=== PATIENT | male | born 1940 | race Caucasian/White ===

== ENCOUNTER 2020-01-08 00:05 | Outpatient (CLI) | payer MEDICARE, SELFPAY ==
[2020-01-08 18:54] LABS: SARS-CoV-2 RNA PCR Negative
== END 2020-01-08 00:06 | disposition home or self-care (01) ==
LOC: ANHCOVIDDT 00:05
PROVIDERS: PCP Internal Medicine; Visit Provider Internal Medicine Gastroenterology
DX: Z01.818 Encounter for other preprocedural examination (principal); Z11.59 Encounter for screening for other viral diseases
CPT/HCPCS: 87635; C9803; U0003

== ENCOUNTER 2020-01-10 02:11 | Day surgery (SDC) | payer MEDICARE, SELFPAY ==
[2020-01-03 15:31] VITALS: BMI 22.1
[2020-01-10 07:55] VITALS: BP 126/72; PULSE 73; RESP 16; TEMP 37; O2SAT 94; BMI 37.3
[2020-01-10] MEDS: LACTATED RINGERS 1,000 ML 150 ML IV CONT (08:09)
--- NOTE | 2020-01-10 08:39 | WPDGICN ---
Assessment and Plan Assessment and plan (1) History of colon polyps: Code(s): Z86.010 - Personal history of colonic polyps Status: Acute Assessment and Plan: Plan is for surveillance colonoscopy because of his history of colon polyps. This report follow separately. GI Consult Note Consult date/time: 01/10/20 08:39 HPI: Vinod Tomas is a 79 year old male seen in evaluation at the request of Dr Darnell. Patient presents for screening colonoscopy. Patient has had a history of colon polyps in the past. Current weight appetite bowel movements are normal. He denies any blood in his stools. He currently is a resident of [facility] and notes occasional bowel irregularity that he attributes to his new diet. He states the had hip surgery 2 years ago now walks with a cane. He denies any blood in his stools. His family history is noncontributory. Review of Systems Review of Systems: All systems reviewed & are unremarkable except as noted in HPI and below PMFSH Family History Family History (System 12/19/19 @ 13:23 by Nan Mcduffie) Mother Acute myocardial infarction Father Family history of primary malignant neoplasm of liver Family history of liver disease Other Family history of alcoholism Social History Social History Smoking status: Never smoker Smoking end date: 07/12/07 Alcohol intake: never Meds Home Medications and Allergies Home Medications Medication Instructions Recorded Confirmed Type hydrochlorothiazide 12.5 mg tablet 12.5 mg PO DAILY #90 tablet 06/14/19 01/03/20 Rx carvedilol 12.5 mg tablet 12.5 mg PO Q12H #180 tablet 09/07/19 01/03/20 Rx metformin 500 mg tablet 500 mg PO BID #180 tablet 11/13/19 01/03/20 Rx clopidogrel 75 mg tablet See Rx Instructions .ROUTE 12/05/19 01/03/20 Rx .COMPLEX #90 unspecified clonazepam 1 mg tablet 1 mg PO TID PRN #90 tablet 12/19/19 01/03/20 Rx aspirin [Aspirin Low Dose] 81 mg PO DAILY 01/03/20 01/03/20 History calcium carb-D3-mag ox-zinc ox 1 tablet PO DAILY 01/03/20 01/03/20 History [Yash Mag Zinc Plus D3] cetirizine [Zyrtec] 5 mg PO DAILY PRN 01/03/20 01/03/20 History diphenhydramine HCl [Benadryl] 25 mg PO HS PRN 01/03/20 01/03/20 History docusate sodium [Stool Softener] 50 mg PO DAILY 01/03/20 01/03/20 History glucosam boyer fik-osajbutgk-G-Mn 1 tablet PO DAILY 01/03/20 01/03/20 History cqpjwdhz-qrs-QC-lycopen-lutein 1 tablet PO DAILY 01/03/20 01/03/20 History [Centrum Silver Men] gjwtx-3k-tdu-epa-fish oil [[place]-3 1 cap PO BID 01/03/20 01/03/20 History Fish Oil] pravastatin 40 mg PO DAILY 01/03/20 01/03/20 History Allergies Allergy/AdvReac Type Severity Reaction Status Date / Time codeine Allergy Unknown Unknown Verified 01/10/20 07:54 morphine Allergy Unknown Unknown Verified 01/10/20 07:54 Vital Signs Vital Signs - 24 hr 01/10/20 07:55 Temperature 37.0 C Pulse Rate 73 Respiratory Rate 16 Blood Pressure 126/72 Pulse Oximetry 94 Exam Narrative: Exam Narrative: Physical exam reveals patient to be alert. Vital signs stable. HEENT exam unremarkable. He is anicteric. Lungs are clear to auscultation and percussion. Heart is without or extra sounds. Abdominal exam bowel sounds present soft nontender with no organomegaly. Digital external rectal exam normal.
--- NOTE | 2020-01-10 09:03 | WPDANESEPPF ---
Anes - Initial Pre Proc Eval Procedure: Operation Date: 01/10/20 09:00 Proposed Procedures p Screening Colonoscopy - James Lee MD Date/Time: 01/10/20 09:03 Surgeon: James Lee MD Pre Op Diagnosis: person hx of colon polyps Patient Data Age: 79 Gender: M Height: 5 ft 10 in Weight: 118 kg Last Vital Signs Temp 98.6 F 01/10/20 07:55 Pulse 73 01/10/20 07:55 Resp 16 01/10/20 07:55 BP 126/72 01/10/20 07:55 Pulse Ox 94 01/10/20 07:55 Allergies Allergy/AdvReac Type Severity Reaction Status Date / Time codeine Allergy Unknown Unknown Verified 01/10/20 07:54 morphine Allergy Unknown Unknown Verified 01/10/20 07:54 Home Medications Medication Instructions Recorded Confirmed Type hydrochlorothiazide 12.5 mg tablet 12.5 mg PO DAILY #90 tablet 06/14/19 01/03/20 Rx carvedilol 12.5 mg tablet 12.5 mg PO Q12H #180 tablet 09/07/19 01/03/20 Rx metformin 500 mg tablet 500 mg PO BID #180 tablet 11/13/19 01/03/20 Rx clopidogrel 75 mg tablet See Rx Instructions .ROUTE 12/05/19 01/03/20 Rx .COMPLEX #90 unspecified clonazepam 1 mg tablet 1 mg PO TID PRN #90 tablet 12/19/19 01/03/20 Rx aspirin [Aspirin Low Dose] 81 mg PO DAILY 01/03/20 01/03/20 History calcium carb-D3-mag ox-zinc ox 1 tablet PO DAILY 01/03/20 01/03/20 History [Yash Mag Zinc Plus D3] cetirizine [Zyrtec] 5 mg PO DAILY PRN 01/03/20 01/03/20 History diphenhydramine HCl [Benadryl] 25 mg PO HS PRN 01/03/20 01/03/20 History docusate sodium [Stool Softener] 50 mg PO DAILY 01/03/20 01/03/20 History glucosam boyer kus-clauphrnr-L-Mn 1 tablet PO DAILY 01/03/20 01/03/20 History lbbxdwnj-fif-JP-lycopen-lutein 1 tablet PO DAILY 01/03/20 01/03/20 History [Colin Figueroa] ciihm-9t-vkt-epa-fish oil [[place]-3 1 cap PO BID 01/03/20 01/03/20 History Fish Oil] pravastatin 40 mg PO DAILY 01/03/20 01/03/20 History Patient hx anesthesia problems: none Family hx anesthesia problems: none [facility] Past Medical History Medical History (Updated 01/10/20 @ 09:03 by Saqib Atkinson MD) Anxiety Diabetes Hyperlipidemia Hypertension Obesity ROBER (obstructive sleep apnea) Pacemaker Peripheral neuropathy Family History Family History (System 12/19/19 @ 13:23 by Nan Mcduffie) Mother Acute myocardial infarction Father Family history of primary malignant neoplasm of liver Family history of liver disease Other Family history of alcoholism Social History Social History Smoking status: Never smoker Smoking end date: 07/12/07 Alcohol intake: never Anes - Eval Final PreProcedure Day of Procedure 01/10/20 09:03 Patient weight: obese Heart: regular rate and rhythm Lungs: clear to auscultation Airway: Mallampati scale class III Neurological: alert and oriented Last oral intake: >/= 8 hours ASA classification: IV Emergent: no Anesthetic plan: proceed Anesthesia type and monitoring: general GIVS and standard monitoring Informed Consent: The patient's anesthetic plan and its attendant risks and benefits were discussed with the patient/family/POA. Questions were solicited and answers provided to the satisfaction of the patient/family/POA.
[2020-01-10] MEDS: SIMETHICONE ORAL SUSPENSION 20 MG/0.3 ML 30 ML BOTTLE 0.6 ML IRRIGATION (09:20)
[2020-01-10 09:27] VITALS: BP 100/62; PULSE 75; RESP 22; O2SAT 92
[2020-01-10 09:37] VITALS: BP 123/75; PULSE 73; RESP 27; O2SAT 94
[2020-01-10 09:47] VITALS: BP 134/49; PULSE 71; RESP 22; O2SAT 96
[2020-01-11 13:30] LABS: Glucose Point of Care 129 (65-105)
== END 2020-01-10 10:14 | disposition home or self-care (01) ==
PROVIDERS: PCP Internal Medicine; Visit Provider Internal Medicine Gastroenterology
PROC: 0DJD8ZZ Inspection of Lower Intestinal Tract, Via Natural or Artificial Opening Endoscopic (ICD-10-PCS; CPT 45378; principal; 2020-01-10 09:00)
DX: Z12.11 Encounter for screening for malignant neoplasm of colon (principal); K64.8 Other hemorrhoids; Z86.010 Personal history of colon polyps; I10 Essential (primary) hypertension; E78.5 Hyperlipidemia, unspecified; E11.40 Type 2 diabetes mellitus with diabetic neuropathy, unspecified; G47.33 Obstructive sleep apnea (adult) (pediatric); Z95.0 Presence of cardiac pacemaker; F41.9 Anxiety disorder, unspecified; Z79.82 Long term (current) use of aspirin; Z79.02 Long term (current) use of antithrombotics/antiplatelets; Z79.84 Long term (current) use of oral hypoglycemic drugs; E66.9 Obesity, unspecified; Z68.37 Body mass index [BMI] 37.0-37.9, adult
CPT/HCPCS: G0105; J2704; J7120

== ENCOUNTER 2020-05-08 09:41 | Outpatient (CLI) | payer MEDICARE, SELFPAY ==
[2020-05-08 10:56] LABS: Basophils Absolute Auto 0.1 K/mm3 (0.0-0.1); Basophils Percent Auto 0.6 % (0.2-1.2); Eosinophils Absolute Auto 0.3 K/mm3 (0-0.3); Hematocrit 47.6 % (42.0-52.0); Hemoglobin 16.1 g/dL (14.0-18.0); Immature Granulocyte Absolute 0.02 K/mm3 (0.00-0.031); Immature Granulocyte Percent A 0.2 % (0-0.5); Lymphocytes Absolute Auto 2.73 K/mm3 (0.9-3.2); Lymphocytes Percent Auto 30.2 % (18.3-44.2); Mean Corpuscular HGB Conc 33.8 g/dl (32-36); Mean Corpuscular Volume 94.6 fl (80-100); Mean Platelet Volume 10.2 fl (7.4-10.4); Monocytes Absolute Auto 0.8 K/mm3 (0.1-0.6); Monocytes Percent Auto 8.6 % (2.6-8.5); Neutrophils Absolute Auto 5.2 K/mm3 (1.3-6.7); Neutrophils Percent Auto 57.4 % (45.5-73.1); Platelet Count Result 203 k/mm3 (150-375); Red Blood Count 5.03 M/mm3 (4.6-6.20); Red Cell Distribution Width 13.5 % (11.5-14.5)
[2020-05-08 11:03] LABS: Hemoglobin A1C 5.8 % (<5.7)
[2020-05-08 11:04] LABS: Alanine Aminotransferase 41 U/L (4-50); Albumin Level 4.2 g/dL (3.5-5.1); Alkaline Phosphatase 61 U/L (38-126); Anion Gap 9 mmol/L (8-16); Aspartate Amino Transferase 44 U/L (17-59); Bilirubin,Total 0.9 mg/dL (0.2-1.3); Blood Urea Nitrogen 22 mg/dL (9-20); Calcium 9.5 mg/dL (8.4-10.2); Carbon Dioxide 29 mmol/L (22-30); Chloride 105 mmol/L (98-107); Cholesterol 147 mg/dL (0-200); Estimated Glomerular Filt Rate > 60; Glucose 131 mg/dL (75-110); HDL Direct 41 mg/dL; Potassium 3.9 mmol/L (3.4-5.0); Sodium 143 mmol/L (137-145); Triglycerides 106 mg/dL (<150)
[2020-05-08 11:15] LABS: LDL Cholesterol Direct 85 mg/dL
[2020-05-11 11:45] LABS: Homocysteine 10.5 umol/L (<11.4)
== END 2020-05-08 09:42 | disposition home or self-care (01) ==
PROVIDERS: PCP Internal Medicine; Visit Provider Internal Medicine
DX: I10 Essential (primary) hypertension (principal); R73.03 Prediabetes; E78.2 Mixed hyperlipidemia; Z79.899 Other long term (current) drug therapy; Z86.010 Personal history of colon polyps
CPT/HCPCS: 36415; 80053; 80061; 83036; 83090; 84443; 85025

== ENCOUNTER 2020-10-01 08:53 | Outpatient (CLI) | payer MEDICARE, SELFPAY ==
[2020-10-01 09:27] LABS: Add Urine Microscopic? YES; Appearance Urine Clear (Clear); Bacteria Urine 4+ /hpf; Bilirubin Urine Negative (Negative); Blood Urine Negative (Negative); Color Urine Yellow (Yellow); Glucose Urine UA Negative (Negative); Ketones Urine Negative (Negative); Leukocyte Esterase Ur Trace LEU/UL (NEGATIVE); Mucus Urine Heavy /lpf; Nitrate Urine Negative (Negative); Protein Urine Negative (Negative); Squamous Epithelial Cell Urine Rare /hpf (Few); Urobilinogen Urine Negative mg/dL (<2.0)
[2020-10-01 09:30] LABS: Hemoglobin A1C 5.9 % (<5.7)
[2020-10-01 09:42] LABS: Potassium 3.9 mmol/L (3.4-5.0)
[2020-10-01 09:43] LABS: Anion Gap 9 mmol/L (8-16); Blood Urea Nitrogen 25 mg/dL (9-20); Calcium 9.8 mg/dL (8.4-10.2); Carbon Dioxide 27 mmol/L (22-30); Chloride 105 mmol/L (98-107); Cholesterol 142 mg/dL (0-200); Estimated Glomerular Filt Rate > 60; Glucose 131 mg/dL (75-110); HDL Direct 47 mg/dL; Sodium 141 mmol/L (137-145); Triglycerides 107 mg/dL (<150)
[2020-10-01 09:44] LABS: LDL Cholesterol Direct 77 mg/dL
[2020-10-01 09:58] LABS: Creatinine Urine 201.8 mg/dL
[2020-10-01 10:04] LABS: MALB Creatinine Ratio 18.7 mg/g (0-30); Microalbumin Urine Random 37.7 mg/L (0-16.7)
== END 2020-10-01 08:54 | disposition home or self-care (01) ==
PROVIDERS: PCP Internal Medicine; Visit Provider Internal Medicine
DX: R73.03 Prediabetes (principal); I10 Essential (primary) hypertension; Z51.81 Encounter for therapeutic drug level monitoring; Z79.899 Other long term (current) drug therapy
CPT/HCPCS: 36415; 80048; 80061; 81001; 82043; 83036; 84443

== ENCOUNTER 2020-10-02 10:57 | Outpatient (CLI) | payer MEDICARE, SELFPAY ==
[2020-10-02 11:31] LABS: Add Urine Microscopic? YES; Appearance Urine Cloudy (Clear); Bacteria Urine 4+ /hpf; Bilirubin Urine Negative (Negative); Blood Urine Negative (Negative); Color Urine Amber (Yellow); Glucose Urine UA Negative (Negative); Ketones Urine Negative (Negative); Leukocyte Esterase Ur 2+ LEU/UL (NEGATIVE); Mucus Urine Heavy /lpf; Nitrate Urine Positive (Negative); Protein Urine 1+ mg/dL (Negative); RBC Urine 0-2 /hpf (0-2); Squamous Epithelial Cell Urine Rare /hpf (Few); Urobilinogen Urine Negative mg/dL (<2.0); WBC Urine 51-75 /hpf (0-3)
== END 2020-10-02 10:58 | disposition home or self-care (01) ==
PROVIDERS: PCP Internal Medicine; Visit Provider Internal Medicine
DX: R31.9 Hematuria, unspecified (principal); R82.90 Unspecified abnormal findings in urine
CPT/HCPCS: 81001; 87077; 87086; 87088; 87186

== ENCOUNTER 2021-02-14 09:06 | Outpatient (CLI) | payer MEDICARE, SELFPAY ==
[2021-02-14 09:29] LABS: Basophils Absolute Auto 0.1 K/mm3 (0.0-0.1); Basophils Percent Auto 0.5 % (0.2-1.2); Eosinophils Absolute Auto 0.3 K/mm3 (0-0.3); Eosinophils Percent Auto 3.1 % (0-4.4); Hematocrit 48.7 % (42.0-52.0); Hemoglobin 16.3 g/dL (14.0-18.0); Immature Granulocyte Absolute 0.04 K/mm3 (0.00-0.031); Immature Granulocyte Percent A 0.4 % (0-0.5); Lymphocytes Absolute Auto 2.84 K/mm3 (0.9-3.2); Mean Corpuscular HGB Conc 33.5 g/dl (32-36); Mean Corpuscular Hemoglobin 31.8 pg (26-34); Mean Corpuscular Volume 94.9 fl (80-100); Mean Platelet Volume 10.2 fl (7.4-10.4); Monocytes Absolute Auto 0.9 K/mm3 (0.1-0.6); Monocytes Percent Auto 8.7 % (2.6-8.5); Neutrophils Absolute Auto 6.4 K/mm3 (1.3-6.7); Neutrophils Percent Auto 60.3 % (45.5-73.1); Platelet Count Result 209 k/mm3 (150-375); Red Blood Count 5.13 M/mm3 (4.6-6.20); Red Cell Distribution Width 13.3 % (11.5-14.5); White Blood Count 10.5 K/mm3 (4.5-10.0)
[2021-02-14 09:39] LABS: Anion Gap 8 mmol/L (8-16); Blood Urea Nitrogen 23 mg/dL (9-20); Calcium 9.9 mg/dL (8.4-10.2); Carbon Dioxide 27 mmol/L (22-30); Chloride 105 mmol/L (98-107); Cholesterol 144 mg/dL (0-200); Estimated Glomerular Filt Rate > 60; Glucose 126 mg/dL (65-110); HDL Direct 49 mg/dL; Sodium 140 mmol/L (137-145); Triglycerides 123 mg/dL (<150)
[2021-02-14 09:49] LABS: LDL Cholesterol Direct 66 mg/dL
[2021-02-14 09:51] LABS: Hemoglobin A1C 6.2 % (<5.7)
[2021-02-14 09:54] LABS: Free T4 Free Thyroxine 1.13 ng/mL (0.78-2.19)
[2021-02-14 10:09] LABS: Thyroid Stimulating Hormone 0.897 uIU/mL (0.465-4.680)
[2021-02-18 08:19] LABS: Vitamin D 1,25 (OH)2 Total 35 pg/mL (18-72); Vitamin D2 1,25 (OH)2 <8 pg/mL; Vitamin D3 1,25 (OH)2 35 pg/mL
== END 2021-02-14 09:07 | disposition home or self-care (01) ==
LOC: ANHLAB 09:09
PROVIDERS: PCP Internal Medicine; Visit Provider Internal Medicine
DX: E78.5 Hyperlipidemia, unspecified (principal); Z51.81 Encounter for therapeutic drug level monitoring; Z79.899 Other long term (current) drug therapy; R73.03 Prediabetes; I10 Essential (primary) hypertension; E55.9 Vitamin D deficiency, unspecified
CPT/HCPCS: 36415; 80048; 80061; 82652; 83036; 84439; 84443; 85025

== ENCOUNTER 2021-05-07 12:02 | Emergency (ER) | payer MEDICARE, SELFPAY ==
[2021-05-07 12:18] VITALS: BP 149/86; PULSE 86; RESP 17; TEMP 36.1; O2SAT 95
--- NOTE | 2021-05-07 12:40 | ED.GENADULT ---
HPI - General Adult General Chief complaint: Skin/Abscess/Foreign Body Stated complaint: abscess Time Seen by Provider: 05/07/21 12:39 Source: patient Mode of arrival: wheelchair Limitations: no limitations History of Present Illness HPI narrative: Patient was sent from primary care physician office for I&D of an abscess believed to be caused by his most recent Covid vaccine. Onset (ago): day(s) (10) Exacerbating factors: none Associated symptoms: denies other symptoms Related Data Home Medications Medication Instructions Recorded Confirmed aspirin [Aspirin Low Dose] 81 mg PO DAILY 01/03/20 02/26/21 calcium carb-D3-mag ox-zinc ox 1 tablet PO DAILY 01/03/20 02/26/21 [Yash Mag Zinc Plus D3] glucosam boyer hcj-nsulwqrqt-N-Mn 1 tablet PO DAILY 01/03/20 02/26/21 lmpcyhgs-bub-LH-lycopen-lutein 1 tablet PO DAILY 01/03/20 02/26/21 [Centrum Silver Men] inlym-2l-esc-epa-fish oil [[place]-3 1 cap PO BID 01/03/20 02/26/21 Fish Oil] cetirizine 10 mg tablet 5 mg PO BID PRN tablet 06/14/20 02/26/21 docusate sodium 50 mg capsule 50 mg PO DAILY PRN 02/26/21 02/26/21 carvedilol 05/07/21 clonazepam 05/07/21 clonazepam 05/07/21 clopidogrel 05/07/21 doxycycline hyclate 05/07/21 hydrochlorothiazide 05/07/21 metformin mg 05/07/21 pravastatin 05/07/21 Allergies Allergy/AdvReac Type Severity Reaction Status Date / Time codeine Allergy Unknown Unknown Verified 05/07/21 13:06 morphine Allergy Unknown Unknown Verified 05/07/21 13:06 Review of Systems Review of Systems: All systems reviewed & are unremarkable except as noted in HPI and below PMFSH Past Medical History Medical History Anxiety Anxiety ASHD (arteriosclerotic heart disease) BMI 38.0-38.9,adult Cardiac pacemaker in situ Diabetes Encounter for long-term current use of medication Encounter for Medicare annual wellness exam Encounter for routine adult health examination without abnormal findings Essential (primary) hypertension Hearing loss History of DVT (deep vein thrombosis) History of frequent urinary tract infections History of prostate cancer Hyperlipidemia Hypertension Microalbuminuria Mixed hyperlipidemia Obesity 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 ROBER (obstructive sleep apnea) Pacemaker Peripheral neuropathy Prediabetes Skin cancer Urinary incontinence, male, stress UTI (urinary tract infection) Family History Family History Mother Acute myocardial infarction Father Family history of primary malignant neoplasm of liver Family history of liver disease Other Family history of alcoholism Social History Social History Smoking status: Former smoker Smoking end date: 05/12/76 Alcohol intake: never Exam Const: General: no acute distress and alert Orientation/consciousness: patient oriented x3 Resp: Effort & Inspection: normal respiratory effort Cardio: Rate: regular rate Skin: General skin exam: erythema (surrounding abscess, ~ 8 cm around) Lesions: lesion noted (large abscess left deltoid, scabbed at base from spont opening) Wounds: wounds noted Neuro: General: patient oriented x3 and moves all extremities Psych: Mental Status: mental status grossly normal Course Vital Signs Vital signs: Vital Signs Temperature 36.1 C L 05/07/21 12:18 Pulse Rate 86 05/07/21 12:18 Respiratory Rate 17 05/07/21 12:18 Blood Pressure 149/86 H 05/07/21 12:18 Pulse Oximetry 95 05/07/21 12:18 Temperature 36.1 C L 05/07/21 12:18 Pulse Rate 86 05/07/21 12:18 Respiratory Rate 17 05/07/21 12:18 Blood Pressure 149/86 H 05/07/21 12:18 Pulse Oximetry 95 05/07/21 12:18 Procedures Abscess I/D upper extremity: Date of Incision: 05/07/21 Time of Incision: 13:34 Side (if applicable): left Sedation/analgesia: none Local
== END 2021-05-07 14:28 | disposition home or self-care (01) ==
PROVIDERS: Emergency Provider Emergency Medicine; PCP Internal Medicine
DX: L03.114 Cellulitis of left upper limb (principal); F41.9 Anxiety disorder, unspecified; I25.10 Atherosclerotic heart disease of native coronary artery without angina pectoris; Z95.0 Presence of cardiac pacemaker; Z87.440 Personal history of urinary (tract) infections; I10 Essential (primary) hypertension; E78.5 Hyperlipidemia, unspecified
CPT/HCPCS: 10061; 99282

== ENCOUNTER 2021-06-20 09:50 | Outpatient (CLI) | payer MEDICARE, SELFPAY ==
[2021-06-20 11:03] LABS: Alanine Aminotransferase 41 U/L (4-50); Albumin Level 4.5 g/dL (3.5-5.1); Alkaline Phosphatase 65 U/L (38-126); Anion Gap 11 mmol/L (8-16); Aspartate Amino Transferase 39 U/L (17-59); Bilirubin,Total 0.9 mg/dL (0.2-1.3); Blood Urea Nitrogen 20 mg/dL (9-20); Calcium 9.8 mg/dL (8.4-10.2); Carbon Dioxide 24 mmol/L (22-30); Chloride 99 mmol/L (98-107); Cholesterol 160 mg/dL (0-200); Estimated Glomerular Filt Rate > 60; Glucose 121 mg/dL (65-110); HDL Direct 44 mg/dL; Potassium 3.8 mmol/L (3.4-5.0); Sodium 134 mmol/L (137-145); Triglycerides 147 mg/dL (<150)
[2021-06-20 11:07] LABS: Hemoglobin A1C 5.8 % (<5.7)
[2021-06-20 11:14] LABS: LDL Cholesterol Direct 93 mg/dL
[2021-06-20 11:23] LABS: Vitamin D 25 Hydroxy 42.8 ng/mL
== END 2021-06-20 09:51 | disposition home or self-care (01) ==
LOC: ANHLAB 09:55
PROVIDERS: PCP Internal Medicine; Visit Provider Internal Medicine
DX: R73.03 Prediabetes (principal); E55.9 Vitamin D deficiency, unspecified; I10 Essential (primary) hypertension; E78.5 Hyperlipidemia, unspecified
CPT/HCPCS: 36415; 80053; 80061; 82306; 83036

== ENCOUNTER 2021-11-07 08:45 | Outpatient (CLI) | payer MEDICARE, SELFPAY ==
[2021-11-07 09:06] LABS: Basophils Absolute Auto 0.1 K/mm3 (0.0-0.1); Basophils Percent Auto 0.6 % (0.2-1.2); Eosinophils Absolute Auto 0.3 K/mm3 (0-0.3); Eosinophils Percent Auto 3.1 % (0-4.4); Hematocrit 49.1 % (42.0-52.0); Immature Granulocyte Absolute 0.04 K/mm3 (0.00-0.031); Immature Granulocyte Percent A 0.4 % (0-0.5); Lymphocytes Absolute Auto 3.49 K/mm3 (0.9-3.2); Lymphocytes Percent Auto 32.3 % (18.3-44.2); Mean Corpuscular HGB Conc 32.6 g/dl (32-36); Mean Corpuscular Hemoglobin 31.9 pg (26-34); Mean Corpuscular Volume 97.8 fl (80-100); Mean Platelet Volume 10.4 fl (7.4-10.4); Monocytes Absolute Auto 0.9 K/mm3 (0.1-0.6); Monocytes Percent Auto 8.6 % (2.6-8.5); Neutrophils Absolute Auto 5.9 K/mm3 (1.3-6.7); Platelet Count Result 192 k/mm3 (150-375); Red Blood Count 5.02 M/mm3 (4.6-6.20); Red Cell Distribution Width 14.1 % (11.5-14.5); White Blood Count 10.8 K/mm3 (4.5-10.0)
[2021-11-07 09:19] LABS: Alanine Aminotransferase 30 U/L (4-50); Albumin Level 4.1 g/dL (3.5-5.1); Alkaline Phosphatase 60 U/L (38-126); Anion Gap 8 mmol/L (8-16); Aspartate Amino Transferase 30 U/L (17-59); Bilirubin,Total 0.8 mg/dL (0.2-1.3); Blood Urea Nitrogen 24 mg/dL (9-20); Calcium 9.2 mg/dL (8.4-10.2); Carbon Dioxide 25 mmol/L (22-30); Chloride 106 mmol/L (98-107); Cholesterol 148 mg/dL (0-200); Estimated Glomerular Filt Rate > 60; Glucose 120 mg/dL (65-110); HDL Direct 43 mg/dL; Sodium 139 mmol/L (137-145); Triglycerides 110 mg/dL (<150)
[2021-11-07 09:30] LABS: LDL Cholesterol Direct 70 mg/dL
[2021-11-07 09:44] LABS: Hemoglobin A1C 5.7 % (<5.7)
[2021-11-07 09:49] LABS: Thyroid Stimulating Hormone 0.963 uIU/mL (0.465-4.680)
[2021-11-07 10:19] LABS: Free T4 Free Thyroxine 1.12 ng/mL (0.78-2.19); Vitamin D 25 Hydroxy 57.2 ng/mL
== END 2021-11-07 08:46 | disposition home or self-care (01) ==
LOC: ANHLAB 08:49
PROVIDERS: PCP Internal Medicine; Visit Provider Internal Medicine
DX: E78.2 Mixed hyperlipidemia (principal); Z13.29 Encounter for screening for other suspected endocrine disorder; Z79.899 Other long term (current) drug therapy; E55.9 Vitamin D deficiency, unspecified; R73.03 Prediabetes; I10 Essential (primary) hypertension
CPT/HCPCS: 36415; 80053; 80061; 82306; 83036; 84439; 84443; 85025

== ENCOUNTER → 2021-11-15 00:14 | Outpatient (CLI) | payer MEDICARE, SELFPAY ==
[2021-11-15 11:51] LABS: SARS-CoV-2 RNA PCR Positive
== END ==
PROVIDERS: PCP Internal Medicine; Visit Provider Internal Medicine
DX: U07.1 COVID-19 (principal)
CPT/HCPCS: C9803; U0003; U0005

== ENCOUNTER 2022-04-01 08:46 | Outpatient (CLI) | payer MEDICARE, SELFPAY ==
[2022-04-01 09:07] LABS: Basophils Percent Auto 0.4 % (0.2-1.2); Eosinophils Absolute Auto 0.3 K/mm3 (0-0.3); Eosinophils Percent Auto 2.3 % (0-4.4); Hematocrit 49.1 % (42.0-52.0); Hemoglobin 16.6 g/dL (14.0-18.0); Immature Granulocyte Absolute 0.04 K/mm3 (0.00-0.031); Immature Granulocyte Percent A 0.4 % (0-0.5); Lymphocytes Absolute Auto 3.16 K/mm3 (0.9-3.2); Lymphocytes Percent Auto 28.1 % (18.3-44.2); Mean Corpuscular HGB Conc 33.8 g/dl (32-36); Mean Corpuscular Hemoglobin 32.4 pg (26-34); Mean Corpuscular Volume 95.7 fl (80-100); Mean Platelet Volume 10.2 fl (7.4-10.4); Monocytes Absolute Auto 0.9 K/mm3 (0.1-0.6); Monocytes Percent Auto 7.9 % (2.6-8.5); Neutrophils Absolute Auto 6.9 K/mm3 (1.3-6.7); Neutrophils Percent Auto 60.9 % (45.5-73.1); Platelet Count Result 202 k/mm3 (150-375); Red Blood Count 5.13 M/mm3 (4.6-6.20); Red Cell Distribution Width 13.3 % (11.5-14.5); White Blood Count 11.2 K/mm3 (4.5-10.0)
[2022-04-01 09:18] LABS: Alanine Aminotransferase 35 U/L (6-50); Albumin Level 4.3 g/dL (3.5-5.1); Alkaline Phosphatase 71 U/L (38-126); Anion Gap 10 mmol/L (8-16); Aspartate Amino Transferase 32 U/L (17-59); Blood Urea Nitrogen 19 mg/dL (9-20); Carbon Dioxide 26 mmol/L (22-30); Chloride 103 mmol/L (98-107); Cholesterol 135 mg/dL (0-200); Estimated Glomerular Filt Rate > 60; Glucose 127 mg/dL (65-110); HDL Direct 51 mg/dL; Potassium 4.1 mmol/L (3.4-5.0); Sodium 139 mmol/L (137-145); Triglycerides 122 mg/dL (<150)
[2022-04-01 09:29] LABS: LDL Cholesterol Direct 65 mg/dL
[2022-04-01 09:48] LABS: Thyroid Stimulating Hormone 0.926 uIU/mL (0.465-4.680)
[2022-04-01 10:04] LABS: Free T4 Free Thyroxine 1.25 ng/mL (0.78-2.19); Vitamin D 25 Hydroxy 47.7 ng/mL
== END 2022-04-01 08:47 | disposition home or self-care (01) ==
LOC: ANHLAB 08:50
PROVIDERS: PCP Internal Medicine; Visit Provider Internal Medicine
DX: I10 Essential (primary) hypertension (principal); Z13.29 Encounter for screening for other suspected endocrine disorder; Z79.899 Other long term (current) drug therapy; R73.03 Prediabetes; E55.9 Vitamin D deficiency, unspecified; E78.5 Hyperlipidemia, unspecified
CPT/HCPCS: 36415; 80053; 80061; 82306; 83036; 84439; 84443; 85025

== ENCOUNTER 2022-08-26 09:40 | Outpatient (CLI) | payer MEDICARE, SELFPAY ==
[2022-08-26 11:44] LABS: Folic Acid 14.5 ng/mL (2.76->20)
[2022-08-31 13:25] LABS: Vitamin B6 14.1 ng/mL (2.1-21.7)
== END 2022-08-26 09:41 | disposition home or self-care (01) ==
LOC: ANHLAB 09:43
PROVIDERS: PCP Internal Medicine; Visit Provider Internal Medicine
DX: R41.89 Other symptoms and signs involving cognitive functions and awareness (principal)
CPT/HCPCS: 36415; 82607; 82746; 84207; 84252

== ENCOUNTER 2022-08-29 10:03 | Outpatient (CLI) | payer MEDICARE, SELFPAY ==
--- NOTE | ~2022-08-29 | CT_ITS ---
EXAMINATION: CT brain wo con DATE: 08/29/2022 11:27 INDICATION: Cognitive changes. TECHNIQUE: Computed tomography (CT) of the head was performed without intravenous contrast. The dose- length product was 605.33 mGy-cm. Automated exposure control and iterative reconstruction technique w ere employed. COMPARISON: CT dated 04/21/2018 FINDINGS: Mild generalized atrophy. There are scattered mild periventricular and subcortical white ma tter changes, most likely related to small vessel ischemic disease (microangiopathy). No ventriculome carmelina or midline shift. Basilar cisterns are patent. No acute intracranial hemorrhage, infarction, mas s or mass effect. There is intracranial atherosclerosis. There is mucosal thickening of the maxillary sinuses with air-fluid level on the right, consistent with sinusitis. Mastoids are pneumatized. No d epressed skull fractures. IMPRESSION: 1. No acute intracranial abnormality. 2: Moderate maxillary sinus disease, possibly acute. 3: Chronic age-related findings. Reviewed, dictated and finalized at location A. 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
== END 2022-08-29 10:04 | disposition home or self-care (01) ==
PROVIDERS: PCP Internal Medicine; Visit Provider Internal Medicine
DX: R41.89 Other symptoms and signs involving cognitive functions and awareness (principal); J32.0 Chronic maxillary sinusitis
CPT/HCPCS: 70450

== ENCOUNTER 2022-09-08 09:10 | Outpatient (CLI) | payer MEDICARE, SELFPAY ==
[2022-09-08 10:20] LABS: Alanine Aminotransferase 28 U/L (6-50); Albumin Level 4.3 g/dL (3.5-5.1); Alkaline Phosphatase 61 U/L (38-126); Anion Gap 6 mmol/L (8-16); Aspartate Amino Transferase 29 U/L (17-59); Bilirubin,Total 0.8 mg/dL (0.2-1.3); Blood Urea Nitrogen 22 mg/dL (9-20); Calcium 9.7 mg/dL (8.4-10.2); Carbon Dioxide 29 mmol/L (22-30); Chloride 106 mmol/L (98-107); Cholesterol 133 mg/dL (0-200); Estimated Glomerular Filt Rate > 60; Glucose 121 mg/dL (65-110); HDL Direct 49 mg/dL; Potassium 4.2 mmol/L (3.4-5.0); Sodium 141 mmol/L (137-145); Triglycerides 82 mg/dL (<150)
[2022-09-08 10:21] LABS: Appearance Urine Clear (Clear); Bilirubin Urine Negative (Negative); Blood Urine Negative (Negative); Color Urine Yellow (Yellow); Glucose Urine UA Negative (Negative); Ketones Urine Negative (Negative); Leukocyte Esterase Ur Negative LEU/UL (Negative); Nitrate Urine Negative (Negative); Protein Urine Negative (Negative); Urobilinogen Urine 0.2 mg/dL (<2.0)
[2022-09-08 10:25] LABS: Add Urine Microscopic? NO
[2022-09-08 10:31] LABS: LDL Cholesterol Direct 63 mg/dL
[2022-09-08 10:50] LABS: Thyroid Stimulating Hormone 0.593 uIU/mL (0.465-4.680)
[2022-09-08 11:13] LABS: Free T4 Free Thyroxine 1.13 ng/mL (0.78-2.19); Vitamin D 25 Hydroxy 48.1 ng/mL
[2022-09-08 11:26] LABS: Hemoglobin A1C 5.7 % (<5.7)
== END 2022-09-08 09:11 | disposition home or self-care (01) ==
PROVIDERS: PCP Internal Medicine; Visit Provider Internal Medicine
DX: R73.03 Prediabetes (principal); I10 Essential (primary) hypertension; Z13.29 Encounter for screening for other suspected endocrine disorder; Z79.899 Other long term (current) drug therapy; E78.2 Mixed hyperlipidemia; E55.9 Vitamin D deficiency, unspecified
CPT/HCPCS: 36415; 80053; 80061; 81003; 82306; 83036; 84439; 84443

== ENCOUNTER 2023-02-20 23:34 | Inpatient (IN) | payer MEDICARE, SELFPAY ==
--- NOTE | ~2023-02-20 | XR_ITS ---
EXAMINATION: XR chest 1V portable INDICATION: Weakness and nausea TECHNIQUE: Portable AP chest at 1212 hours COMPARISON: 04/21/2018 FINDINGS: There is a mild diffuse interstitial pattern. Cardiomegaly is noted. No pleural effusion or pneumothorax. A dual-lead cardiac pacemaker of the left chest wall ends with leads in expected locat ions. One of the two pacemaker leads appears to be partially fractured at its proximal aspect near th e subclavian vein. IMPRESSION: 1. Cardiomegaly with mild pulmonary edema. 2. Possible partial fracture of one of the pacemaker leads. Reviewed, dictated and finalized at location A.
--- NOTE | ~2023-02-20 | XR_ITS ---
EXAMINATION: XR knee RT 3V DATE: 02/21/2023 01:51 INDICATION: Right knee pain TECHNIQUE: Three views of the right knee were obtained. COMPARISON: None. FINDINGS: Alignment is normal. No fracture or osteochondral lesion. There is mild tricompartmental os teoarthritis characterized by tiny marginal osteophytes. No joint effusion/synovitis. Soft tissues a re unremarkable. IMPRESSION: 1. No acute osseous abnormality. Reviewed, dictated and finalized at location A.
--- NOTE | ~2023-02-20 | XR_ITS ---
EXAMINATION: XR hip RT 2V w AP pelvis INDICATION: Right hip pain TECHNIQUE: AP view the pelvis and two views of the right hip are obtained. COMPARISON: 11/30/2018 FINDINGS: Changes of total right hip arthroplasty are noted. Bone alignment is normal. There is no fr acture. 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 Surgical clips are noted in the pelvis. IMPRESSION: 1. No acute osseous abnormality. Reviewed, dictated and finalized at location A.
--- NOTE | ~2023-02-20 | CT_ITS ---
EXAMINATION: CT brain wo con INDICATION: Dizziness and weakness COMPARISON: 08/29/2022 TECHNIQUE: Standard unenhanced head CT. The dose-length product (DLP) was 681.00 mGy-cm. The mA was a djusted according to patient size. Iterative reconstruction technique was employed. FINDINGS: Motion artifact slightly limits the examination. There is no acute intraparenchymal hemorrh age. No evidence of mass lesion. No evidence of acute infarction. There is mild periventricular and s ubcortical hypodensity probably related to small vessel ischemic disease. There is mild prominence of the sulci and ventricles related to cerebral atrophy. Intracranial calcified cerebral atherosclerosi s is noted. There are no extra-axial collections. There is no mass effect or midline shift. The orbit s and soft tissues are unremarkable. There is a polyp or mucous retention cyst of the left maxillary sinus. IMPRESSION: 1. No acute intracranial abnormality. 2. Age related findings. Reviewed, dictated and finalized at location A.
--- NOTE | ~2023-02-20 | CT_ITS ---
EXAMINATION: CTA brain carotid DATE: 02/21/2023 13:30 INDICATION: Slurred speech. Syncope. Dizziness. TECHNIQUE: Computed tomographic angiography (CTA) of the head was performed with 100 mL Omnipaque-350 intravenous contrast. CTA of the neck was performed with intravenous contrast. Automated exposure co ntrol and iterative reconstruction technique were employed. The dose-length product was 1705.86 mGy-c m. Maximum intensity projection and volume rendered 3D-reconstructions were created by the technologi st on a separate workstation. COMPARISON: Head CT 02/21/2023 FINDINGS: HEAD CTA: There are scattered areas of low attenuation in the cerebral white matter. There is no intr acranial hemorrhage, acute infarction, or abnormal intracranial mass lesion. The ventricles are li l in size. There are likely changes of ocular lens replacement surgeries. There is mucosal thickening in the paranasal sinuses. The mastoid air cells are normal. Left vertebral artery is dominant. There is no significant stenosis of basilar artery or the posterior cerebral arteries. Right posterior com municating artery is normal. A left posterior communicating artery is not identified. There is no sig nificant stenosis of the intracranial internal carotid arteries or anterior or middle cerebral arteri es. Anterior communicating artery is normal. There is no aneurysm. NECK CTA: There are nodules in the thyroid measuring up to 7 mm, likely not clinically significant. T here are no pathologically enlarged lymph nodes. There is no significant stenosis of the vertebral ar teries. There is plaque in the proximal internal carotid arteries. There is 0% stenosis of the proxim al right internal carotid artery relative to normal distal artery lumen diameter (NASCET criteria). T here is 0% stenosis of the proximal left internal carotid artery relative to normal distal artery lum en diameter. There is severe cervical spondylosis. IMPRESSION: 1. Mild nonspecific cerebral white matter disease, which likely represents chronic small vessel ische comfort disease. 2. No aneurysm or significant intracranial calcinosis. 3. 0% stenosis of the proximal internal carotid arteries relative to normal distal artery lumen diame ters (NASCET criteria). Reviewed, dictated and finalized at location E. IMPRESSION: 1. 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 2. No aneurysm or significant intracranial calcinosis. 3. 0% stenosis of the proximal internal carotid arteries relative to normal dis francesco artery lumen diameters (NASCET criteria).
--- NOTE | ~2023-02-20 | US_ITS ---
EXAMINATION: US venous doppler [facility] DATE: 02/21/2023 13:03 INDICATION: Bilateral lower limb swelling TECHNIQUE: Reyes scale images without and with compression and Doppler images of the bilateral lower e xtremity veins were obtained. COMPARISON: 03/23/2016 FINDINGS: The right common femoral vein, profunda femoral vein, femoral vein, popliteal vein, peroneal trunk, p osterior tibial veins, and greater saphenous vein are patent. The left common femoral vein, profunda femoral vein, femoral vein, popliteal vein, peroneal trunk, po sterior tibial veins, and greater saphenous vein are patent. IMPRESSION: 1. Patent bilateral lower extremity veins. No evidence of deep venous thrombosis. Reviewed, dictated and finalized at location A. IMPRESSION: 1. Patent bilateral lower extremity veins. No evidence of deep venous thrombosi s.
[2023-02-20 23:34] VITALS: BP 154/85; PULSE 71; RESP 26; TEMP 36.1; O2SAT 93
--- NOTE | 2023-02-20 23:49 | ECG_ITS ---
Measurements Intervals [place] Rate: 69 P: 72 OR: 179 QRS: -74 QRSD: 190 T: 71 QT: 460 QTc: 496 Interpretive Statements ELECTRONIC ATRIAL PACEMAKER ELECTRONIC VENTRICULAR PACEMAKER ATYPICAL ECG NO PREVIOUS ECG AVAILABLE FOR COMPARISON Electronically Signed On 02-21-2023 10:05:25 CDT by Mc Franklin M.D.
[2023-02-20 23:50] VITALS: PULSE 72
[2023-02-21] VITALS (13 sets, daily range): BP systolic 126–143; BP diastolic 68–82; PULSE 70–88; RESP 18–20; TEMP 35.8–36.8; O2SAT 88–98; BMI 37.2
[2023-02-21 00:20] LABS: Basophils Percent Auto 0.4 % (0.2-1.2); Eosinophils Absolute Auto 0.3 K/mm3 (0-0.3); Eosinophils Percent Auto 3.2 % (0-4.4); Hematocrit 43.7 % (42.0-52.0); Hemoglobin 14.1 g/dL (14.0-18.0); Immature Granulocyte Absolute 0.03 K/mm3 (0.00-0.031); Immature Granulocyte Percent A 0.3 % (0-0.5); Lymphocytes Absolute Auto 2.62 K/mm3 (0.9-3.2); Lymphocytes Percent Auto 27.7 % (18.3-44.2); Mean Corpuscular HGB Conc 32.3 g/dl (32-36); Mean Corpuscular Hemoglobin 31.3 pg (26-34); Mean Corpuscular Volume 97.1 fl (80-100); Mean Platelet Volume 11.1 fl (7.4-10.4); Monocytes Absolute Auto 0.8 K/mm3 (0.1-0.6); Monocytes Percent Auto 8.4 % (2.6-8.5); Neutrophils Absolute Auto 5.7 K/mm3 (1.3-6.7); Platelet Count Result 192 k/mm3 (150-375); Red Cell Distribution Width 13.7 % (11.5-14.5); White Blood Count 9.5 K/mm3 (4.5-10.0)
--- NOTE | 2023-02-21 00:22 | ED.GENADULT ---
HPI - General Adult General Chief complaint: Weakness Stated complaint: dizziness, nausea, weakness History of Present Illness HPI narrative: This is an 82-year-old male presenting ED with chief complaint of syncope. Patient says he has been feeling fatigued for about 1 week. This evening when he was going to bed he noticed that he started to feel dizzy. He believes that he had a event where he lost conscious for 2-3 seconds. When he woke up he was nauseous and had 1 episode of vomiting. The patient denies headache, fever, chills, chest pain, difficulty breathing, abdominal pain for urinary difficulty he. His only complaint at this time is feeling weak. Related Data Home Medications Medication Instructions Recorded Confirmed aspirin 81 mg tablet,delayed 81 mg PO DAILY 01/03/20 02/20/23 release (Arvin Low Dose Aspirin) calcium carb 333 mg-vit D3 133 1 tablet PO DAILY 01/03/20 02/20/23 unit-mag ox 133 mg-zinc oxide 5 mg tab (Yash Mag Zinc Plus D3) glucosamine boyer dipot-chond boyer 1 tablet PO DAILY 01/03/20 02/04/23 sod-C-Mn 750 mg-600 mg-99 mg-5 mg tablet lhsjrxaj-mi-iggcs 300 mcg-K 60 1 tablet PO DAILY 01/03/20 02/04/23 mcg-lycop 600 mcg-lutein 300 mcg tablet (Centrum Silver Men) omega-3s 300 dd-upl-xly-other 1 cap PO BID 01/03/20 02/20/23 usijh2a-xkhp oil 1,000 mg capsule ([place]-3 Fish Oil) docusate sodium 50 mg capsule 50 mg PO DAILY PRN Constipation 02/26/21 02/04/23 (Stool Softener) magnesium hydroxide 400 mg/5 mL 5 ml PO DAILY PRN Constipation 06/27/21 02/20/23 oral suspension (Milk of Magnesia) Lactobacillus acidophilus and cap PO 01/14/23 02/04/23 rhamnosus 15 billion cell capsule (Probiotic) acetaminophen 325 mg tablet 325 mg PO Q4H PRN Pain, Mild 01/14/23 02/20/23 acetaminophen 500 mg tablet 1,000 mg PO Q6H PRN Pain, Mild 01/14/23 02/20/23 cetirizine 10 mg tablet 10 mg PO DAILY PRN Allergy Symptoms 01/14/23 02/20/23 Lactobacillus rhamnosus GG 15 1 cap PO DAILY 02/04/23 02/04/23 billion cell sprinkle capsule (Culturelle) diphenhydramine HCl 25 mg tablet 25 mg PO TID PRN Itching 02/04/23 02/20/23 (Banophen) Allergies Allergy/AdvReac Type Severity Reaction Status Date / Time codeine Allergy Unknown Unknown Verified 02/20/23 23:52 morphine Allergy Unknown Unknown Verified 02/20/23 23:52 [facility] Past Medical History Medical History Anxiety Anxiety ASHD (arteriosclerotic heart disease) Back pain Balanitis BMI 37.0-37.9, adult BMI 38.0-38.9,adult Cardiac pacemaker in situ Cognitive dysfunction Constipation Diabetes Encounter for long-term current use of medication Encounter for Medicare annual wellness exam Encounter for routine adult health examination with abnormal findings Encounter for routine adult health examination without abnormal findings Essential (primary) hypertension Follow up Hearing loss History of DVT (deep vein thrombosis) History of frequent urinary tract infections History of prostate cancer Hyperlipidemia Impaired functional mobility, balance, gait, and endurance Insomnia Microalbuminuria Mixed hyperlipidemia Nocturia Obesity On retirement drug therapy ROBER (obstructive sleep apnea) ROBER on CPAP Pacemaker Peripheral neuropathy Prediabetes Scrotal bleeding Skin cancer Urinary incontinence, male, stress UTI (urinary tract infection) Vitamin D deficiency Surgical History Surgical History History of cardiac cath History of cholecystectomy History of colonoscopy History of prostatectomy History of surgical removal of skin lesion History of total right hip replacement S/P placement of cardiac pacemaker Family History Family History Mother Acute myocardial infarction Father Family history of primary malignant neoplasm of liver Family history of liver disease Other Family histor
[2023-02-21 00:33] LABS: Alanine Aminotransferase 22 U/L (6-50); Albumin Level 4.2 g/dL (3.5-5.1); Alkaline Phosphatase 61 U/L (38-126); Anion Gap 8 mmol/L (8-16); Aspartate Amino Transferase 29 U/L (17-59); Bilirubin,Total 0.7 mg/dL (0.2-1.3); Blood Urea Nitrogen 25 mg/dL (9-20); Calcium 9.2 mg/dL (8.4-10.2); Carbon Dioxide 27 mmol/L (22-30); Chloride 102 mmol/L (98-107); Estimated CRCL calculation 90 ml/min; Estimated Glomerular Filt Rate > 60; Glucose 155 mg/dL (65-110); Lactic Acid Reflex 1.6 mmol/L (0.7-2.0); Lipase 137 U/L (23-300); Magnesium 2.2 mg/dL (1.6-2.3); Phosphorus 3.5 mg/dL (2.5-4.5); Prothrombin Time 13.9 Seconds (11.1-14.7); Sodium 137 mmol/L (137-145)
[2023-02-21 00:34] LABS: Partial Thromboplastin Time 29.5 SECONDS (22.3-36.8)
[2023-02-21 00:37] LABS: Glucose Point of Care 168 mg/dl (65-105)
[2023-02-21 00:41] LABS: NT Pro B Type Natriuretic Pept 735 pg/mL (19.9-100)
[2023-02-21 00:44] LABS: Troponin I < 0.012 ng/mL (0.000-0.034)
[2023-02-21 01:25] LABS: Influenza A QL RT-PCR Negative (Negative); Influenza B QL RT-PCR Negative (Negative); RSV RNA, RT-PCR Negative (Negative); SARS-CoV-2 RNA PCR Negative (Negative)
[2023-02-21] MEDS: HYDROcodone/acetaminophen (*CRX) 5-325 MG TABLET 1 TAB PO (01:25)
[2023-02-21 02:15] LABS: Appearance Urine Clear (Clear); Bilirubin Urine Negative (Negative); Blood Urine Negative (Negative); Color Urine Yellow (Yellow); Glucose Urine UA Negative (Negative); Ketones Urine Negative (Negative); Leukocyte Esterase Ur Negative LEU/UL (Negative); Nitrate Urine Negative (Negative); Protein Urine Negative (Negative); Specific Grav Ur 1.028 (1.001-1.035)
[2023-02-21 02:18] LABS: D Dimer 0.67 ug/mL (<0.48)
[2023-02-21 02:46] LABS: Add Urine Microscopic? NO
--- NOTE | 2023-02-21 02:52 | PC.NURSE ---
Pt's daughter Shanel's number, .
[2023-02-21] MEDS: SODIUM CHLORIDE 0.9% IV 1,000 ML 999 ML IV CONT (03:09)
[2023-02-21] MEDS: AZITHROMYCIN 500 MG/NS 250 ML 500 MG/250 ML BAG 250 MG IVPB (03:55)
[2023-02-21 03:56] LABS: Troponin I < 0.012 ng/mL (0.000-0.034)
--- NOTE | 2023-02-21 04:45 | PM.IMHP ---
H&P: HPI History of Present Illness Date/Time: 02/21/23 04:45 Chief Complaint: generalized weakness Narrative: 82-year-old male with past medical history significant for type 2 diabetes mellitus, hypertension, congestive heart failure, dementia, obstructive sleep apnea on CPAP, peripheral neuropathy, pacemaker. patient is custodial resident and he comes to the emergency room after episode of nausea vomiting and syncopal episode states that he has been having a lot of pain in his right knee and is making him difficult to ambulate with the Rollator walker. EXAMINATION: XR chest 1V portable INDICATION: Weakness and nausea TECHNIQUE: Portable AP chest at 1212 hours COMPARISON: 04/21/2018 FINDINGS: There is a mild diffuse interstitial pattern. Cardiomegaly is noted. No pleural effusion or pneumothorax. A dual-lead cardiac pacemaker of the left chest wall ends with leads in expected locations. One of the two pacemaker leads appears to be partially fractured at its proximal aspect near the subclavian vein. IMPRESSION: 1. Cardiomegaly with mild pulmonary edema. 2. Possible partial fracture of one of the pacemaker leads. Review of Systems Review of Systems: knee pain, generalized weakness. Constitutional: Constitutional: Reports weakness Eyes: Eyes: Denies change in vision ENT: Denies dysphagia, Denies vertigo, Denies dizziness and Denies odynophagia Cardiovascular: Cardiovascular: Denies chest pain, Denies radiating jaw, neck or arm pain and Denies palpitations Respiratory: Respiratory: Denies chest congestion, Denies cough and Denies excessive phlegm production Gastrointestinal: Gastrointestinal: Denies abdominal pain, Denies dyspepsia, Denies heartburn, Denies nausea and Denies vomiting Genitourinary: Genitourinary: Denies dysuria Musculoskeletal: Musculoskeletal: Denies back pain, Denies myalgias, Denies arthralgias and Denies joint swelling Integumentary/Breasts: Skin/Breast: Denies rash Neurologic: Denies vertigo, Denies dizziness, Denies focal weakness and Denies Sensory deficit (Neuro) Psychiatric: Psychiatric: Reports no additional psychiatric complaints and Reports as per HPI Endocrine: Endocrine: Denies cold intolerance, Denies fatigue, Denies flushing, Denies heat intolerance, Denies polyphagia, Denies polydipsia and Denies palpitations Hematologic/Lymphatic: Hematologic/Lymphatic: Reports no additional hematologic/lymphatic complaints and Reports as per HPI Allergic/Immunologic: Allergic/Immunologic: Reports no additional allergic/immunologic complaints and Reports as per HPI [facility] Past Medical History Medical History Anxiety Anxiety ASHD (arteriosclerotic heart disease) Back pain Balanitis BMI 37.0-37.9, adult BMI 38.0-38.9,adult Cardiac pacemaker in situ Cognitive dysfunction Constipation Diabetes Encounter for long-term current use of medication Encounter for Medicare annual wellness exam Encounter for routine adult health examination with abnormal findings Encounter for routine adult health examination without abnormal findings Essential (primary) hypertension Follow up Hearing loss History of DVT (deep vein thrombosis) History of frequent urinary tract infections History of prostate cancer Hyperlipidemia Impaired functional mobility, balance, gait, and endurance Insomnia Microalbuminuria Mixed hyperlipidemia Nocturia Obesity On residential drug therapy ROBER (obstructive sleep apnea) ROBER on CPAP Pacemaker Peripheral neuropathy Prediabetes Scrotal bleeding Skin cancer Urinary incontinence, male, stress UTI (urinary tract infection) Vitamin D deficiency Surgical History Surgical History History of cardiac cath History of cholecystectomy History of colonoscopy History of prostatectomy History of surgical removal of skin lesion History of total right hip replacem
--- NOTE | 2023-02-21 05:22 | ADMGEN ---
This patient, Vinod Tomas, was admitted to 3 Med Surg Room 329-01. Patient/family oriented to hospital policies and general routines including ID bracelet, bed and alarms, visiting hours, pain management, procedures, bathroom and other care routines, personal items, smoking policy, room service/diet, and visiting hours. Information on how to activate the Rapid Response Team has been discussed. Patient/Family are encouraged to report perceived risks to care and to ask questions if they do not understand what they are told or what they should do.
[2023-02-21] MEDS: ENOXAPARIN 40 MG/0.4 ML SYRINGE SUB-Q (09:09)
[2023-02-21] MEDS: CLOPIDOGREL BISULFATE 75 MG TABLET PO (09:09)
[2023-02-21] MEDS: ASPIRIN 81 MG ENTERIC TABLET PO (09:09)
[2023-02-21] MEDS: hydroCHLOROthiazide 12.5 MG CAPSULE PO (09:09)
[2023-02-21] MEDS: OMEGA 3 POLYUNSAT FATTY ACIDS 1 GM CAP PO ×2 (09:09→18:23)
[2023-02-21] MEDS: OPTI-GEN TAB 1 TABLET PO (09:09)
[2023-02-21] MEDS: PRAVASTATIN SODIUM 20 MG TABLET 80 MG PO (09:09)
[2023-02-21] MEDS: carvediloL 12.5 MG TABLET PO ×2 (09:09→20:47)
[2023-02-21] MEDS: metFORMIN HCL 500 MG TABLET PO ×2 (09:09→18:23)
[2023-02-21] MEDS: ACIDOPHILUS/BULGARICUS CHEWABLE TABLET 1 TABLET PO (09:53)
--- NOTE | 2023-02-21 10:05 | PM.IMPN ---
Progress Note: A&P Assessment and Plan (1) Respiratory failure: Code(s): J96.90 - Respiratory failure, unspecified, unspecified whether with hypoxia or hypercapnia Status: Acute Assessment and Plan: hypoxic in the emergency depart requiring supplemental oxygenation due to combination community-acquired pneumonia and pulmonary edema. (2) Dizziness: Code(s): R42 - Dizziness and giddiness Status: Acute Assessment and Plan: Patient described several dizzy episodes followed by vomiting, dry heaves then syncope. Patient on tele monitoring, unable to get MRI due to pacemaker. CTA Brain/carotids completed without evidence of posterior circulation stroke. Patient feeling better now. (3) CAP (community acquired pneumonia): Code(s): J18.9 - Pneumonia, unspecified organism Status: Acute Assessment and Plan: patient on a Zithromax and Rocephin. Continue supplemental oxygenation as needed. encourage cough and deep breathing. (4) Cardiac pacemaker in situ: Code(s): Z95.0 - Presence of cardiac pacemaker Status: Acute Assessment and Plan: Fracture noted to pacemaker wire. Patient reports pacemaker is due to be checked/replaced. Uncertain if this may have led to patient syncope. Telemetry monitoring. Will consult cardiology to review tomorrow. EKG with AV paced rhythm. (5) Pulmonary edema: Code(s): J81.1 - Chronic pulmonary edema Status: Acute Assessment and Plan: Prior echocardiogram from 2020 shows grade 1 diastolic dysfunction with mostly normal systolic LV function and an ejection fraction 59% diuresis ordered and echocardiogram ordered (6) Right thigh pain: Code(s): M79.651 - Pain in right thigh Status: Acute Assessment and Plan: prior right hip replacement and no trauma. X-rays in the emergency department of the knee hip and pelvis were unremarkable work with PT and OT and p.r.n. pain medication as needed (7) Impaired functional mobility, balance, gait, and endurance: Code(s): Z74.09 - Other reduced mobility Status: Acute Assessment and Plan: See #5 (8) Essential (primary) hypertension: Code(s): I10 - Essential (primary) hypertension Status: Acute Assessment and Plan: Resume home medications. Blood pressure reviewed 02/21 without need for urgent intervention (9) ROBER on CPAP: Code(s): G47.33 - Obstructive sleep apnea (adult) (pediatric); Z99.89 - Dependence on other enabling machines and devices Status: Acute Assessment and Plan: Resume home settings or auto pap at night (10) Slurred speech: Code(s): R47.81 - Slurred speech Status: Acute Assessment and Plan: Patient reports this is chronic and sometimes worse than others Time Spent With Patient Time with patient: Greater than 35 minutes Subjective Date/time seen: 02/21/23 10:05 Interval history: Patient reported further history about his episode bring him to the hospital that he describes as dizziness vomiting dry heaving and pain in his right leg thigh to the knee. Patient denied any unilateral weakness there was a bit of slurring to his speech. Patient reports that that does happen to him and sometimes he has easier to understand than others. Patient denies any fever chills states that he had some difficulty breathing but that is better now that he is oxygen. Right now his most troubling problem is his right leg pain. Patient also reports difficulty adjusting to being in the assisted living [facility] and many of his problems started about the time that he had to move and relied on additional help. Patient describes some depression but no SI or HI. Review of Systems Review of Systems: knee pain, generalized weakness. Constitutional: Constitutional: Reports weakness Exam Narrative: GENERAL: Elderly male patient awake and alert on supplemental oxygen with
[2023-02-21 10:54] LABS: Hemoglobin A1C 5.9 % (<5.7)
[2023-02-21] MEDS: FUROSEMIDE INJ 40 MG/4 ML VIAL IV PUSH (12:05)
[2023-02-21] MEDS: ACETAMINOPHEN 325 MG TABLET 650 MG PO ×2 (18:25→22:31)
[2023-02-21] MEDS: clonazePAM (*CRX) 0.5 MG TABLET 1 MG PO (20:47)
[2023-02-21 22:30] LABS: Glucose Point of Care 119 mg/dl (65-105)
[2023-02-22] VITALS (12 sets, daily range): BP systolic 137–141; BP diastolic 69–82; PULSE 64–104; RESP 16–20; TEMP 36.1–36.7; O2SAT 95–100
[2023-02-22] MEDS: AZITHROMYCIN 500 MG/NS 250 ML 500 MG/250 ML BAG 250 MG IVPB (02:48)
[2023-02-22] MEDS: cefTRIAXone 2 GM/NS 100 ML 2 GM/100 ML BAG IVPB (04:17)
[2023-02-22 06:37] LABS: Basophils Percent Auto 0.4 % (0.2-1.2); Eosinophils Absolute Auto 0.3 K/mm3 (0-0.3); Eosinophils Percent Auto 3.8 % (0-4.4); Hematocrit 42.2 % (42.0-52.0); Hemoglobin 13.4 g/dL (14.0-18.0); Immature Granulocyte Absolute 0.01 K/mm3 (0.00-0.031); Immature Granulocyte Percent A 0.1 % (0-0.5); Lymphocytes Absolute Auto 3.07 K/mm3 (0.9-3.2); Lymphocytes Percent Auto 39.1 % (18.3-44.2); Mean Corpuscular HGB Conc 31.8 g/dl (32-36); Mean Corpuscular Hemoglobin 31.2 pg (26-34); Mean Corpuscular Volume 98.4 fl (80-100); Mean Platelet Volume 10.2 fl (7.4-10.4); Monocytes Absolute Auto 0.7 K/mm3 (0.1-0.6); Monocytes Percent Auto 8.8 % (2.6-8.5); Neutrophils Absolute Auto 3.8 K/mm3 (1.3-6.7); Neutrophils Percent Auto 47.8 % (45.5-73.1); Platelet Count Result 189 k/mm3 (150-375); Red Blood Count 4.29 M/mm3 (4.6-6.20); Red Cell Distribution Width 13.2 % (11.5-14.5); White Blood Count 7.9 K/mm3 (4.5-10.0)
[2023-02-22 06:53] LABS: Anion Gap 3 mmol/L (8-16); Blood Urea Nitrogen 18 mg/dL (9-20); Calcium 8.9 mg/dL (8.4-10.2); Carbon Dioxide 30 mmol/L (22-30); Chloride 102 mmol/L (98-107); Estimated CRCL calculation 79 ml/min; Estimated Glomerular Filt Rate > 60; Glucose 100 mg/dL (65-110); Potassium 3.8 mmol/L (3.4-5.0); Sodium 135 mmol/L (137-145)
[2023-02-22 08:04] LABS: Glucose Point of Care 108 mg/dl (65-105)
[2023-02-22] MEDS: PRAVASTATIN SODIUM 20 MG TABLET 80 MG PO (08:32)
[2023-02-22] MEDS: CLOPIDOGREL BISULFATE 75 MG TABLET PO (08:32)
[2023-02-22] MEDS: carvediloL 12.5 MG TABLET PO ×2 (08:33→21:52)
[2023-02-22] MEDS: OMEGA 3 POLYUNSAT FATTY ACIDS 1 GM CAP PO ×2 (08:33→17:49)
[2023-02-22] MEDS: ACIDOPHILUS/BULGARICUS CHEWABLE TABLET 1 TABLET PO (08:33)
[2023-02-22] MEDS: hydroCHLOROthiazide 12.5 MG CAPSULE PO (08:37)
[2023-02-22] MEDS: ASPIRIN 81 MG ENTERIC TABLET PO (08:37)
[2023-02-22] MEDS: OPTI-GEN TAB 1 TABLET PO (08:37)
[2023-02-22] MEDS: ENOXAPARIN 40 MG/0.4 ML SYRINGE SUB-Q (08:38)
[2023-02-22] MEDS: FUROSEMIDE INJ 40 MG/4 ML VIAL IV PUSH (08:43)
[2023-02-22 12:03] LABS: Glucose Point of Care 119 mg/dl (65-105)
--- NOTE | 2023-02-22 13:58 | PM.IMPN ---
Progress Note: A&P Assessment and Plan (1) Respiratory failure: Code(s): J96.90 - Respiratory failure, unspecified, unspecified whether with hypoxia or hypercapnia Status: Acute Assessment and Plan: On presentation to the ED patient required oxygen supplementation. Chest x-ray revealing pulmonary edema. Echocardiogram ordered. Patient sees Dr. Quinones and has a history of cardiac pacemaker and grade 1 diastolic dysfunction. Wean oxygen saturation maintain greater than 94%. (2) Pulmonary edema: Code(s): J81.1 - Chronic pulmonary edema Status: Acute Assessment and Plan: Chest x-ray revealing cardiomegaly and pulmonary edema. Echocardiogram ordered. 40 mg IV Lasix daily. Daily weights and strict I&Os. Patient's last echocardiogram on record was in 2020 which revealed EF of 59% and grade 1 diastolic dysfunction. (3) Impaired functional mobility, balance, gait, and endurance: Code(s): Z74.09 - Other reduced mobility Status: Acute Assessment and Plan: PT and OT consulted. Fall precautions initiated. (4) Essential (primary) hypertension: Code(s): I10 - Essential (primary) hypertension Status: Acute Assessment and Plan: Resume home medications. (5) ROBER on CPAP: Code(s): G47.33 - Obstructive sleep apnea (adult) (pediatric); Z99.89 - Dependence on other enabling machines and devices Status: Acute Assessment and Plan: Patient is not compliant with CPAP. CPAP at night while in the hospital. (6) Cardiac pacemaker in situ: Code(s): Z95.0 - Presence of cardiac pacemaker Status: Acute Assessment and Plan: Patient with history of pacemaker. On chest x-ray was found that 1 of his pacemaker leads had a fractured. Cardiology consulted. Subjective Date/time seen: 02/22/23 13:58 Interval history: Patient up to chair and doing well today. Upon further questioning with the patient he denies any cough, fevers or chills. His antibiotics were discontinued due to lack of evidence of pneumonia and did not appear to have pneumonia on chest x-ray. Seems or likely patient is in acute CHF exacerbation. Patient states that he started to have lower extremity edema any compression stockings approximately 3 weeks ago. He denies chronic cough. He states that he is unable to lay flat on his back due to discomfort but was unclear whether it is back discomfort or difficulty breathing discomfort. Patient is not the greatest historian. Patient states that he gets intermittent shortness of breath and chest tightness. He does see Cardiology as an outpatient. Awaiting further recommendation from Cardiology about patient's pacemaker as well as echocardiogram results. Could be patient having CHF exacerbation with worsening heart failure. Exam Narrative: GENERAL: Comfortable, no acute distress HENMT: moist mucous membranes EYES: EOM intact b/l NECK: no lymphadenopathy RESPIRATORY: clear to auscultation CARDIO: RRR GI: soft, nontender, bowel sounds present SKIN: no rashes EXTREMITIES: 2+ edema below the knee, redness or tenderness Objective Data Vital Signs Vital Signs: Vital Signs - 24 hr 02/21/23 15:13 02/21/23 14:00 02/21/23 16:00 Temperature 98.3 F Pulse Rate 70 70 Respiratory Rate 20 Blood Pressure 137/68 Pulse Oximetry 94 Oxygen Delivery Nasal Cannula Oxygen Flow Rate 2 02/21/23 20:26 02/21/23 20:47 02/21/23 22:00 Temperature 97.1 F L Pulse Rate 70 70 Respiratory Rate 20 Blood Pressure 126/72 Pulse Oximetry 94 98 Oxygen Delivery Nasal Cannula Oxygen Flow Rate 2 02/21/23 20:00 02/22/23 00:00 02/22/23 04:00 Temperature Pulse Rate 71 80 70 Respiratory Rate Blood Pressure Pulse Oximetry Oxygen Delivery Oxygen Flow Rate 02/22/23 06:00 02/22/23 08:33 Temperature 97.0 F L
--- NOTE | 2023-02-22 15:13 | PM.CNCAR ---
Assessment and Plan Assessment and plan (1) Nausea & vomiting: Code(s): R11.2 - Nausea with vomiting, unspecified Status: Acute Plan This is an 82-year-old man with complete heart block and a normally functioning chronically implanted dual-chamber pacemaker. The device was interrogated by [employer] this morning there is no evidence of a lead fracture. There are statements made in the chart that a lead fracture was identified it looks like that was a impression mentioned in the chest x-ray report by the radiologist. In addition to this there are comments in the chart that he has decompensated heart failure. None of the symptoms with which he is brought presenting are consistent with that diagnosis he is not having any significant shortness of breath or sinus symptoms or signs of volume overload in my opinion. I do not believe any further cardiac testing or problems are apparent or need to be investigated at this time he does have appropriate follow-up scheduled regarding his pacemaker in my office as he has had for many years. In approximately a year and a half he will be requiring a pacemaker generator change but again we have been following this device for years and that is not new information Donald Bruner MD [facility] History of Present Illness History of Present Illness Consult date/time: 02/22/23 15:13 Reason For Visit: resp failure Narrative: This is an 82-year-old man who I know quite well for a number of years with complete heart block and a chronically implanted pacemaker device. The patient is being seen at the request of the hospitalist according to the chart there is concern about a pacemaker lead fracture. 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 He does have complete heart block and has a normally functioning [employer] dual-chamber pacemaker device that was implanted in 2010. I just saw this gentleman last month in the office his pacemaker device is functioning normally to the best of my recollection and he did not have any separate cardiac complaints. He is significantly obese with a BMI of 37. Last year he underwent a follow-up echocardiogram in the office because of symptoms of shortness of breath which did not disclose any cardiac pathology that would explain this. Over the years he has had a couple of stress tests done as well with symptoms like this and they he has never had any evidence of coronary artery disease identified or demonstrated. He says that yesterday he was in his residence and he was feeling lightheaded, maybe a little bit dizzy for a while. He sat down on his bed and he thought he might have lost consciousness for a 2nd or 2 but that is not clear. He said he was not thinking quite right and so he called for help and he was taken to this hospital's emergency room by ambulance. According to the admission chest x-ray the radiologist indicates there is a possible partial fracture of 1 of his leads near the proximal aspect near the subclavian vein. For this reason I did have [employer] come in this morning and interrogate the device. His pacemaker is functioning normally there is no electronic evidence of a lead fracture. His current device is functioning properly has about 16 months left on the current battery until estimated it are expected time for a generator change. Review of Systems Constitutional: Constitutional: Reports fatigue and Reports lethargy Eyes: Eyes: Reports no additional eye complaints ENT: Reports system reviewed and no additional complaints, except as documented Cardiovascular: Cardiovascular: Reports no additional cardiovascular complaints Respiratory: Respiratory: Reports dyspnea on exertion Gastrointestinal: Gastrointestinal: Reports no additional gastrointestinal complaints Musculoskeletal: Musculoskeletal: Reports
[2023-02-22 17:08] LABS: Glucose Point of Care 127 mg/dl (65-105)
[2023-02-22] MEDS: ACETAMINOPHEN 325 MG TABLET 650 MG PO ×2 (17:52→22:01)
[2023-02-22 21:50] LABS: Glucose Point of Care 106 mg/dl (65-105)
[2023-02-22] MEDS: clonazePAM (*CRX) 0.5 MG TABLET 1 MG PO (21:52)
[2023-02-22] MEDS: HYDROcodone/acetaminophen (*CRX) 5-325 MG TABLET 1 TAB PO (23:17)
[2023-02-23] VITALS (11 sets, daily range): BP systolic 113–146; BP diastolic 65–86; PULSE 67–76; RESP 14–16; TEMP 36.2–36.6; O2SAT 94–97
--- NOTE | 2023-02-23 | ECHO_ITS ---
Patient Info Name: Vinod Tomas Age: 82 years : 1940 Gender: Male Ht: 71 in Wt: 266 lbs BSA: 2.50 m2 HR: 70 bpm BP: 146 / 75 mmHg Heart Rhythm: Paced Technical Quality: Good Exam Date: 02/23/2023 10:46 AM Exam Location: [facility] Card Pulmonary Patient Status: Inpatient Admit Date: 02/21/2023 Staff Ordering Physician: Hipolito Tate APRN Golf Ball Marker: Sadaf Tapia RDCS Attending Provider: Itzel Nuñez MD Referring Physician: Bebeto BARTLETT; Exam Type: CA echo doppler color flow Study Info Indications - CHF, NEW HYPOXIA Complete two-dimensional, color flow and Doppler transthoracic echocardiogram is performed. Summary 1. Complete two-dimensional, color flow and Doppler transthoracic echocardiogram is performed. 2. Left ventricular chamber dimension is normal. 3. Left ventricular systolic function is normal, estimated at 55-60%. 4. There is mildly increased left ventricular wall thickness. 5. The left ventricular diastolic function is grade I diastolic dysfunction. 6. Right ventricular systolic function is normal. 7. There is mild aortic valve regurgitation. 8. There is mild mitral valve regurgitation. 9. There is mild tricuspid valve regurgitation. Left Ventricle Left ventricular chamber dimension is normal. Left ventricular systolic function is normal, estimated at 55-60%. There is mildly increased left ventricular wall thickness. The left ventricular diastolic function is grade I diastolic dysfunction. Right Ventricle Right ventricular chamber dimension is normal. Right ventricular systolic function is normal. Left Atria Left atrial chamber dimension is normal. Right Atria Right atrial chamber dimension is normal. Atrial Septum Intact interatrial septum visualized by color flow imaging. Aortic Valve The aortic valve is not well visualized. There is no aortic valve stenosis. There is mild aortic valve regurgitation. There is mild aortic valve calcification. Pulmonic Valve The pulmonic valve is not well visualized. Mitral Valve The mitral valve has thickened leaflets. There is mild mitral valve regurgitation. The mitral valve annulus is mildly calcified. Tricuspid Valve There is mild tricuspid valve regurgitation. Pericardium/Pleural There is no pericardial effusion. Inferior Vena Cava Inferior vena cava is not well visualized. Aorta The aortic root size at the sinus of Valsalva is normal. Left Ventricular Outflow Tract Name Value Normal LVOT 2D LVOT Diameter 2.1 cm LVOT Doppler LVOT Peak Gradient 3 mmHg LVOT Mean Gradient 2 mmHg LVOT VTI 22 cm LVOT VTI/AV VTI Ratio 0.8 LVOT Stroke Volume 75 ml LVOT CO 4.9 l/min LVOT CI 2.0 l/min/m2 Pulmonic Valve Name Value Normal RVOT Doppler
[2023-02-23] MEDS: LIDOCAINE 5% PATCH 1 PATCH TRANSDERM (01:26)
[2023-02-23 06:31] LABS: Basophils Percent Auto 0.5 % (0.2-1.2); Eosinophils Absolute Auto 0.3 K/mm3 (0-0.3); Eosinophils Percent Auto 3.2 % (0-4.4); Hematocrit 43.2 % (42.0-52.0); Hemoglobin 14.3 g/dL (14.0-18.0); Immature Granulocyte Absolute 0.01 K/mm3 (0.00-0.031); Immature Granulocyte Percent A 0.1 % (0-0.5); Lymphocytes Absolute Auto 3.33 K/mm3 (0.9-3.2); Lymphocytes Percent Auto 38.2 % (18.3-44.2); Mean Corpuscular HGB Conc 33.1 g/dl (32-36); Mean Corpuscular Hemoglobin 31.9 pg (26-34); Mean Corpuscular Volume 96.4 fl (80-100); Mean Platelet Volume 10.1 fl (7.4-10.4); Monocytes Absolute Auto 0.8 K/mm3 (0.1-0.6); Monocytes Percent Auto 8.7 % (2.6-8.5); Neutrophils Absolute Auto 4.3 K/mm3 (1.3-6.7); Neutrophils Percent Auto 49.3 % (45.5-73.1); Platelet Count Result 211 k/mm3 (150-375); Red Blood Count 4.48 M/mm3 (4.6-6.20); White Blood Count 8.7 K/mm3 (4.5-10.0)
[2023-02-23 06:43] LABS: Anion Gap 3 mmol/L (8-16); Blood Urea Nitrogen 23 mg/dL (9-20); Calcium 9.3 mg/dL (8.4-10.2); Carbon Dioxide 31 mmol/L (22-30); Chloride 101 mmol/L (98-107); Estimated CRCL calculation 79 ml/min; Estimated Glomerular Filt Rate > 60; Glucose 108 mg/dL (65-110); Potassium 3.8 mmol/L (3.4-5.0); Sodium 135 mmol/L (137-145)
[2023-02-23 08:19] LABS: Glucose Point of Care 113 mg/dl (65-105)
[2023-02-23] MEDS: PRAVASTATIN SODIUM 20 MG TABLET 80 MG PO (09:08)
[2023-02-23] MEDS: hydroCHLOROthiazide 12.5 MG CAPSULE PO (09:08)
[2023-02-23] MEDS: OMEGA 3 POLYUNSAT FATTY ACIDS 1 GM CAP PO (09:08)
[2023-02-23] MEDS: carvediloL 12.5 MG TABLET PO (09:08)
[2023-02-23] MEDS: OPTI-GEN TAB 1 TABLET PO (09:08)
[2023-02-23] MEDS: ACIDOPHILUS/BULGARICUS CHEWABLE TABLET 1 TABLET PO (09:08)
[2023-02-23] MEDS: FUROSEMIDE INJ 40 MG/4 ML VIAL IV PUSH (09:09)
[2023-02-23] MEDS: ASPIRIN 81 MG ENTERIC TABLET PO (09:09)
[2023-02-23] MEDS: CLOPIDOGREL BISULFATE 75 MG TABLET PO (09:09)
[2023-02-23] MEDS: ENOXAPARIN 40 MG/0.4 ML SYRINGE SUB-Q (09:09)
[2023-02-23] MEDS: FUROSEMIDE 40 MG TABLET PO (11:41)
[2023-02-23 11:53] LABS: Glucose Point of Care 129 mg/dl (65-105)
--- NOTE | 2023-02-23 14:18 | PM.DS ---
DS: Admitting Diagnosis Discharge Date 02/23/23 Admitting Diagnosis Nausea, vomiting, syncope DS: Discharge Diagnosis Discharge Diagnosis (1) Respiratory failure: Code(s): J96.90 - Respiratory failure, unspecified, unspecified whether with hypoxia or hypercapnia Status: Acute Assessment and Plan: On presentation to the ED patient required oxygen supplementation. Chest x-ray revealing pulmonary edema. Echocardiogram ordered. Patient sees Dr. Quinones and has a history of cardiac pacemaker and grade 1 diastolic dysfunction. Wean oxygen saturation maintain greater than 94%. (2) Pulmonary edema: Code(s): J81.1 - Chronic pulmonary edema Status: Acute Assessment and Plan: Chest x-ray revealing cardiomegaly and pulmonary edema. Echocardiogram ordered. 40 mg IV Lasix daily. Daily weights and strict I&Os. Patient's last echocardiogram on record was in 2020 which revealed EF of 59% and grade 1 diastolic dysfunction. (3) Impaired functional mobility, balance, gait, and endurance: Code(s): Z74.09 - Other reduced mobility Status: Acute Assessment and Plan: PT and OT consulted. Fall precautions initiated. (4) Essential (primary) hypertension: Code(s): I10 - Essential (primary) hypertension Status: Acute Assessment and Plan: Resume home medications. (5) ROBER on CPAP: Code(s): G47.33 - Obstructive sleep apnea (adult) (pediatric); Z99.89 - Dependence on other enabling machines and devices Status: Acute Assessment and Plan: Patient is not compliant with CPAP. CPAP at night while in the hospital. (6) Cardiac pacemaker in situ: Code(s): Z95.0 - Presence of cardiac pacemaker Status: Acute Assessment and Plan: Patient with history of pacemaker. On chest x-ray was found that 1 of his pacemaker leads had a fractured. Cardiology consulted and ruled out pacemaker fracture. DS: Summary Hospital Course Hospital Course: This is an 82-year-old male with past medical history of type 2 diabetes, hypertension, CHF, heart block with pacemaker, dementia, ROBER on CPAP, peripheral neuropathy the presented to the ED on 02/21/2023 after an episode of nausea, vomiting and syncopal episode patient was found to have respiratory failure and was put on 2 L of oxygen. Patient was placed on tele monitoring which did not reveal any arrhythmias but he is being paced. CT of the head showed normal aging brains. CTA brain carotids completed without evidence of stroke. He is unable to get MRI Due to pacemaker. Chest x-ray did no a possible fracture in patient's pacemaker wire and due to this Cardiology was consulted. Chest x-ray also revealed pulmonary edema and patient was placed on Lasix 40 mg daily. Cardiology did not believe patient did have a fracture and did not believe he needs any further cardiac workup. Echocardiogram was unremarkable. Upon Presentation to the hospital he was placed on antibiotics for possible pneumonia. Patient did not have any cough, body aches, chills or fever. X-ray did not show any signs of pneumonia. Antibiotics were then discontinued. Patient did not have any positive orthostatics. Patient's symptoms resolved. patient's labs and vital signs are stable and he is medically clear for discharge at this time. Time Spent with Patient Time attestation: Total time spent providing and/or coordinating discharge services: Exam Narrative: GENERAL: Comfortable, no acute distress HENMT: moist mucous membranes EYES: EOM intact b/l NECK: no lymphadenopathy RESPIRATORY: clear to auscultation CARDIO: RRR GI: soft, nontender, bowel sounds present SKIN: no rashes EXTREMITIES: 1+ edema below the knee, redness or tenderness DS: Data Data Completed and Pending Labs on day of discharge: Labs from last 24 hours 02/23/23 02/23/23 02/23/23
[2023-02-25 15:52] LABS: Pneumococcal Antigen Urine Not Detected (Not Detected)
[2023-02-26 04:37] LABS: Legionella pneumophila Ag Ur Not Detected (Not Detected)
== END 2023-02-23 16:30 | DRG 291 ==
LOC: ANHED 02-21 02:59 → ANH3MEDSUR 02-21 03:47
PROVIDERS: Nurse Practitioner; Admitting Provider Internal Medicine; Emergency Provider Emergency Medicine; PCP Internal Medicine; Visit Provider Internal Medicine Critical Care Medicine
DX: I11.0 Hypertensive heart disease with heart failure (principal); I50.33 Acute on chronic diastolic (congestive) heart failure; J96.00 Acute respiratory failure, unspecified whether with hypoxia or hypercapnia; I44.2 Atrioventricular block, complete; R55 Syncope and collapse; E11.42 Type 2 diabetes mellitus with diabetic polyneuropathy; F41.9 Anxiety disorder, unspecified; I25.10 Atherosclerotic heart disease of native coronary artery without angina pectoris; E78.5 Hyperlipidemia, unspecified; N39.3 Stress incontinence (female) (male); E55.9 Vitamin D deficiency, unspecified; R47.81 Slurred speech; F03.90 Unspecified dementia, unspecified severity, without behavioral disturbance, psychotic disturbance, mood disturbance, and anxiety; G47.33 Obstructive sleep apnea (adult) (pediatric); Z74.09 Other reduced mobility; Z96.641 Presence of right artificial hip joint; Z87.891 Personal history of nicotine dependence; Z90.49 Acquired absence of other specified parts of digestive tract; Z95.0 Presence of cardiac pacemaker; Z20.822 Contact with and (suspected) exposure to COVID-19; Z85.828 Personal history of other malignant neoplasm of skin; Z86.718 Personal history of other venous thrombosis and embolism; Z85.46 Personal history of malignant neoplasm of prostate; E66.9 Obesity, unspecified; Z68.36 Body mass index [BMI] 36.0-36.9, adult; Z79.82 Long term (current) use of aspirin
CPT/HCPCS: 36415; 70450; 70496; 70498; 71045; 73502; 73562; 80048; 80053; 81003; 82948; 83036; 83605; 83690; 83735; 83880; 84100; 84443; 84484; 85025; 85380; 85610; 85730; 87449; 87637; 87899; 93005; 93306; 93970; 97116; 97161; 97165; 97530; 97535; 99291; A9270; J0456; J0696; J1650; J1940; J7030; Q9967

== ENCOUNTER 2023-05-31 18:35 | Inpatient (IN) | payer MEDICARE, SELFPAY ==
[2023-05-31] VITALS (23 sets, daily range): BP systolic 124–184; BP diastolic 68–90; PULSE 70–99; RESP 17–41; TEMP 36.4–36.5; O2SAT 84–100; BMI 36.9
--- NOTE | ~2023-05-31 | XR_ITS ---
EXAMINATION: XR chest 1V portable INDICATION: Shortness of breath TECHNIQUE: Portable AP chest at 1904 hours COMPARISON: 02/21/2023 FINDINGS: Cardiomegaly is noted. There is mild diffuse interstitial pattern. No pleural effusion or p neumothorax. A dual-lead cardiac pacemaker of the left chest wall ends with leads in expected locatio ns. Again noted is a possible partial fracture of one of the pacemaker leads IMPRESSION: 1. Cardiomegaly with mild pulmonary edema. 2. Possible partial fracture of one of the pacemaker leads. Reviewed, dictated and finalized at location F. A RELATIONS MANAGER
--- NOTE | ~2023-05-31 | CT_ITS ---
EXAMINATION: CTA chest PE protocol DATE: 05/31/2023 20:40 INDICATION: Acute onset shortness of breath and hypoxia TECHNIQUE: Computed tomography angiography (CTA) of the chest was performed with 100 mL Omnipaque-350 intravenous contrast timed to evaluate the pulmonary arteries. Coronal maximum intensity projection 3D-reconstructions were created by the technologist. The dose-length product (DLP) was 900.75 mGy-cm. Automated exposure control and iterative reconstruction technique were employed. COMPARISON: 06/12/2007 FINDINGS: The pulmonary arteries are well-opacified. No pulmonary embolism is identified although mot ion artifact slightly limits evaluation. There is mild dependent atelectasis. There are minimal airsp taisha opacities of the lower lobes, right middle lobe, and lingula. No pleural effusion or pneumothorax . No pathologically enlarged thoracic lymph nodes are identified. Calcified coronary artery atheroscl erosis is noted. There is moderate left-sided gynecomastia. Cardiomegaly is noted. There are bridging osteophytes at multiple levels in the spine, consistent with diffuse idiopathic skeletal hyperostosi s (DISH). There are chronic masses of the partially visualized left adrenal gland. IMPRESSION: 1. No definite pulmonary embolus identified, sensitivity slightly limited by motion artifact. 2. Minimal airspace opacities of the mid and lower lung zones, likely pneumonia. Reviewed, dictated and finalized at location F. ROOM MANAGER IMPRESSION: 1. No definite pulmonary embolus identified, sensitivity slightly limited by mo tion artifact. 2. Minimal airspace opacities of the mid and lower lung zones, likely pneumonia .
--- NOTE | 2023-05-31 18:43 | ECG_ITS ---
Measurements Intervals [place] Rate: 75 P: 130 TN: 167 QRS: 270 QRSD: 198 T: 80 QT: 454 QTc: 508 Interpretive Statements ELECTRONIC ATRIAL PACEMAKER WITH INHIBITION ELECTRONIC VENTRICULAR PACEMAKER FUSION COMPLEX BASELINE ARTIFACT- I, II, III, AVR, AVL, AVF, V1, V4-V6 NO FURTHER INTERPRETATION IS POSSIBLE ATYPICAL ECG COMPARED TO ECG 02/20/2023 23:46:40 NO SIGNIFICANT CHANGES Electronically Signed On 05-31-2023 19:33:56 MARKETING SYSTEMS MANAGER by Abelardo Coleman D.O.
[2023-05-31 19:06] LABS: Basophils Percent Auto 0.4 % (0.2-1.2); Eosinophils Absolute Auto 0.3 K/mm3 (0-0.3); Eosinophils Percent Auto 2.8 % (0-4.4); Hematocrit 45.1 % (42.0-52.0); Hemoglobin 14.4 g/dL (14.0-18.0); Immature Granulocyte Absolute 0.05 K/mm3 (0.00-0.031); Immature Granulocyte Percent A 0.5 % (0-0.5); Lymphocytes Absolute Auto 2.85 K/mm3 (0.9-3.2); Lymphocytes Percent Auto 27.8 % (18.3-44.2); Mean Corpuscular HGB Conc 31.9 g/dl (32-36); Mean Corpuscular Hemoglobin 30.6 pg (26-34); Mean Corpuscular Volume 95.8 fl (80-100); Mean Platelet Volume 10.1 fl (7.4-10.4); Monocytes Absolute Auto 0.9 K/mm3 (0.1-0.6); Monocytes Percent Auto 8.3 % (2.6-8.5); Neutrophils Absolute Auto 6.2 K/mm3 (1.3-6.7); Neutrophils Percent Auto 60.2 % (45.5-73.1); Platelet Count Result 239 k/mm3 (150-375); Red Blood Count 4.71 M/mm3 (4.6-6.20); Red Cell Distribution Width 14.4 % (11.5-14.5); White Blood Count 10.3 K/mm3 (4.5-10.0)
[2023-05-31 19:17] LABS: Alanine Aminotransferase 25 U/L (6-50); Albumin Level 4.4 g/dL (3.5-5.1); Alkaline Phosphatase 71 U/L (38-126); Anion Gap 11 mmol/L (8-16); Aspartate Amino Transferase 26 U/L (17-59); Bilirubin,Total 0.8 mg/dL (0.2-1.3); Blood Urea Nitrogen 21 mg/dL (9-20); Calcium 9.9 mg/dL (8.4-10.2); Carbon Dioxide 32 mmol/L (22-30); Chloride 99 mmol/L (98-107); Estimated CRCL calculation 84 ml/min; Estimated Glomerular Filt Rate > 60; Glucose 131 mg/dL (65-110); Potassium 3.4 mmol/L (3.4-5.0); Sodium 142 mmol/L (137-145)
--- NOTE | 2023-05-31 19:27 | PC.NURSE ---
Addendum entered by Emilia Paez RN 05/31/23 19:30: Report from [facility] Call Original Note: Assumed care of pt. Pt resting quietly per cart, on bipap. Seems comfortable at this time. Resp 25-27, sats 100%. Resp at bedside for ABG's. Covid swab completed. Pt voices no complaints at this time.
[2023-05-31 19:37] LABS: Alveolar/Arterial O2 Gradient 206.7 mmHg; Base Excess ABG 3.5 mEq/l (+/-2.0); Fractional Inspired Oxygen 60 %; HCO3 ABG 27.9 mEq/l (22.0-26.0); Oxygen Content ABG 19.5 %vol (16.0-22.0); Oxygen Saturation ABG 99.3 % (95.0-100.0); Oxyhemoglobin 97.4 % THb (90.0-100.0); PCO2 ABG 41.2 mmHg (35.0-45.0); PO2 ABG 175.8 mmHg (80.0-100.0); PO2 FiO2 Ratio Arterial Blood 2.93 %; pH ABG 7.448 (7.350-7.450)
[2023-05-31 19:38] LABS: Device NON-INVASIVE VENT; Modified Allen's Test Pass; Site Drawn RIGHT BRACHIAL
[2023-05-31 19:39] LABS: Non-Invasive Expiratory Pressure 7 CMH2O; Non-Invasive Inspiratory Pressure 12 CMH2O; Non-Invasive Vent Rate 12 /MIN
--- NOTE | 2023-05-31 19:42 | ED.SOB ---
HPI - SOB/Dyspnea General Chief Complaint: Shortness of Breath/Dyspnea Stated Complaint: sob Time Seen by Provider: 05/31/23 18:54 Source: patient and other ([facility] documentation) History of Present Illness HPI Narrative: This is an 83 yo male who presents from a [facility] with report of shortness of breath/difficulty breathing. Patient states he had a cough that started tonight. It was productive of white/clear sputum. He denies any fevers or diaphoresis but does state he was chilled at night, even setting the room thermostat to 80 degrees and wearing long sleeves and a jacket. EMS applied CPAP; bipap is maintained during our interaction and he is tolerating it well, not agitated and speaking in nearly full sentences on it, appearing comfortable. He denies a PMH of heart failure but does state he has required transient usage of Bipap once before when presenting to the ED. He has appreciated some lower extremity swelling. He states he has trouble with his R hip even after hip replacement. States he had been in his baseline state of health preceding this; denies nausea or vomiting. Has no chest pain. He is concerned about covid as he states a lot of people at the facility have it or are otherwise sick with similar symptoms. Denies hemoptysis. Related Data Home Medications Medication Instructions Recorded Confirmed aspirin 81 mg tablet,delayed 81 mg PO DAILY 01/03/20 06/01/23 release (Arvin Low Dose Aspirin) omega-3s 300 vc-ubo-avs-other 1 cap PO BID 01/03/20 06/01/23 [id number] oil 1,000 mg capsule ([place]-3 Fish Oil) docusate sodium 50 mg capsule 50 mg PO Q12H PRN Constipation 02/26/21 06/01/23 (Stool Softener) magnesium hydroxide 400 mg/5 mL 5 ml PO Q12H PRN Constipation 06/27/21 06/01/23 oral suspension (Milk of Magnesia) acetaminophen 500 mg tablet 1,000 mg PO Q6H PRN pain, fever 01/14/23 06/01/23 cetirizine 10 mg tablet 10 mg PO DAILY 01/14/23 06/01/23 Lactobacillus rhamnosus GG 15 1 cap PO DAILY 02/04/23 06/01/23 billion cell sprinkle capsule (Culturelle) diphenhydramine HCl 25 mg tablet 25 mg PO Q6H PRN Itching 02/04/23 06/01/23 (Banophen) acetylglucosamine 500 mg PO DAILY 02/21/23 06/01/23 carvedilol 12.5 mg tablet 12.5 mg PO BID 02/21/23 06/01/23 clopidogrel 75 mg tablet 75 mg PO DAILY 02/21/23 06/01/23 hydrochlorothiazide 12.5 mg tablet 12.5 mg PO DAILY 02/21/23 06/01/23 metformin 500 mg tablet 500 mg PO BID 02/21/23 06/01/23 pravastatin 80 mg tablet 80 mg PO DAILY 02/21/23 06/01/23 vit C 250 mg-vit E 90 mg-zinc 40 1 tablet PO BID 03/31/23 06/01/23 mg-copper 1 af-sbfbii-jyacrt capsule (PreserVision AREDS-2) calcium carbonate 600 mg-vitamin 1 tablet PO DAILY 06/01/23 06/01/23 D3 25 mcg (1,000 unit) tablet nystatin 100,000 unit/gram topical 1 applic topical BID 06/01/23 06/01/23 powder nystatin-triamcinolone 100,000 1 applic topical TID PRN Rash 06/01/23 06/01/23 unit/g-0.1 % topical cream Allergies Allergy/AdvReac Type Severity Reaction Status Date / Time codeine Allergy Unknown Unknown Verified 05/28/23 10:18 morphine Allergy Unknown Unknown Verified 05/28/23 10:18 [facility] Past Medical History Medical History (Updated 06/01/23 @ 11:18 by Patricia Conroy MD) Anxiety Anxiety ASHD (arteriosclerotic heart disease) Back pain Balanitis BMI 37.0-37.9, adult BMI 38.0-38.9,adult Cardiac pacemaker in situ Cognitive dysfunction Constipation Diabetes Encounter for long-term current use of medication Encounter for Medicare annual wellness exam Encounter for routine adult health examination with abnormal findings Encounter for routine adult health examination without abnormal findings Essential (primary) hypertension Follow up Hearing loss History of DVT (deep vein thrombosis) History of frequent urinary tract infections History of prostate cancer Hyperlipidemia Impaired functional mobility, balance, gait, and endurance Insomnia Microalbuminuria Mixed hyperlipidemia Noctu
[2023-05-31 19:48] LABS: D Dimer 0.82 ug/mL (<0.48)
[2023-05-31 20:24] LABS: NT Pro B Type Natriuretic Pept 1230 pg/mL (19.9-100); Troponin I < 0.012 ng/mL (0.000-0.034)
[2023-05-31 20:51] LABS: Influenza A QL RT-PCR Negative (Negative); Influenza B QL RT-PCR Negative (Negative); SARS-CoV-2 RNA PCR Negative (Negative)
--- NOTE | 2023-05-31 21:00 | PC.NURSE ---
Pt reports is having difficulty breathing, stating I just feel like I'm not getting enough air. Pt repositioned and RT called. RT reports that they attempted to wean him down and will come back to adjust.
[2023-05-31] MEDS: ACETAMINOPHEN 500 MG TABLET 1000 MG PO (21:42)
--- NOTE | 2023-05-31 22:24 | PM.IMHP ---
H&P: HPI History of Present Illness Date/Time: 05/31/23 22:24 Chief Complaint: sob Narrative: This is an 83-year-old male with past medical history significant for congestive heart failure, coronary artery disease, pacemaker, dementia, type 2 diabetes mellitus. Patient resides at assisted was brought to the emergency room due to shortness of breath. Most of the history was obtained from daughter who is at bedside. Upon arrival to emergency room patient was in labored breathing require BiPAP. Preliminary workup was significant for elevated brain natriuretic peptide at over 2000. Patient was ruled out for PE with a CT angiogram of the chest. Received Lasix. Patient has been admitted for further evaluation management and treatment.. eXAMINATION: XR chest 1V portable INDICATION: Shortness of breath TECHNIQUE: Portable AP chest at 1904 hours COMPARISON: 02/21/2023 FINDINGS: Cardiomegaly is noted. There is mild diffuse interstitial pattern. No pleural effusion or pneumothorax. A dual-lead cardiac pacemaker of the left chest wall ends with leads in expected locations. Again noted is a possible partial fracture of one of the pacemaker leads IMPRESSION: 1. Cardiomegaly with mild pulmonary edema. 2. Possible partial fracture of one of the pacemaker leads. EXAMINATION: CTA chest PE protocol DATE: 05/31/2023 20:40 INDICATION: Acute onset shortness of breath and hypoxia TECHNIQUE: Computed tomography angiography (CTA) of the chest was performed with 100 mL Omnipaque-350 intravenous contrast timed to evaluate the pulmonary arteries. Coronal maximum intensity projection 3D-reconstructions were created by the technologist. The dose-length product (DLP) was 900.75 mGy-cm. Automated exposure control and iterative reconstruction technique were employed. COMPARISON: 06/12/2007 FINDINGS: The pulmonary arteries are well-opacified. No pulmonary embolism is identified although motion artifact slightly limits evaluation. There is mild dependent atelectasis. There are minimal airspace opacities of the lower lobes, right middle lobe, and lingula. No pleural effusion or pneumothorax. No pathologically enlarged thoracic lymph nodes are identified. Calcified coronary artery atherosclerosis is noted. There is moderate left-sided gynecomastia. Cardiomegaly is noted. There are bridging osteophytes at multiple levels in the spine, consistent with diffuse idiopathic skeletal hyperostosis (DISH). There are chronic masses of the partially visualized left adrenal gland. IMPRESSION: 1. No definite pulmonary embolus identified, sensitivity slightly limited by motion artifact. 2. Minimal airspace opacities of the mid and lower lung zones, likely pneumonia. Review of Systems Review of Systems: sob ROS unobtainable: Yes unobtainable due to medical condition (Respiratory distress unable to speak in full sentence) PMFSH Past Medical History Medical History (Updated 06/01/23 @ 05:19 by Itzel Nuñez MD) Anxiety Anxiety ASHD (arteriosclerotic heart disease) Back pain Balanitis BMI 37.0-37.9, adult BMI 38.0-38.9,adult Cardiac pacemaker in situ Cognitive dysfunction Constipation Diabetes Encounter for long-term current use of medication Encounter for Medicare annual wellness exam Encounter for routine adult health examination with abnormal findings Encounter for routine adult health examination without abnormal findings Essential (primary) hypertension Follow up Hearing loss History of DVT (deep vein thrombosis) History of frequent urinary tract infections History of prostate cancer Hyperlipidemia Impaired functional mobility, balance, gait, and endurance Insomnia Microalbuminuria Mixed hyperlipidemia Nocturia Obesity On special education para professional drug therapy ROBER (obstructive sleep apnea) ROBER on CPAP Pacemaker Peripheral neuropathy Prediabetes Rash Scrotal bleeding Skin cancer Skin lesion Urinary incontinence, male, stress UTI (urinary tr
--- NOTE | 2023-05-31 22:49 | PC.NURSE ---
Pt removed from bipap and placed on 4L per Dr Conroy. Resp notified. Pt only tolerating ok. Sats 95%, but resp rate remains tachypnic in 30s. Dr Conroy aware.
--- NOTE | 2023-05-31 23:16 | PC.NURSE ---
UPdated [place], [place]
--- NOTE | 2023-05-31 23:22 | PC.NURSE ---
Report to AQUILINO Conteh. States room is ready. Pt getting michael placed at this time.
[2023-05-31] MEDS: FUROSEMIDE INJ 40 MG/4 ML VIAL IV PUSH (23:26)
--- NOTE | 2023-05-31 23:35 | ADMGEN ---
This patient, Vinod Tomas, was admitted to IMU Room 214-01. Patient/family oriented to hospital policies and general routines including ID bracelet, bed and alarms, visiting hours, pain management, procedures, bathroom and other care routines, personal items, smoking policy, room service/diet, and visiting hours. Information on how to activate the Rapid Response Team has been discussed. Patient/Family are encouraged to report perceived risks to care and to ask questions if they do not understand what they are told or what they should do.
[2023-06-01] VITALS (21 sets, daily range): BP systolic 113–136; BP diastolic 52–67; PULSE 64–84; RESP 20–25; TEMP 35.9–36.6; O2SAT 90–97
--- NOTE | 2023-06-01 | ECHO_ITS ---
Patient Info Name: Vinod Tomas Age: 83 years : 1940 Gender: Male Ht: 70 in Wt: 257 lbs BSA: 2.44 m2 HR: 74 bpm BP: 113 / 52 mmHg Heart Rhythm: Paced Technical Quality: Good Exam Date: 06/01/2023 10:08 AM Exam Location: Echo Lab Patient Status: Inpatient Admit Date: 05/31/2023 Staff Ordering Physician: Itzel Nueñz MD Art Handler: Sadaf Tapia RDCS Attending Provider: Itzel Nuñez MD Referring Physician: Savannah BUI; Exam Type: CA echo doppler color flow Study Info Indications - sob Complete two-dimensional, color flow and Doppler transthoracic echocardiogram is performed. Summary 1. Complete two-dimensional, color flow and Doppler transthoracic echocardiogram is performed. 2. Left ventricular chamber dimension is normal. 3. Left ventricular systolic function is normal, estimated at 60-65%. 4. There is mildly increased left ventricular wall thickness. 5. The left ventricular diastolic function is grade I diastolic dysfunction. 6. Right ventricular systolic function is normal. 7. There is mild aortic valve regurgitation. 8. There is mild mitral valve regurgitation. 9. There is mild tricuspid valve regurgitation. Left Ventricle Left ventricular chamber dimension is normal. Left ventricular systolic function is normal, estimated at 60-65%. There is mildly increased left ventricular wall thickness. Left ventricular septal wall motion is abnormal with septal motion related to pacing. The left ventricular diastolic function is grade I diastolic dysfunction. Right Ventricle Right ventricular chamber dimension is normal. Right ventricular systolic function is normal. Left Atria Left atrial chamber dimension is normal. Right Atria Right atrial chamber dimension is normal. Atrial Septum Intact interatrial septum visualized by color flow imaging. Aortic Valve The aortic valve is not well visualized. There is no aortic valve stenosis. There is mild aortic valve regurgitation. There is mild aortic valve calcification. Pulmonic Valve The pulmonic valve is not well visualized. Mitral Valve There is mild mitral valve regurgitation. The mitral valve annulus is mildly calcified. Tricuspid Valve There is mild tricuspid valve regurgitation. Pericardium/Pleural There is no pericardial effusion. Inferior Vena Cava Normal inferior vena cava with <50% collapse upon inspiration consistent with elevated right atrial pressure, 8 mmHg. Aorta The aortic root size at the sinus of Valsalva is normal. Left Ventricular Outflow Tract Name Value Normal LVOT 2D LVOT Diameter 2.1 cm LVOT Doppler LVOT Peak Gradient 4 mmHg LVOT Mean Gradient 2 mmHg LVOT VTI 23 cm LVOT VTI/AV VTI Ratio 0.7 LVOT Stroke Volume 75 ml LVOT CO 5.0 l/min LVOT CI 2.1 l/min/m2 Pulmonic Valve Name Value Normal
[2023-06-01] MEDS: ASPIRIN 81 MG ENTERIC TABLET PO (08:14)
[2023-06-01] MEDS: PRAVASTATIN SODIUM 20 MG TABLET 80 MG PO (08:14)
[2023-06-01] MEDS: CLOPIDOGREL BISULFATE 75 MG TABLET PO (08:15)
[2023-06-01] MEDS: LORATADINE 10 MG TABLET PO (08:15)
[2023-06-01] MEDS: carvediloL 12.5 MG TABLET PO ×2 (08:15→21:59)
[2023-06-01] MEDS: FUROSEMIDE INJ 40 MG/4 ML VIAL IV PUSH ×2 (08:15→16:35)
--- NOTE | 2023-06-01 09:22 | PM.IMPN ---
Progress Note: A&P Assessment and Plan (1) Acute diastolic CHF (congestive heart failure): Code(s): I50.31 - Acute diastolic (congestive) heart failure Status: Acute Assessment and Plan: IV diuresis, strict I&Os, check echo, cardio consult ordered and pending Fluid restriction 1500 cc daily Daily Strict intake and output Echocardiogram in a.m. Cardiology consult (2) Acute hypoxic respiratory failure: Code(s): J96.01 - Acute respiratory failure with hypoxia Status: Acute Assessment and Plan: Due to heart failure exacerbation, currently on 1 L nasal cannula Wean as able (3) Pulmonary edema: Qualifiers: Chronicity: acute Qualified Code(s): J81.0 - Acute pulmonary edema Code(s): J81.1 - Chronic pulmonary edema Status: Acute Assessment and Plan: See above (4) ROBER on CPAP: Code(s): G47.33 - Obstructive sleep apnea (adult) (pediatric); Z99.89 - Dependence on other enabling machines and devices Status: Acute Assessment and Plan: CPAP at nighttime (5) Impaired functional mobility, balance, gait, and endurance: Code(s): Z74.09 - Other reduced mobility Status: Acute Assessment and Plan: Fall precautions (6) Cognitive dysfunction: Code(s): F09 - Unspecified mental disorder due to known physiological condition Status: Acute Assessment and Plan: Patient resides at assisted facility (7) Diabetes: Code(s): E11.9 - Type 2 diabetes mellitus without complications Status: Acute Assessment and Plan: Accu-Cheks, sliding scale insulin, check A1c Hold metformin Plan DVT prophylaxis with SCDs GI prophylaxis not indicated Code status DNR Subjective Date/time seen: 06/01/23 09:22 Interval history: 83-year-old male with history of heart failure, heart disease, dementia diabetes is brought from a nursing facility for shortness of breath and is currently being treated for heart failure exacerbation. No overnight events noted. No chest pain. No nausea, vomiting or diarrhea. No fevers or chills. Still some SOB. Review of Systems Review of Systems: 12 point review of systems was assessed and was negative except as noted in the HPI Exam Narrative: General: No acute distress, alert and oriented per baseline HEENT: Atraumatic, normocephalic, mucous membranes moist CV: Regular rate and rhythm, S1, S2 Lungs: Clear to auscultation bilaterally, no rales or crackles noted, no wheezes, good air entry Abdomen: Soft, nontender, nondistended Extremities: Normal to inspection, trace pitting edema Skin: No rashes noted, no lesions or wounds seen Psych: Euthymic, normal affect Objective Data Vital Signs Vital Signs: Vital Signs - 24 hr 05/31/23 18:32 05/31/23 18:40 05/31/23 18:40 Temperature 97.5 F L Pulse Rate 86 79 81 Respiratory Rate 29 H 26 H Blood Pressure 149/78 H Pulse Oximetry 84 L 96 Oxygen Delivery Nasal Cannula BiPAP Oxygen Flow Rate 4 05/31/23 19:29 05/31/23 19:29 05/31/23 19:46 Temperature Pulse Rate 71 71 Respiratory Rate 25 H Blood Pressure 124/79 Pulse Oximetry 100 100 Oxygen Delivery BiPAP Oxygen Flow Rate 05/31/23 20:00 05/31/23 20:12 05/31/23 20:15 Temperature Pulse Rate 73 70 70 Respiratory Rate 30 H 22 H 19 Blood Pressure Pulse Oximetry 95 97 94 Oxygen Delivery BiPAP Oxygen Flow Rate 05/31/23 20:52 05/31/23 21:00 05/31/23 21:02 Temperature Pulse Rate 74 80 76 Respiratory Rate 17 32 H 32 H Blood Pressure 174/90 H Pulse Oximetry 99 95 97 Oxygen Delivery Oxygen Flow Rate 05/31/23 21:03 05/31/23 21:15 05/31/23 21:30 Temperature Pulse Rate 81 78 78 Respiratory Rate 27 H 18 22 H Blood Pressure Pulse Oximetry 98 92 100 Oxygen Delivery Oxygen Flow Rate 05/31/23 21:45 05/31/23 22:00 05/31/23 22:00 Temperature Puls
--- NOTE | 2023-06-01 12:48 | PM.CNCAR ---
Assessment and Plan Assessment and plan (1) Acute exacerbation of CHF (congestive heart failure): Qualifiers: Heart failure type: diastolic Qualified Code(s): I50.33 - 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 Code(s): I50.9 - Heart failure, unspecified Status: Acute Assessment and Plan: Presents with dyspnea and progressive lower extremity edema. Feeling better with IV diuresis, but still has signs of volume overload on exam. Echo shows normal LVSF, EF 60%, grade I diastolic dysfunction, mild AI, MR, and TR. Agree with IV furosemide Can add spironolactone for the diastolic dysfunction. Would avoid jardiance because he has frequent UTI's, urinary incontinence, and diabetes which places him at increased risk for genitourinary infection Strict I&O Daily weights Daily BMP while diuresing Compression stockings low Na diet (2) Cardiac pacemaker in situ: Code(s): Z95.0 - Presence of cardiac pacemaker Status: Acute Assessment and Plan: Appears to be functioning normally (3) CAD (coronary artery disease): Code(s): I25.10 - Atherosclerotic heart disease of [place] coronary artery without angina pectoris Status: Acute Assessment and Plan: Stable, no anginal symptoms. Continue ASA, statin. History of Present Illness History of Present Illness Consult date/time: 06/01/23 12:48 Requesting physician: Roseline Church DO Consult reason: congestive heart failure Reason For Visit: Heart Failure Exacerbation/Resp Distress Requiring Narrative: Mr. 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 He is hospitalized now because of shortness of breath. I am being asked to see him for congestive heart failure. Patient states for the past couple of months he has been experiencing worsening bilateral lower extremity edema. He had been wearing compression stockings but continued to swell to the point of being unable to tie his shoes. Over the past couple of days he developed shortness of breath. Denies chest pain, palpitations. He does have orthopnea. Review of Systems Review of Systems: All systems reviewed & are unremarkable except as noted in HPI and below PMFSH Past Medical History Medical History Anxiety Anxiety ASHD (arteriosclerotic heart disease) Back pain Balanitis BMI 37.0-37.9, adult BMI 38.0-38.9,adult Cardiac pacemaker in situ Cognitive dysfunction Constipation Diabetes Encounter for long-term current use of medication Encounter for Medicare annual wellness exam Encounter for routine adult health examination with abnormal findings Encounter for routine adult health examination without abnormal findings Essential (primary) hypertension Follow up Hearing loss History of DVT (deep vein thrombosis) History of frequent urinary tract infections History of prostate cancer Hyperlipidemia Impaired functional mobility, balance, gait, and endurance Insomnia Microalbuminuria Mixed hyperlipidemia Nocturia Obesity On snf drug therapy ROBER (obstructive sleep apnea) ROBER on CPAP Pacemaker Peripheral neuropathy Prediabetes Rash Scrotal bleeding Skin cancer Skin lesion Urinary incontinence, male, stress UTI (urinary tract infection) Vitamin D deficiency Surgical History Surgical History History of cardiac cath History of cholecystectomy History of colonoscopy History of prostatectomy History of surgical removal of skin lesion History of total right hip replacement S/P placement of cardiac pacemaker Family History Family History Mother Acute myocardial infarction Father Family history of primary malignant neoplasm of liver Family history of liver disease Other Family his
[2023-06-01] MEDS: clonazePAM (*CRX) 0.5 MG TABLET 1 MG PO (21:59)
[2023-06-02] VITALS (10 sets, daily range): BP systolic 132–142; BP diastolic 64–78; PULSE 70–78; RESP 16–20; TEMP 36.1–36.4; O2SAT 92–95
[2023-06-02 05:22] LABS: Basophils Percent Auto 0.2 % (0.2-1.2); Eosinophils Absolute Auto 0.2 K/mm3 (0-0.3); Eosinophils Percent Auto 1.4 % (0-4.4); Hematocrit 41.3 % (42.0-52.0); Hemoglobin 13.1 g/dL (14.0-18.0); Immature Granulocyte Absolute 0.05 K/mm3 (0.00-0.031); Immature Granulocyte Percent A 0.4 % (0-0.5); Lymphocytes Absolute Auto 2.79 K/mm3 (0.9-3.2); Lymphocytes Percent Auto 19.9 % (18.3-44.2); Mean Corpuscular HGB Conc 31.7 g/dl (32-36); Mean Corpuscular Hemoglobin 30.3 pg (26-34); Mean Corpuscular Volume 95.6 fl (80-100); Mean Platelet Volume 10.9 fl (7.4-10.4); Monocytes Absolute Auto 0.9 K/mm3 (0.1-0.6); Monocytes Percent Auto 6.1 % (2.6-8.5); Neutrophils Absolute Auto 10.1 K/mm3 (1.3-6.7); Platelet Count Result 210 k/mm3 (150-375); Red Blood Count 4.32 M/mm3 (4.6-6.20); Red Cell Distribution Width 13.9 % (11.5-14.5)
[2023-06-02 05:33] LABS: Alanine Aminotransferase 21 U/L (6-50); Albumin Level 3.7 g/dL (3.5-5.1); Alkaline Phosphatase 66 U/L (38-126); Anion Gap 9 mmol/L (8-16); Aspartate Amino Transferase 24 U/L (17-59); Blood Urea Nitrogen 25 mg/dL (9-20); Calcium 9.2 mg/dL (8.4-10.2); Carbon Dioxide 35 mmol/L (22-30); Chloride 97 mmol/L (98-107); Estimated CRCL calculation 85 ml/min; Estimated Glomerular Filt Rate > 60; Glucose 131 mg/dL (65-110); Sodium 141 mmol/L (137-145)
[2023-06-02 05:35] LABS: Hemoglobin A1C 5.8 % (<5.7)
[2023-06-02] MEDS: ASPIRIN 81 MG ENTERIC TABLET PO (08:42)
[2023-06-02] MEDS: carvediloL 12.5 MG TABLET PO ×2 (08:42→20:25)
[2023-06-02] MEDS: CLOPIDOGREL BISULFATE 75 MG TABLET PO (08:42)
[2023-06-02] MEDS: SPIRONOLACTONE 12.5 MG TABLET PO (08:42)
[2023-06-02] MEDS: FUROSEMIDE INJ 40 MG/4 ML VIAL IV PUSH (08:43)
[2023-06-02] MEDS: POTASSIUM CHLORIDE 20 MEQ ER TABLET 40 MEQ PO (09:57)
--- NOTE | 2023-06-02 12:27 | PM.PNCARD ---
Progress Note: A&P Assessment and Plan (1) Acute diastolic CHF (congestive heart failure): Code(s): I50.31 - Acute diastolic (congestive) heart failure Status: Acute Assessment and Plan: Presented with dyspnea and progressive lower extremity edema.? Echo shows normal LVSF, EF 60%, grade I diastolic dysfunction, mild AI, MR, and TR.? Improved with IV Lasix. Lower extremity edema has resolved. Will transition IV Lasix to PO Lasix. Was placed on supplemental oxygen, but unclear if he needs it, currently on room air. Would assess patient to see how he does with activity. Otherwise, patient can be discharged home from my standpoint. Added spironolactone for the diastolic dysfunction.? Would avoid jardiance because he has frequent UTI's, urinary incontinence, and diabetes which places him at increased risk for genitourinary infection (2) Cardiac pacemaker in situ: Code(s): Z95.0 - Presence of cardiac pacemaker Status: Acute Assessment and Plan: Appears to be functioning normally (3) CAD (coronary artery disease): Code(s): I25.10 - Atherosclerotic heart disease of [place] coronary artery without angina pectoris Status: Acute Assessment and Plan: Stable, no anginal symptoms.? Continue ASA, statin. Plan Outpatient follow up with Dr. Bruner. Subjective Date/time seen: 06/02/23 12:27 Interval history: Reason for visit: Acute congestive heart failure HPI: Mr. Tomas is a patient with history of complete heart block status post dual chamber pacemaker placement in 2005 and coronary artery disease.? He is hospitalized now because of shortness of breath.? I am being asked to see him for congestive heart failure.? Patient states for the past couple of months he has been experiencing worsening bilateral lower extremity edema. He had been wearing compression stockings but continued to swell to the point of being unable to tie his shoes.? Over the past couple of days he developed shortness of breath.? Denies chest pain, palpitations.? He does have orthopnea. Date of service 06/02: He was put on oxygen this morning, however, per my discussion with the RN, patient required oxygen overnight from sleep apnea, but this morning, he was otherwise doing well with good oxygen saturations. Oxygen was placed by therapy, but RN weaned it off and he has been doing well since then. Review of Systems Review of Systems: No shortness of breath, chest pain. Exam Const: General: comfortable and no acute distress HENMT: Mouth: Yes moist mucous membranes Eyes: General: appearance normal, both eyes and all related structures Sclera: sclerae normal Neck: Neck: supple Resp: Effort & Inspection: normal respiratory effort Auscultation: clear to auscultation bilaterally Cardio: Rate: regular rate Rhythm: regular rhythm Other: No lower extremity edema Skin: General skin exam: normal color Neuro: Speech: normal speech Psych: Mental Status: mental status grossly normal Affect: normal affect Objective Data Vital Signs Vital Signs: Vital Signs - 24 hr 06/01/23 14:05 06/01/23 15:46 06/01/23 16:00 Temperature 36.1 C L Pulse Rate 71 70 Respiratory Rate 20 Blood Pressure 136/67 Pulse Oximetry 95 93 Oxygen Delivery Room Air Oxygen Flow Rate 06/01/23 19:53 06/01/23 20:00 06/01/23 21:59 Temperature 36.4 C L Pulse Rate 73 73 72 Respiratory Rate 20 20 Blood Pressure 129/62 Pulse Oximetry 90 90 Oxygen Delivery Room Air Oxygen Flow Rate 06/01/23 23:32 06/01/23 20:00 06/02/23 00:00 Temperature 36.5 C Pulse Rate 74 71 74 Respiratory Rate 20 Blood Pressure 130/67 Pulse Oximetry 97 Oxygen Delivery Oxygen Flow Rate 06/02/23 04:00 06/02/23 07:41 06/02/23 08:42 Temperature 36.3 C L Pulse Rate 73 72 70 Respiratory Rate 20 Blood Pressure 132/64 Pulse Oximetry 95 Oxygen Delivery Oxygen Flow Rate 06/02/23
--- NOTE | 2023-06-02 15:46 | PM.IMPN ---
Progress Note: A&P Assessment and Plan (1) Acute diastolic CHF (congestive heart failure): Code(s): I50.31 - Acute diastolic (congestive) heart failure Status: Acute Assessment and Plan: Patient presents with SOB and found to have acute diastolic CHF. CTA chest negative for PE but does show minimal airspace opacities in the mid and lower lung zones. BNP 1230. Echo showing EF 60-65%, Grade I diastolic dysfunction and mild valvular disease. He was started on IV diuresis. Cardiology consulted and appreciate their input. Good diuresis. Able to be weaned to room air. Continue fluid restriction 1500 cc daily Lasix changed to oral. Add empaglifozin (2) Acute hypoxic respiratory failure: Code(s): J96.01 - Acute respiratory failure with hypoxia Status: Acute Assessment and Plan: CTA chest as above. There is mention of PNA although clinically, he has acute CHF. He does have productive cough and climbing WBC so consider PNA but felt less likely given the clinical improvement with Laisx. Overall, felt his respiratory failure due to heart failure exacerbation Weaned ot room air. Follow (3) ROBER on CPAP: Code(s): G47.33 - Obstructive sleep apnea (adult) (pediatric); Z99.89 - Dependence on other enabling machines and devices Status: Acute Assessment and Plan: Patient is refusing CPAP at times. Continue CPAP at nighttime Encourage compliance (4) Impaired functional mobility, balance, gait, and endurance: Code(s): Z74.09 - Other reduced mobility Status: Acute Assessment and Plan: Fall precautions. PT/OT. He does not feel safe at home. Care coordination for SNF placement. (5) Cognitive dysfunction: Code(s): F09 - Unspecified mental disorder due to known physiological condition Status: Acute Assessment and Plan: Patient resides at assisted living. (6) Diabetes: Code(s): E11.9 - Type 2 diabetes mellitus without complications Status: Acute Assessment and Plan: A1c 5.8. The patient's blood glucose was reviewed on 06/02 Glucose remains well controlled. Continue to monitor periodically. Plan DVT prophylaxis with SCDs GI prophylaxis not indicated Code status DNR Subjective Date/time seen: 06/02/23 15:46 Interval history: 83-year-old male with history of heart failure, heart disease, dementia diabetes is brought from a nursing facility for shortness of breath and is currently being treated for heart failure exacerbation. Assuming care. Chart reviewed. Cough productive of yellow sputum. Has a chronic cough related to allergies but not ususally productive. Off O2 this morning. Walking in the halls with therapy. He states he does not feel safe to return home to assisted living. No CP or SOB Exam Narrative: AF 97.3 132/64 78 20 93% ra Gen - NARD Chest - bibasilar inspiratory crackles o/w clear. CV - RRR S1/S2. Tele showing PVCx Abd - Soft, NT/ND, Positive BS Ext - nonpitting pedal edema Psych - Nml mood and affect Skin - Warm and dry Objective Data Vital Signs Vital Signs: Vital Signs - 24 hr 06/01/23 16:00 06/01/23 19:53 06/01/23 20:00 Temperature 97.5 F L Pulse Rate 70 73 73 Respiratory Rate 20 20 Blood Pressure 129/62 Pulse Oximetry 90 90 Oxygen Delivery Room Air Oxygen Flow Rate 06/01/23 21:59 06/01/23 23:32 06/01/23 20:00 Temperature 97.7 F Pulse Rate 72 74 71 Respiratory Rate 20 Blood Pressure 130/67 Pulse Oximetry 97 Oxygen Delivery Oxygen Flow Rate 06/02/23 00:00 06/02/23 04:00 06/02/23 07:41 Temperature 97.3 F L Pulse Rate 74 73 72 Respiratory Rate 20 Blood Pressure 132/64 Pulse Oximetry 95 Oxygen Delivery Oxygen Flow Rate 06/02/23 08:42 06/02/23 08:30 06/02/23 08:00 Temperature Pulse Rate 70 Respiratory Rate Blood Pressure Pulse Oximetry 93 Oxygen Delivery Nasal Cannula [facility]
--- NOTE | 2023-06-02 16:27 | PC.NURSE ---
Addendum entered by Paulette Cade RN 06/02/23 16:27: Family updated on pt being moved to 326 Original Note: This patient, Vinod Tomas, was transferred to [[id number] ] on 06/02/23 at 1627. Personal belongings sent with patient. Report given to [ AQUILINO Leiva @ 1212]. Appropriate documentation sent with patient.
[2023-06-02] MEDS: PRAVASTATIN SODIUM 20 MG TABLET 80 MG PO (20:24)
[2023-06-02] MEDS: clonazePAM (*CRX) 0.5 MG TABLET 1 MG PO (20:25)
[2023-06-02] MEDS: LORATADINE 10 MG TABLET PO (20:25)
[2023-06-03 05:36] VITALS: BP 141/70; PULSE 75; RESP 17; TEMP 36.2; O2SAT 93
[2023-06-03 06:09] LABS: Basophils Absolute Auto 0.1 K/mm3 (0.0-0.1); Basophils Percent Auto 0.4 % (0.2-1.2); Eosinophils Absolute Auto 0.4 K/mm3 (0-0.3); Hematocrit 42.3 % (42.0-52.0); Hemoglobin 13.3 g/dL (14.0-18.0); Immature Granulocyte Absolute 0.05 K/mm3 (0.00-0.031); Immature Granulocyte Percent A 0.4 % (0-0.5); Lymphocytes Absolute Auto 2.89 K/mm3 (0.9-3.2); Lymphocytes Percent Auto 24.2 % (18.3-44.2); Mean Corpuscular HGB Conc 31.4 g/dl (32-36); Mean Corpuscular Hemoglobin 30.2 pg (26-34); Mean Corpuscular Volume 95.9 fl (80-100); Mean Platelet Volume 10.8 fl (7.4-10.4); Monocytes Absolute Auto 0.9 K/mm3 (0.1-0.6); Monocytes Percent Auto 7.6 % (2.6-8.5); Neutrophils Absolute Auto 7.7 K/mm3 (1.3-6.7); Neutrophils Percent Auto 64.4 % (45.5-73.1); Platelet Count Result 219 k/mm3 (150-375); Red Blood Count 4.41 M/mm3 (4.6-6.20); White Blood Count 11.9 K/mm3 (4.5-10.0)
[2023-06-03 06:24] LABS: Albumin Level 3.7 g/dL (3.5-5.1); Anion Gap 9 mmol/L (8-16); Blood Urea Nitrogen 35 mg/dL (9-20); Calcium 9.3 mg/dL (8.4-10.2); Carbon Dioxide 30 mmol/L (22-30); Chloride 102 mmol/L (98-107); Estimated CRCL calculation 74 ml/min; Estimated Glomerular Filt Rate > 60; Glucose 136 mg/dL (65-110); Magnesium 2.3 mg/dL (1.6-2.3); Phosphorus 2.7 mg/dL (2.5-4.5); Potassium 3.3 mmol/L (3.4-5.0); Sodium 141 mmol/L (137-145)
[2023-06-03 07:48] VITALS: O2SAT 94
[2023-06-03] MEDS: SPIRONOLACTONE 12.5 MG TABLET PO (08:52)
[2023-06-03] MEDS: FUROSEMIDE 40 MG TABLET PO (08:52)
[2023-06-03] MEDS: EMPAGLIFLOZIN 10 MG TABLET PO (08:52)
[2023-06-03] MEDS: ASPIRIN 81 MG ENTERIC TABLET PO (08:52)
[2023-06-03] MEDS: CLOPIDOGREL BISULFATE 75 MG TABLET PO (08:52)
[2023-06-03 08:53] VITALS: PULSE 76
[2023-06-03] MEDS: carvediloL 12.5 MG TABLET PO (08:53)
[2023-06-03] MEDS: POTASSIUM CHLORIDE 20 MEQ ER TABLET 40 MEQ PO (08:54)
--- NOTE | 2023-06-03 12:23 | PM.PNCARD ---
Progress Note: A&P Assessment and Plan (1) Acute diastolic CHF (congestive heart failure): Code(s): I50.31 - Acute diastolic (congestive) heart failure Status: Acute Assessment and Plan: Presented with dyspnea and progressive lower extremity edema.? Echo shows normal LVSF, EF 60%, grade I diastolic dysfunction, mild AI, MR, and TR.? Improved with IV Lasix. Lower extremity edema has resolved. Transitioned IV Lasix to PO Lasix. Added spironolactone for the diastolic dysfunction.? Would avoid jardiance because he has frequent UTI's, urinary incontinence, and diabetes which places him at increased risk for genitourinary infection (2) Cardiac pacemaker in situ: Code(s): Z95.0 - Presence of cardiac pacemaker Status: Acute Assessment and Plan: Appears to be functioning normally (3) CAD (coronary artery disease): Code(s): I25.10 - Atherosclerotic heart disease of [place] coronary artery without angina pectoris Status: Acute Assessment and Plan: Stable, no anginal symptoms.? Continue ASA, statin. Plan Outpatient follow up with Dr. Bruner. He can be discharged from a cardiology standpoint. Recommendations/Plan discussed with Hospitalist. Subjective Date/time seen: 06/03/23 12:23 Interval history: Reason for visit: Acute congestive heart failure HPI: Mr. Tomas is a patient with history of complete heart block status post dual chamber pacemaker placement in 2005 and coronary artery disease.? He is hospitalized now because of shortness of breath.? I am being asked to see him for congestive heart failure.? Patient states for the past couple of months he has been experiencing worsening bilateral lower extremity edema. He had been wearing compression stockings but continued to swell to the point of being unable to tie his shoes.? Over the past couple of days he developed shortness of breath.? Denies chest pain, palpitations.? He does have orthopnea. Date of service 06/02: He was put on oxygen this morning, however, per my discussion with the RN, patient required oxygen overnight from sleep apnea, but this morning, he was otherwise doing well with good oxygen saturations. Oxygen was placed by therapy, but RN weaned it off and he has been doing well since then. Date of service 06/03: Doing well this morning, feels well. No shortness of breath. Review of Systems Review of Systems: No chest pain, shortness of breath Exam Const: General: comfortable and no acute distress HENMT: Mouth: Yes moist mucous membranes Eyes: General: appearance normal, both eyes and all related structures Sclera: sclerae normal Resp: Effort & Inspection: normal respiratory effort Auscultation: clear to auscultation bilaterally Cardio: Rate: regular rate Rhythm: regular rhythm Other: No lower extremity edema Skin: General skin exam: normal color Neuro: Speech: normal speech Psych: Mental Status: mental status grossly normal Affect: normal affect Objective Data Vital Signs Vital Signs: Vital Signs - 24 hr 06/02/23 16:20 06/02/23 16:00 06/02/23 20:00 Temperature 36.1 C L 36.4 C Pulse Rate 71 70 75 Respiratory Rate 20 16 Blood Pressure 142/69 H 134/78 Pulse Oximetry 92 92 Oxygen Delivery Fraction of Inspired Oxygen 06/02/23 20:25 06/03/23 05:36 06/03/23 07:48 Temperature 36.2 C L Pulse Rate 75 75 Respiratory Rate 17 Blood Pressure 141/70 H Pulse Oximetry 93 94 Oxygen Delivery Room Air Fraction of Inspired Oxygen 06/03/23 08:53 06/03/23 08:00 Temperature Pulse Rate 76 Respiratory Rate Blood Pressure Pulse Oximetry Oxygen Delivery Room Air Fraction of Inspired Oxygen Intake/Output Intake/Output: Intake & Output 05/31/23 06/01/23 06/02/23 06/03/23 23:59 23:59 23:59 23:59 Intake Total 855 1490 240 Output Total 3200 1200 Balance -2345 290 240 Meds/Results Medications: Active Medications G
[2023-06-03 14:00] VITALS: BP 126/72; PULSE 71; RESP 16; TEMP 36.6; O2SAT 94
--- NOTE | 2023-06-03 15:12 | PM.DS ---
DS: Admitting Diagnosis Discharge Date 06/03/23 Admitting Diagnosis Shortness of breath DS: Discharge Diagnosis Discharge Diagnosis (1) Acute diastolic CHF (congestive heart failure): Code(s): I50.31 - Acute diastolic (congestive) heart failure Status: Acute (2) Acute hypoxic respiratory failure: Code(s): J96.01 - Acute respiratory failure with hypoxia Status: Acute (3) ROBER on CPAP: Code(s): G47.33 - Obstructive sleep apnea (adult) (pediatric); Z99.89 - Dependence on other enabling machines and devices Status: Acute (4) Impaired functional mobility, balance, gait, and endurance: Code(s): Z74.09 - Other reduced mobility Status: Acute (5) Cognitive dysfunction: Code(s): F09 - Unspecified mental disorder due to known physiological condition Status: Acute (6) Diabetes: Code(s): E11.9 - Type 2 diabetes mellitus without complications Status: Acute DS: Summary Hospital Course Reason for hospitalization: 83-year-old male with history of heart failure, heart disease, dementia diabetes is brought from a nursing facility for shortness of breath and was found to have heart failure exacerbation. Please see H&P for details. Hospital Course: Patient presents with SOB and found to have acute diastolic CHF. CTA chest negative for PE but does show minimal airspace opacities in the mid and lower lung zones. BNP 1230. Echo showing EF 60-65%, Grade I diastolic dysfunction and mild valvular disease. He was started on IV diuretics. Cardiology consulted and appreciate their input. He had a good diuresis. There is mention of PNA on CT scan report although clinically, he has acute CHF. He does have productive cough but improved without abx. His WBC climbed to 14 before trending down without abx. PNA felt less likely given the clinical improvement with Laisx. Overall, felt his respiratory failure due to heart failure exacerbation. He was weaned to room air. Patient was refusing CPAP at times. We encouraged compliance. Patient worked with PT/OT. He initially did not feel safe at home but feels better today and feels ready for discharge. He is up walking in the halls and to the bathroom. He overall did well and was able to be discharged on 06/03/23. Status at Discharge Cognitive/behavioral status at discharge: stable Time Spent with Patient Time attestation: Total time spent providing and/or coordinating discharge services: 35 minutes Time spent: Greater than 30 minutes Exam Narrative: AF 97.8 126/72 71 16 94% ra Gen - NARD Chest - CTA bilaterally CV - RRR S1/S2. Abd - Soft, NT/ND, Positive BS Ext - nonpitting pedal edema; [place] hose in place Psych - Nml mood and affect Skin - Warm and dry DS: Data Data Completed and Pending Labs on day of discharge: Labs from last 24 hours 06/03/23 06/03/23 05:45 05:44 WBC 11.9 H RBC 4.41 L Hgb 13.3 L Hct 42.3 MCV 95.9 MCH 30.2 MCHC 31.4 L RDW 14.0 Plt Count 219 MPV 10.8 H Immature Gran % (Auto) 0.4 Neut % (Auto) 64.4 Lymph % (Auto) 24.2 [place] % (Auto) 7.6 Eos % (Auto) 3.0 Baso % (Auto) 0.4 Lymph # (Auto) 2.89 [place] # (Auto) 0.9 H Eos # (Auto) 0.4 H Baso # (Auto) 0.1 Abs Immat Gran (auto) 0.05 H Absolute Neuts (auto) 7.7 H Absolute Nucleated RBC 0.0 Nucleated RBC % 0.0 Sodium 141 Potassium 3.3 L Chloride 102 Carbon Dioxide 30 Anion Gap 9 BUN 35 H D Creatinine 0.80 Estim Creat Clear Calc 74 Estimated GFR > 60 Glucose 136 H Calcium 9.3 Phosphorus 2.7 Magnesium 2.3 Albumin 3.7 Discharge Plan Discharge Attending physician on discharge: Rock Herbert Consulting providers: Jerilyn Jurado Discharging Clinician: Rock Herbert Anticipated Discharge Date/Time: 06/03/23 15:19 Patient Disposition: NH Residential/Asst Living Activity: as tolerated Diet: heart healthy Discharge Instr
== END 2023-06-03 16:10 | DRG 291 ==
LOC: ANHED 22:41 → ANHIMU 23:10 → ANH3MEDSUR 06-02 16:47
PROVIDERS: Emergency Medicine; Student in an Organized Health Care Education/Training Program; Admitting Provider Internal Medicine; Emergency Provider Student in an Organized Health Care Education/Training Program; PCP Internal Medicine; Visit Provider Internal Medicine
DX: I11.0 Hypertensive heart disease with heart failure (principal); I50.33 Acute on chronic diastolic (congestive) heart failure; J96.01 Acute respiratory failure with hypoxia; I25.10 Atherosclerotic heart disease of native coronary artery without angina pectoris; E11.9 Type 2 diabetes mellitus without complications; E78.5 Hyperlipidemia, unspecified; E11.42 Type 2 diabetes mellitus with diabetic polyneuropathy; E55.9 Vitamin D deficiency, unspecified; G47.33 Obstructive sleep apnea (adult) (pediatric); F03.90 Unspecified dementia, unspecified severity, without behavioral disturbance, psychotic disturbance, mood disturbance, and anxiety; F41.9 Anxiety disorder, unspecified; Z96.641 Presence of right artificial hip joint; Z20.822 Contact with and (suspected) exposure to COVID-19; Z79.02 Long term (current) use of antithrombotics/antiplatelets; Z79.82 Long term (current) use of aspirin; Z95.0 Presence of cardiac pacemaker; Z86.718 Personal history of other venous thrombosis and embolism; Z85.46 Personal history of malignant neoplasm of prostate; Z87.891 Personal history of nicotine dependence
CPT/HCPCS: 36415; 36600; 71045; 71275; 80053; 80069; 82805; 83036; 83735; 83880; 84484; 85025; 85380; 87636; 93005; 93306; 94002; 97161; 97165; 99285; A9270; J1940; Q9967

== ENCOUNTER 2023-08-19 13:35 | Outpatient (CLI) | payer MEDICARE, SELFPAY ==
--- NOTE | ~2023-08-19 | CT_ITS ---
EXAMINATION: CT lumbar spine wo con DATE: 08/19/2023 14:01 INDICATION: Spinal stenosis. TECHNIQUE: Computed tomography (CT) of the lumbar spine was performed without intravenous contrast. A utomated exposure control and iterative reconstruction technique were employed. The dose-length produ ct was 1260.58 mGy-cm. 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 Aortic atherosclerosis is noted. There is 7 degrees dext rocurvature of lumbar spine. There is 3 mm retrolisthesis of L1 on L2 and L2 on L3. There is mild chr onic anterior wedging of T12 and L1 vertebral bodies. There are bridging endplate osteophytes from th e thoracic spine to L1, consistent with diffuse idiopathic skeletal hyperostosis (DISH). There is sev erely decreased disc height from L1-L2 through L5-S1. The following disc levels are specifically disc ussed: L1-L2: The disc is bulging. There is mild bilateral facet joint osteoarthritis. There is moderate dillan ateral neural foraminal stenosis. There is mild central canal stenosis. L2-L3: The disc is bulging. There is severe bilateral facet joint osteoarthritis. There is moderate b ilateral neural foraminal stenosis. There is mild central canal stenosis. L3-L4: The disc is bulging. There is severe bilateral facet joint osteoarthritis. There is moderate g rade and severe left neural foraminal stenosis. There is severe central canal stenosis. L4-L5: The disc is bulging. There is severe bilateral facet joint osteoarthritis. There is moderate b ilateral neural foraminal stenosis. There is moderate central canal stenosis. L5-S1: The disc is bulging. There is severe bilateral facet joint osteoarthritis. There is moderate b ilateral neural foraminal stenosis. There is mild central canal stenosis. IMPRESSION: 1. Severe lumbar spondylosis, mildly worsened from 10/08/2014. Reviewed, dictated and finalized at location E. IC[employer] DATA SPECIALIST
== END 2023-08-19 13:36 | disposition home or self-care (01) ==
LOC: ANHIMG 13:41
PROVIDERS: PCP Internal Medicine; Visit Provider Orthopaedic Surgery
DX: M48.061 Spinal stenosis, lumbar region without neurogenic claudication (principal); M43.06 Spondylolysis, lumbar region
CPT/HCPCS: 72131

== ENCOUNTER 2023-09-07 09:51 | Outpatient (CLI) | payer MEDICARE, SELFPAY ==
--- NOTE | ~2023-09-07 | CT_ITS ---
Clinical Indication: Weight loss CT Scan of the Chest, Abdomen, and Pelvis with Contrast: Technique: Contiguous sections were acquired throughout the chest, abdomen, and pelvis after intraven ous administration of 100 cc of Omnipaque 350. Dose reduction technique was used on this scan by mary anne pandeying automated exposure control and iterative reconstruction technique. The dose-length product (DL P) was 1596.10 mGy-cm. COMPARISON: 05/31/2023 and 09/07/2018 Findings: There is no evidence of any significant mediastinal, hilar or axillary lymphadenopathy. The mediastin al soft tissues appear normal. There is no evidence of pleural or pericardial effusion. 4 mm nodule noted at the peripheral left upper lobe. The liver, spleen, pancreas, left adrenal and, and kidneys are within normal limits. Gallbladder not visualized. There is a 5.4 x 3.1 cm multilobulated mass at the location of the right adrenal gland, s table in appearance from prior exams. There are atherosclerotic calcifications of the aorta. No lymp hadenopathy. No bowel obstruction or bowel wall thickening. There is no evidence to suggest acute appendicitis. Urinary bladder is unremarkable. No pelvic mass evident. Patient is post prostatectomy. There is righ t hip arthroplasty. No ascites. Extensive degenerative spondylosis of the spine noted. Impression: No acute or suspicious abnormal abnormality evident. 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 Reviewed, dictated and finalized at location . ATHLETIC TRAINER Impression: No acute or suspicious abnormal abnormality evident. 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
[2023-09-07 10:27] LABS: Estimated Glomerular Filt Rate > 60
[2023-09-07 10:58] LABS: Basophils Absolute Auto 0.1 K/mm3 (0.0-0.1); Basophils Percent Auto 0.5 % (0.2-1.2); Eosinophils Absolute Auto 0.2 K/mm3 (0-0.3); Hematocrit 43.9 % (42.0-52.0); Hemoglobin 14.1 g/dL (14.0-18.0); Immature Granulocyte Absolute 0.03 K/mm3 (0.00-0.031); Immature Granulocyte Percent A 0.3 % (0-0.5); Lymphocytes Absolute Auto 3.06 K/mm3 (0.9-3.2); Lymphocytes Percent Auto 31.3 % (18.3-44.2); Mean Corpuscular HGB Conc 32.1 g/dl (32-36); Mean Corpuscular Volume 96.5 fl (80-100); Mean Platelet Volume 10.5 fl (7.4-10.4); Monocytes Absolute Auto 0.8 K/mm3 (0.1-0.6); Monocytes Percent Auto 7.9 % (2.6-8.5); Neutrophils Absolute Auto 5.7 K/mm3 (1.3-6.7); Platelet Count Result 219 k/mm3 (150-375); Red Blood Count 4.55 M/mm3 (4.6-6.20); Red Cell Distribution Width 14.9 % (11.5-14.5); White Blood Count 9.8 K/mm3 (4.5-10.0)
[2023-09-07 11:10] LABS: Lactate Dehydrogenase 151 U/L (120-246)
== END 2023-09-07 09:52 | disposition home or self-care (01) ==
LOC: ANHIMG 09:54
PROVIDERS: PCP Internal Medicine; Visit Provider Internal Medicine
DX: R63.4 Abnormal weight loss (principal); R11.0 Nausea; R53.1 Weakness; R53.83 Other fatigue
CPT/HCPCS: 71260; 74177; 83615; 85025; Q9967

== ENCOUNTER 2024-05-15 14:25 | Inpatient (IN) | payer MEDICARE, SELFPAY ==
[2024-05-15] VITALS (18 sets, daily range): BP systolic 101–108; BP diastolic 62–85; PULSE 71–90; RESP 13–29; TEMP 36.2–36.6; O2SAT 93–96; BMI 34.4
--- NOTE | ~2024-05-15 | XR_ITS ---
HISTORY: right knee pain, fall COMPARISON: None TECHNIQUE: 4 views of the right knee were performed FINDINGS: No acute or subacute fracture, erosion, lytic or sclerotic lesion. Medial tibiofemoral joint space narrowing is identified. No suprapatellar joint effusion is identified. The infrapatellar joint space is clear. IMPRESSION: No acute fracture identified within the right knee, as detailed above. Reviewed, dictated and finalized at location A. BASES SOFTWARE CONSULTANT
--- NOTE | ~2024-05-15 | XR_ITS ---
CHEST RADIOGRAPH, PA AND LATERAL CLINICAL HISTORY: sob . COMPARISON: 05/31/2023 TECHNIQUE: PA and lateral views of the chest. FINDINGS The left mid to upper lung is partially obscured due to pacemaker generator. Wires project over the right atrium and right ventricle. Below the left clavicle, one of the 2 leads appears disrupted, an interval change from previous exami nation 05/31/2023. This area was not included on this CT of the chest abdomen and pelvis dated 09/07/2023. The remainder of the cardiomediastinal silhouette is otherwise unremarkable. Blunting of the left costophrenic sulcus with a lateral view demonstrating a small left-sided pleural effusion. The lungs are otherwise clear. IMPRESSION: Small left-sided pleural effusion. No focal infiltrate. Possible disruption of a pacemaker lead, as detailed above. Reviewed, dictated and finalized at location A. CT CUTTER
--- NOTE | ~2024-05-15 | XR_ITS ---
HISTORY: pain, bruising, swelling, fall 1 week ago COMPARISON: 09/21/2016 TECHNIQUE: 4 views of the left knee were performed. FINDINGS: No acute or subacute displaced fracture is appreciated. On crosstable lateral view, there is an irregular lucency, possibly a nutrient foramen. This focus is not visible on the sunrise view. No suprapatellar joint effusion. The infrapatellar joint space is of mixed density, but overall clear. Degenerative disease is noted, specifically within the tibiofemoral joint space IMPRESSION: No acute or subacute fracture, as detailed above. Reviewed, dictated and finalized at location A. ERSHIP COACH
--- NOTE | ~2024-05-15 | US_ITS ---
EXAMINATION: US venous doppler [facility] DATE: 05/15/2024 16:27 INDICATION: Left lower limb swelling. TECHNIQUE: Grayscale ultrasound images without and with compression and Doppler ultrasound images of the left lower extremity veins were obtained. COMPARISON: Ultrasound 02/21/2023 FINDINGS: The visualized portions of left common femoral vein, profunda (deep) femoral vein, femoral vein, popl iteal vein, peroneal veins, posterior tibial veins, and greater saphenous vein outflow are patent. IMPRESSION: 1. No deep venous thrombosis. Reviewed, dictated and finalized at location A. TMENT MAINTENANCE SUPERVISOR
--- NOTE | 2024-05-15 15:30 | ECG_ITS ---
Test Date: 2024-05-15 15:46:53 Measurements Intervals [place] Rate: 71 P: 0 [place]: 0 QRS: -84 QRSD: 190 T: 71 QT: 448 QTc: 489 Interpretive Statements ELECTRONIC VENTRICULAR PACEMAKER VENTRICULAR PREMATURE COMPLEX BASELINE ARTIFACT- I, II, III, AVR, AVL, AVF, V4 NO FURTHER INTERPRETATION IS POSSIBLE ATYPICAL ECG No previous ECG available for comparison Electronically Signed On 05-15-2024 16:06:22 [employer] by Abelardo Coleman D.O.
--- NOTE | 2024-05-15 15:40 | ED.EXTPRO ---
HPI - Extremity Problem General Chief complaint: Extremity Problem,Nontraumatic <RAFY Winter Last Filed: 05/15/24 15:50> Stated complaint: LLE edema/bruising SOB anxiety <RAFY Winter Last Filed: 05/15/24 15:50> Time Seen by Provider: 05/15/24 15:25 <RAFY Winter Last Filed: 05/15/24 15:50> Focused HPI: Patient is an 84 y/o male who presents to the ED with SOB and LLE pain. Patient is a resident of [facility]. Had a ground level fall 1 week ago in which he slipped while using his Rollator, landing on his knees. He did sustain bruising and swelling to his left knee. He reports having pain throughout his left lower extremity. Patient also reported to the nurses at the facility that he was having shortness of breath and difficulty breathing last night. Staff reportedly notified patient's primary care doctor, Dr. Darnell, today who referred the patient to the ED for further evaluation. Patient denies any SOB today. Denies CP. Denies fevers. Denies recent cough. Daughter at bedside reports patient has been slightly confused today, but was unaware he was being sent to the ED. GENERAL: Elderly, and in no acute distress. HEAD: Normocephalic, atraumatic. CHEST: Clear to auscultation. ?No respiratory distress. No focal lung sounds. HEART: Regular rate and rhythm.? MSK: Diffuse ecchymosis to L medial knee. Mild swelling noted throughout knee joint and LLE. Full flexion/extension of L knee. TTP over L inferior knee joint space. NEURO: ?Alert and oriented x3. Patient screened in triage and initial orders placed.? ?Additional care and disposition to be based upon?diagnostic testing and treatment. <RAFY Winter Last Filed: 05/15/24 15:50> Source: patient and family <RAFY Winter Last Filed: 05/15/24 15:50> Mode of arrival: ambulatory <RAFY Winter Last Filed: 05/15/24 15:50> Limitations: no limitations <Grecia Zambraon PA-C - Last Filed: 05/15/24 15:50> Related Data Home medications: Home Medications Medication Instructions Recorded Confirmed aspirin 81 mg tablet,delayed 81 mg PO DAILY 01/03/20 05/16/24 release (Arvin Low Dose Aspirin) omega-3s 300 th-cfg-bfd-other 1 cap PO Q12H 01/03/20 05/16/24 fyypj5l-[id number] oil 1,000 mg capsule ([place]-3 Fish Oil) magnesium hydroxide 400 mg/5 mL 5 ml PO Q12H PRN Constipation 06/27/21 05/16/24 oral suspension (Milk of Magnesia) acetaminophen 500 mg tablet 1,000 mg PO Q6H PRN pain, fever 01/14/23 05/15/24 cetirizine 10 mg tablet 10 mg PO DAILY 01/14/23 05/16/24 carvedilol 12.5 mg tablet 12.5 mg PO Q12H 02/21/23 05/16/24 clopidogrel 75 mg tablet 75 mg PO DAILY 02/21/23 05/16/24 metformin 500 mg tablet 500 mg PO BIDWM 02/21/23 05/16/24 calcium 600 mg (as 1 tablet PO DAILY 06/01/23 05/16/24 carbonate)-vitamin D3 25 mcg (1,000 unit) tablet Lactobacillus rhamnosus GG 15 1 cap PO DAILY 05/15/24 05/16/24 billion cell sprinkle capsule (Culturelle) xhkspqhvxlq-nkcxsppwf-rpl C-Mn 500 1 cap PO DAILY 05/15/24 05/16/24 mg-400 mg capsule (Glucosamine Chondroitin Maximum Strength) menthol 4 % topical gel (Biofreeze 1 applic topical Q4H PRN Pain 05/15/24 05/16/24 (menthol)) sennosides 8.6 mg-docusate sodium 1 tablet PO Q12H PRN Constipation 05/15/24 05/16/24 50 mg tablet (Stool Softener-Laxative) vit C 250 mg-vit E 90 mg-zinc 40 1 tablet PO BID 05/15/24 05/16/24 mg-copper 1 uq-sdthaz-kqmvwz capsule (PreserVision AREDS-2) clonazepam 1 mg tablet 1 mg PO DAILY 05/16/24 05/16/24 nystatin-triamcinolone 100,000 1 applic topical TID 05/16/24 05/16/24 unit/g-0.1 % topical cream <Grecia Zambrano PA-C - Last Filed: 05/15/24 15:50> Allergies/Adverse reactions: Allergies Allergy/AdvReac Type Severity Reaction Status Date / Time codeine Allergy Unknown Unknown Verified 05/15/24 22:47 morphine Allergy Unknown Unknown Verified 05/15/24 22:47 <Grecia Zambrano PA-C - Last Filed: 05/15/24 15:50> Review of Systems Review of Systems: CONSTITUTIONAL: Denies fever CARDIOVASCULAR: Denies chest pain RESPIRATORY: Reports dyspnea. MUSCULOSKELETAL: Reports joint pain, and myalgia. <RAFY Olivera Last Filed: 05/15/24 22:52> All systems reviewed & are unremarkable except as noted in HPI and below <Sherly Vázquez PA-C - Last Filed: 05/15/24 22:52> [facility] Past Medical History Medical History: Medical History Abscess of left arm (~04/2021) Anxiety Anxiety ASHD (arteriosclerotic heart disease) Back pain Balanitis Bilateral knee pain BMI 33.0-33.9,adult BMI 34.0-34.9,adult BMI 35.0-35.9,adult BMI 37.0-37.9, adult BMI 38.0-38.9,adult Cardiac pacemaker in situ Cognitive dysfunction Constipation Diabetes Dizziness Encounter for long-term current use of medication Encounter for Medicare annual wellness exam Encounter for routine adult health examination with abnormal findings Encounter for routine adult health examination without abnormal findings Essential (primary) hypertension Fatigue Follow up Hearing loss History of DVT (deep vein thrombosis) History of frequent urinary tract infections History of prostate cancer Hyperlipidemia Impaired functional mobility, balance, gait, and endurance Insomnia Microalbuminuria Mixed hyperlipidemia Nausea Nocturia Obesity On correction drug therapy ROBER (obstructive sleep apnea) ROBER on CPAP Pacemaker Peripheral neuropathy Prediabetes Rash Right thigh pain Scrotal bleeding Skin cancer Skin lesion Slurred speech Unintentional weight loss Urinary incontinence, male, stress UTI (urinary tract infection) Vitamin D deficiency <Grecia Zambrano PA-C - Last Filed: 05/15/24 15:50> Surgical History Surgical History: Surgical History History of cardiac cath History of cholecystectomy History of colonoscopy History of prostatectomy History of surgical removal of skin lesion History of total right hip replacement S/P placement of cardiac pacemaker <RAFY Winter Last Filed: 05/15/24 15:50> Family History Family History: Family History Mother Acute myocardial infarction Father Family history of primary malignant neoplasm of liver Family history of liver disease Other Family history of alcoholism <RAFY Winter Last Filed: 05/15/24 15:50> Social History Social History: Social History Smoking packs per day: 3 Smoking cigarettes per day: 60.0 Years smoked: 30 Smoking pack-years: 90.00 Smoking status: Former smoker Smoking end date: 05/12/76 Alcohol intake: never Substance use: never Do You Feel Safe in your Home?: Yes Lack of Transportation: No Lack of Food: Never True Current Housing: I Have Housing Concerned About Future Housing: No Difficulty Paying Gas/Electric Bills: No Difficulty Paying for Meds: No Currently Unemployed: No Education: High School Diploma/GED Difficulty w/ Childcare or Family Care: No Living arrangements: assisted living Occupation/Education: retired Gender identity (if verbalized by the patient): Male Spiritual care concerns: No <RAFY Winter Last Filed: 05/15/24 15:50> Exam Narrative: GENERAL: Well-appearing, well-nourished, and in no acute distress. HEAD: Normocephalic, atraumatic. EYES: PERRLA and EOMI. ENT: Nares clear, no rhinorrhea or epistaxis. Mucous membranes moist. Oropharynx without tonsillar hypertrophy exudate or other lesions. NECK: Supple. No adenopathy or masses. CHEST: No respiratory distress. No wheezes or rhonchi. Rales in the bilateral lower lobes HEART: Regular rate and rhythm. No murmur heard. Normal peripheral pulses. EXTREMITIES: Normal range of motion. 1+ pitting edema to the bilateral lower extremities SKIN: Warm, dry, no rash. NEURO: No focal deficits. Alert and oriented x3. PSYCH: Normal mood and affect <Sherly Vázquez PA-C - Last Filed: 05/15/24 22:52> Course Course Emergency Course: Patient and family updated on workup and recommendation for admission for further observation/diuresis <Sherly Vázquez PA-C - Last Filed: 05/15/24 22:52> SET DESIGNER/PA Physician Supervision For this patient encounter, I reviewed the SET DESIGNER or PA documentation, treatment plan, and medical decision making; and I had aqab-lj-vvkq time with this patient. <Mejia Iqbal MD - Last Filed: 05/16/24 00:47> Consultations Consultation #1: Spoke with [employer] rep. Patient's atrial lead was switched to unipolar. He does not believe this will cause any issues and is not of concern. Otherwise no acute findings on interrogation <Sherly Vázquez PA-C - Last Filed: 05/15/24 22:52> Date: 05/15/24 <Sherly Vázquez PA-C - Last Filed: 05/15/24 22:52> Consultation #2: Spoke with Dr. Nuñez about patient and workup who accepts admission <Sherly Vázquez PA-C - Last Filed: 05/15/24 22:52> Date: 05/15/24 <Sherly Vázquez PA-C - Last Filed: 05/15/24 22:52> Vital Signs Vital signs: Vital Signs Temperature 97.8 F 05/15/24 14:30 Pulse Rate 75 05/15/24 14:30 Respiratory Rate 18 05/15/24 14:30 Blood Pressure 108/62 05/15/24 14:30 Pulse Oximetry 95 05/15/24 14:30 Temperature 97.1 F L 05/15/24 23:23 Pulse Rate 74 05/15/24 23:23 Respiratory Rate 18 05/15/24 23:23 Blood Pressure 108/66 05/15/24 23:23 Pulse Oximetry 96 05/15/24 23:23 Oxygen Delivery Room Air 05/15/24 17:45 <Grecia Zambrano PA-C - Last Filed: 05/15/24 15:50> Vital Signs Temperature 97.8 F 05/15/24 14:30 Pulse Rate 75 05/15/24 14:30 Respiratory Rate 18 05/15/24 14:30 Blood Pressure 108/62 05/15/24 14:30 Pulse Oximetry 95 05/15/24 14:30 Temperature 97.1 F L 05/15/24 23:23 Pulse Rate 74 05/15/24 23:23 Respiratory Rate 18 05/15/24 23:23 Blood Pressure 108/66 05/15/24 23:23 Pulse Oximetry 96 05/15/24 23:23 Oxygen Delivery Room Air 05/15/24 17:45 <Sherly Vázquez PA-C - Last Filed: 05/15/24 22:52> Vital Signs Temperature 97.8 F 05/15/24 14:30 Pulse Rate 75 05/15/24 14:30 Respiratory Rate 18 05/15/24 14:30 Blood Pressure 108/62 05/15/24 14:30 Pulse Oximetry 95 05/15/24 14:30 Temperature 97.1 F L 05/15/24 23:23 Pulse Rate 74 05/15/24 23:23 Respiratory Rate 18 05/15/24 23:23 Blood Pressure 108/66 05/15/24 23:23 Pulse Oximetry 96 05/15/24 23:23 Oxygen Delivery Room Air 05/15/24 17:45 <Mejia Iqbal MD - Last Filed: 05/16/24 00:47> MDM - Extremity (Nontraumatic) MDM Narrative Medical decision making narrative: MSE by CLAUDINE in triage. <Grecia Zambrano PA-C - Last Filed: 05/15/24 15:50> MSE by CLAUDINE in triage. Patient presents to the emergency department for shortness of breath. Had an episode last night after lying flat. He does have 1+ pitting edema to the bilateral lower extremities as well as rales in the lower lobes. Oxygen saturation mid to low 90s on room air. CBC with mild leukocytosis to 10.8. Metabolic panel without concerning findings. BNP 3170. Baseline troponin is negative. He denies any chest pain. Chest x-ray shows a small left-sided pleural effusion bilateral knee x-rays are without acute osseous abnormalities. Left lower extremity venous Doppler without evidence of DVT. Patient and family updated on workup and recommendation for admission for further observation/diuresis. Spoke with Dr. Nuñez about patient and workup who accepts admission <Sherly Vázquez PA-C - Last Filed: 05/15/24 22:52> Differential Diagnosis Differential diagnosis: Likely cellulitis, deep vein thrombosis of lower extremity and other (Knee sprain, knee contusion, fracture, pneumonia, CHF) <Sherly Vázquez PA-C - Last Filed: 05/15/24 22:52> Lab Data Attestation: I reviewed the patient's lab results. <Sherly Vázquez PA-C - Last Filed: 05/15/24 22:52> Result diagrams: 05/15/24 15:41 05/15/24 15:41 <RAFY Winter Last Filed: 05/15/24 15:50> Labs: Lab Results 05/15/24 05/15/24 05/15/24 Range/Units 15:40 15:41 15:41 WBC 10.8 H (4.5-10.0) K/mm3 RBC 4.52 L (4.6-6.20) M/mm3 Hgb 13.8 L (14.0-18.0) g/dL Hct 41.5 L (42.0-52.0) % MCV 91.8 (80-100) fl MCH 30.5 (26-34) pg MCHC 33.3 (32-36) g/dl RDW 14.3 (11.5-14.5) % Plt Count 234 (150-375) k/mm3 MPV 10.4 (7.4-10.4) fl Immature Gran % (Auto) 0.2 (0-0.5) % Neut % (Auto) 61.9 (45.5-73.1) % Lymph % (Auto) 28.1 (18.3-44.2) % [place] % (Auto) 7.6 (2.6-8.5) % Eos % (Auto) 1.8 (0-4.4) % Baso % (Auto) 0.4 (0.2-1.2) % Lymph # (Auto) 3.04 (0.9-3.2) K/mm3 [place] # (Auto) 0.8 H (0.1-0.6) K/mm3 Eos # (Auto) 0.2 (0-0.3) K/mm3 Baso # (Auto) 0.0 (0.0-0.1) K/mm3 Abs Immat Gran (auto) 0.02 (0.00-0.031) K/mm3 Absolute Neuts (auto) 6.7 (1.3-6.7) K/mm3 Absolute Nucleated RBC 0.000 (0.0-0.012) K/mm3 Nucleated RBC % 0.0 (0.0-0.2) % PT 14.5 (11.1-14.7) Seconds INR 1.1 APTT 36.5 (22.3-36.8) Seconds Sodium 140 (137-145) mmol/L Potassium 3.8 (3.4-5.0) mmol/L Chloride 101 (98-107) mmol/L Carbon Dioxide 30 (22-30) mmol/L Anion Gap 9 (4-12) mmol/L BUN 19 D (9-20) mg/dL Creatinine 0.90 (0.7-1.3) mg/dL Estim Creat Clear Calc Not Reportable Estimated GFR > 60 (59 - ) Glucose 109 (65-110) mg/dL Calcium 9.7 (8.4-10.2) mg/dL Total Bilirubin 1.0 (0.2-1.3) mg/dL AST 20 (17-59) U/L ALT 15 (6-50) U/L Alkaline Phosphatase 88 (38-126) U/L Troponin I < 0.012 (0.000-0.034) ng/mL NT-Pro-B Natriuret Pep 3170 H Cancelled (19.9-100) pg/mL Total Protein 7.0 (6.3-8.2) g/dL Albumin 4.3 (3.5-5.1) g/dL <Grecia Zambrano PA-C - Last Filed: 05/15/24 15:50> Lab Results 05/15/24 05/15/24 05/15/24 Range/Units 15:40 15:41 15:41 WBC 10.8 H (4.5-10.0) K/mm3 RBC 4.52 L (4.6-6.20) M/mm3 Hgb 13.8 L (14.0-18.0) g/dL Hct 41.5 L (42.0-52.0) % MCV 91.8 (80-100) fl MCH 30.5 (26-34) pg MCHC 33.3 (32-36) g/dl RDW 14.3 (11.5-14.5) % Plt Count 234 (150-375) k/mm3 MPV 10.4 (7.4-10.4) fl Immature Gran % (Auto) 0.2 (0-0.5) % Neut % (Auto) 61.9 (45.5-73.1) % Lymph % (Auto) 28.1 (18.3-44.2) % [place] % (Auto) 7.6 (2.6-8.5) % Eos % (Auto) 1.8 (0-4.4) % Baso % (Auto) 0.4 (0.2-1.2) % Lymph # (Auto) 3.04 (0.9-3.2) K/mm3 [place] # (Auto) 0.8 H (0.1-0.6) K/mm3 Eos # (Auto) 0.2 (0-0.3) K/mm3 Baso # (Auto) 0.0 (0.0-0.1) K/mm3 Abs Immat Gran (auto) 0.02 (0.00-0.031) K/mm3 Absolute Neuts (auto) 6.7 (1.3-6.7) K/mm3 Absolute Nucleated RBC 0.000 (0.0-0.012) K/mm3 Nucleated RBC % 0.0 (0.0-0.2) % PT 14.5 (11.1-14.7) Seconds INR 1.1 APTT 36.5 (22.3-36.8) Seconds Sodium 140 (137-145) mmol/L Potassium 3.8 (3.4-5.0) mmol/L Chloride 101 (98-107) mmol/L Carbon Dioxide 30 (22-30) mmol/L Anion Gap 9 (4-12) mmol/L BUN 19 D (9-20) mg/dL Creatinine 0.90 (0.7-1.3) mg/dL Estim Creat Clear Calc Not Reportable Estimated GFR > 60 (59 - ) Glucose 109 (65-110) mg/dL Calcium 9.7 (8.4-10.2) mg/dL Total Bilirubin 1.0 (0.2-1.3) mg/dL AST 20 (17-59) U/L ALT 15 (6-50) U/L Alkaline Phosphatase 88 (38-126) U/L Troponin I < 0.012 (0.000-0.034) ng/mL NT-Pro-B Natriuret Pep 3170 H Cancelled (19.9-100) pg/mL Total Protein 7.0 (6.3-8.2) g/dL Albumin 4.3 (3.5-5.1) g/dL <Sherly Vázquez PA-C - Last Filed: 05/15/24 22:52> Lab Results 05/15/24 05/15/24 05/15/24 Range/Units 15:40 15:41 15:41 WBC 10.8 H (4.5-10.0) K/mm3 RBC 4.52 L (4.6-6.20) M/mm3 Hgb 13.8 L (14.0-18.0) g/dL Hct 41.5 L (42.0-52.0) % MCV 91.8 (80-100) fl MCH 30.5 (26-34) pg MCHC 33.3 (32-36) g/dl RDW 14.3 (11.5-14.5) % Plt Count 234 (150-375) k/mm3 MPV 10.4 (7.4-10.4) fl Immature Gran % (Auto) 0.2 (0-0.5) % Neut % (Auto) 61.9 (45.5-73.1) % Lymph % (Auto) 28.1 (18.3-44.2) % [place] % (Auto) 7.6 (2.6-8.5) % Eos % (Auto) 1.8 (0-4.4) % Baso % (Auto) 0.4 (0.2-1.2) % Lymph # (Auto) 3.04 (0.9-3.2) K/mm3 [place] # (Auto) 0.8 H (0.1-0.6) K/mm3 Eos # (Auto) 0.2 (0-0.3) K/mm3 Baso # (Auto) 0.0 (0.0-0.1) K/mm3 Abs Immat Gran (auto) 0.02 (0.00-0.031) K/mm3 Absolute Neuts (auto) 6.7 (1.3-6.7) K/mm3 Absolute Nucleated RBC 0.000 (0.0-0.012) K/mm3 Nucleated RBC % 0.0 (0.0-0.2) % PT 14.5 (11.1-14.7) Seconds INR 1.1 APTT 36.5 (22.3-36.8) Seconds Sodium 140 (137-145) mmol/L Potassium 3.8 (3.4-5.0) mmol/L Chloride 101 (98-107) mmol/L Carbon Dioxide 30 (22-30) mmol/L Anion Gap 9 (4-12) mmol/L BUN 19 D (9-20) mg/dL Creatinine 0.90 (0.7-1.3) mg/dL Estim Creat Clear Calc Not Reportable Estimated GFR > 60 (59 - ) Glucose 109 (65-110) mg/dL Calcium 9.7 (8.4-10.2) mg/dL Total Bilirubin 1.0 (0.2-1.3) mg/dL AST 20 (17-59) U/L ALT 15 (6-50) U/L Alkaline Phosphatase 88 (38-126) U/L Troponin I < 0.012 (0.000-0.034) ng/mL NT-Pro-B Natriuret Pep 3170 H Cancelled (19.9-100) pg/mL Total Protein 7.0 (6.3-8.2) g/dL Albumin 4.3 (3.5-5.1) g/dL <Mejia Iqbal MD - Last Filed: 05/16/24 00:47> Imaging Data Radiologist's impression: ITS Impressions Venous Doppler Study 05/15/24 16:27 IMPRESSION: 1. No deep venous thrombosis. Chest X-Ray 05/15/24 17:48 IMPRESSION: Small left-sided pleural effusion. No focal infiltrate. Possible disruption of a pacemaker lead, as detailed above. Knee X-Ray 05/15/24 17:56 IMPRESSION: No acute or subacute fracture, as detailed above. Knee X-Ray 05/15/24 20:53 IMPRESSION: No acute fracture identified within the right knee, as detailed above. <RAFY Olivera Last Filed: 05/15/24 22:52> ECG Data EKG #1: ECG completion date: 05/15/24 <RAFY Olivera Last Filed: 05/15/24 22:52> EKG Interpretation: normal rate and other (ventricular pacemaker) <RAFY Olivera Last Filed: 05/15/24 22:52> Critical Care Time Critical Care Time Critical Care Time: Yes <RAFY Olivera Last Filed: 05/15/24 22:52> Total Critical Care Time: 35 <RAFY Olivera Last Filed: 05/15/24 22:52> Discharge Plan Discharge Clinical Impression: Acute CHF Qualifiers: Heart failure type: unspecified Qualified Code(s): I50.9 - Heart failure, unspecified <RAFY Winter Last Filed: 05/15/24 15:50> Patient Disposition: Still a Patient <RAFY Winter Last Filed: 05/15/24 15:50> Condition: Stable <RAFY Winter Last Filed: 05/15/24 15:50>
[2024-05-15 15:54] LABS: Basophils Percent Auto 0.4 % (0.2-1.2); Eosinophils Absolute Auto 0.2 K/mm3 (0-0.3); Eosinophils Percent Auto 1.8 % (0-4.4); Hematocrit 41.5 % (42.0-52.0); Hemoglobin 13.8 g/dL (14.0-18.0); Immature Granulocyte Absolute 0.02 K/mm3 (0.00-0.031); Immature Granulocyte Percent A 0.2 % (0-0.5); Lymphocytes Absolute Auto 3.04 K/mm3 (0.9-3.2); Lymphocytes Percent Auto 28.1 % (18.3-44.2); Mean Corpuscular HGB Conc 33.3 g/dl (32-36); Mean Corpuscular Hemoglobin 30.5 pg (26-34); Mean Corpuscular Volume 91.8 fl (80-100); Mean Platelet Volume 10.4 fl (7.4-10.4); Monocytes Absolute Auto 0.8 K/mm3 (0.1-0.6); Monocytes Percent Auto 7.6 % (2.6-8.5); Neutrophils Absolute Auto 6.7 K/mm3 (1.3-6.7); Neutrophils Percent Auto 61.9 % (45.5-73.1); Platelet Count Result 234 k/mm3 (150-375); Red Blood Count 4.52 M/mm3 (4.6-6.20); Red Cell Distribution Width 14.3 % (11.5-14.5); White Blood Count 10.8 K/mm3 (4.5-10.0)
[2024-05-15 16:04] LABS: Alanine Aminotransferase 15 U/L (6-50); Albumin Level 4.3 g/dL (3.5-5.1); Alkaline Phosphatase 88 U/L (38-126); Anion Gap 9 mmol/L (4-12); Aspartate Amino Transferase 20 U/L (17-59); Blood Urea Nitrogen 19 mg/dL (9-20); Calcium 9.7 mg/dL (8.4-10.2); Carbon Dioxide 30 mmol/L (22-30); Chloride 101 mmol/L (98-107); Estimated Glomerular Filt Rate > 60; Glucose 109 mg/dL (65-110); Potassium 3.8 mmol/L (3.4-5.0); Sodium 140 mmol/L (137-145)
[2024-05-15 16:08] LABS: INR 1.1; Prothrombin Time 14.5 Seconds (11.1-14.7)
[2024-05-15 16:10] LABS: Partial Thromboplastin Time 36.5 Seconds (22.3-36.8)
[2024-05-15 16:16] LABS: NT Pro B Type Natriuretic Pept 3170 pg/mL (19.9-100); Troponin I < 0.012 ng/mL (0.000-0.034)
[2024-05-15] MEDS: ACETAMINOPHEN 500 MG TABLET 1000 MG PO (20:57)
[2024-05-15] MEDS: FUROSEMIDE INJ 40 MG/4 ML VIAL IV PUSH (21:20)
--- NOTE | 2024-05-15 22:54 | PC.NURSE ---
RN called [facility] to request a med list; home medication to be confirmed pending receipt of med list from facility.
[2024-05-15 23:00] LABS: Add Urine Microscopic? NO; Appearance Urine Clear (Clear); Bilirubin Urine Negative (Negative); Blood Urine Negative (Negative); Color Urine Yellow (Yellow); Glucose Urine UA Negative (Negative); Ketones Urine Negative (Negative); Leukocyte Esterase Ur Negative LEU/UL (Negative); Nitrate Urine Negative (Negative); Protein Urine Negative (Negative); Specific Grav Ur 1.011 (1.001-1.035); Urobilinogen Urine 0.2 mg/dL (<2.0)
--- NOTE | 2024-05-15 23:50 | PM.IMHP ---
H&P: HPI History of Present Illness Date/Time: 05/15/24 23:50 Chief Complaint: sob Narrative: This is an 84-year-old male with past medical history significant coronary artery disease, type 2 diabetes mellitus, chronic kidney disease, DJD. Patient was brought to the emergency room for evaluation due to a fall, generalized weakness, shortness of breath, leg swelling. Patient can not really give much history in a meaningful way most of which has been obtained from daughter who is at bedside states that that had a fall and has progressively gotten weaker over the course of the last few days. Preliminary workup was significant for brain natriuretic peptide upwards 3000, chest x-ray showed pleural effusion. Patient has been admitted for further evaluation management and treatment. CHEST RADIOGRAPH, PA AND LATERAL CLINICAL HISTORY: sob . COMPARISON: 05/31/2023 TECHNIQUE: PA and lateral views of the chest. FINDINGS The left mid to upper lung is partially obscured due to pacemaker generator. Wires project over the right atrium and right ventricle. Below the left clavicle, one of the 2 leads appears disrupted, an interval change from previous examination 05/31/2023. This area was not included on this CT of the chest abdomen and pelvis dated 09/07/2023. The remainder of the cardiomediastinal silhouette is otherwise unremarkable. Blunting of the left costophrenic sulcus with a lateral view demonstrating a small left-sided pleural effusion. The lungs are otherwise clear. IMPRESSION: Small left-sided pleural effusion. No focal infiltrate. Possible disruption of a pacemaker lead, as detailed above. [facility] Past Medical History Medical History Abscess of left arm (~04/2021) Anxiety Anxiety ASHD (arteriosclerotic heart disease) Back pain Balanitis Bilateral knee pain BMI 33.0-33.9,adult BMI 34.0-34.9,adult BMI 35.0-35.9,adult BMI 37.0-37.9, adult BMI 38.0-38.9,adult Cardiac pacemaker in situ Cognitive dysfunction Constipation Diabetes Dizziness Encounter for long-term current use of medication Encounter for Medicare annual wellness exam Encounter for routine adult health examination with abnormal findings Encounter for routine adult health examination without abnormal findings Essential (primary) hypertension Fatigue Follow up Hearing loss History of DVT (deep vein thrombosis) History of frequent urinary tract infections History of prostate cancer Hyperlipidemia Impaired functional mobility, balance, gait, and endurance Insomnia Microalbuminuria Mixed hyperlipidemia Nausea Nocturia Obesity On ch[facility] drug therapy ROBER (obstructive sleep apnea) ROBER on CPAP Pacemaker Peripheral neuropathy Prediabetes Rash Right thigh pain Scrotal bleeding Skin cancer Skin lesion Slurred speech Unintentional weight loss Urinary incontinence, male, stress UTI (urinary tract infection) Vitamin D deficiency Surgical History Surgical History History of cardiac cath History of cholecystectomy History of colonoscopy History of prostatectomy History of surgical removal of skin lesion History of total right hip replacement S/P placement of cardiac pacemaker Family History Family History Mother Acute myocardial infarction Father Family history of primary malignant neoplasm of liver Family history of liver disease Other Family history of alcoholism Social History Social History Smoking packs per day: 3 Smoking cigarettes per day: 60.0 Years smoked: 30 Smoking pack-years: 90.00 Smoking status: Former smoker Smoking end date: 05/12/76 Alcohol intake: never Substance use: never Do You Feel Safe in your Home?: Yes Lack of Transportation: No Lack of Food: Never True Current Housing: I Have Housing Concerned About Future Housing: No Difficulty Paying Gas/Electric Bills: No Difficulty Paying for Meds: No Currently Unemployed: No Education: High School Diploma/GED Difficulty w/ Childcare or Family Care: No Living arrangements: assisted living Occupation/Education: retired Gender identity (if verbalized by the patient): Male Spiritual care concerns: No Meds Home Medications and Allergies Home Medications Medication Instructions Recorded Confirmed Type aspirin 81 mg tablet,delayed 81 mg PO DAILY 01/03/20 05/16/24 History release (Arvin Low Dose Aspirin) omega-3s 300 km-rdg-tvw-other 1 cap PO Q12H 01/03/20 05/16/24 History rfdng1r-erer oil 1,000 mg capsule ([place]-3 Fish Oil) magnesium hydroxide 400 mg/5 mL 5 ml PO Q12H PRN Constipation 06/27/21 05/16/24 History oral suspension (Milk of Magnesia) acetaminophen 500 mg tablet 1,000 mg PO Q6H PRN pain, fever 01/14/23 05/15/24 History cetirizine 10 mg tablet 10 mg PO DAILY 01/14/23 05/16/24 History carvedilol 12.5 mg tablet 12.5 mg PO Q12H 02/21/23 05/16/24 History clopidogrel 75 mg tablet 75 mg PO DAILY 02/21/23 05/16/24 History metformin 500 mg tablet 500 mg PO BIDWM 02/21/23 05/16/24 History calcium 600 mg (as 1 tablet PO DAILY 06/01/23 05/16/24 History carbonate)-vitamin D3 25 mcg (1,000 unit) tablet furosemide 40 mg tablet 40 mg PO DAILY #30 tabs 06/03/23 05/16/24 Rx spironolactone 25 mg tablet 12.5 mg PO DAILY #30 tabs 06/03/23 05/16/24 Rx pravastatin 40 mg tablet 40 mg PO DAILY #90 tabs 06/22/23 05/16/24 Rx tramadol 50 mg tablet 50 mg PO Q6H PRN pain #45 tabs 04/28/24 05/16/24 Rx Lactobacillus rhamnosus GG 15 1 cap PO DAILY 05/15/24 05/16/24 History billion cell sprinkle capsule (Culturelle) nzpfkoyemmo-aisqgvdwf-bxt C-Mn 500 1 cap PO DAILY 05/15/24 05/16/24 History mg-400 mg capsule (Glucosamine Chondroitin Maximum Strength) menthol 4 % topical gel (Biofreeze 1 applic topical Q4H PRN Pain 05/15/24 05/16/24 History (menthol)) sennosides 8.6 mg-docusate sodium 1 tablet PO Q12H PRN Constipation 05/15/24 05/16/24 History 50 mg tablet (Stool Softener-Laxative) vit C 250 mg-vit E 90 mg-zinc 40 1 tablet PO BID 05/15/24 05/16/24 History mg-copper 1 ey-inbgcv-bvbfhd capsule (PreserVision AREDS-2) clonazepam 1 mg tablet 1 mg PO DAILY 05/16/24 05/16/24 History nystatin-triamcinolone 100,000 1 applic topical TID 05/16/24 05/16/24 History unit/g-0.1 % topical cream Allergies Allergy/AdvReac Type Severity Reaction Status Date / Time codeine Allergy Unknown Unknown Verified 05/15/24 22:47 morphine Allergy Unknown Unknown Verified 05/15/24 22:47 Vital Signs Vital Signs - 24 hr 05/15/24 14:30 05/15/24 17:45 05/15/24 17:50 Temperature 97.8 F Pulse Rate 75 74 Respiratory Rate 18 24 H Blood Pressure 108/62 Pulse Oximetry 95 96 Oxygen Delivery Room Air 05/15/24 18:08 05/15/24 18:15 05/15/24 18:32 Temperature Pulse Rate 71 78 75 Respiratory Rate 22 H 22 H 26 H Blood Pressure Pulse Oximetry 95 95 96 Oxygen Delivery 05/15/24 18:53 05/15/24 19:02 05/15/24 19:19 Temperature Pulse Rate 74 75 90 Respiratory Rate 19 20 25 H Blood Pressure Pulse Oximetry 95 95 94 Oxygen Delivery 05/15/24 19:47 05/15/24 20:29 05/15/24 20:30 Temperature Pulse Rate 76 77 75 Respiratory Rate 13 15 19 Blood Pressure Pulse Oximetry Oxygen Delivery 05/15/24 21:44 05/15/24 21:45 05/15/24 22:00 Temperature Pulse Rate 77 78 76 Respiratory Rate 19 29 H 22 H Blood Pressure Pulse Oximetry 94 94 93 Oxygen Delivery 05/15/24 22:32 05/15/24 22:38 05/15/24 22:15 Temperature Pulse Rate 79 79 Respiratory Rate 19 19 Blood Pressure 101/85 101/85 Pulse Oximetry 93 93 Oxygen Delivery 05/15/24 23:23 Temperature 97.1 F L Pulse Rate 74 Respiratory Rate 18 Blood Pressure 108/66 Pulse Oximetry 96 Oxygen Delivery Exam Narrative: Patient is sitting in recliner Const: General: comfortable, no acute distress, well developed, alert, awake, average body habitus and other (Well-appearing) Nutritional Appearance: average body habitus Orientation/consciousness: patient oriented x3 HENMT: Head: normal to inspection, normocephalic and atraumatic Ears: hearing grossly normal bilaterally Face/Nose/Sinus: normal facial exam Face and sinus: normal facial exam Eyes: General: appearance normal, both eyes and all related structures Pupils: Equal, round and reactive pupils present EOM: EOMs intact bilaterally Neck: Neck: full ROM, no lymphadenopathy and no JVD Thyroid: thyroid normal Lymphatic: no lymphadenopathy noted Resp: Effort & Inspection: normal respiratory effort and able to speak in complete sentences Auscultation: clear to auscultation bilaterally Cardio: Jugular venous distension: no JVD Rate: regular rate Rhythm: regular rhythm Heart sounds: S1 normal heart sound present and S2 normal heart sound present GI: GI Palp: Yes Soft to palpation and Yes No hepatosplenomegaly present : General: Yes deferred Skin: Rashes: no rashes Wounds: no wounds Neuro: General: patient oriented x3 and CN's II-XI intact bilaterally Cranial nerves: Yes CN's II-XII intact bilaterally and Yes Equal, round and reactive pupils present Cognition (Neuro): normal cognition Speech: normal speech Gait exam (Neuro): Unable to assess gait Motor exam (neuro): 5/5 motor strength present throughout Extrem: General: normal to inspection, full ROM, no joint enlargement and no pedal edema Other: Trace edema H&P: Results Labs Labs: Short CBC 05/15/24 Range/Units 15:41 WBC 10.8 H (4.5-10.0) K/mm3 Hgb 13.8 L (14.0-18.0) g/dL Hct 41.5 L (42.0-52.0) % Plt Count 234 (150-375) k/mm3 BMP 05/15/24 15:41 Sodium 140 Potassium 3.8 Chloride 101 Carbon Dioxide 30 BUN 19 D Creatinine 0.90 Glucose 109 Calcium 9.7 Cardiac Enzymes 05/15/24 Range/Units 15:41 Troponin I < 0.012 (0.000-0.034) ng/mL Liver Function 05/15/24 Range/Units 15:41 Total Bilirubin 1.0 (0.2-1.3) mg/dL AST 20 (17-59) U/L ALT 15 (6-50) U/L Alkaline Phosphatase 88 (38-126) U/L Albumin 4.3 (3.5-5.1) g/dL Urine 05/15/24 Range/Units 22:53 Urine Color Yellow (Yellow) Urine Appearance Clear (Clear) Urine pH 7.0 (5.0-9.0) Ur Specific [place] 1.011 (1.001-1.035) Urine Protein Negative (Negative) mg/dL Urine Glucose (UA) Negative (Negative) mg/dL Assessment and Plan Assessment and plan (1) Acute exacerbation of CHF (congestive heart failure): Qualifiers: Heart failure type: diastolic Qualified Code(s): I50.33 - 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 Code(s): I50.9 - Heart failure, unspecified Status: Acute Assessment and Plan: Admit to med tele Gentle diuresis Daily intake and output Will obtain echocardiogram (2) Diabetes: Code(s): E11.9 - Type 2 diabetes mellitus without complications Status: Acute Assessment and Plan: Holding metformin (3) Impaired functional mobility, balance, gait, and endurance: Code(s): Z74.09 - Other reduced mobility Status: Acute Assessment and Plan: Bilateral knee pain might be contributing to this PT OT (4) ROBER on CPAP: Code(s): G47.33 - Obstructive sleep apnea (adult) (pediatric); Z99.89 - Dependence on other enabling machines and devices Status: Acute Assessment and Plan: CPAP at nighttime (5) Back pain: Code(s): M54.9 - Dorsalgia, unspecified Status: Acute Assessment and Plan: Tylenol p.r.n. (6) Essential (primary) hypertension: Code(s): I10 - Essential (primary) hypertension Status: Acute Assessment and Plan: Resume home meds (7) Cardiac pacemaker in situ: Code(s): Z95.0 - Presence of cardiac pacemaker Status: Acute Assessment and Plan: Interrogated Hospitalist MIPS Advance Care Plan I have confirmed that the patient's Advanced Care Plan is present, code status is documented, or surrogate decision maker is listed in patient medical record.: Yes Medication Reconciliation I have utilized all available resources to obtain, update and review the patients current medications (includes all prescriptions, OTC, herbals, cannabis, and nutritional supplements).: Yes
[2024-05-16] VITALS (9 sets, daily range): BP systolic 113–124; BP diastolic 63–92; PULSE 69–79; RESP 14–20; TEMP 36.1–36.7; O2SAT 94–98; BMI 34.7
--- NOTE | 2024-05-16 | ECHO_ITS ---
Patient Info Name: Vinod Tomas Age: 84 years : 1940 Gender: Male Ht: 70 in Wt: 242 lbs BSA: 2.37 m2 HR: 75 bpm BP: 124 / 69 mmHg Heart Rhythm: Paced Technical Quality: Fair Exam Date: 05/16/2024 3:01 PM Exam Location: Echo Lab Patient Status: Outpatient Admit Date: 05/15/2024 Staff Ordering Physician: Itzel Nuñez MD Rink Rat: Magy Colon RDCS Attending Provider: Itzel Nuñez MD Referring Physician: Savannah BUI; Exam Type: CA echo dop color flow w con Study Info Indications R06.02 - Shortness of breath Complete two-dimensional, color flow and Doppler transthoracic echocardiogram is performed with contrast to opacify the left ventricle and to improve the deliniation of the left ventricle endocardial borders. Contrast/Agitated Saline Contrast/Ag. Saline: Definity Amount: 3.00 ml Administered By: Magy Colon RDCS Existing IV Access: Yes IV Access Condition: patent with no signs of infiltration Summary 1. Technically difficult study with limited views. 2. Left ventricular chamber dimension is normal. 3. Left ventricular systolic function is mildly reduced, estimated at 40-45%. 4. There is mildly increased left ventricular wall thickness. 5. The left ventricular diastolic function is grade I diastolic dysfunction. 6. Right ventricular systolic function is normal. 7. There is mild aortic valve regurgitation. 8. There is mild tricuspid valve regurgitation. Left Ventricle Left ventricular chamber dimension is normal. Left ventricular systolic function is mildly reduced, estimated at 40-45%. There is mildly increased left ventricular wall thickness. Left ventricular septal wall motion is abnormal with septal motion related to pacing. The left ventricular diastolic function is grade I diastolic dysfunction. Right Ventricle Linear artifact in right ventricle suggestive of catheter(s), pacemaker lead(s), or ICD lead(s). Right ventricular chamber dimension is normal. Right ventricular systolic function is normal. Left Atria Left atrial chamber dimension is normal. Right Atria Linear artifact in the right atrium suggestive of catheter(s), pacemaker lead(s), or ICD lead(s). Right atrial chamber dimension is normal. Atrial Septum Intact interatrial septum visualized by color flow imaging. Aortic Valve The aortic valve is trileaflet. There is no aortic valve stenosis. There is mild aortic valve regurgitation. There is moderate aortic valve calcification. Pulmonic Valve The pulmonic valve is not well visualized. There is trace pulmonic regurgitation. Mitral Valve There is trace mitral valve regurgitation. Tricuspid Valve There is mild tricuspid valve regurgitation. Pericardium/Pleural There is no pericardial effusion. Inferior Vena Cava Normal inferior vena cava with >50% collapse upon inspiration consistent with normal right atrial pressure, 3 mmHg. Aorta The aortic root size at the sinus of Valsalva is normal. Left Ventricular Outflow Tract Name Value Normal LVOT 2D LVOT Diameter 2.04 cm LVOT Doppler LVOT Peak Gradient 2 mmHg LVOT Mean Gradient 1 mmHg LVOT VTI 13.81 cm LVOT VTI/AV VTI Ratio 0.65 LVOT Stroke Volume 45.00 ml LVOT CO 2.79 l/min LVOT CI 1.18 L/min/m2 Pulmonic Valve Name Value Normal RVOT Doppler RVOT Peak Gradient 1 mmHg PV Doppler PV Peak Gradient 3 mmHg Mitral Valve Name Value Normal MV Doppler MV Decel [place] 477.62 cm/s2 MV PHT 0 s MV Area (PHT) 4.00 cm2 4.00-5.00 MV Diastolic Function MV E Peak Velocity 90.69 cm/s MV A Peak Velocity 1.17 cm/s MV E/A 77.37 MV Decel Time 0 s MV Annular TDI MV E/e' (Septal) 23.73 <=8.00 MV E/e' (Lateral) 13.09 <=8.00 MV E/e' (Average) 18.41 Tricuspid Valve Name Value Normal TV Regurgitation Doppler TR Peak Velocity 307.84 cm/s TR Peak Gradient 20 mmHg Estimated PAP/RSVP RA Pressure 3 mmHg <=5 PA Systolic Pressure 41 mmHg <36 RV Systolic Pressure 41 mmHg <36 Aorta Name Value Normal Ascending Aorta Ao Root Diameter (MM) 3.78 cm Ao Root Diam Index (MM) 1.60 cm/m2 Aortic Valve Name Value Normal AV Doppler AV Peak Velocity 119.37 cm/s AV Peak Gradient 5 mmHg AV Mean Gradient 2 mmHg AV VTI 21.35 cm AV Area (Cont Eq VTI) 2.11 cm2 >=3.00 AV Area (Cont Eq Marito) 2.10 cm2 AV Regurgitation 2D LVOT Area 3.26 cm2 Ventricles Name Value Normal LV Dimensions 2D/MM IVS Diastolic Thickness (2D) 0.96 cm 0.60-1.00 LVID Diastole (2D) 5.82 cm 4.20-5.80 LVIW Diastolic Thickness (2D) 1.00 cm 0.60-1.00 LVID Systole (2D) 4.08 cm 2.50-4.00 LVOT Diameter 2.04 cm LV Mass (2D Cubed) 229.13 g 88.00-224.00 LV Mass Index (2D Cubed) 0.01 g/cm2 0.00-0.01 Relative Wall Thickness (2D) 0.34 LV Fractional Shortening/Ejection Fraction 2D/MM LV Fractional Shortening (2D) 30 % 25-43 LV EF (2D Teicholz) 56 % 52-72 LV Diastolic Volume (4C MOD) 81.50 ml LV EF (4C MOD) 58 % LV Diastolic Volume (2C MOD) 50.59 ml LV EF (2C MOD) 59 % LV Diastolic Volume (BP MOD) 64.77 ml 62.00-150.00 LV Diastolic Volume Index (BP MOD) 0.03 l/m2 0.03-0.07 LV Systolic Volume (BP MOD) 27.75 ml 21.00-61.00 LV Systolic Volume Index (BP MOD) 0.01 l/m2 0.01-0.03 LV EF (BP MOD) 57 % 52-72 LV Diastolic Length (4C) 7.80 cm LV Systolic Length (4C) 7.34 cm LV Stroke Volume (4C MOD) 47.03 ml Atria Name Value Normal LA Dimensions LA Dimension (MM) 4.36 cm 3.00-4.10 LA Volume (4C A-L) 77.43 ml LA Volume (BP A-L) 65.68 ml RA Dimensions RA Area (4C) 14.22 cm2 <=18.00 Report Signatures
--- NOTE | 2024-05-16 00:33 | PC.NURSE ---
Pt was having frequency and urgency urinating issues. Pt had a bout of incontinence and then urinated 100mL in the urinal. He was bladder scanned immediately afterwards and was retaining more than 265mL. Provider notified. Orders received to straight cath pt and send for UA
[2024-05-16 01:20] LABS: Add Urine Microscopic? NO; Appearance Urine Clear (Clear); Bilirubin Urine Negative (Negative); Blood Urine Negative (Negative); Color Urine Yellow (Yellow); Glucose Urine UA Negative (Negative); Ketones Urine Negative (Negative); Leukocyte Esterase Ur Negative LEU/UL (Negative); Nitrate Urine Negative (Negative); Protein Urine Negative (Negative); Specific Grav Ur 1.008 (1.001-1.035); Urobilinogen Urine 0.2 mg/dL (<2.0)
[2024-05-16] MEDS: traMADol HCL (*CRX) 50 MG TABLET PO ×2 (03:46→20:59)
[2024-05-16 07:22] LABS: Glucose Point of Care 124 mg/dl (65-105)
[2024-05-16] MEDS: PRAVASTATIN SODIUM 20 MG TABLET 40 MG PO (09:51)
[2024-05-16] MEDS: ASPIRIN 81 MG ENTERIC TABLET PO (09:52)
[2024-05-16] MEDS: CLOPIDOGREL BISULFATE 75 MG TABLET PO (09:52)
[2024-05-16] MEDS: carvediloL 12.5 MG TABLET PO ×2 (09:52→20:50)
[2024-05-16] MEDS: SPIRONOLACTONE 12.5 MG TABLET PO (09:52)
[2024-05-16] MEDS: clonazePAM (*CRX) 0.5 MG TABLET 1 MG PO (09:52)
[2024-05-16] MEDS: CALCIUM/VITAMIN D 500 MG/5 MCG (200 I.U.) TABLET PO (09:52)
[2024-05-16] MEDS: ACIDOPHILUS/BULGARICUS CHEWABLE TABLET 1 TABLET PO (09:52)
[2024-05-16] MEDS: LORATADINE 10 MG TABLET PO (09:53)
[2024-05-16 11:47] LABS: Glucose Point of Care 119 mg/dl (65-105)
[2024-05-16] MEDS: FUROSEMIDE INJ 40 MG/4 ML VIAL IV PUSH ×2 (12:02→17:39)
--- NOTE | 2024-05-16 12:11 | P.PNIM_ITS ---
Progress Note: A&P Assessment and Plan (1) Acute exacerbation of CHF (congestive heart failure): Qualifiers: Heart failure type: diastolic Qualified Code(s): I50.33 - 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 Code(s): I50.9 - Heart failure, unspecified Status: Acute Assessment and Plan: - Acute on Chronic CHF Exacerbation. - Started on Lasix IV BID. - Daily weights with strict I & O's. - ECHO pending. - Last ECHO 03/03 showed EF 55-60 %. -Video Player Mechanic consulted. (2) Acute hypoxic respiratory failure: Code(s): J96.01 - Acute respiratory failure with hypoxia Status: Acute Assessment and Plan: - Likely related to CHF Exacerbation. - Improving with diuresis. - Currently good O2 sats on RA. - Supplemental O2 PRN to maintain sats > 90 %. (3) Diabetes: Code(s): E11.9 - Type 2 diabetes mellitus without complications Status: Acute Assessment and Plan: - Blood glucose levels well controlled without interventions. - Hold hypoglycemics for now. (4) Impaired functional mobility, balance, gait, and endurance: Code(s): Z74.09 - Other reduced mobility Status: Acute Assessment and Plan: - Reports some left-knee pain. - PT OT eval and treatment. - Fall precautions. (5) Cardiac pacemaker in situ: Code(s): Z95.0 - Presence of cardiac pacemaker Status: Acute Assessment and Plan: - Interrogation ordered. - Video Player Mechanic consulted to evaluate for possible pacemaker lead interruption per CXR. - Continue tele monitoring. (6) CAD (coronary artery disease): Code(s): I25.10 - Atherosclerotic heart disease of [place] coronary artery without angina pectoris Status: Acute Assessment and Plan: - Appear stable. - Continue coreg, aspirin and statin. (7) Essential (primary) hypertension: Code(s): I10 - Essential (primary) hypertension Status: Acute Assessment and Plan: - Currently well controlled. - Monitor closely with diuresis. (8) ROBER on CPAP: Code(s): G47.33 - Obstructive sleep apnea (adult) (pediatric); Z99.89 - Dependence on other enabling machines and devices Status: Acute Assessment and Plan: - CPAP at nighttime (9) Back pain: Code(s): M54.9 - Dorsalgia, unspecified Status: Acute Assessment and Plan: - Pain meds PRN. (10) Mixed hyperlipidemia: Code(s): E78.2 - Mixed hyperlipidemia Status: Acute Assessment and Plan: - Continue statin. Plan - Continue diuresis. - Video Player Mechanic consulted to evaluate possible pacemaker lead interruption. Subjective Date/time seen: 05/16/24 10:10 Patient states he feels much better compared to yesterday. States his leg swelling also appears to have resolved. Reports he fell about a week ago on his knees after turning off the lights and getting on his roller walker trying to get to bed. Interval history: Patient admitted to the hospital with worsening SOB and weakness. Patient had a fall incident about a week ago on his knees while using his walker. States he doesn't know what happened, just found himself fallen on his knees, doesn't think he was dizzy before he fell. Review of Systems Review of Systems: All systems reviewed & are unremarkable except as noted in HPI and below Exam Narrative: HEENT: Atraumatic, PERRL, EOM, moist mucus membranes, Neck: Supple Lungs: Lungs clear to auscultation. Heart: RRR, No murmurs. Abdomen: Soft, NT, non-distended, +ve bowel sounds X4 quadrants. Extremities: [place] with some bruising to LLE, no edema, pedal pulses +ve, Skin: Warm and dry. No lesions. Neuro: Well oriented. CN II-XII grossly intact. No focal neuro deficits. Psych: Pleasant and co-operative. Objective Data Vital Signs Vital Signs: Vital Signs - 24 hr 05/15/24 14:30 05/15/24 17:45 05/15/24 17:50 Temperature 97.8 F Pulse Rate 75 74 Respiratory Rate 18 24 H Blood Pressure 108/62 Pulse Oximetry 95 96 Oxygen Delivery Room Air 05/15/24 18:08 05/15/24 18:15 05/15/24 18:32 Temperature Pulse Rate 71 78 75 Respiratory Rate 22 H 22 H 26 H Blood Pressure Pulse Oximetry 95 95 96 Oxygen Delivery 05/15/24 18:53 05/15/24 19:02 05/15/24 19:19 Temperature Pulse Rate 74 75 90 Respiratory Rate 19 20 25 H Blood Pressure Pulse Oximetry 95 95 94 Oxygen Delivery 05/15/24 19:47 05/15/24 20:29 05/15/24 20:30 Temperature Pulse Rate 76 77 75 Respiratory Rate 13 15 19 Blood Pressure Pulse Oximetry Oxygen Delivery 05/15/24 21:44 05/15/24 21:45 05/15/24 22:00 Temperature Pulse Rate 77 78 76 Respiratory Rate 19 29 H 22 H Blood Pressure Pulse Oximetry 94 94 93 Oxygen Delivery 05/15/24 22:32 05/15/24 22:38 05/15/24 22:15 Temperature Pulse Rate 79 79 Respiratory Rate 19 19 Blood Pressure 101/85 101/85 Pulse Oximetry 93 93 Oxygen Delivery 05/15/24 23:23 05/16/24 00:00 05/16/24 00:00 Temperature 97.1 F L Pulse Rate 74 73 Respiratory Rate 18 Blood Pressure 108/66 Pulse Oximetry 96 Oxygen Delivery Room Air 05/16/24 04:00 05/16/24 04:00 05/16/24 08:00 Temperature 97.8 F 97.6 F Pulse Rate 78 75 75 Respiratory Rate 20 18 Blood Pressure 124/69 120/78 Pulse Oximetry 98 94 Oxygen Delivery 05/16/24 10:00 05/16/24 11:51 Temperature 97.3 F L Pulse Rate 71 79 Respiratory Rate 18 Blood Pressure 117/73 Pulse Oximetry 98 Oxygen Delivery Intake/Output Intake/Output: Intake & Output 05/14/24 05/14/24 05/15/24 05/16/24 00:59 23:59 23:59 23:59 Intake Total 640 Output Total 600 Balance 40 Meds/Results Medications: Active Medications Generic Name Dose Route Start Last Admin Trade Name Freq PRN Reason Stop Dose Admin Acetaminophen 1,000 mg 05/16/24 01:50 Acetaminophen 500 Mg Tablet PO Q6H PRN pain 1-3, fever Aspirin 81 mg 05/16/24 09:00 05/16/24 09:52 Aspirin 81 Mg Enteric Tablet PO 81 mg DAILY LUISANA Administration Calcium Carbonate 500 mg 05/16/24 09:00 05/16/24 09:52 Calcium/Vitamin D 500 Mg/5 Mcg (200 I.U.) Tablet PO 06/15/24 08:59 500 mg DAILY LUISANA Administration Carvedilol 12.5 mg 05/16/24 09:00 05/16/24 09:52 Carvedilol 12.5 Mg Tablet PO 12.5 mg Q12HR LUISANA Administration Clonazepam 1 mg 05/16/24 09:00 05/16/24 09:52 Clonazepam (*Crx) 0.5 Mg Tablet PO 1 mg DAILY LUISANA Administration Clopidogrel Bisulfate 75 mg 05/16/24 09:00 05/16/24 09:52 Clopidogrel Bisulfate 75 Mg Tablet PO 75 mg DAILY LUISANA Administration Furosemide 40 mg 05/16/24 10:15 05/16/24 12:02 Furosemide Inj 40 Mg/4 Ml Vial IV PUSH 40 mg BID LUISANA Administration Lactobacillus Acidophilus 1 tablet 05/16/24 09:00 05/16/24 09:52 Acidophilus/[place] Chewable Tablet PO 06/15/24 08:59 1 tablet DAILY LUISANA Administration Loratadine 10 mg 05/16/24 09:00 05/16/24 09:53 Loratadine 10 Mg Tablet PO 06/15/24 08:59 10 mg DAILY LUISANA Administration Magnesium Hydroxide 5 ml 05/16/24 01:50 Magnesium Hydroxide Susp 30 Ml Udc PO Q12H PRN Constipation Miscellaneous Information 0 each 05/17/24 00:01 Magnesium Duplicate With Docusate/Senna Prn Constipation Please Clarify When To Use Or D/C XX 06/16/24 00:00 CLARIFY LUISANA Miscellaneous Information 0 each 05/16/24 00:01 05/16/24 02:32 Biofreeze Nonform Hold While Here Or Change To [facility]? XX 06/15/24 00:00 Not Given CLARIFY LUISANA Non-Formulary Medication 1 applic 05/16/24 01:50 Menthol [Biofreeze (Menthol)] TOPICAL Q4H PRN Pain Ondansetron HCl 4 mg 05/16/24 05:26 Ondansetron Inj 4 Mg/2 Ml Vial IV PUSH Q6H PRN Nausea And Vomiting Perflutren Lipid Microsphere 0 ml 05/16/24 06:36 Perflutren Lipid Microspheres 1.5 Ml Vial Diluted To 10 Ml Total Volume IV PUSH 05/19/24 06:36 ONCE PRN adequate visualization Protocol Pravastatin Sodium 40 mg 05/16/24 09:00 05/16/24 09:51 Pravastatin Sodium 20 Mg Tablet PO 40 mg DAILY LUISANA Administration Senna/Docusate Sodium 1 tab 05/16/24 01:50 Senna/Docusate Sodium Tablet PO Q12H PRN Constipation Spironolactone 12.5 mg 05/16/24 09:00 05/16/24 09:52 Spironolactone 12.5 Mg Tablet PO 12.5 mg DAILY LUISANA Administration Tramadol HCl 50 mg 05/16/24 01:50 05/16/24 03:46 Tramadol Hcl (*Crx) 50 Mg Tablet PO 50 mg Q6H PRN Administration pain 4-6 Radiology Results: ITS Impressions Venous Doppler Study 05/15/24 16:27 IMPRESSION: 1. No deep venous thrombosis. Chest X-Ray 05/15/24 17:48 IMPRESSION: Small left-sided pleural effusion. No focal infiltrate. Possible disruption of a pacemaker lead, as detailed above. Knee X-Ray 05/15/24 20:53 IMPRESSION: No acute fracture identified within the right knee, as detailed above. Labs Labs: Laboratory Results - last 24 hr 05/15/24 05/15/24 05/15/24 15:40 15:41 15:41 WBC 10.8 H RBC 4.52 L Hgb 13.8 L Hct 41.5 L MCV 91.8 MCH 30.5 MCHC 33.3 RDW 14.3 Plt Count 234 MPV 10.4 Immature Gran % (Auto) 0.2 Neut % (Auto) 61.9 Lymph % (Auto) 28.1 [place] % (Auto) 7.6 Eos % (Auto) 1.8 Baso % (Auto) 0.4 Lymph # (Auto) 3.04 [place] # (Auto) 0.8 H Eos # (Auto) 0.2 Baso # (Auto) 0.0 Abs Immat Gran (auto) 0.02 Absolute Neuts (auto) 6.7 Absolute Nucleated RBC 0.000 Nucleated RBC % 0.0 PT 14.5 INR 1.1 APTT 36.5 Sodium 140 Potassium 3.8 Chloride 101 Carbon Dioxide 30 Anion Gap 9 BUN 19 D Creatinine 0.90 Estim Creat Clear Calc Not Reportable Estimated GFR > 60 Glucose 109 POC Capillary Glucose Calcium 9.7 Total Bilirubin 1.0 AST 20 ALT 15 Alkaline Phosphatase 88 Troponin I < 0.012 NT-Pro-B Natriuret Pep 3170 H Cancelled Total Protein 7.0 Albumin 4.3 Urine Color Urine Appearance Urine pH Ur Specific [place] Urine Protein Urine Glucose (UA) Urine Ketones Ur Blood (Man) Urine Nitrate Urine Bilirubin Urine Urobilinogen Leukocyte Esterase Rfl 11/11/0205/16/24 05/16/24 22:53 01:08 07:19 WBC RBC Hgb Hct MCV MCH MCHC RDW Plt Count MPV Immature Gran % (Auto) Neut % (Auto) Lymph % (Auto) [place] % (Auto) Eos % (Auto) Baso % (Auto) Lymph # (Auto) [place] # (Auto) Eos # (Auto) Baso # (Auto) Abs Immat Gran (auto) Absolute Neuts (auto) Absolute Nucleated RBC Nucleated RBC % PT INR APTT Sodium Potassium Chloride Carbon Dioxide Anion Gap BUN Creatinine Estim Creat Clear Calc Estimated GFR Glucose POC Capillary Glucose 124 H Calcium Total Bilirubin AST ALT Alkaline Phosphatase Troponin I NT-Pro-B Natriuret Pep Total Protein Albumin Urine Color Yellow Yellow Urine Appearance Clear Clear Urine pH 7.0 7.0 Ur Specific [place] 1.011 1.008 Urine Protein Negative Negative Urine Glucose (UA) Negative Negative Urine Ketones Negative Negative Ur Blood (Man) Negative Negative Urine Nitrate Negative Negative Urine Bilirubin Negative Negative Urine Urobilinogen 0.2 0.2 Leukocyte Esterase Rfl Negative Negative 05/16/24 11:43 WBC RBC Hgb Hct MCV MCH MCHC RDW Plt Count MPV Immature Gran % (Auto) Neut % (Auto) Lymph % (Auto) [place] % (Auto) Eos % (Auto) Baso % (Auto) Lymph # (Auto) [place] # (Auto) Eos # (Auto) Baso # (Auto) Abs Immat Gran (auto) Absolute Neuts (auto) Absolute Nucleated RBC Nucleated RBC % PT INR APTT Sodium Potassium Chloride Carbon Dioxide Anion Gap BUN Creatinine Estim Creat Clear Calc Estimated GFR Glucose POC Capillary Glucose 119 H Calcium Total Bilirubin AST ALT Alkaline Phosphatase Troponin I NT-Pro-B Natriuret Pep Total Protein Albumin Urine Color Urine Appearance Urine pH Ur Specific [place] Urine Protein Urine Glucose (UA) Urine Ketones Ur Blood (Man) Urine Nitrate Urine Bilirubin Urine Urobilinogen Leukocyte Esterase Rfl
--- NOTE | 2024-05-16 15:44 | PM.CNCAR ---
Assessment and Plan Assessment and plan (1) Acute CHF: Qualifiers: Heart failure type: unspecified Qualified Code(s): I50.9 - Heart failure, unspecified Code(s): I50.9 - Heart failure, unspecified Status: Acute Assessment and Plan: Clinically he does not appear to be in decompensated heart failure. Echo from 1 year ago shows normal LV function with grade 1 diastolic dysfunction and no significant valve pathology. Repeat echocardiogram is pending. Will follow up on results. Probably does not need further IV diuresis. (2) Cardiac pacemaker in situ: Code(s): Z95.0 - Presence of cardiac pacemaker Status: Acute Assessment and Plan: Pacemaker has been interrogated and is functioning normally. He does have about 7 months until [facility]. Will ensure he has follow up with Dr. Bruner in the office. 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 He is hospitalized because of shortness of breath and weakness. Cardiology is consulted because of a finding of a possible pacemaker lead disruption on chest x-ray. His pacemaker has been interrogated and shows normal function. The patient has complaints weakness in his legs, swelling on his right leg (he hit his knee with recent fall), and orthopnea. History surrounding his fall is somewhat difficult to follow, he is a poor historian, but from what he tells me it does not like he lost consciousness. His chest x-ray showed a small right pleural effusion and his BNP was mildly elevated so he is being treated for congestive heart failure with IV furosemide. Review of Systems Review of Systems: All systems reviewed & are unremarkable except as noted in HPI and below Constitutional: Constitutional: Denies chills, Denies fever(s), Denies headache(s) and Denies malaise Eyes: Eyes: Denies change in vision ENT: Reports Normal hearing present, Denies dizziness, Denies headache(s) and Denies hearing loss Cardiovascular: Cardiovascular: Denies chest pain, Denies chest pain at rest, Denies chest pain with activity, Denies syncope, Reports leg edema, Denies palpitations, Reports dyspnea and Reports dyspnea on exertion Respiratory: Respiratory: Denies cough, Reports dyspnea, Reports dyspnea on exertion and Denies wheezing Gastrointestinal: Gastrointestinal: Denies abdominal pain, Denies constipation and Denies diarrhea Genitourinary: Genitourinary: Denies hematuria and Denies dysuria Musculoskeletal: Musculoskeletal: Denies myalgias, Denies arthralgias and Denies muscle cramps Integumentary/Breasts: Skin/Breast: Denies wounds Neurologic: Reports Normal hearing present, Denies confusion, Denies dizziness, Denies syncope and Denies headache(s) Psychiatric: Psychiatric: Denies anxiety, Denies confusion and Denies depression Endocrine: Endocrine: Denies cold intolerance, Denies flushing, Denies heat intolerance and Denies palpitations Hematologic/Lymphatic: Hematologic/Lymphatic: Denies easy bleeding and Denies easy bruising Allergic/Immunologic: Allergic/Immunologic: Denies wheezing PMFSH Past Medical History Medical History Abscess of left arm (~04/2021) Anxiety Anxiety ASHD (arteriosclerotic heart disease) Back pain Balanitis Bilateral knee pain BMI 33.0-33.9,adult BMI 34.0-34.9,adult BMI 35.0-35.9,adult BMI 37.0-37.9, adult BMI 38.0-38.9,adult Cardiac pacemaker in situ Cognitive dysfunction Constipation Diabetes Dizziness Encounter for long-term current use of medication Encounter for Medicare annual wellness exam Encounter for routine adult health examination with abnormal findings Encounter for routine adult health examination without abnormal findings Essential (primary) hypertension Fatigue Follow up Hearing loss History of DVT (deep vein thrombosis) History of frequent urinary tract infections History of prostate cancer Hyperlipidemia Impaired functional mobility, balance, gait, and endurance Insomnia Microalbuminuria Mixed hyperlipidemia Nausea Nocturia Obesity On intermediate frame tender drug therapy ROBER (obstructive sleep apnea) ROBER on CPAP Pacemaker Peripheral neuropathy Prediabetes Rash Right thigh pain Scrotal bleeding Skin cancer Skin lesion Slurred speech Unintentional weight loss Urinary incontinence, male, stress UTI (urinary tract infection) Vitamin D deficiency Surgical History Surgical History History of cardiac cath History of cholecystectomy History of colonoscopy History of prostatectomy History of surgical removal of skin lesion History of total right hip replacement S/P placement of cardiac pacemaker Family History Family History Mother Acute myocardial infarction Father Family history of primary malignant neoplasm of liver Family history of liver disease Other Family history of alcoholism Social History Social History Smoking packs per day: 3 Smoking cigarettes per day: 60.0 Years smoked: 30 Smoking pack-years: 90.00 Smoking status: Former smoker Smoking end date: 05/12/76 Alcohol intake: never Substance use: never Do You Feel Safe in your Home?: Yes Lack of Transportation: No Lack of Food: Never True Current Housing: I Have Housing Concerned About Future Housing: No Difficulty Paying Gas/Electric Bills: No Difficulty Paying for Meds: No Currently Unemployed: No Education: High School Diploma/GED Difficulty w/ Childcare or Family Care: No Living arrangements: assisted living Occupation/Education: retired Gender identity (if verbalized by the patient): Male Spiritual care concerns: No Meds Home Medications and Allergies Home Medications Medication Instructions Recorded Confirmed Type aspirin 81 mg tablet,delayed 81 mg PO DAILY 01/03/20 05/16/24 History release (Arvin Low Dose Aspirin) omega-3s 300 cl-jgz-mqa-other 1 cap PO Q12H 01/03/20 05/16/24 History deqtx7x-rwki oil 1,000 mg capsule ([place]-3 Fish Oil) magnesium hydroxide 400 mg/5 mL 5 ml PO Q12H PRN Constipation 06/27/21 05/16/24 History oral suspension (Milk of Magnesia) acetaminophen 500 mg tablet 1,000 mg PO Q6H PRN pain, fever 01/14/23 05/15/24 History cetirizine 10 mg tablet 10 mg PO DAILY 01/14/23 05/16/24 History carvedilol 12.5 mg tablet 12.5 mg PO Q12H 02/21/23 05/16/24 History clopidogrel 75 mg tablet 75 mg PO DAILY 02/21/23 05/16/24 History metformin 500 mg tablet 500 mg PO BIDWM 02/21/23 05/16/24 History calcium 600 mg (as 1 tablet PO DAILY 06/01/23 05/16/24 History carbonate)-vitamin D3 25 mcg (1,000 unit) tablet furosemide 40 mg tablet 40 mg PO DAILY #30 tabs 06/03/23 05/16/24 Rx spironolactone 25 mg tablet 12.5 mg PO DAILY #30 tabs 06/03/23 05/16/24 Rx pravastatin 40 mg tablet 40 mg PO DAILY #90 tabs 06/22/23 05/16/24 Rx tramadol 50 mg tablet 50 mg PO Q6H PRN pain #45 tabs 04/28/24 05/16/24 Rx Lactobacillus rhamnosus GG 15 1 cap PO DAILY 05/15/24 05/16/24 History billion cell sprinkle capsule (Culturelle) ccggesnijjk-dwmgeaavd-ezy C-Mn 500 1 cap PO DAILY 05/15/24 05/16/24 History mg-400 mg capsule (Glucosamine Chondroitin Maximum Strength) menthol 4 % topical gel (Biofreeze 1 applic topical Q4H PRN Pain 05/15/24 05/16/24 History (menthol)) sennosides 8.6 mg-docusate sodium 1 tablet PO Q12H PRN Constipation 05/15/24 05/16/24 History 50 mg tablet (Stool Softener-Laxative) vit C 250 mg-vit E 90 mg-zinc 40 1 tablet PO BID 05/15/24 05/16/24 History mg-copper 1 mr-jhjsvp-tzppdk capsule (PreserVision AREDS-2) clonazepam 1 mg tablet 1 mg PO DAILY 05/16/24 05/16/24 History nystatin-triamcinolone 100,000 1 applic topical TID 05/16/24 05/16/24 History unit/g-0.1 % topical cream Allergies Allergy/AdvReac Type Severity Reaction Status Date / Time codeine Allergy Unknown Unknown Verified 05/15/24 22:47 morphine Allergy Unknown Unknown Verified 05/15/24 22:47 Vital Signs Vital Signs - 24 hr 05/15/24 17:45 05/15/24 17:50 05/15/24 18:08 Temperature Pulse Rate 74 71 Respiratory Rate 24 H 22 H Blood Pressure Pulse Oximetry 96 95 Oxygen Delivery Room Air 05/15/24 18:15 05/15/24 18:32 05/15/24 18:53 Temperature Pulse Rate 78 75 74 Respiratory Rate 22 H 26 H 19 Blood Pressure Pulse Oximetry 95 96 95 Oxygen Delivery 05/15/24 19:02 05/15/24 19:19 05/15/24 19:47 Temperature Pulse Rate 75 90 76 Respiratory Rate 20 25 H 13 Blood Pressure Pulse Oximetry 95 94 Oxygen Delivery 05/15/24 20:29 05/15/24 20:30 05/15/24 21:44 Temperature Pulse Rate 77 75 77 Respiratory Rate 15 19 19 Blood Pressure Pulse Oximetry 94 Oxygen Delivery 05/15/24 21:45 05/15/24 22:00 05/15/24 22:32 Temperature Pulse Rate 78 76 Respiratory Rate 29 H 22 H Blood Pressure 101/85 Pulse Oximetry 94 93 Oxygen Delivery 05/15/24 22:38 05/15/24 22:15 05/15/24 23:23 Temperature 36.2 C L Pulse Rate 79 79 74 Respiratory Rate 19 19 18 Blood Pressure 101/85 108/66 Pulse Oximetry 93 93 96 Oxygen Delivery 05/16/24 00:00 05/16/24 00:00 05/16/24 04:00 Temperature 36.6 C Pulse Rate 73 78 Respiratory Rate 20 Blood Pressure 124/69 Pulse Oximetry 98 Oxygen Delivery Room Air 05/16/24 04:00 05/16/24 08:00 05/16/24 10:00 Temperature 36.4 C Pulse Rate 75 75 71 Respiratory Rate 18 Blood Pressure 120/78 Pulse Oximetry 94 Oxygen Delivery 05/16/24 11:51 05/16/24 12:00 Temperature 36.3 C L Pulse Rate 79 79 Respiratory Rate 18 Blood Pressure 117/73 Pulse Oximetry 98 Oxygen Delivery Exam Const: General: comfortable, no acute distress, alert and awake Orientation/consciousness: patient oriented x3 HENMT: Head: normal to inspection Eyes: General: appearance normal, both eyes and all related structures Pupils: Equal, round and reactive pupils present Neck: Neck: normal visual inspection, supple and no JVD Carotids: normal carotid upstroke Resp: Effort & Inspection: normal respiratory effort Auscultation: clear to auscultation bilaterally, no rales and diminished lung sounds Cardio: Rate: regular rate Rhythm: regular rhythm Heart sounds: S1 normal heart sound present, S2 normal heart sound present and no murmurs GI: Auscultation: normal bowel sounds Skin: General skin exam: normal color Neuro: General: patient oriented x3 Cranial nerves: Yes Equal, round and reactive pupils present Extrem: General: normal to inspection Other: trace edema Psych: Appearance: grossly normal Mental Status: mental status grossly normal Results Labs and Meds 05/15/24 15:41 05/15/24 15:41 Lab results: Cardiac Enzymes 05/15/24 Range/Units 15:41 AST 20 (17-59) U/L Troponin I < 0.012 (0.000-0.034) ng/mL Coagulation 05/15/24 Range/Units 15:40 PT 14.5 (11.1-14.7) Seconds APTT 36.5 (22.3-36.8) Seconds CBC 05/15/24 Range/Units 15:41 WBC 10.8 H (4.5-10.0) K/mm3 RBC 4.52 L (4.6-6.20) M/mm3 Hgb 13.8 L (14.0-18.0) g/dL Hct 41.5 L (42.0-52.0) % Plt Count 234 (150-375) k/mm3 Lymph # (Auto) 3.04 (0.9-3.2) K/mm3 [place] # (Auto) 0.8 H (0.1-0.6) K/mm3 Eos # (Auto) 0.2 (0-0.3) K/mm3 Baso # (Auto) 0.0 (0.0-0.1) K/mm3 Comprehensive Metabolic Panel 05/15/24 Range/Units 15:41 Sodium 140 (137-145) mmol/L Potassium 3.8 (3.4-5.0) mmol/L Chloride 101 (98-107) mmol/L Carbon Dioxide 30 (22-30) mmol/L BUN 19 D (9-20) mg/dL Creatinine 0.90 (0.7-1.3) mg/dL Glucose 109 (65-110) mg/dL Calcium 9.7 (8.4-10.2) mg/dL AST 20 (17-59) U/L ALT 15 (6-50) U/L Alkaline Phosphatase 88 (38-126) U/L Total Protein 7.0 (6.3-8.2) g/dL Albumin 4.3 (3.5-5.1) g/dL Intake and Output 05/15/24 05/16/2424 23:59 07:59 15:59 Intake Total 200 560 Output Total 600 Balance -400 560 Intake: Oral 200 560 Output: Urine 300 Straight Cath Amount 300 Other: # Unmeasured Voids 2 # Incontinent Voids 1 Patient Weight 05/16/24 23:59 Weight 109.8 kg
[2024-05-16] MEDS: PERFLUTREN LIPID MICROSPHERES 1.5 ML VIAL DILUTED TO 10 ML TOTAL VOLUME IV PUSH (16:00)
[2024-05-16 16:27] LABS: Glucose Point of Care 129 mg/dl (65-105)
--- NOTE | 2024-05-16 16:34 | IVDEFINITY ---
Prior to administration of IV Definity the patient was educated on the risks and benefits of the imaging enhancing agent including potential adverse side effects. The patient verbalized understanding. Allergies were verified. No exclusion criteria were identified and at least one of the following inclusion criteria were met: 1) physician request, 2) patient technically difficult to image (per the [place] [employer]chocardi[employer] guidelines of two or more segments not discernable within the apical view), or 3) questionable left ventricular function. ?
[2024-05-16 21:01] LABS: Glucose Point of Care 113 mg/dl (65-105)
[2024-05-17] VITALS (11 sets, daily range): BP systolic 97–117; BP diastolic 60–72; PULSE 66–82; RESP 12–20; TEMP 35.6–36.3; O2SAT 93–96
[2024-05-17] MEDS: ACETAMINOPHEN 500 MG TABLET 1000 MG PO ×2 (01:11→11:42)
[2024-05-17 07:45] LABS: Glucose Point of Care 123 mg/dl (65-105)
[2024-05-17] MEDS: ACIDOPHILUS/BULGARICUS CHEWABLE TABLET 1 TABLET PO (08:35)
[2024-05-17] MEDS: LORATADINE 10 MG TABLET PO (08:35)
[2024-05-17] MEDS: PRAVASTATIN SODIUM 20 MG TABLET 40 MG PO (08:35)
[2024-05-17] MEDS: FUROSEMIDE INJ 40 MG/4 ML VIAL IV PUSH (08:36)
[2024-05-17] MEDS: clonazePAM (*CRX) 0.5 MG TABLET 1 MG PO (08:36)
[2024-05-17] MEDS: CALCIUM/VITAMIN D 500 MG/5 MCG (200 I.U.) TABLET PO (08:36)
[2024-05-17] MEDS: SPIRONOLACTONE 12.5 MG TABLET PO (08:36)
[2024-05-17] MEDS: CLOPIDOGREL BISULFATE 75 MG TABLET PO (08:38)
[2024-05-17] MEDS: ASPIRIN 81 MG ENTERIC TABLET PO (08:38)
[2024-05-17] MEDS: carvediloL 12.5 MG TABLET PO ×2 (08:40→20:08)
--- NOTE | 2024-05-17 11:05 | P.PNCA_ITS ---
Progress Note: A&P Assessment and Plan (1) Acute CHF: Qualifiers: Heart failure type: unspecified Qualified Code(s): I50.9 - Heart failure, unspecified Code(s): I50.9 - Heart failure, unspecified Status: Acute Assessment and Plan: Echocardiogram shows LVEF 40-45%. Continue Spironolactone, Carvedilol. Will switch the Lasix to PO. Will not uptitrate heart failure GDMT at this time as blood pressures are on the softer side. (2) Cardiac pacemaker in situ: Code(s): Z95.0 - Presence of cardiac pacemaker Status: Acute Assessment and Plan: Pacemaker has been interrogated and is functioning normally. He does have about 7 months until [facility]. Will ensure he has follow up with Dr. Bruner in the office. (3) Acute hypoxic respiratory failure: Code(s): J96.01 - Acute respiratory failure with hypoxia Status: Acute Assessment and Plan: On room air now. (4) CAD (coronary artery disease): Code(s): I25.10 - Atherosclerotic heart disease of [place] coronary artery without angina pectoris Status: Acute Assessment and Plan: Continue ASA, Plavix, statin. (5) Mixed hyperlipidemia: Code(s): E78.2 - Mixed hyperlipidemia Status: Acute Assessment and Plan: Continue statin (6) Diabetes: Code(s): E11.9 - Type 2 diabetes mellitus without complications Status: Acute Assessment and Plan: Management as per Hospitalist. 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 He is hospitalized because of shortness of breath and weakness. Cardiology is consulted because of a finding of a possible pacemaker lead disruption on chest x-ray. His pacemaker has been interrogated and shows normal function. The patient has complaints wea kness in his legs, swelling on his right leg (he hit his knee with recent fall), and orthopnea. History surrounding his fall is somewhat difficult to follow, he is a poor historian, but from what he tells me it does not like he lost consciousness. His chest x-ray showed a small right pleural effusion and his BNP was mildly elevated so he is being treated for congestive heart failure with IV furosemide. Date of service 05/17: No shortness of breath, was up walking and feels like he did okay with that. Review of Systems Review of Systems: All systems reviewed & are unremarkable except as noted in HPI and below (HPI) Exam Const: General: no acute distress HENMT: Mouth: Yes moist mucous membranes Eyes: General: appearance normal, both eyes and all related structures Sclera: sclerae normal Resp: Effort & Inspection: normal respiratory effort Cardio: Rate: regular rate Rhythm: regular rhythm Skin: General skin exam: normal color Neuro: Speech: normal speech Psych: Mental Status: mental status grossly normal Affect: normal affect Objective Data Vital Signs Vital Signs: Vital Signs - 24 hr 05/16/24 11:51 05/16/24 12:00 05/16/24 16:00 Temperature 36.3 C L 36.7 C Pulse Rate 79 79 69 Respiratory Rate 18 18 Blood Pressure 117/73 113/92 H Pulse Oximetry 98 94 Oxygen Delivery 05/16/24 16:00 05/16/24 20:50 05/16/24 20:00 Temperature 36.1 C L Pulse Rate 75 74 74 Respiratory Rate 14 Blood Pressure 120/63 Pulse Oximetry 95 Oxygen Delivery 05/16/24 20:00 05/17/24 00:00 05/17/24 04:00 Temperature 36.2 C L 36.3 C L Pulse Rate 74 72 Respiratory Rate 12 12 Blood Pressure 103/63 97/72 L Pulse Oximetry 95 96 Oxygen Delivery Room Air 05/16/24 20:00 05/17/24 00:00 05/17/24 06:45 Temperature Pulse Rate 72 80 73 Respiratory Rate Blood Pressure Pulse Oximetry Oxygen Delivery 05/17/24 08:25 05/17/24 08:40 05/17/24 08:00 Temperature 36.1 C L Pulse Rate 71 77 Respiratory Rate 16 Blood Pressure 112/66 Pulse Oximetry 95 93 Oxygen Delivery Room Air 05/17/24 08:00 Temperature Pulse Rate 75 Respiratory Rate Blood Pressure Pulse Oximetry Oxygen Delivery Intake/Output Intake/Output: Intake & Output 05/14/24 05/15/24 05/16/24 05/17/24 23:59 23:59 23:59 23:59 Intake Total 1110 170 Output Total 600 200 Balance 510 -30 Meds/Results Medications: Active Medications Generic Name Dose Route Start Last Admin Trade Name Thomasq PRN Reason Stop Dose Admin Acetaminophen 1,000 mg 05/16/24 01:50 05/17/24 01:11 Acetaminophen 500 Mg Tablet PO 1,000 mg Q6H PRN Administration pain 1-3, fever Aspirin 81 mg 05/16/24 09:00 05/17/24 08:38 Aspirin 81 Mg Enteric Tablet PO 81 mg DAILY LUISANA Administration Calcium Carbonate 500 mg 05/16/24 09:00 05/17/24 08:36 Calcium/Vitamin D 500 Mg/5 Mcg (200 I.U.) Tablet PO 06/15/24 08:59 500 mg DAILY LUISANA Administration Carvedilol 12.5 mg 05/16/24 09:00 05/17/24 08:40 Carvedilol 12.5 Mg Tablet PO 12.5 mg Q12HR LUISANA Administration Clonazepam 1 mg 05/16/24 09:00 05/17/24 08:36 Clonazepam (*Crx) 0.5 Mg Tablet PO 1 mg DAILY LUISANA Administration Clopidogrel Bisulfate 75 mg 05/16/24 09:00 05/17/24 08:38 Clopidogrel Bisulfate 75 Mg Tablet PO 75 mg DAILY LUISANA Administration Furosemide 40 mg 05/16/24 10:15 05/17/24 08:36 Furosemide Inj 40 Mg/4 Ml Vial IV PUSH 40 mg BID LUISANA Administration Lactobacillus Acidophilus 1 tablet 05/16/24 09:00 05/17/24 08:35 Acidophilus/Bulgaricus Chewable Tablet PO 06/15/24 08:59 1 tablet DAILY LUISANA Administration Loratadine 10 mg 05/16/24 09:00 05/17/24 08:35 Loratadine 10 Mg Tablet PO 06/15/24 08:59 10 mg DAILY LUISANA Administration Magnesium Hydroxide 5 ml 05/16/24 01:50 Magnesium Hydroxide Susp 30 Ml Udc PO Q12H PRN Constipation Menthol/Methyl Salicylate 1 applic 05/16/24 15:29 Menthol 10% / Methyl Salicylate 15% 57 Gm Tube TOPICAL Q4H PRN Pain Ondansetron HCl 4 mg 05/16/24 05:26 Ondansetron Inj 4 Mg/2 Ml Vial IV PUSH Q6H PRN Nausea And Vomiting Pravastatin Sodium 40 mg 05/16/24 09:00 05/17/24 08:35 Pravastatin Sodium 20 Mg Tablet PO 40 mg DAILY LUISANA Administration Senna/Docusate Sodium 1 tab 05/16/24 01:50 Senna/Docusate Sodium Tablet PO Q12H PRN Constipation Spironolactone 12.5 mg 05/16/24 09:00 05/17/24 08:36 Spironolactone 12.5 Mg Tablet PO 12.5 mg DAILY LUISANA Administration Tramadol HCl 50 mg 05/16/24 01:50 05/16/24 20:59 Tramadol Hcl (*Crx) 50 Mg Tablet PO 50 mg Q6H PRN Administration pain 4-6 Radiology Results: ITS Impressions Venous Doppler Study 05/15/24 16:27 IMPRESSION: 1. No deep venous thrombosis. Chest X-Ray 05/15/24 17:48 IMPRESSION: Small left-sided pleural effusion. No focal infiltrate. Possible disruption of a pacemaker lead, as detailed above. Knee X-Ray 05/15/24 20:53 IMPRESSION: No acute fracture identified within the right knee, as detailed above. Labs Labs: Laboratory Results - last 24 hr 05/16/24 05/16/24 05/16/24 11:43 16:24 20:02 POC Capillary Glucose 119 H 129 H 113 H 05/17/24 07:38 POC Capillary Glucose 123 H
[2024-05-17 11:47] LABS: Glucose Point of Care 122 mg/dl (65-105)
--- NOTE | 2024-05-17 16:09 | PM.IMPN ---
Progress Note: A&P Assessment and Plan (1) Acute exacerbation of CHF (congestive heart failure): Qualifiers: Heart failure type: diastolic Qualified Code(s): I50.33 - 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 Code(s): I50.9 - Heart failure, unspecified Status: Acute Assessment and Plan: - Acute on Chronic CHF Exacerbation. - Improving. - Lasix changed to PO. - Continue daily weights with strict I & O's. - ECHO showing EF 40-45 %. - Last ECHO 03/03 showed EF 55-60 %. -Canopy Stringer following. (2) Acute hypoxic respiratory failure: Code(s): J96.01 - Acute respiratory failure with hypoxia Status: Acute Assessment and Plan: - Likely related to CHF Exacerbation. - Much improvied with diuresis. - Maintains good O2 sats on RA. - Supplemental O2 PRN to maintain sats > 90 %. (3) Diabetes: Code(s): E11.9 - Type 2 diabetes mellitus without complications Status: Acute Assessment and Plan: - Blood glucose levels well controlled without interventions. - Continue to monitor off hypoglycemics. (4) Impaired functional mobility, balance, gait, and endurance: Code(s): Z74.09 - Other reduced mobility Status: Acute Assessment and Plan: - Reports some left-knee pain. - Continue PT/OT treatment. - Fall precautions. (5) Cardiac pacemaker in situ: Code(s): Z95.0 - Presence of cardiac pacemaker Status: Acute Assessment and Plan: - Interrogation done and working normally. - Seen by tack coverer. - Continue tele monitoring. (6) CAD (coronary artery disease): Code(s): I25.10 - Atherosclerotic heart disease of [place] coronary artery without angina pectoris Status: Acute Assessment and Plan: - Appear stable. - Continue coreg, aspirin and statin. (7) Essential (primary) hypertension: Code(s): I10 - Essential (primary) hypertension Status: Acute Assessment and Plan: - Remains well controlled. - Monitor closely with diuresis. (8) ROBER on CPAP: Code(s): G47.33 - Obstructive sleep apnea (adult) (pediatric); Z99.89 - Dependence on other enabling machines and devices Status: Acute Assessment and Plan: - CPAP at nighttime (9) Back pain: Code(s): M54.9 - Dorsalgia, unspecified Status: Acute Assessment and Plan: - Pain meds PRN. (10) Mixed hyperlipidemia: Code(s): E78.2 - Mixed hyperlipidemia Status: Acute Assessment and Plan: - Continue statin. Plan - Continue diuresis. - Canopy Stringer consulted to evaluate possible pacemaker lead interruption. Time Spent With Patient Time with patient: 15 - 25 minutes Subjective Date/time seen: 05/17/24 16:09 Patient calm on bedrest and reports his breathing is ok. States he walked with PT around the hallway with PT and tolerated well. Interval history: Patient calm on bedrest and appears to be in no acute distress. Review of Systems Review of Systems: All systems reviewed & are unremarkable except as noted in HPI and below Exam Narrative: HEENT: Atraumatic, PERRL, EOM, moist mucus membranes, Neck: Supple Lungs: Lungs clear to auscultation. Heart: RRR, No murmurs. Abdomen: Soft, NT, non-distended, +ve bowel sounds X4 quadrants. Extremities: [place] with some bruising to LLE, no edema, pedal pulses +ve, Skin: Warm and dry. No lesions. Neuro: Well oriented. CN II-XII grossly intact. No focal neuro deficits. Psych: Pleasant and co-operative. Objective Data Vital Signs Vital Signs: Vital Signs - 24 hr 05/16/24 20:50 05/16/24 20:00 05/16/24 20:00 Temperature 97.0 F L Pulse Rate 74 74 Respiratory Rate 14 Blood Pressure 120/63 Pulse Oximetry 95 Oxygen Delivery Room Air 05/17/24 00:00 05/17/24 04:00 05/16/24 20:00 Temperature 97.1 F L 97.3 F L Pulse Rate 74 72 72 Respiratory Rate 12 12 Blood Pressure 103/63 97/72 L Pulse Oximetry 95 96 Oxygen Delivery 05/17/24 00:00 05/17/24 06:45 05/17/24 08:25 Temperature Pulse Rate 80 73 Respiratory Rate Blood Pressure Pulse Oximetry 95 Oxygen Delivery Room Air 05/17/24 08:40 05/17/24 08:00 05/17/24 08:00 Temperature 97 F L Pulse Rate 71 77 75 Respiratory Rate 16 Blood Pressure 112/66 Pulse Oximetry 93 Oxygen Delivery 05/17/24 11:45 05/17/24 12:00 05/17/24 13:28 Temperature 96.1 F L Pulse Rate 72 74 Respiratory Rate 18 Blood Pressure 100/60 Pulse Oximetry 93 Oxygen Delivery Room Air Intake/Output Intake/Output: Intake & Output 05/14/24 05/15/24 05/16/24 05/17/24 23:59 23:59 23:59 23:59 Intake Total 1110 1132 Output Total 600 1100 Balance 510 32 Meds/Results Medications: Active Medications Generic Name Dose Route Start Last Admin Trade Name Freq PRN Reason Stop Dose Admin Acetaminophen 1,000 mg 05/16/24 01:50 05/17/24 11:42 Acetaminophen 500 Mg Tablet PO 1,000 mg Q6H PRN Administration pain 1-3, fever Aspirin 81 mg 05/16/24 09:00 05/17/24 08:38 Aspirin 81 Mg Enteric Tablet PO 81 mg DAILY LUISANA Administration Calcium Carbonate 500 mg 05/16/24 09:00 05/17/24 08:36 Calcium/Vitamin D 500 Mg/5 Mcg (200 I.U.) Tablet PO 06/15/24 08:59 500 mg DAILY LUISANA Administration Carvedilol 12.5 mg 05/16/24 09:00 05/17/24 08:40 Carvedilol 12.5 Mg Tablet PO 12.5 mg Q12HR LUISANA Administration Clonazepam 1 mg 05/16/24 09:00 05/17/24 08:36 Clonazepam (*Crx) 0.5 Mg Tablet PO 1 mg DAILY LUISANA Administration Clopidogrel Bisulfate 75 mg 05/16/24 09:00 05/17/24 08:38 Clopidogrel Bisulfate 75 Mg Tablet PO 75 mg DAILY LUISANA Administration Furosemide 40 mg 05/18/24 09:00 Furosemide 40 Mg Tablet PO DAILY LUISANA Lactobacillus Acidophilus 1 tablet 05/16/24 09:00 05/17/24 08:35 Acidophilus/Bulgaricus Chewable Tablet PO 06/15/24 08:59 1 tablet DAILY LUISANA Administration Loratadine 10 mg 05/16/24 09:00 05/17/24 08:35 Loratadine 10 Mg Tablet PO 06/15/24 08:59 10 mg DAILY LUISANA Administration Magnesium Hydroxide 5 ml 05/16/24 01:50 Magnesium Hydroxide Susp 30 Ml Udc PO Q12H PRN Constipation Menthol/Methyl Salicylate 1 applic 05/16/24 15:29 Menthol 10% / Methyl Salicylate 15% 57 Gm Tube TOPICAL Q4H PRN Pain Ondansetron HCl 4 mg 05/16/24 05:26 Ondansetron Inj 4 Mg/2 Ml Vial IV PUSH Q6H PRN Nausea And Vomiting Pravastatin Sodium 40 mg 05/16/24 09:00 05/17/24 08:35 Pravastatin Sodium 20 Mg Tablet PO 40 mg DAILY LUISANA Administration Senna/Docusate Sodium 1 tab 05/16/24 01:50 Senna/Docusate Sodium Tablet PO Q12H PRN Constipation Spironolactone 12.5 mg 05/16/24 09:00 05/17/24 08:36 Spironolactone 12.5 Mg Tablet PO 12.5 mg DAILY LUISANA Administration Tramadol HCl 50 mg 05/16/24 01:50 05/16/24 20:59 Tramadol Hcl (*Crx) 50 Mg Tablet PO 50 mg Q6H PRN Administration pain 4-6 Radiology Results: ITS Impressions Venous Doppler Study 05/15/24 16:27 IMPRESSION: 1. No deep venous thrombosis. Chest X-Ray 05/15/24 17:48 IMPRESSION: Small left-sided pleural effusion. No focal infiltrate. Possible disruption of a pacemaker lead, as detailed above. Knee X-Ray 05/15/24 20:53 IMPRESSION: No acute fracture identified within the right knee, as detailed above. Labs Labs: Laboratory Results - last 24 hr 05/16/24 05/16/24 05/17/24 16:24 20:02 07:38 POC Capillary Glucose 129 H 113 H 123 H 05/17/24 11:40 POC Capillary Glucose 122 H Quality VTE Prophylaxis VTE prophylaxis: mechanical ordered Hospitalist [facility] Advance Care Plan I have confirmed that the patient's Advanced Care Plan is present, code status is documented, or surrogate decision maker is listed in patient medical record.: Yes Medication Reconciliation I have utilized all available resources to obtain, update and review the patients current medications (includes all prescriptions, OTC, herbals, cannabis, and nutritional supplements).: Yes
[2024-05-17 16:56] LABS: Glucose Point of Care 117 mg/dl (65-105)
[2024-05-17] MEDS: traMADol HCL (*CRX) 50 MG TABLET PO (20:08)
[2024-05-17 21:19] LABS: Glucose Point of Care 141 mg/dl (65-105)
[2024-05-18] VITALS: BP 90/57; PULSE 75; PULSE 80; RESP 18; TEMP 35.6; O2SAT 95
[2024-05-18] MEDS: ACETAMINOPHEN 500 MG TABLET 1000 MG PO ×2 (03:35→09:17)
[2024-05-18 04:00] VITALS: PULSE 78
[2024-05-18 04:25] VITALS: BP 132/89; PULSE 67; RESP 18; TEMP 36.5; O2SAT 92
[2024-05-18] MEDS: traMADol HCL (*CRX) 50 MG TABLET PO (04:58)
[2024-05-18 07:03] LABS: Hematocrit 41.8 % (42.0-52.0); Hemoglobin 13.7 g/dL (14.0-18.0); Mean Corpuscular HGB Conc 32.8 g/dl (32-36); Mean Corpuscular Hemoglobin 30.5 pg (26-34); Mean Corpuscular Volume 93.1 fl (80-100); Mean Platelet Volume 10.2 fl (7.4-10.4); Platelet Count Result 223 k/mm3 (150-375); Red Blood Count 4.49 M/mm3 (4.6-6.20); Red Cell Distribution Width 14.1 % (11.5-14.5); White Blood Count 10.5 K/mm3 (4.5-10.0)
[2024-05-18 07:13] LABS: Anion Gap 3 mmol/L (4-12); Blood Urea Nitrogen 25 mg/dL (9-20); Calcium 9.5 mg/dL (8.4-10.2); Carbon Dioxide 34 mmol/L (22-30); Chloride 100 mmol/L (98-107); Estimated CRCL calculation 57 ml/min; Estimated Glomerular Filt Rate > 60; Glucose 111 mg/dL (65-110); Potassium 3.8 mmol/L (3.4-5.0); Sodium 137 mmol/L (137-145)
[2024-05-18 07:41] LABS: Glucose Point of Care 120 mg/dl (65-105)
--- NOTE | 2024-05-18 07:41 | P.PNIM_ITS ---
Progress Note: A&P Assessment and Plan (1) Acute exacerbation of CHF (congestive heart failure): Qualifiers: Heart failure type: diastolic Qualified Code(s): I50.33 - 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 Code(s): I50.9 - Heart failure, unspecified Status: Acute Assessment and Plan: - Acute on Chronic CHF Exacerbation. - Improving. - Lasix changed to PO. - Continue daily weights with strict I & O's. - ECHO showing EF 40-45 %. - Last ECHO 03/03 showed EF 55-60 %. -[employer] Operator following. (2) Acute hypoxic respiratory failure: Code(s): J96.01 - Acute respiratory failure with hypoxia Status: Acute Assessment and Plan: - Likely related to CHF Exacerbation. - Much improvied with diuresis. - Maintains good O2 sats on RA. - Supplemental O2 PRN to maintain sats > 90 %. (3) Diabetes: Code(s): E11.9 - Type 2 diabetes mellitus without complications Status: Acute Assessment and Plan: - Blood glucose levels well controlled without interventions. - Continue to monitor off hypoglycemics. (4) Impaired functional mobility, balance, gait, and endurance: Code(s): Z74.09 - Other reduced mobility Status: Acute Assessment and Plan: - Reports some left-knee pain. x-ray negative for fracture - Continue PT/OT treatment. - Fall precautions. (5) Cardiac pacemaker in situ: Code(s): Z95.0 - Presence of cardiac pacemaker Status: Acute Assessment and Plan: - Interrogation done and working normally. - Seen by shipyard painting supervisor. - Continue tele monitoring. (6) CAD (coronary artery disease): Code(s): I25.10 - Atherosclerotic heart disease of [place] coronary artery without angina pectoris Status: Acute Assessment and Plan: - Appear stable. - Continue coreg, aspirin and statin. (7) Essential (primary) hypertension: Code(s): I10 - Essential (primary) hypertension Status: Acute Assessment and Plan: - Remains well controlled. - Monitor closely with diuresis. (8) ROBER on CPAP: Code(s): G47.33 - Obstructive sleep apnea (adult) (pediatric); Z99.89 - Dependence on other enabling machines and devices Status: Acute Assessment and Plan: - CPAP at nighttime (9) Back pain: Code(s): M54.9 - Dorsalgia, unspecified Status: Acute Assessment and Plan: - Pain meds PRN. (10) Mixed hyperlipidemia: Code(s): E78.2 - Mixed hyperlipidemia Status: Acute Assessment and Plan: - Continue statin. Plan - Continue diuresis. Subjective Date/time seen: 05/18/24 07:41 Interval history: Patient calm on bedrest and appears to be in no acute distress. Review of Systems Review of Systems: All systems reviewed & are unremarkable except as noted in HPI and below Exam Narrative: HEENT: Atraumatic, PERRL, EOM, moist mucus membranes, Neck: Supple Lungs: Lungs clear to auscultation. Heart: RRR, No murmurs. Abdomen: Soft, NT, non-distended, +ve bowel sounds X4 quadrants. Extremities: [place] with some bruising to LLE, no edema, pedal pulses +ve, Skin: Warm and dry. No lesions. Neuro: Well oriented. CN II-XII grossly intact. No focal neuro deficits. Psych: Pleasant and co-operative. Const: General: comfortable, no acute distress, well developed, alert, awake, average body habitus and other (Well-appearing) Nutritional Appearance: average body habitus Orientation/consciousness: patient oriented x3 HENMT: Head: normal to inspection, normocephalic and atraumatic Ears: hearing grossly normal bilaterally Face/Nose/Sinus: normal facial exam Face and sinus: normal facial exam Eyes: General: appearance normal, both eyes and all related structures Pupils: Equal, round and reactive pupils present EOM: EOMs intact bilaterally Neck: Neck: full ROM, no lymphadenopathy and no JVD Thyroid: thyroid normal Lymphatic: no lymphadenopathy noted Resp: Effort & Inspection: normal respiratory effort and able to speak in complete sentences Auscultation: clear to auscultation bilaterally Cardio: Jugular venous distension: no JVD Rate: regular rate Rhythm: regular rhythm Heart sounds: S1 normal heart sound present and S2 normal heart sound present : General: Yes deferred Skin: Rashes: no rashes Wounds: no wounds Neuro: General: patient oriented x3, CN's II-XI intact bilaterally and Unable to assess gait Cranial nerves: Yes CN's II-XII intact bilaterally and Yes Equal, round and reactive pupils present Cognition (Neuro): normal cognition Speech: normal speech Gait exam (Neuro): Normal gait present and Unable to assess gait Motor exam (neuro): 5/5 motor strength present throughout Extrem: General: normal to inspection, full ROM, no joint enlargement and no pedal edema Other: Trace edema Objective Data Vital Signs Vital Signs: Vital Signs - 24 hr 05/17/24 08:25 05/17/24 08:40 05/17/24 08:00 Temperature 97 F L Pulse Rate 71 77 Respiratory Rate 16 Blood Pressure 112/66 Pulse Oximetry 95 93 Oxygen Delivery Room Air 05/17/24 08:00 05/17/24 11:45 05/17/24 12:00 Temperature 96.1 F L Pulse Rate 75 72 Respiratory Rate 18 Blood Pressure 100/60 Pulse Oximetry 93 Oxygen Delivery Room Air 05/17/24 13:28 05/17/24 16:00 05/17/24 16:00 Temperature 96.4 F L Pulse Rate 74 80 66 Respiratory Rate 16 Blood Pressure 108/65 Pulse Oximetry 93 Oxygen Delivery 05/17/24 20:08 05/17/24 20:00 05/17/24 20:00 Temperature 97.2 F L Pulse Rate 82 73 Respiratory Rate 20 Blood Pressure 117/62 Pulse Oximetry 95 Oxygen Delivery Room Air 05/17/24 20:00 05/18/24 00:00 05/18/24 00:00 Temperature 96.1 F L Pulse Rate 82 80 75 Respiratory Rate 18 Blood Pressure 90/57 L Pulse Oximetry 95 Oxygen Delivery 05/18/24 04:00 05/18/24 04:25 Temperature 97.7 F Pulse Rate 78 67 Respiratory Rate 18 Blood Pressure 132/89 Pulse Oximetry 92 Oxygen Delivery Intake/Output Intake/Output: Intake & Output 05/15/24 05/16/24 05/17/24 05/18/24 23:59 23:59 23:59 23:59 Intake Total 1110 1576 222 Output Total 600 1100 50 Balance 510 476 172 Meds/Results Medications: Active Medications Generic Name Dose Route Start Last Admin Trade Name Freq PRN Reason Stop Dose Admin Acetaminophen 1,000 mg 05/16/24 01:50 05/18/24 03:35 Acetaminophen 500 Mg Tablet PO 1,000 mg Q6H PRN Administration pain 1-3, fever Aspirin 81 mg 05/16/24 09:00 05/17/24 08:38 Aspirin 81 Mg Enteric Tablet PO 81 mg DAILY LUISANA Administration Calcium Carbonate 500 mg 05/16/24 09:00 05/17/24 08:36 Calcium/Vitamin D 500 Mg/5 Mcg (200 I.U.) Tablet PO 06/15/24 08:59 500 mg DAILY LUISANA Administration Carvedilol 12.5 mg 05/16/24 09:00 05/17/24 20:08 Carvedilol 12.5 Mg Tablet PO 12.5 mg Q12HR LUISANA Administration Clonazepam 1 mg 05/16/24 09:00 05/17/24 08:36 Clonazepam (*Crx) 0.5 Mg Tablet PO 1 mg DAILY LUISANA Administration Clopidogrel Bisulfate 75 mg 05/16/24 09:00 05/17/24 08:38 Clopidogrel Bisulfate 75 Mg Tablet PO 75 mg DAILY [facility] Administration Furosemide 40 mg 05/18/24 09:00 Furosemide 40 Mg Tablet PO DAILY [facility] Lactobacillus Acidophilus 1 tablet 05/16/24 09:00 05/17/24 08:35 Acidophilus/Bulgaricus Chewable Tablet PO 06/15/24 08:59 1 tablet DAILY [facility] Administration Loratadine 10 mg 05/16/24 09:00 05/17/24 08:35 Loratadine 10 Mg Tablet PO 06/15/24 08:59 10 mg DAILY [facility] Administration Magnesium Hydroxide 5 ml 05/16/24 01:50 Magnesium Hydroxide Susp 30 Ml Udc PO Q12H PRN Constipation Menthol/Methyl Salicylate 1 applic 05/16/24 15:29 Menthol 10% / Methyl Salicylate 15% 57 Gm Tube TOPICAL Q4H PRN Pain Ondansetron HCl 4 mg 05/16/24 05:26 Ondansetron Inj 4 Mg/2 Ml Vial IV PUSH Q6H PRN Nausea And Vomiting Pravastatin Sodium 40 mg 05/16/24 09:00 05/17/24 08:35 Pravastatin Sodium 20 Mg Tablet PO 40 mg DAILY [facility] Administration Senna/Docusate Sodium 1 tab 05/16/24 01:50 Senna/Docusate Sodium Tablet PO Q12H PRN Constipation Spironolactone 12.5 mg 05/16/24 09:00 05/17/24 08:36 Spironolactone 12.5 Mg Tablet PO 12.5 mg DAILY [facility] Administration Tramadol HCl 50 mg 05/16/24 01:50 05/18/24 04:58 Tramadol Hcl (*Crx) 50 Mg Tablet PO 50 mg Q6H PRN Administration pain 4-6 Radiology Results: ITS Impressions Venous Doppler Study 05/15/24 16:27 IMPRESSION: 1. No deep venous thrombosis. Chest X-Ray 05/15/24 17:48 IMPRESSION: Small left-sided pleural effusion. No focal infiltrate. Possible disruption of a pacemaker lead, as detailed above. Knee X-Ray 05/15/24 20:53 IMPRESSION: No acute fracture identified within the right knee, as detailed above. Labs Labs: Laboratory Results - last 24 hr 05/17/24 05/17/24 05/17/24 07:38 11:40 16:48 WBC RBC Hgb Hct MCV MCH MCHC RDW Plt Count MPV Sodium Potassium Chloride Carbon Dioxide Anion Gap BUN Creatinine Estim Creat Clear Calc Estimated GFR Glucose POC Capillary Glucose 123 H 122 H 117 H Calcium 05/17/24 05/18/24 05/18/24 21:17 06:34 07:39 WBC 10.5 H RBC 4.49 L Hgb 13.7 L Hct 41.8 L MCV 93.1 MCH 30.5 MCHC 32.8 RDW 14.1 Plt Count 223 MPV 10.2 Sodium 137 Potassium 3.8 Chloride 100 Carbon Dioxide 34 H Anion Gap 3 L BUN 25 H Creatinine 1.00 Estim Creat Clear Calc 57 Estimated GFR > 60 Glucose 111 H POC Capillary Glucose 141 H 120 H Calcium 9.5 Quality VTE Prophylaxis VTE prophylaxis: mechanical ordered
[2024-05-18 08:00] VITALS: BP 128/67; PULSE 76; PULSE 80; RESP 18; TEMP 35.9; O2SAT 96
[2024-05-18] MEDS: CALCIUM/VITAMIN D 500 MG/5 MCG (200 I.U.) TABLET PO (08:22)
[2024-05-18] MEDS: ACIDOPHILUS/BULGARICUS CHEWABLE TABLET 1 TABLET PO (08:22)
[2024-05-18] MEDS: SPIRONOLACTONE 12.5 MG TABLET PO (08:22)
[2024-05-18] MEDS: clonazePAM (*CRX) 0.5 MG TABLET 1 MG PO (08:22)
[2024-05-18] MEDS: PRAVASTATIN SODIUM 20 MG TABLET 40 MG PO (08:22)
[2024-05-18] MEDS: ASPIRIN 81 MG ENTERIC TABLET PO (08:23)
[2024-05-18] MEDS: CLOPIDOGREL BISULFATE 75 MG TABLET PO (08:23)
[2024-05-18 08:24] VITALS: PULSE 61
[2024-05-18] MEDS: FUROSEMIDE 40 MG TABLET PO (08:24)
[2024-05-18] MEDS: LORATADINE 10 MG TABLET PO (08:24)
[2024-05-18] MEDS: carvediloL 12.5 MG TABLET PO (08:24)
--- NOTE | 2024-05-18 10:52 | P.PNCA_ITS ---
Progress Note: A&P Assessment and Plan (1) Acute CHF: Qualifiers: Heart failure type: unspecified Qualified Code(s): I50.9 - Heart failure, unspecified Code(s): I50.9 - Heart failure, unspecified Status: Acute Assessment and Plan: Echocardiogram shows LVEF 40-45%. Continue Spironolactone, Carvedilol, lasix. He looks euvolemic at this point. Can optimize GDMT as outpatient Cardiology will sign off. Please call with questions (2) Cardiac pacemaker in situ: Code(s): Z95.0 - Presence of cardiac pacemaker Status: Acute Assessment and Plan: Pacemaker has been interrogated and is functioning normally. He does have about 7 months until [facility]. Will ensure he has follow up with Dr. Bruner in the office. (3) Acute hypoxic respiratory failure: Code(s): J96.01 - Acute respiratory failure with hypoxia Status: Acute Assessment and Plan: On room air now. (4) CAD (coronary artery disease): Code(s): I25.10 - Atherosclerotic heart disease of [place] coronary artery without angina pectoris Status: Acute Assessment and Plan: Continue ASA, Plavix, statin. (5) Mixed hyperlipidemia: Code(s): E78.2 - Mixed hyperlipidemia Status: Acute Assessment and Plan: Continue statin (6) Diabetes: Code(s): E11.9 - Type 2 diabetes mellitus without complications Status: Acute Assessment and Plan: Management as per Hospitalist. 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 He is hospitalized because of shortness of breath and weakness. Cardiology is consulted because of a finding of a possible pacemaker lead disruption on chest x-ray. His pacemaker has been interrogated and shows normal function. The patient has complaints weakness in his legs, swelling on his right leg (he hit his knee with recent fall), and orthopnea. History surrounding his fall is somewhat difficult to follow, he is a poor historian, but from what he tells me it does not like he lost consciousness. His chest x-ray showed a small right pleural effusion and his BNP was mildly elevated so he is being treated for congestive heart failure with IV furosemide. Date of service 05/17: No shortness of breath, was up walking and feels like he did okay with that. Date of service 05/18/2024: No shortness of breath or swelling today. Complaining of right knee pain. Walked in the halls yesterday with no shortness of breath. Review of Systems Review of Systems: All systems reviewed & are unremarkable except as noted in HPI and below (HPI) Constitutional: Constitutional: Denies chills, Denies fever(s), Denies headache(s) and Denies malaise Eyes: Eyes: Denies change in vision ENT: Reports Normal hearing present, Denies dizziness, Denies headache(s) and Denies hearing loss Cardiovascular: Cardiovascular: Denies chest pain, Denies chest pain at rest, Denies chest pain with activity, Denies syncope, Reports leg edema, Denies palpitations, Reports dyspnea and Reports dyspnea on exertion Respiratory: Respiratory: Denies cough, Reports dyspnea, Reports dyspnea on exertion and Denies wheezing Gastrointestinal: Gastrointestinal: Denies abdominal pain, Denies constipation and Denies diarrhea Genitourinary: Genitourinary: Denies hematuria and Denies dysuria Musculoskeletal: Musculoskeletal: Denies myalgias, Denies arthralgias and Denies muscle cramps Integumentary/Breasts: Skin/Breast: Denies wounds Neurologic: Reports Normal hearing present, Denies confusion, Denies dizziness, Denies syncope and Denies headache(s) Psychiatric: Psychiatric: Denies anxiety, Denies confusion and Denies depression Endocrine: Endocrine: Denies cold intolerance, Denies flushing, Denies heat intolerance and Denies palpitations Hematologic/Lymphatic: Hematologic/Lymphatic: Denies easy bleeding and Denies easy bruising Allergic/Immunologic: Allergic/Immunologic: Denies wheezing Exam Const: General: comfortable, no acute distress, alert and awake; No confusion Orientation/consciousness: patient oriented x3 and No confusion HENMT: Head: normal to inspection Mouth: Yes moist mucous membranes Eyes: General: appearance normal, both eyes and all related structures Sclera: sclerae normal Pupils: Equal, round and reactive pupils present Neck: Neck: normal visual inspection, supple and no JVD Carotids: normal carotid upstroke Resp: Effort & Inspection: normal respiratory effort Auscultation: clear to auscultation bilaterally, no rales and diminished lung sounds Cardio: Rate: regular rate Rhythm: regular rhythm Heart sounds: S1 normal heart sound present, S2 normal heart sound present and no murmurs GI: Auscultation: normal bowel sounds Skin: General skin exam: normal color Neuro: General: patient oriented x3 and No confusion Cranial nerves: Yes Equal, round and reactive pupils present and Yes Normal hearing present Speech: normal speech Extrem: General: normal to inspection Other: no edema Psych: Appearance: grossly normal Mental Status: mental status grossly norm al Affect: normal affect Objective Data Vital Signs Vital Signs: Vital Signs - 24 hr 05/17/24 11:45 05/17/24 12:00 05/17/24 13:28 Temperature 35.6 C L Pulse Rate 72 74 Respiratory Rate 18 Blood Pressure 100/60 Pulse Oximetry 93 Oxygen Delivery Room Air 05/17/24 16:00 05/17/24 16:00 05/17/24 20:08 Temperature 35.8 C L Pulse Rate 80 66 82 Respiratory Rate 16 Blood Pressure 108/65 Pulse Oximetry 93 Oxygen Delivery 05/17/24 20:00 05/17/24 20:00 05/17/24 20:00 Temperature 36.2 C L Pulse Rate 73 82 Respiratory Rate 20 Blood Pressure 117/62 Pulse Oximetry 95 Oxygen Delivery Room Air 05/18/24 00:00 05/18/24 00:00 05/18/24 04:00 Temperature 35.6 C L Pulse Rate 80 75 78 Respiratory Rate 18 Blood Pressure 90/57 L Pulse Oximetry 95 Oxygen Delivery 05/18/24 04:25 05/18/24 08:24 05/18/24 08:00 Temperature 36.5 C Pulse Rate 67 61 80 Respiratory Rate 18 Blood Pressure 132/89 Pulse Oximetry 92 Oxygen Delivery 05/18/24 08:00 Temperature 35.9 C L Pulse Rate 76 Respiratory Rate 18 Blood Pressure 128/67 Pulse Oximetry 96 Oxygen Delivery Intake/Output Intake/Output: Intake & Output 05/15/24 05/16/24 05/17/24 05/18/24 23:59 23:59 23:59 23:59 Intake Total 1110 1576 462 Output Total 600 1100 50 Balance 510 476 412 Meds/Results Medications: Active Medications Generic Name Dose Route Start Last Admin Trade Name Freq PRN Reason Stop Dose Admin Acetaminophen 1,000 mg 05/16/24 01:50 05/18/24 09:17 Acetaminophen 500 Mg Tablet PO 1,000 mg Q6H PRN Administration pain 1-3, fever Aspirin 81 mg 05/16/24 09:00 05/18/24 08:23 Aspirin 81 Mg Enteric Tablet PO 81 mg DAILY LUISANA Administration Calcium Carbonate 500 mg 05/16/24 09:00 05/18/24 08:22 Calcium/Vitamin D 500 Mg/5 Mcg (200 I.U.) Tablet PO 06/15/24 08:59 500 mg DAILY LUISANA Administration Carvedilol 12.5 mg 05/16/24 09:00 05/18/24 08:24 Carvedilol 12.5 Mg Tablet PO 12.5 mg Q12HR LUISANA Administration Clonazepam 1 mg 05/16/24 09:00 05/18/24 08:22 Clonazepam (*Crx) 0.5 Mg Tablet PO 1 mg DAILY LUISANA Administration Clopidogrel Bisulfate 75 mg 05/16/24 09:00 05/18/24 08:23 Clopidogrel Bisulfate 75 Mg Tablet PO 75 mg DAILY LUISANA Administration Furosemide 40 mg 05/18/24 09:00 05/18/24 08:24 Furosemide 40 Mg Tablet PO 40 mg DAILY LUISANA Administration Lactobacillus Acidophilus 1 tablet 05/16/24 09:00 05/18/24 08:22 Acidophilus/Bulgaricus Chewable Tablet PO 06/15/24 08:59 1 tablet DAILY LUISANA Administration Loratadine 10 mg 05/16/24 09:00 05/18/24 08:24 Loratadine 10 Mg Tablet PO 06/15/24 08:59 10 mg DAILY LUISANA Administration Magnesium Hydroxide 5 ml 05/16/24 01:50 Magnesium Hydroxide Susp 30 Ml Udc PO Q12H PRN Constipation Menthol/Methyl Salicylate 1 applic 05/16/24 15:29 Menthol 10% / Methyl Salicylate 15% 57 Gm Tube TOPICAL Q4H PRN Pain Ondansetron HCl 4 mg 05/16/24 05:26 Ondansetron Inj 4 Mg/2 Ml Vial IV PUSH Q6H PRN Nausea And Vomiting Pravastatin Sodium 40 mg 05/16/24 09:00 05/18/24 08:22 Pravastatin Sodium 20 Mg Tablet PO 40 mg DAILY LUISANA Administration Senna/Docusate Sodium 1 tab 05/16/24 01:50 Senna/Docusate Sodium Tablet PO Q12H PRN Constipation Spironolactone 12.5 mg 05/16/24 09:00 05/18/24 08:22 Spironolactone 12.5 Mg Tablet PO 12.5 mg DAILY LUISANA Administration Tramadol HCl 50 mg 05/16/24 01:50 05/18/24 04:58 Tramadol Hcl (*Crx) 50 Mg Tablet PO 50 mg Q6H PRN Administration pain 4-6 Radiology Results: ITS Impressions Venous Doppler Study 05/15/24 16:27 IMPRESSION: 1. No deep venous thrombosis. Chest X-Ray 05/15/24 17:48 IMPRESSION: Small left-sided pleural effusion. No focal infiltrate. Possible disruption of a pacemaker lead, as detailed above. Knee X-Ray 05/15/24 20:53 IMPRESSION: No acute fracture identified within the right knee, as detailed above. Labs Labs: Laboratory Results - last 24 hr 05/17/24 05/17/24 05/17/24 11:40 16:48 21:17 WBC RBC Hgb Hct MCV MCH MCHC RDW Plt Count MPV Sodium Potassium Chloride Carbon Dioxide Anion Gap BUN Creatinine Estim Creat Clear Calc Estimated GFR Glucose POC Capillary Glucose 122 H 117 H 141 H Calcium 05/18/24 05/18/24 06:34 07:39 WBC 10.5 H RBC 4.49 L Hgb 13.7 L Hct 41.8 L MCV 93.1 MCH 30.5 MCHC 32.8 RDW 14.1 Plt Count 223 MPV 10.2 Sodium 137 Potassium 3.8 Chloride 100 Carbon Dioxide 34 H Anion Gap 3 L BUN 25 H Creatinine 1.00 Estim Creat Clear Calc 57 Estimated GFR > 60 Glucose 111 H POC Capillary Glucose 120 H Calcium 9.5
[2024-05-18 12:00] VITALS: BP 130/72; PULSE 78; RESP 18; TEMP 35.9; O2SAT 100
[2024-05-18 12:26] LABS: Glucose Point of Care 142 mg/dl (65-105)
--- NOTE | 2024-05-18 13:01 | PM.DS ---
DS: Admitting Diagnosis Discharge Date 05/18/2024 Admitting Diagnosis Fall with knee pain DS: Discharge Diagnosis Discharge Diagnosis (1) Acute exacerbation of CHF (congestive heart failure): Qualifiers: Heart failure type: diastolic Qualified Code(s): I50.33 - 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 Code(s): I50.9 - Heart failure, unspecified Status: Acute Assessment and Plan: - Acute on Chronic CHF Exacerbation. - Improving. - Lasix changed to PO. - Continue daily weights with strict I & O's. - ECHO showing EF 40-45 %. - Last ECHO 03/03 showed EF 55-60 %. -Filemaker Developer following. (2) Acute hypoxic respiratory failure: Code(s): J96.01 - Acute respiratory failure with hypoxia Status: Acute Assessment and Plan: - Likely related to CHF Exacerbation. - Much improvied with diuresis. - Maintains good O2 sats on RA. - Supplemental O2 PRN to maintain sats > 90 %. (3) Diabetes: Code(s): E11.9 - Type 2 diabetes mellitus without complications Status: Acute Assessment and Plan: - Blood glucose levels well controlled without interventions. - Continue to monitor off hypoglycemics. (4) Impaired functional mobility, balance, gait, and endurance: Code(s): Z74.09 - Other reduced mobility Status: Acute Assessment and Plan: - Reports some left-knee pain. x-ray negative for fracture - Continue PT/OT treatment. - Fall precautions. (5) Cardiac pacemaker in situ: Code(s): Z95.0 - Presence of cardiac pacemaker Status: Acute Assessment and Plan: - Interrogation done and working normally. - Seen by marketing systems analyst. - Continue tele monitoring. (6) CAD (coronary artery disease): Code(s): I25.10 - Atherosclerotic heart disease of [place] coronary artery without angina pectoris Status: Acute Assessment and Plan: - Appear stable. - Continue coreg, aspirin and statin. (7) Essential (primary) hypertension: Code(s): I10 - Essential (primary) hypertension Status: Acute Assessment and Plan: - Remains well controlled. - Monitor closely with diuresis. (8) ROBER on CPAP: Code(s): G47.33 - Obstructive sleep apnea (adult) (pediatric); Z99.89 - Dependence on other enabling machines and devices Status: Acute Assessment and Plan: - CPAP at nighttime (9) Back pain: Code(s): M54.9 - Dorsalgia, unspecified Status: Acute Assessment and Plan: - Pain meds PRN. (10) Mixed hyperlipidemia: Code(s): E78.2 - Mixed hyperlipidemia Status: Acute Assessment and Plan: - Continue statin. DS: Summary Hospital Course Reason for hospitalization: fall with knee pain Hospital Course: 84-year-old male with past medical history significant coronary artery disease, type 2 diabetes mellitus, chronic kidney disease, DJD. Patient was brought to the emergency room for evaluation due to a fall, generalized weakness, shortness of breath, leg swelling. Patient can not really give much history in a meaningful way most of which has been obtained from daughter who is at bedside states that that had a fall and has progressively gotten weaker over the course of the last few days. Preliminary workup was significant for brain natriuretic peptide upwards 3000, chest x-ray showed pleural effusion. Patient has been admitted for further evaluation management and treatment. Status at Discharge Functional status at discharge: uses cane/walker Time Spent with Patient Time attestation: Total time spent providing and/or coordinating discharge services: Time spent: Greater than 30 minutes Exam Narrative: HEENT: Atraumatic, PERRL, EOM, moist mucus membranes, Neck: Supple Lungs: Lungs clear to auscultation. Heart: RRR, No murmurs. Abdomen: Soft, NT, non-distended, +ve bowel sounds X4 quadrants. Extremities: [place] with some bruising to LLE, no edema, pedal pulses +ve, Skin: Warm and dry. No lesions. Neuro: Well oriented. CN II-XII grossly intact. No focal neuro deficits. Psych: Pleasant and co-operative. Const: General: comfortable, no acute distress, well developed, alert, awake, average body habitus and other (Well-appearing) Nutritional Appearance: average body habitus Orientation/consciousness: patient oriented x3 HENMT: Head: normal to inspection, normocephalic and atraumatic Ears: hearing grossly normal bilaterally Face/Nose/Sinus: normal facial exam Face and sinus: normal facial exam Eyes: General: appearance normal, both eyes and all related structures Pupils: Equal, round and reactive pupils present EOM: EOMs intact bilaterally Neck: Neck: full ROM, no lymphadenopathy and no JVD Thyroid: thyroid normal Lymphatic: no lymphadenopathy noted Resp: Effort & Inspection: normal respiratory effort and able to speak in complete sentences Auscultation: clear to auscultation bilaterally Cardio: Jugular venous distension: no JVD Rate: regular rate Rhythm: regular rhythm Heart sounds: S1 normal heart sound present and S2 normal heart sound present : General: Yes deferred Skin: Rashes: no rashes Wounds: no wounds Neuro: General: patient oriented x3, CN's II-XI intact bilaterally and Unable to assess gait Cranial nerves: Yes CN's II-XII intact bilaterally and Yes Equal, round and reactive pupils present Cognition (Neuro): normal cognition Speech: normal speech Gait exam (Neuro): Normal gait present and Unable to assess gait Motor exam (neuro): 5/5 motor strength present throughout Extrem: General: normal to inspection, full ROM, no joint enlargement and no pedal edema Other: Trace edema DS: Data Data Completed and Pending Labs on day of discharge: Labs from last 24 hours 05/18/24 05/18/24 05/18/24 12:21 07:39 06:34 WBC 10.5 H RBC 4.49 L Hgb 13.7 L Hct 41.8 L MCV 93.1 MCH 30.5 MCHC 32.8 RDW 14.1 Plt Count 223 MPV 10.2 Sodium 137 Potassium 3.8 Chloride 100 Carbon Dioxide 34 H Anion Gap 3 L BUN 25 H Creatinine 1.00 Estim Creat Clear Calc 57 Estimated GFR > 60 Glucose 111 H POC Capillary Glucose 142 H 120 H Calcium 9.5 05/17/24 05/17/24 21:17 16:48 WBC RBC Hgb Hct MCV MCH MCHC RDW Plt Count MPV Sodium Potassium Chloride Carbon Dioxide Anion Gap BUN Creatinine Estim Creat Clear Calc Estimated GFR Glucose POC Capillary Glucose 141 H 117 H Calcium Discharge Plan Discharge Consulting providers: Jerilyn Jurado; Marielena Horner; Grecia Zambrano; Abelardo Coleman; Rhea Lee; Lacey Nielsen; Prasad Sommer V.; Ba Fry Todd R. Discharging Clinician: Davina Castillo Anticipated Discharge Date/Time: 05/18/24 13:03 Patient Disposition: NH Detention/Asst Living Activity: november shower Diet: heart healthy Discharge Instructions: Discharge instructions: Take medications as prescribed You are activity as tolerated Monitor blood pressures Avoid social areas, you wear a mask when in social settings Encouraged to continue with yearly vaccinations Return to the emergency department if he developed sudden shortness of breath, chest pain, nausea, vomiting, upset stomach or intractable diarrhea Return to the emergency department if you develop fever greater than 101.5 Follow-up with: Your primary care physician within 1-2 weeks for post hospitalization check up Thank you for choosing [facility] for your healthcare needs Patient Instructions: Antibiotic Form, Clopidogrel (By mouth), Heart Failure (DC), Fall Prevention for Older Adults (DC) Stand Alone Forms: General Discharge Information Follow-up/Referrals: Jerilyn Jurado APN-C [Advanced Practice Nurse] - 2 Weeks Discharge Medications: Continued magnesium hydroxide [Milk of Magnesia] 400 mg/5 mL suspension 5 ml PO Q12H PRN (Reason: Constipation) pravastatin 40 mg tablet 40 mg PO DAILY Qty: 90 1RF sennosides-docusate sodium [Stool Softener-Laxative] 8.6-50 mg Tablet 1 tablet PO Q12H PRN (Reason: Constipation) [id number] C-Mn [Glucosamine Chondroitin MaxStr] 500-400 mg Capsule 1 cap PO DAILY Culturelle 15 billion cell Capsule, Sprinkle 1 cap PO DAILY Biofreeze (menthol) 4 % Gel 1 applic TOPICAL Q4H PRN (Reason: Pain) Rx Instructions: apply to affected areas PreserVision AREDS-2 250-90-40-1 mg Capsule 1 tablet PO BID clonazepam 1 mg tablet 1 mg PO DAILY nystatin-triamcinolone 100,000-0.1 unit/g-% cream 1 applic topical TID Rx Instructions: Apply to affected area twice daily until irritation clears. aspirin [Arvin Low Dose Aspirin] 81 mg Tablet,Delayed Release (Dr/Ec) 81 mg PO DAILY [place]-3 Fish Oil 300-1,000 mg Capsule 1 cap PO Q12H metformin 500 mg tablet 500 mg PO BIDWM carvedilol 12.5 mg tablet 12.5 mg PO Q12H clopidogrel 75 mg tablet 75 mg PO DAILY calcium carbonate-vitamin D3 600 mg-25 mcg (1,000 unit) Tablet 1 tablet PO DAILY furosemide 40 mg Tablet 40 mg PO DAILY Qty: 30 0RF spironolactone 25 mg tablet 12.5 mg PO DAILY Qty: 30 0RF cetirizine 10 mg tablet 10 mg PO DAILY acetaminophen 500 mg tablet 1,000 mg PO Q6H PRN (Reason: pain, fever) tramadol 50 mg tablet 50 mg PO Q6H PRN (Reason: pain) Qty: 45 0RF Other Ambulatory Orders: OT Outpatient Eval and Treat (ONCE) Timeframe: 20240519 Location: Determined by Patient Ordered By: Davina Castillo PT Outpatient Eval and Treat (ONCE) Timeframe: 20240519 Location: Determined by Patient Ordered By: Davina Castillo Date of admission: 05/16/24 16:22 Primary Care Provider: Peter Darnell Admitting Provider: Itzel Nuñez V. Attending physician on admission: Davina Castillo Condition: Stable Quality VTE Prophylaxis VTE prophylaxis: mechanical ordered Hospitalist MIPS Heart Failure (Exclusion) Patient has history of Heart Transplant or Left Ventricular Assistive Device?: No IF YES, STOP HERE Heart Failure (Qualifier) Patient has current or prior documentation of LVEF less than or equal to 40%, or mod/servere depressed LVSF?: Yes IF NO, STOP HERE If Yes, Heart Failure (Qualifier) Patient was prescribed or already taking an Angiotensin-Converting Enzyme (SHIKHA) Inhibitor, or Antiotensin Receptor Eleni (ARB): Yes Patient was prescribed or already taking bisoprolol, carvedilol, or sustained release metoprolol succinate: Yes
== END 2024-05-18 14:00 | DRG 291 ==
LOC: ANHED 18:19 → ANH3MEDSUR 22:03
PROVIDERS: Nurse Practitioner Adult Health; Physician Assistant; Admitting Provider Internal Medicine; Emergency Provider Physician Assistant; PCP Internal Medicine; Visit Provider Nurse Practitioner Gerontology
DX: I11.0 Hypertensive heart disease with heart failure (principal); I50.33 Acute on chronic diastolic (congestive) heart failure; J96.01 Acute respiratory failure with hypoxia; I25.10 Atherosclerotic heart disease of native coronary artery without angina pectoris; E78.5 Hyperlipidemia, unspecified; E11.40 Type 2 diabetes mellitus with diabetic neuropathy, unspecified; E55.9 Vitamin D deficiency, unspecified; F41.9 Anxiety disorder, unspecified; G47.33 Obstructive sleep apnea (adult) (pediatric); Z96.641 Presence of right artificial hip joint; Z95.0 Presence of cardiac pacemaker; Z79.82 Long term (current) use of aspirin; Z79.899 Other long term (current) drug therapy; Z86.718 Personal history of other venous thrombosis and embolism; Z87.891 Personal history of nicotine dependence; Z85.46 Personal history of malignant neoplasm of prostate
CPT/HCPCS: 36415; 71046; 73564; 80048; 80053; 81003; 82948; 83880; 84484; 85025; 85027; 85610; 85730; 93005; 93971; 96374; 96375; 96376; 97161; 97165; 97530; 97535; 99285; A9270; C8929; G0378; J1940; Q9957

== ENCOUNTER 2024-07-03 11:10 | Emergency (ER) | payer MEDICARE, SELFPAY ==
[2024-07-03] VITALS (12 sets, daily range): BP systolic 100–138; BP diastolic 60–75; PULSE 70–77; RESP 15–26; TEMP 36.4; O2SAT 93–100
--- NOTE | ~2024-07-03 | CT_ITS ---
CT brain wo con Ordering provider: Aleida Gonzales MD History: 84 years Male with . AMS . Comparison: November 24, 2022 Technique: CT of the head without contrast. Radiation reduction technique utilized.The dose-length product was 680 10 mGy-cm FINDINGS: BRAIN PARENCHYMA AND CSF SPACES: Mild leukoaraiosis and diffuse cortical atrophy. Mild atheromatous d isease. No midline shift, mass effect or hemorrhage. The brain parenchyma and CSF spaces are otherwi se normal. VISUALIZED PARANASAL SINUSES: Left maxillary sinus disease. MASTOIDS: Well aerated. BONES: The bones appear intact. SOFT TISSUES: Visualized nasopharynx is normal. Superficial soft tissues are normal. IMPRESSION: No acute intracranial findings. Reviewed, dictated and finalized at location A. OARD INSTRUMENT REPAIRER
--- NOTE | ~2024-07-03 | XR_ITS ---
EXAMINATION: XR chest 1V portable DATE: 07/03/2024 13:08 INDICATION: Transient alteration of awareness. TECHNIQUE: A single frontal view of the chest was obtained on 2 radiographs. COMPARISON: Chest 2 views 05/15/2024 FINDINGS: There is no pneumonia, pleural effusion, or pneumothorax. The heart size is normal. There i s a left chest wall pacer with leads in the right atrium and right ventricle. IMPRESSION: 1. No acute cardiopulmonary disease. Reviewed, dictated and finalized at location A. TMENT RENTAL CLERK
--- NOTE | 2024-07-03 12:51 | ECG_ITS ---
Test Date: 2024-07-03 13:21:16 Measurements Intervals [place] Rate: 70 P: 0 NH: 0 QRS: -85 QRSD: 197 T: 76 QT: 476 QTc: 515 Interpretive Statements ELECTRONIC VENTRICULAR PACEMAKER ABNORMAL RHYTHM ECG Compared to ECG 05/15/2024 15:46:53 Ventricular premature complex(es) no longer present Electronically Signed On 07-04-2024 15:20:34 PHOTOVOLTAIC SOLAR CELL DESIGNER by Rafaela Ortega M.D.
[2024-07-03 13:14] LABS: Basophils Percent Auto 0.4 % (0.2-1.2); Eosinophils Absolute Auto 0.2 K/mm3 (0-0.3); Eosinophils Percent Auto 1.6 % (0-4.4); Hematocrit 42.5 % (42.0-52.0); Hemoglobin 13.8 g/dL (14.0-18.0); Immature Granulocyte Absolute 0.03 K/mm3 (0.00-0.031); Immature Granulocyte Percent A 0.3 % (0-0.5); Lymphocytes Absolute Auto 2.72 K/mm3 (0.9-3.2); Lymphocytes Percent Auto 27.1 % (18.3-44.2); Mean Corpuscular HGB Conc 32.5 g/dl (32-36); Mean Corpuscular Hemoglobin 29.7 pg (26-34); Mean Corpuscular Volume 91.4 fl (80-100); Mean Platelet Volume 10.3 fl (7.4-10.4); Monocytes Absolute Auto 0.9 K/mm3 (0.1-0.6); Monocytes Percent Auto 8.6 % (2.6-8.5); Neutrophils Absolute Auto 6.2 K/mm3 (1.3-6.7); Platelet Count Result 263 k/mm3 (150-375); Red Blood Count 4.65 M/mm3 (4.6-6.20); Red Cell Distribution Width 15.4 % (11.5-14.5); White Blood Count 10.1 K/mm3 (4.5-10.0)
[2024-07-03 13:18] LABS: Add Urine Microscopic? NO; Appearance Urine Clear (Clear); Bilirubin Urine Negative (Negative); Blood Urine Negative (Negative); Color Urine Yellow (Yellow); Glucose Urine UA Negative (Negative); Ketones Urine Negative (Negative); Leukocyte Esterase Ur Negative LEU/UL (Negative); Nitrate Urine Negative (Negative); Protein Urine Negative (Negative); Specific Grav Ur 1.009 (1.001-1.035)
--- NOTE | 2024-07-03 13:20 | ED_ITS ---
HPI - Altered Mental Status General Chief Complaint: Altered Mental Status Stated Complaint: AMS Time Seen by Provider: 07/03/24 12:04 History of Present Illness HPI narrative: 84-year-old male presenting with altered mental status. His daughter is at bedside and helps with the history. He was hospitalized sometime last month for heart failure exacerbation and since that time has had a steady decline in cognitive function. States he is easily confused and forgets things very quickly. States that is been more difficult to care for him at his nursing facility due to the confusion. He denies any new pain. No recent cough for shortness of breath. No leg swelling. Related Data Home Medications ?Medication ?Instructions ?Recorded ?Confirmed ?Last Taken ?Type aspirin 81 mg tablet,delayed 81 mg PO DAILY 01/03/20 05/16/24 01/09/20 History release (Arvin Low Dose Aspirin) omega-3s 300 io-mnb-shw-other 1 cap PO Q12H 01/03/20 05/16/24 01/09/20 History gjrkw3a-nswb oil 1,000 mg capsule ([place]-3 Fish Oil) magnesium hydroxide 400 mg/5 mL 5 ml PO Q12H PRN Constipation 06/27/21 05/16/24 Unknown History oral suspension (Milk of Magnesia) acetaminophen 500 mg tablet 1,000 mg PO Q6H PRN pain, fever 01/14/23 05/15/24 Unknown History cetirizine 10 mg tablet 10 mg PO DAILY 01/14/23 05/16/24 Unknown History carvedilol 12.5 mg tablet 12.5 mg PO Q12H 02/21/23 05/16/24 Unknown History clopidogrel 75 mg tablet 75 mg PO DAILY 02/21/23 05/16/24 Unknown History metformin 500 mg tablet 500 mg PO BIDWM 02/21/23 05/16/24 Unknown History calcium 600 mg (as 1 tablet PO DAILY 06/01/23 05/16/24 Unknown History carbonate)-vitamin D3 25 mcg (1,000 unit) tablet Lactobacillus rhamnosus GG 15 1 cap PO DAILY 05/15/24 05/16/24 Unknown History billion cell sprinkle capsule (Culturelle) tzadxmatjsy-yoeywynki-ygt C-Mn 500 1 cap PO DAILY 05/15/24 05/16/24 Unknown History mg-400 mg capsule (Glucosamine Chondroitin Maximum Strength) menthol 4 % topical gel (Biofreeze 1 applic topical Q4H PRN Pain 05/15/24 05/16/24 Unknown History (menthol)) sennosides 8.6 mg-docusate sodium 1 tablet PO Q12H PRN Constipation 05/15/24 05/16/24 Unknown History 50 mg tablet (Stool Softener-Laxative) vit C 250 mg-vit E 90 mg-zinc 40 1 tablet PO BID 05/15/24 05/16/24 Unknown History mg-copper 1 vm-sjjebe-gdnxtt capsule (PreserVision AREDS-2) nystatin-triamcinolone 100,000 1 applic topical TID 05/16/24 05/16/24 Unknown History unit/g-0.1 % topical cream Allergies Allergy/AdvReac Type Severity Reaction Status Date / Time codeine Allergy Unknown Unknown Verified 05/15/24 22:47 morphine Allergy Unknown Unknown Verified 05/15/24 22:47 Review of Systems 2 Review of Systems: All systems reviewed & are unremarkable except as noted in HPI and below PMFSH Past Medical History Medical History Bilateral knee pain BMI 34.0-34.9,adult Nausea BMI 33.0-33.9,adult Unintentional weight loss Fatigue BMI 35.0-35.9,adult Rash Skin lesion Slurred speech Dizziness Right thigh pain Impaired functional mobility, balance, gait, and endurance Constipation Cognitive dysfunction Back pain Scrotal bleeding ROBER on CPAP Vitamin D deficiency Balanitis Encounter for routine adult health examination with abnormal findings Nocturia Insomnia BMI 37.0-37.9, adult Follow up Abscess of left arm (~04/2021) Anxiety Microalbuminuria History of frequent urinary tract infections Urinary incontinence, male, stress Encounter for routine adult health examination without abnormal findings UTI (urinary tract infection) On retirement drug therapy Hearing loss History of DVT (deep vein thrombosis) Skin cancer History of prostate cancer Cardiac pacemaker in situ ASHD (arteriosclerotic heart disease) BMI 38.0-38.9,adult Encounter for Medicare annual wellness exam Mixed hyperlipidemia Prediabetes Encounter for long-term current use of medication Essential (primary) hypertension Obesity Anxiety Peripheral neuropathy Pacemaker ROBER (obstructive sleep apnea) Hyperlipidemia Diabetes Surgical History Surgical History History of total right hip replacement History of cardiac cath History of surgical removal of skin lesion S/P placement of cardiac pacemaker History of colonoscopy History of prostatectomy History of cholecystectomy Family History Family History Mother Acute myocardial infarction Father Family history of primary malignant neoplasm of liver Family history of liver disease Other Family history of alcoholism Social History Social History Smoking packs per day: 3 Smoking cigarettes per day: 60.0 Years smoked: 30 Smoking pack-years: 90.00 Smoking status: Former smoker Smoking end date: 05/12/76 Alcohol intake: never Substance use: never Do You Feel Safe in your Home?: Yes Lack of Transportation: No Lack of Food: Never True Current Housing: I Have Housing Concerned About Future Housing: No Difficulty Paying Gas/Electric Bills: No Difficulty Paying for Meds: No Currently Unemployed: No Education: High School Diploma/GED Difficulty w/ Childcare or Family Care: No Living arrangements: assisted living Occupation/Education: retired Gender identity (if verbalized by the patient): Male Spiritual care concerns: No Exam 2 Narrative: GENERAL: Chronically ill-appearing, no acute distress, pleasant cooperative HEAD: Normocephalic, atraumatic. EYES: PERRLA and EOMI. ENT: Mucous membranes dry NECK: Supple. CHEST: Clear to auscultation. No respiratory distress. HEART: Regular rate and rhythm ABDOMEN: Soft, nontender, nondistended EXTREMITIES: Normal range of motion. compression stockings on bilateral lower extremities SKIN: Warm, dry, no rash. NEURO: Alert and oriented x1. moves all extremities spontaneously PSYCH: Normal mood and affect. Course Vital Signs Vital signs: Vital Signs Temperature 97.5 F L 07/03/24 11:46 Pulse Rate 76 07/03/24 11:46 Respiratory Rate 16 07/03/24 11:46 Blood Pressure 138/68 07/03/24 11:46 Pulse Oximetry 100 07/03/24 11:46 Temperature 97.5 F L 07/03/24 11:46 Pulse Rate 70 07/03/24 15:05 Respiratory Rate 26 H 07/03/24 15:05 Blood Pressure 100/60 07/03/24 14:01 Pulse Oximetry 93 07/03/24 15:05 Oxygen Delivery Room Air 07/03/24 12:27 MDM - Altered Mental Status MDM Narrative Medical decision making narrative: 84-year-old male presenting with increasing confusion over the last month. Vitals are within normal limits. Exam remarkable for the above. EKG per my interpretation shows paced rhythm. Blood work is at baseline. Ammonia is undetectable. UA is unremarkable. Chest x-ray without acute abnormalities. CT brain without acute abnormalities. Discussed the reassuring workup with the patient and his family. Feel he is safe for outpatient management. They feel safe taking him home. Advised that they follow-up closely with his PCP for further workup for guidance on his worsening confusion. Appropriate return precautions given. Discharged in stable condition. Differential Diagnosis Differential diagnosis: Likely other ( Electrolyte derangement, infection, confusion, dehydration) Medical Records Attestation: I reviewed the patient's medical records. Lab Data Attestation: I reviewed the patient's lab results. 07/03/24 13:05 07/03/24 13:05 Labs: Lab Results 07/03/24 07/03/24 Range/Units 13:05 13:42 WBC 10.1 H (4.5-10.0) K/mm3 RBC 4.65 (4.6-6.20) M/mm3 Hgb 13.8 L (14.0-18.0) g/dL Hct 42.5 (42.0-52.0) % MCV 91.4 (80-100) fl MCH 29.7 (26-34) pg MCHC 32.5 (32-36) g/dl RDW 15.4 H (11.5-14.5) % Plt Count 263 (150-375) k/mm3 MPV 10.3 (7.4-10.4) fl Immature Gran % (Auto) 0.3 (0-0.5) % Neut % (Auto) 62.0 (45.5-73.1) % Lymph % (Auto) 27.1 (18.3-44.2) % [place] % (Auto) 8.6 H (2.6-8.5) % Eos % (Auto) 1.6 (0-4.4) % Baso % (Auto) 0.4 (0.2-1.2) % Lymph # (Auto) 2.72 (0.9-3.2) K/mm3 [place] # (Auto) 0.9 H (0.1-0.6) K/mm3 Eos # (Auto) 0.2 (0-0.3) K/mm3 Baso # (Auto) 0.0 (0.0-0.1) K/mm3 Abs Immat Gran (auto) 0.03 (0.00-0.031) K/mm3 Absolute Neuts (auto) 6.2 (1.3-6.7) K/mm3 Absolute Nucleated RBC 0.000 (0.0-0.012) K/mm3 Nucleated RBC % 0.0 (0.0-0.2) % Sodium 139 (137-145) mmol/L Potassium 4.0 (3.4-5.0) mmol/L Chloride 103 (98-107) mmol/L Carbon Dioxide 34 H (22-30) mmol/L Anion Gap 2 L (4-12) mmol/L BUN 24 H (9-20) mg/dL Creatinine 0.80 (0.7-1.3) mg/dL Estim Creat Clear Calc Not Reportable Estimated GFR > 60 (59 - ) Glucose 110 (65-110) mg/dL Calcium 9.8 (8.4-10.2) mg/dL Total Bilirubin 1.2 (0.2-1.3) mg/dL AST 28 (17-59) U/L ALT 20 (6-50) U/L Alkaline Phosphatase 102 (38-126) U/L Ammonia < 9 L (9-30) umol/L NT-Pro-B Natriuret Pep 2070 H (19.9-100) pg/mL Total Protein 7.0 (6.3-8.2) g/dL Albumin 4.0 (3.5-5.1) g/dL Urine Color Yellow (Yellow) Urine Appearance Clear (Clear) Urine pH 7.0 (5.0-9.0) Ur Specific [place] 1.009 (1.001-1.035) Urine Protein Negative (Negative) mg/dL Urine Glucose (UA) Negative (Negative) mg/dL Urine Ketones Negative (Negative) mg/dL Ur Blood (Man) Negative (Negative) Urine Nitrate Negative (Negative) Urine Bilirubin Negative (Negative) Urine Urobilinogen 1.0 (<2.0) mg/dL Leukocyte Esterase Rfl Negative (Negative) TARUN/UL Imaging Data Radiologist's impression: ITS Impressions Chest X-Ray 07/03/24 13:10 IMPRESSION: 1. No acute cardiopulmonary disease. Head CT 07/03/24 13:39 IMPRESSION: No acute intracranial findings. Critical Care Time Critical Care Time Critical Care Time: No Discharge Plan Discharge Clinical Impression: Confusion, Cognitive changes Patient Disposition: NH Correction/Asst Living Condition: Stable Instructions: Antibiotic Form, Altered Mental Status (ED) Additional Instructions: Your blood work, CT brain, chest x-ray today are reassuring. Your urinalysis shows no infection. Please follow-up closely with your PCP regarding your ongoing confusion. If your symptoms worsen or other concerning symptoms arise, please return to the ER. Patient Language: Upper Sorbian Prescriptions: No Action magnesium hydroxide [Milk of Magnesia] 400 mg/5 mL suspension 5 ml PO Q12H PRN (Reason: Constipation) pravastatin 40 mg tablet 40 mg PO DAILY Qty: 90 1RF sennosides-docusate sodium [Stool Softener-Laxative] 8.6-50 mg Tablet 1 tablet PO Q12H PRN (Reason: Constipation) tibqiulvsmn-alghtvzzy-oul C-Mn [Glucosamine Chondroitin MaxStr] 500-400 mg Capsule 1 cap PO DAILY Culturelle 15 billion cell Capsule, Sprinkle 1 cap PO DAILY Biofreeze (menthol) 4 % Gel 1 applic TOPICAL Q4H PRN (Reason: Pain) Rx Instructions: apply to affected areas PreserVision AREDS-2 250-90-40-1 mg Capsule 1 tablet PO BID nystatin-triamcinolone 100,000-0.1 unit/g-% cream 1 applic topical TID Rx Instructions: Apply to affected area twice daily until irritation clears. aspirin [Arvin Low Dose Aspirin] 81 mg Tablet,Delayed Release (Dr/Ec) 81 mg PO DAILY [place]-3 Fish Oil 300-1,000 mg Capsule 1 cap PO Q12H metformin 500 mg tablet 500 mg PO BIDWM carvedilol 12.5 mg tablet 12.5 mg PO Q12H clopidogrel 75 mg tablet 75 mg PO DAILY calcium carbonate-vitamin D3 600 mg-25 mcg (1,000 unit) Tablet 1 tablet PO DAILY furosemide 40 mg Tablet 40 mg PO DAILY Qty: 30 0RF spironolactone 25 mg tablet 12.5 mg PO DAILY Qty: 30 0RF cetirizine 10 mg tablet 10 mg PO DAILY acetaminophen 500 mg tablet 1,000 mg PO Q6H PRN (Reason: pain, fever) tramadol 50 mg tablet 50 mg PO Q6H PRN (Reason: pain) Qty: 45 0RF clonazepam 1 mg tablet 1 mg PO DAILY Qty: 30 0RF Follow-up/Referrals: Peter Darnell MD [Primary Care Provider] -
[2024-07-03 13:28] LABS: Alanine Aminotransferase 20 U/L (6-50); Alkaline Phosphatase 102 U/L (38-126); Anion Gap 2 mmol/L (4-12); Aspartate Amino Transferase 28 U/L (17-59); Bilirubin,Total 1.2 mg/dL (0.2-1.3); Blood Urea Nitrogen 24 mg/dL (9-20); Calcium 9.8 mg/dL (8.4-10.2); Carbon Dioxide 34 mmol/L (22-30); Chloride 103 mmol/L (98-107); Estimated Glomerular Filt Rate > 60; Glucose 110 mg/dL (65-110); Sodium 139 mmol/L (137-145)
[2024-07-03 13:36] LABS: NT Pro B Type Natriuretic Pept 2070 pg/mL (19.9-100)
--- NOTE | 2024-07-03 13:37 | PC.NURSE ---
Patient returned from Ct scan
[2024-07-03 13:58] LABS: Ammonia < 9 umol/L (9-30)
--- NOTE | 2024-07-03 16:49 | PC.NURSE ---
IV removed. RN and tech assisted patient with getting dressed. Pt able to stand and bear weight with little assistance for balance and to pull up. Pt wheeled out to son-in-law's vehicle by RN and assisted into car.
== END 2024-07-03 16:51 ==
PROVIDERS: Emergency Provider Emergency Medicine; PCP Internal Medicine
DX: G31.84 Mild cognitive impairment of uncertain or unknown etiology (principal); E11.9 Type 2 diabetes mellitus without complications; E78.2 Mixed hyperlipidemia; G47.33 Obstructive sleep apnea (adult) (pediatric); I10 Essential (primary) hypertension; I25.10 Atherosclerotic heart disease of native coronary artery without angina pectoris; E55.9 Vitamin D deficiency, unspecified; F41.9 Anxiety disorder, unspecified; Z85.46 Personal history of malignant neoplasm of prostate; Z95.0 Presence of cardiac pacemaker; Z79.82 Long term (current) use of aspirin; Z79.02 Long term (current) use of antithrombotics/antiplatelets; Z79.84 Long term (current) use of oral hypoglycemic drugs; Z87.891 Personal history of nicotine dependence
CPT/HCPCS: 36415; 70450; 71045; 80053; 81003; 82140; 83880; 85025; 93005; 99284

== ENCOUNTER 2024-08-24 10:27 | Outpatient (CLI) | payer MEDICARE, SELFPAY ==
--- OUTSIDE RECORDS SUMMARY | 2024-08-24 10:48 | XMS_ITS | Referral Summary ---
Author Organization [facility] Address [address] [place] [phone] Care Team Providers Care Foreign Language Instructor Name Role Phone Peter Darnell MD Primary Care Provider Encounters Date Type Department Care Team Description 08/21/2024 Orders Only [facility] Cardiology [address] [place] [phone] Donald Bruner MD Presence of cardiac pacemaker (Primary Dx); Complete atrioventricular block (CMS/HCC) (HCC) 08/21/2024 11:00 AM AIR SAMPLER Ancillary Procedure [facility] Cardiology [address] [place] [phone] Presence of cardiac pacemaker (Primary Dx); Complete heart block (CMS/HCC) (HCC) 08/11/2024 Telephone [facility] Cardiology [address] [place] [address] [place] [phone] Donald Bruner MD d/c therapy 08/10/2024 Telephone [facility] Cardiology [address] [place] [phone] Donald Bruner MD 08/09/2024 9:00 AM AIR SAMPLER Ancillary Procedure [facility] Cardiology [address] [place] [address] [address] [place] [phone] Presence of cardiac pacemaker (Primary Dx); Complete heart block (CMS/HCC) (HCC) 08/08/2024 Telephone [facility] Cardiology [address] [place] [address] [place] [phone] Donald Bruner MD 08/01/2024 Orders Only [facility] Cardiology [address] [place] [address] [place] [phone] Felix Nielson MD 08/01/2024 1:45 PM AIR SAMPLER Office Visit [facility] Cardiology at [address] [place] [phone] Donald Bruner MD Complete atrioventricular block (CMS/HCC) (HCC) (Primary Dx); Presence of cardiac pacemaker 07/19/2024 Telephone [facility] Cardiology [address] [place] [address] [place] [phone] Donald Bruner MD 07/07/2024 Orders Only [facility] Cardiology [address] [place] [address] [place] [phone] Donald Bruner MD Presence of cardiac pacemaker (Primary Dx); Complete heart block (CMS/HCC) (HCC) 07/03/2024 Telephone [facility] Cardiology [address] [place] [address] [place] [phone] Donald Bruner MD 06/23/2024 Telephone [facility] Primary Care at [address] [phone] Laila June NP Medical Question/Miscellaneous 05/31/2024 9:00 AM AIR SAMPLER Office Visit [facility] Cardiology [address] [place] [address] [place] [phone] Jerilyn Jurado NP 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); Presence of cardiac pacemaker from Last 3 Months Allergies Active Allergy Reactions Criticality Noted Date Comments Morphine Other Unknown 11/10/2017 Medications clonazePAM (KlonoPIN) 1 mg tablet Take one by mouth one time per day at bedtime 0 0 05/30/2007 Active pravastatin (PRAVACHOL) 40 mg tablet take 1 tablet (40MG) by oral route every day 0 02/09/2012 Active cetirizine (ZyrTEC) 10 mg tablet take 1 tablet (10MG) by oral route every day 0 12/22/2012 Active metFORMIN (GLUCOPHAGE) 500 mg tabletIndicatio ns:type 2 diabetes mellitus Take 1 tablet (500 mg total) by mouth 2 (two) times a day with meals Active aspirin 81 mg tablet Take 1 tablet (81 mg total) by mouth daily. 01/29/2018 Active multivitamin no.44-vit D3-K 1,000-800 unit-mcg capsule Active omega-3 fatty acids-fish oil 684-1,200 mg capsule,delayed release(DR/EC) Activ e diphenhydrAMINE (BENADRYL) 25 mg capsule Take 25 mg by mouth every 6 (six) hours as needed for itching. Active magnesium hydroxide (MILK OF MAGNESIA) suspension 400 mg/5 mL Active senna-docusate (PERICOLACE) 8.6-50 mg Take 1 tablet by mouth daily Active clopidogrel (PLAVIX) 75 mg tablet Take 1 tablet (75 mg total) by mouth daily Active hydroCHLOROthia zide (HYDRODIURIL) 25 mg tablet Take 0.5 tablets (12.5 mg total) by mouth daily Active carvediloL (COREG) 12.5 mg tablet Take 1 tablet (12.5 mg total) by mouth 2 (two) times a day with meals Active glucosamine-cho ndroit-vit C-Mn capsule Take by mouth Active calcium-magnesi um-zinc tablet Take by mouth Active acetaminophen (TYLENOL) 500 mg tablet Take 1 tablet (500 mg total) by mouth every 6 (six) hours as needed for pain Active vit C,L-Cy-ipscf-symone tein-zeaxan (PreserVision AREDS-2) 250-90-40-1 mg capsule Take by oral route. Active traMADoL (ULTRAM) 50 mg tablet Active furosemide (LASIX) 40 mg tablet Active Lactobacillus rhamnosus GG (CULTURELLE) 15 billion cell capsule, sprinkle Take by oral route. 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 2017 Unspecified atrioventricular block 02/22/2018 Aftercare following right knee joint replacement surgery 01/28/2018 Allergic rhinitis 01/28/2018 Anxiety disorder, unspecified 01/28/2018 Gastro-esophageal reflux disease without esophag itis 01/28/2018 Essential (primary) hypertension 01/28/2018 Hyperlipidemia, unspecified 01/28/2018 Obstructive sleep apnea 01/28/2018 Patient's noncompliance with other medical treatment and regimen 01/28/2018 Personal history of malignant neoplasm of prosta te 01/28/2018 Personal history of pulmonary embolism 8 Personal history of other venous thrombosis and embolism 01/28/2018 Type 2 diabetes mellitus without complications ( CMS/HCC) 01/28/2018 Allergic rhinitis 01/28/2018 Obstructive sleep apnea 01/28/2018 Presence of right artificial hip joint 8 Pain in unspecified hip 12/01/2017 Pain, joint, hip, right 11/03/2017 Presence of cardiac pacemaker 09/23/2017 Overview (10/07/2023): Medtronic Adapta Dual Pacemaker, Dx; CHB. DOI 07/18/2014, chronic leads 07/07/2006. [employer] remote monitoring. Coordinate pacer checks with doctor visits d/t transportation. Of Note: patient inquired about his next pacemaker and MRI Conditional (compatibility). Patient's leads; Atrial model # 4592 implanted 2005 is Not MRI conditional. Ventricular model # 4092 implanted 2005 is Not MRI conditional. In order for patient to receive an MRI conditional pacemaker his leads would have to be extracted with new leads implanted. 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 (10/16/2016): BENIGN NEOPLASM ADRENAL Resolved Problems Problem Noted Date Diagnosed Date Resolved Date Presence of cardiac pacemaker 01/28/2018 12/24/2020 Aftercare following right kn ee joint replacement surgery 01/28/2018 12/24/2020 [place]'s syndrome 11/25/2013 8 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 Social History Tobacco Use Types Packs/Day Years Used Date Smoking Tobacco: Former Cigarettes 1.5 22 1 953 - 1974 Smokeless Tobacco: Never Tobacco Cessation:Counseling Given: Not Answered Alcohol Use Standard Drinks/Week Comments No 0 (1 standard drink = 0.6 oz pur e alcohol) Sex and Gender Information Value Date Recorded Sex Assigned at Not on file Legal Sex Male 8:01 AM AIR SAMPLER Gender Identity Not on file Sexual Orientation Not on file Last Filed Vital Signs Vital Sign Reading Time Taken Comments Blood Pressure 104/66 08/01/2024 1:57 PM AIR SAMPLER Pulse 77 08/01/2024 1:57 PM AIR SAMPLER Temperature 36.9 C (98.4 F) 01/28/2018 11:29 AM CDT Respiratory Rate 16 01/28/2018 11:29 AM CDT Oxygen Saturation 95% 08/01/2024 1:57 PM AIR SAMPLER Inhaled Oxygen Concentration - - Weight 101.6 kg (224 lb) 08/01/2024 1:57 PM AIR SAMPLER Height 175.3 cm (5' 9 ) 08/01/2024 1:57 PM AIR SAMPLER Body Mass Index 33.08 08/01/2024 1:57 PM AIR SAMPLER Plan of Treatment Not on file Medical Devices Implanted Type Area Billiard Player Device Identifier Shelf Expiration Date Model / Serial / Lot Pacemaker- [id number] Implanted:07/18 by Donald Bruner MD (Quantity not on file) Pacemaker Chest Medtronic CHB ADAPTA / [id number] / [employer] [id number] Mdm Trident 60mm 60mm Multihole Rim Hip F Hemisphere Shell - S0 - [id number] Implanted:Qty: 1 on 01/25/2018 by Reji Banegas MD at [facility] Right: Hip [employer] [id number] 06/17/2022 [id number] / 0 / [id number] [employer] 5260-5-024 Osteolock 6.5mm 24mm Hexagon Hip Acetabular Cancellous Screw Bone - S0 - [id number] Implanted:Qty: 1 on 01/25/2018 by Reji Banegas MD at [facility] Right: Hip [employer] [id number] 11/15/2022 5260-5-024 / 0 / [id number] [employer] 5260-5-030 Gnosticism Osteolock 6.5mm 30mm Wedge Hip Cancellous Hexagon - S0 - [id number] Implanted:Qty: 1 on 01/25/2018 by Reji Banegas MD at [facility] Right: Hip [employer] [id number] 10/16/2022 5260-5-030 / 0 / [id number] [employer] 623-00-36f 36mm 7.9mm Hip 0d F Liner Acetabular X3 - [id number] Implanted:Qty: 1 on 01/25/2018 by Reji Banegas MD at [facility] Right: Hip [employer] [id number] 03/29/2022 623-00-36F / / [id number] [employer] [id number] Accolade 117mm 37mm Modular Hip 127d 8 Taper Stem Femoral Sterile - [id number] Implanted:Qty: 1 on 01/25/2018 by Reji Banegas MD at [facility] Right: Hip [employer] [id number] 11/04/2020 1578-1181 / / [id number] [employer] [id number] 36mm Anatomic Hip -5mm Offset Taper Head Femoral Biolox Delta - [id number] Implanted:Qty: 1 on 01/25/2018 by Reji Banegas MD at [facility] Right: Hip [employer] [id number] 10/20/2022 [id number] / / [id number] Procedures Procedure Name Priority Date/Time Associated Diagnosis Comments DEVICE CHECK - REMOTE Routine 08/21/2024 10:46 AM AIR SAMPLER Complete heart block (CMS/HCC) (HCC) DEVICE CHECK - IN OFFICE Routine 08/09/2024 9:05 AM AIR SAMPLER Complete heart block (CMS/HCC) (HCC) ECG 12-LEAD Routine 07/18/2024 4:21 PM AIR SAMPLER LIPID PANEL Routine 10/01/2020 9:08 AM CDT from Last 3 Months or Most Recently Relevant to Health Maintenance Results * DEVICE CHECK - REMOTE (08/21/2024 10:46 AM AIR SAMPLER) Anatomical Region Laterality Modality Other Narrative 08/21/2024 4:21 PM AIR SAMPLER Medtronic Adapta Dual Pacemaker Dx; CHB Gen change 07/18/2014, chronic leads 06/2006. [employer] remote home monitoring. VVI Pacemaker Remote to assess battery function. Pacemaker reprogrammed to VVIR on 08/10/2024. Transmission attached. Battery status: 2.60 V, 4 months remaining battery life to MALCOM. Stable lead impedances, pacing and sensing thresholds. Presenting rhythm: Vpaced. STAVE LOG CUT OFF SAW OPERATOR-82.3%. 1 Ventricular high rate episode detected, IEGM suggestive of NSVT. Medications: ASA 81 mg, Plavix, Coreg. See scanned report. Office pacemaker follow up: due post generator change. [employer] remote f/u 09/18/2024. Hilda Gonzales RN Donald Bruner MD [facility] PROC EDURES Final Result * DEVICE CHECK - IN OFFICE (08/09/2024 9:05 AM AIR SAMPLER) Anatomical Region Laterality Modality Other Narrative 08/11/2024 11:19 AM AIR SAMPLER Medtronic Adapta Dual Pacemaker Dx; CHB Gen change 07/18/2014, chronic leads 06/2006. [employer] remote home monitoring. Coordinate pacer checks with Dr appiah's d/t transportation from [place]. Supervising MD: Dr Flores. Office DDD Pacemaker evaluation demonstrated appropriate device function. Left pectoral incision well healed without signs of infection noted. Battery function-2.61V, 1 month remaining battery life to MALCOM. Appropriate v-lead measurements noted. Atrial lead sensing 0.5-0.70 mV (bipolar & unipolar). Lead impedances >9,999 (Bipolar & Unipolar). Atrial pacing threshold is indeterminate. Office pacemaker evaluation on 03/10/2023 A-sensing 2.0-2.8 mV, Impedance 487 ohms, Pacing Threshold 0.75V@0.4ms. Presenting tiapxn-OR-DN. Underlying rhythm-CHB, no ventricular escape @ VDI 30 bpm. Pacemaker Dependent. AP-91%, STAVE LOG CUT OFF SAW OPERATOR-98%. PVC counts since 03/10/2023 Singles-2,981,502, PVC runs-360,024. 29,881 Atrial high rate episodes noted, iegm's show noise on atrial lead, longest duration 1 minute. 6 Ventricular high rate episodes noted. Medications; ASA 81 mg, Plavix, Coreg. Atrial capture management changed from adaptive to monitor only, pace & sense polarity changed to bipolar, and amplitude increased to 5.0V. See scanned report. Office device f/u post pacemaker replacement. [employer] remote f/u 08/21/2024. Hilda Goznales RN Of Note: patient inquired about his next pacemaker and MRI Conditional (compatibility). Patient's leads; Atrial model # 4592 implanted 2005 is Not MRI conditional. Ventricular model # 4092 implanted 2005 is Not MRI conditional. In order for patient to receive an MRI conditional pacemaker his leads would have to be extracted with new leads implanted. Donald Bruner MD [facility] PROC EDURES Final Result * ECG 12 lead (07/18/2024 4:21 PM AIR SAMPLER) Historical Provider ECG ORDERABLES Edited Re sult - Final * Lipid panel (10/01/2020 9:08 AM CDT) SCRIBED Cholesterol, Total 142 0 - 200 EXTERNAL LAB SCRIBED HDL 47 40 - 100 EXTERNAL LAB SCRIBED LDL 77 0 - 100 EXTERNAL LAB SCRIBED Triglycerides 107 0 - 150 EXTERNAL LAB Blood specimen (specimen) us Historical Provider LAB BLOOD ORDERABLES Edit ed Result - Final EXTERNAL LAB from Last 3 Months or Most Recently Relevant to Health Maintenance Insurance MEDICARE MEDICARE [facility] MEDICARE [facility] MEDICARE SUPPLEMENT Advance Directives For more information, please contact: [phone] Documents on File Type Date Recorded Patient Director Of Diagnostic Imaging Expl anation ADVANCE DIRECTIVE 01/25/2018 4:13 PM SIA Fischer WILL ADVANCE DIRECTIVE 01/25/2018 4:11 PM POWER OF SPLIT LEATHER DEPARTMENT SUPERVISOR * Full Code (Latest Code Status on File) Date Activated Date Inactivated Comments 01/25/2018 3:54 PM 01/28/2018 3:15 PM Care Teams Foreign Language Instructor Relationship Specialty Start Date End Date Peter Darnell MD [address] [place] [address] PCP - General 10/09/16
--- OUTSIDE RECORDS SUMMARY | 2024-08-24 10:48 | XMS_ITS | Continuity of Care Document ---
Author Organization [facility] [place] [address] [place] [address] Phone Care Team Providers Care Undergraduate Intern Name Role Phone Von Valenzuela Unavailable Unavailable Procedures Procedure Date Eye Exam & Treatment Refraction Eye Exam & Treatment No Script Eye Exam Established Pt Script Printed/Phoned Pt Requ Or Pharm N ot Availab Eye Exam & Treatment Eye Exam, New Patient Advance Directives Directive Yes / No Effective Date File Name No Information Encounters Encounter Description Practice Location Reason(s) For Visit Diagnoses Date Provider Providers Copied on Encounter [facility], [address] [place] [address] [address], [place], [place], [id number], tel:[phone] [facility] No Information 5-201 0 Nicolas Longoria. [address] , [address], [place], [place], [facility], . tel:[phone] [facility], [address], [place], [place], [id number], [place] tel:[phone] [facility] No Information 0-200 9 Nicolas Longoria. [address], [place], [place], [facility], . tel:[phone] [facility], [address], [place], [place], [id number], tel:[phone] [facility] No Information Sep-2 4-200 9 Laura Adi. [address] [facility] [address], [place], [place], [facility], . tel:[phone] [facility], [address], [place], [place], [id number], tel:[phone] [facility] No Information Oct-3 0-200 8 Nicolas Longoria. [facility], [place], [place], [facility], [place]. tel:[phone] Referring Provider: Adi lantigua, [address] [place] [address] [address], [place], [place], [facility]. tel:[phone] [facility], [address] [facility] [address], [place], [place], [id number], tel:[phone] [facility] No Information 2-200 8 Laura Adi. [facility] [facility] [address], [place], [place], [facility], [place]. tel:[phone] Family History Family Member Type Diagnosis Age At Onset No Information Payers Payer name Insurance type Covered democrat ID Authoriza tion(s) Medicare [facility] [id number] [place] [id number] Social History Type Description Quantity Date Captured Comments Sex Male Smoking Status No Information Chief Complaint And Reason For Visit No Information Reason For Referral Reason For Referral No Information History Of Present Illness Encounter Date Complaint History Of Prese nt Illness No Information Functional Status Date Functional Assessmen t No Information Instructions Date Instruction Additional Infor mation No Information Assessments Type Assessment Date No Information Patient Care Teams Name Effective Dates (start - stop) Status Members No Information
--- OUTSIDE RECORDS SUMMARY | 2024-08-24 10:48 | XMS_ITS | Clinical Summary ---
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 Encounters Date Type Department Care Team Description 08/21/2024 11:00 AM BI SPECIALIST Ancillary Procedure [facility] Cardiology [address] [place] [address] [place] [phone] Presence of cardiac pacemaker (Primary Dx); Complete heart block (CMS/HCC) (HCC) 08/21/2024 Orders Only [facility] Cardiology [address] [place] [address] [place] [phone] Donald Bruner MD Presence of cardiac pacemaker (Primary Dx); Complete atrioventricular block (CMS/HCC) (HCC) 08/11/2024 Telephone [facility] Cardiology [address] [place] [phone] Donald Bruner MD d/c therapy 08/10/2024 Telephone [facility]iology [address] [place] [address] [place] [phone] Donald Bruner MD 08/09/2024 9:00 AM BI SPECIALIST Ancillary Procedure [facility]iology [address] [place] [address] [address] [place] [phone] Presence of cardiac pacemaker (Primary Dx); Complete heart block (CMS/HCC) (HCC) 08/08/2024 Telephone [facility] [address] [place] [address] [place] [phone] Donald Bruner MD 08/01/2024 1:45 PM BI SPECIALIST Office Visit [facility]iology at [address] [place] [phone] Donald Bruner MD Complete atrioventricular block (CMS/HCC) (HCC) (Primary Dx); Presence of cardiac pacemaker 08/01/2024 Orders Only [facility]iology [address] [place] [address] [place] [phone] Felix Nielson MD 07/19/2024 Telephone [facility]iology [address] [place] [address] [place] [phone] Donald Bruner MD 07/07/2024 Orders Only [facility]iology [address] [place] [address] [place] [phone] Donald Bruner MD Presence of cardiac pacemaker (Primary Dx); Complete heart block (CMS/HCC) (HCC) 07/03/2024 Telephone [facility]iology [address] [place] [address] [place] [phone] Donald Bruner MD 06/23/2024 Telephone [facility] Primary Care at [address] [phone] Laila June NP Medical Question/Miscellaneous 05/31/2024 9:00 AM BI SPECIALIST Office Visit [facility] Cardiology [address] [place] [phone] Jerilyn Jurado NP 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); Presence of cardiac pacemaker from Last 3 Months Surgical History Surgery Date Site/Laterality Comments CHOLECYSTECTOMY 07/12/1969 - 07/11/1970 Cholecystectomy RADICAL PROSTATECTOMY 07/12/1995 - 07/11/1996 ADRENALECTOMY 07/12/1997 - 07/11/1998 Left COLONOSCOPY 07/12/2014 - 07/11/2015 INSERT / REPLACE / REMOVE PACEMAKER 07/12/2015 - 07/11/2016 BASAL CELL CARCINOMA EXCISION Medical History Medical History Date Comments Hx Other Medical Cushings HTN (hypertension) Type 2 diabetes mellitus (HCC) Family History Medical History Relation Name Comments Alcohol abuse Other Family history of alcoholism - (Added by TW Conv) Relation Name Status Comments Other Social History Tobacco Use Types Packs/Day Years Used Date Smoking Tobacco: Former Cigarettes 1.5 22 1 953 - 1974 Smokeless Tobacco: Never Tobacco Cessation:Counseling Given: Not Answered Alcohol Use Standard Drinks/Week Comments No 0 (1 standard drink = 0.6 oz pur e alcohol) Sex and Gender Information Value Date Recorded Sex Assigned at Not on file Legal Sex Male 8:01 AM BI SPECIALIST Gender Identity Not on file Sexual Orientation Not on file Obstetrics History Last Filed Vital Signs Vital Sign Reading Time Taken Comments Blood Pressure 104/66 08/01/2024 1:57 PM BI SPECIALIST Pulse 77 08/01/2024 1:57 PM BI SPECIALIST Temperature 36.9 C (98.4 F) 01/28/2018 11:29 AM CDT Respiratory Rate 16 01/28/2018 11:29 AM CDT Oxygen Saturation 95% 08/01/2024 1:57 PM BI SPECIALIST Inhaled Oxygen Concentration - - Weight 101.6 kg (224 lb) 08/01/2024 1:57 PM BI SPECIALIST Height 175.3 cm (5' 9 ) 08/01/2024 1:57 PM BI SPECIALIST Body Mass Index 33.08 08/01/2024 1:57 PM BI SPECIALIST Plan of Treatment Health Maintenance Due Date Last Done Comments Albumin Creatinine Ratio, Urine 1938 Depression Screening 1938 Fall Risk Assessment 1938 Hemoglobin A1C 1938 eGFR 1938 Dilated Eye Exam 1938 Foot Exam 1938 DTaP/Tdap/Td Vaccine (1 - Tdap) 1949 Hepatitis B Screening 1956 Well Visit 65+ 2003 Zoster Vaccine (2 of 3) 05/26/2010 03/31/2010 Pneumococcal vaccine 65+ (2 of 2 - PPSV23 or PCV20) 06/13/2018 04/18/2018 Lipid Panel 10/01/2021 10/01/2020, 08/13, 12/01/2016 Influenza Vaccine Completed 04/20/2024, , 04/19/2013, Additional history exists Medical Devices Implanted Type Area Supervisor Pigment Making Device Identifier Shelf Expiration Date Model / Serial / Lot Pacemaker- [id number] Implanted:07/18 by Donald Bruner MD (Quantity not on file) Pacemaker Chest Medtronic CHB ADAPTA / [id number] / [employer] [id number] Mdm Trident 60mm 60mm Multihole Rim Hip F Hemisphere Shell - S0 - [id number] Implanted:Qty: 1 on 01/25/2018 by Reji Banegas MD at [facility] Right: Hip [employer] [id number] 06/17/2022 [id number] / 0 / [id number] [employer] 5260-5-024 Osteolock 6.5mm 24mm Hexagon Hip Acetabular Cancellous Screw Bone - S0 - [id number] Implanted:Qty: 1 on 01/25/2018 by Reji Banegas MD at [facility] Right: Hip [employer] [id number] 11/15/2022 5260-5-024 / 0 / [id number] [employer] 5260-5-030 [employer]an Osteolock 6.5mm 30mm Wedge Hip Cancellous Hexagon - S0 - [id number] Implanted:Qty: 1 on 01/25/2018 by Reji Banegas MD at [facility] Right: Hip [employer] [id number] 10/16/2022 5260-5-030 / 0 / [id number] [employer] 623-00-36f 36mm 7.9mm Hip 0d F Liner Acetabular X3 - [id number] Implanted:Qty: 1 on 01/25/2018 by Reji Banegas MD at [facility] Right: Hip [employer] [id number] 03/29/2022 623-00-36F / / [id number] [employer] [id number] Accolade 117mm 37mm Modular Hip 127d 8 Taper Stem Femoral Sterile - [id number] Implanted:Qty: 1 on 01/25/2018 by Reji Banegas MD at [facility] Right: Hip [employer] [id number] 11/04/2020 8562-7679 / / [id number] [employer] [id number] V40 36mm Anatomic Hip -5mm Offset Taper Head Femoral Biolox Delta - [id number] Implanted:Qty: 1 on 01/25/2018 by Reji Banegas MD at [facility] Right: Hip [employer] [id number] 10/20/2022 [id number] / / [id number] Procedures Procedure Name Priority Date/Time Associated Diagnosis Comments DEVICE CHECK - REMOTE Routine 08/21/2024 10:46 AM BI SPECIALIST Complete heart block (CMS/HCC) (HCC) DEVICE CHECK - IN OFFICE Routine 08/09/2024 9:05 AM BI SPECIALIST Complete heart block (CMS/HCC) (HCC) ECG 12-LEAD Routine 07/18/2024 4:21 PM BI SPECIALIST LIPID PANEL Routine 10/01/2020 9:08 AM CDT from Last 3 Months or Most Recently Relevant to Health Maintenance Results * DEVICE CHECK - REMOTE (08/21/2024 10:46 AM BI SPECIALIST) Anatomical Region Laterality Modality Other Narrative 08/21/2024 4:21 PM BI SPECIALIST Medtronic Adapta Dual Pacemaker Dx; CHB Gen change 07/18/2014, chronic leads 06/2006. [facility] remote home monitoring. VVI Pacemaker Remote to assess battery function. Pacemaker reprogrammed to VVIR on 08/10/2024. Transmission attached. Battery status: 2.60 V, 4 months remaining battery life to MALCOM. Stable lead impedances, pacing and sensing thresholds. Presenting rhythm: Vpaced. CHANCERY CLERK-82.3%. 1 Ventricular high rate episode detected, IEGM suggestive of NSVT. Medications: ASA 81 mg, Plavix, Coreg. See scanned report. Office pacemaker follow up: due post generator change. [facility] remote f/u 09/18/2024. Hilda Gonzales RN us Donald Bruner MD [facility] PROC EDURES Final Result * DEVICE CHECK - IN OFFICE (08/09/2024 9:05 AM BI SPECIALIST) Anatomical Region Laterality Modality Other Narrative 08/11/2024 11:19 AM BI SPECIALIST Medtronic Adapta Dual Pacemaker Dx; CHB Gen change 07/18/2014, chronic leads 06/2006. [facility] remote home monitoring. Coordinate pacer checks with Dr appiah's d/t transportation from [place]. Supervising MD: Dr Flores. Office DDD Pacemaker [...] Impedance 487 ohms, Pacing Threshold 0.75V@0.4ms. Presenting [id number]. Underlying rhythm-CHB, no ventricular escape @ VDI 30 bpm. Pacemaker Dependent. AP-91%, CHANCERY CLERK-98%. PVC counts since 03/10/2023 Singles-2,981,502, PVC runs-360,024. [...] pacemaker replacement. [facility] remote f/u 08/21/2024. Hilda Gonzales RN Of Note: patient inquired about his [...] * ECG 12 lead (07/18/2024 4:21 PM BI SPECIALIST) Historical Provider ECG ORDERABLES Edited Re sult - Final * Lipid panel (10/01/2020 9:08 AM CDT) SCRIBED Cholesterol, Total 142 0 - 200 EXTERNAL LAB SCRIBED HDL 47 40 - 100 EXTERNAL LAB SCRIBED LDL 77 0 - 100 EXTERNAL LAB SCRIBED Triglycerides 107 0 - 150 EXTERNAL LAB Blood specimen (specimen) Historical Provider LAB BLOOD ORDERABLES Edit ed Result - Final EXTERNAL LAB from Last 3 Months or Most Recently Relevant to Health Maintenance Insurance MEDICARE MEDICARE [facility] MEDICARE [facility] MEDICARE SUPPLEMENT Advance Directives For more information, please contact: [phone] Documents on File Type Date Recorded Patient Party Host Expl anation ADVANCE DIRECTIVE 01/25/2018 4:13 PM SIA AIKEN ADVANCE DIRECTIVE 01/25/2018 4:11 PM POWER OF GARBAGE DEPOT WORKER * Full Code (Latest Code Status on File) Date Activated Date Inactivated Comments 01/25/2018 3:54 PM 01/28/2018 3:15 PM Care Teams Ux Design Lead Relationship Specialty Start Date End Date Peter Darnell MD [address] [place] [address] PCP - General 10/09/16
--- OUTSIDE RECORDS SUMMARY | 2024-08-24 10:48 | XMS_ITS | Clinical Summary ---
Author Organization [facility] Address [address] [place] [address] Care Team Providers Care Napkin Machine Operator Name Role Phone Unavailable Primary Care Provider Unavailabl e Social History Tobacco Use Types Packs/Day Years Used Date Smoking Tobacco: Never Assessed Sex and Gender Information Value Date Recorded Sex Assigned at Not on file Legal Sex Male 6:58 PM CDT Gender Identity Not on file Sexual Orientation Not on file Plan of Treatment Health Maintenance Due Date Last Done Comments DTaP, Tdap and Td Vaccines ( 1 - Tdap) 1957 Zoster Vaccines (1 of 2) 1988 Pneumococcal Vaccine: 65+ Ye ars (1 of 1 - PCV) 2003 RSV Immunization or 60+ Years (1 - 1-dose 75+ series) 2013 COVID-19 Vaccine (2023-2 5 season) 2024 Influenza Adult (#1) 2024 Meningococcal B Vaccine Aged Out No l onger eligible based on patient's age to complete this topic Meningococcal Vaccine Aged Out No stan sterling eligible based on patient's age to complete this topic RSV Immunizations Under 20 Months Aged Out No longer eligible based on patient's age to complete this topic
--- OUTSIDE RECORDS SUMMARY | 2024-08-24 10:48 | XMS_ITS | Patient Health Summary ---
Author Organization [facility] Address [address] [facility] [place] [address] Care Team Providers Care Ad Writer Name Role Phone Unavailable Primary Care Provider Unavailabl e Note from [facility],non-owned Affiliates and Associated Physician Practices is amultiple site organization consisting of ambulatory clinics and hospital sitesin [place], [place], [place] and [place]. This disclosure is being madepursuant to the [facility] Everywhere program and may not contain all information available regarding this patient. Last updated 18.[facility] Social History Tobacco Use Types Packs/Day Years Used Date Smoking Tobacco: Never Assessed Sex and Gender Information Value Date Recorded Sex Assigned at Not on file Gender Identity Not on file Sexual Orientation Not on file Procedures * DERMATOPATHOLOGY(Performed 04/24/2020) * DERMATOPATHOLOGY(Performed 08/16/2017) * DERMATOPATHOLOGY(Performed 02/18/2016) * DERMATOPATHOLOGY(Performed 01/03/2016) * DERMATOPATHOLOGY(Performed 10/19/2012) * DERMATOPATHOLOGY(Performed 12/10/2011) Results * DERMATOPATHOLOGY (04/24/2020 12:00 AM CDT) Only the most recent of6 resultswithin the time period is included. Case Report Dermatopathology Report Case: [id number] Authorizing Provider: Kelby Colmenares MD Collected: 04/24/2020 12:00 AM Ordering Location: [facility] DermPath Lab Received: 04/25/2020 12:14 PM Pathologist: Fabi Orozco MD Specimens: A) - Skin, right upper chest below clavicle B) - Skin, left upper chest 0 3:56 PM CDT DERMATOPATHOLOGY LABORATORY Final Diagnosis Specimen A. 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 SKIN, left upper chest: LICHEN PLANUS-LIKE KERATOSIS (BENIGN LICHENOID KERATOSIS) (L82.1) DERMAL FIBROSIS (L90.5) 0 3:56 PM CDT DERMATOPATHOLOGY LABORATORY Clinical History A-B: R/O BCC, SCCIS, SCC. 0 3:56 PM CDT DERMATOPATHOLOGY LABORATORY Gross Description Specimen A: Received is one formalin filled container labeled with the patient's name and designated right upper chest below clavicle. The specimen consists of a curettage and desiccation biopsy measuring [id number]. Jar 0. Specimen B: Received is one formalin filled container labeled with the patient's name and designated left upper chest. The specimen consists of a curettage and desiccation biopsy measuring [id number]. Jar 0. 0 3:56 PM CDT DERMATOPATHOLOGY LABORATORY Microscopic Description Specimen A. SKIN, right upper chest below clavicle: The epidermis is mildly acanthotic. There is a lichenoid infiltrate with vacuolar changes of basilar keratinocytes and scattered necrotic keratinocytes. Specimen B. SKIN, left upper chest: The epidermis is mildly acanthotic. There is a lichenoid infiltrate with vacuolar changes of basilar keratinocytes and scattered necrotic keratinocytes. There is focal dermal fibrosis. 0 3:56 PM CDT DERMATOPATHOLOGY LABORATORY Disclaimer An external and internal positive and negative controls are appropriate for the histochemical, immunohistochemical and immunofluorescence stain(s) in this case (if any), except where stated explicitly. The performance characteristics of the stain(s) cited in this report were developed and its performance characteristic determined by the Dermatopathology Laboratory at [facility], directed by Dr. Leta Orozco. These tests need not be, and therefore are not, approved by the [place] Food and Drug Administration. The tests are used for clinical purposes. Billing Codes Specimen Charges Stain Charges 22935 25872 1 1 0 3:56 PM CDT DERMATOPATHOLOGY LABORATORY Embedded Images 0 3:56 PM CDT DERMATOPATHOLOGY LABORATORY Pathology/Cytology TISSUE SPECIMEN FROM SKIN / Unknown 04/24/2020 04/25/2020 12:14 PM CDT Miscellaneous samples (specimen) TISSUE SPECIMEN FROM SKIN / Unknown 04/24/2020 04/25/2020 12:14 PM CDT Kelby Colmenares MD LAB - PATHOLOGY/CYTO LOGY ORDERABLES Performing Organization Address City/State/[facility] Co de Phone Number DERMATOPATHOLOGY LABORATORY [facility] - Department of Dermatology [address], [address] [phone]
--- OUTSIDE RECORDS SUMMARY | 2024-08-24 10:48 | XMS_ITS | Encounter Summary ---
Author Organization [facility] Address [address] [place] [address] Care Team Providers Care Importer Exporter Name Role Phone Unavailable Primary Care Provider Unavailabl e Encounter Details Date Type Department Care Team (Late st Contact Info) Description 04/25/2020 Lab Requisition [facility] [address] [place] [phone] Kelby Colmenares MD [address] [place] [address] Social History Tobacco Use Types Packs/Day Years Used Date Smoking Tobacco: Never Assessed Sex and Gender Information Value Date Recorded Sex Assigned at Not on file Gender Identity Not on file Sexual Orientation Not on file documented as of this encounter Plan of Treatment Not on file documented as of this encounter Procedures Procedure Name Priority Date/Time Associated Diagnosis Comments DERMATOPATHOLOGY Routine 04/24/2020 12:0 0 AM CDT documented in this encounter Results * DERMATOPATHOLOGY (04/24/2020 12:00 AM CDT) Case Report Dermatopathology Report Case: [id number] Authorizing Provider: Kelby Colmenares MD Collected: 04/24/2020 12:00 AM Ordering Location: [facility] Received: 04/25/2020 12:14 PM Pathologist: [...] of a curettage and desiccation biopsy measuring [id number]. Jar 0. Specimen B: Received is one formalin filled container labeled with the patient's name and designated left upper chest. The specimen consists of a curettage and desiccation biopsy measuring [id number]. Jar 0. 0 3:56 PM CDT DERMATOPATHOLOGY [...] characteristic determined by the Dermatopathology Laboratory at [facility], directed by Dr. Leta Orozco. These tests need not be, and therefore are not, approved by the [place] Food and Drug Administration. The tests are used for clinical purposes. Billing Codes Specimen Charges Stain Charges 85033 14530 1 1 0 3:56 PM CDT DERMATOPATHOLOGY LABORATORY Embedded Images 0 3:56 PM CDT DERMATOPATHOLOGY LABORATORY Pathology/Cytology TISSUE SPECIMEN FROM SKIN / Unknown 04/24/2020 04/25/2020 12:14 PM CDT Miscellaneous samples (specimen) TISSUE SPECIMEN FROM SKIN / Unknown 04/24/2020 04/25/2020 12:14 PM CDT Kelby Colmenares MD LAB - PATHOLOGY/CYTO LOGY ORDERABLES DERMATOPATHOLOGY LABORATORY [facility] - Department of Dermatology [facility] Medicine [address] [place] [address], [address] [phone] documented in this encounter Visit Diagnoses Not on filedocumented in this encounter
--- OUTSIDE RECORDS SUMMARY | 2024-08-24 10:48 | XMS_ITS | Continuity of Care Document ---
Author Name Auto Generated, Auto Generated Organization [employer] Support Name Relationship Address Phone Shanel Dye Emergency Contact [address] [place] [address] HardikShanel clements Daughter [address] [place] [address] HardikShanel clements [employer] [address] [place] [address] Vinod Tomas Financial Responsible [employer] [address] [place] [address] Vinod Tomas Self [address] [place] [address] [facility] [address] [place] [address] Shanel Dye Statement Copy [address] [place] [address] Filemon Dye Emergency Contact [address] [place] [address] Filemon Dye Son-in-Law [address] [place] [address] Parish Dye [facility] [address] [place] [address] Unavailable Hardik [facility] [address] [place] [address] Unavailable Summary Purpose Consult/Referral Allergies, Adverse Reactions, Alerts Type Description/Agent Code Date Allergy Active Date Allergy Inactivated Date of Last Reaction Adverse Reactions Severity Status Comments Source of Information FDB Medic ation Ingre dient codeine Active Patient History FDB Medic ation Ingre dient morphine Active Patient History Medications No Known Medications Conditions/Problems Problem/Diagnosis Awareness of Diagnosis Code (ICD-10) Onset Date (Start Date) Resolution Date (End Date) Status Source Comments ALTERED MENTAL STATUS, UNSPECIFIED R41.82 07/24/19 25 Active Kopjas, Peter C OTHER CHEST PAIN R07.89 07/18/19 25 Active Kopjas, Peter C PLEURAL EFFUSION, NOT ELSEWHERE CLASSIFIED J90 05/16/20 24 Active Kopjas, Peter C ACUTE ON CHRONIC DIASTOLIC (CONGESTIVE) HEART FAILURE I50.33 05/16/20 24 Active Kopjas, Peter C ALF (CURRENT) USE OF OPIATE ANALGESIC Z79.891 05/16/20 24 Active Kopjas, Peter C DYSPHAGIA, OROPHARYNGEAL PHASE R13.12 12/09/19 24 Active Kopjas, Peter C COGNITIVE COMMUNICATION DEFICIT R41.841 12/09/19 24 Active Kopjas, Peter C OTHER FATIGUE R53.83 12/09/19 24 Active Kopjas, Peter C NEED FOR ASSISTANCE WITH PERSONAL CARE Z74.1 12/09/19 24 Active Kopjas, Peter C LOW BACK PAIN, UNSPECIFIED M54.50 12/09/19 24 05/11/2024 Resolved Kopjas, Peter C RADICULOPATHY, LUMBAR REGION M54.16 12/09/19 24 05/11/2024 Resolved Kopjas, Peter C WEAKNESS R53.1 12/09/19 24 Active Kopjas, Peter C PAIN IN RIGHT KNEE M25.561 11/02/19 24 Active Kopjas, Peter C PAIN IN LEFT KNEE M25.562 11/02/19 24 Active Kopjas, Peter C VITAMIN D DEFICIENCY, UNSPECIFIED E55.9 11/02/19 24 Active Kopjas, Peter C OTHER PULMONARY EMBOLISM WITHOUT ACUTE COR PULMONALE I26.99 07/11/20 23 Active Kopjas, Peter C PERSONAL HISTORY OF COLON POLYPS, UNSPECIFIED Z86.0100 06/03/20 23 Active Kopjas, Peter C MIXED HYPERLIPIDEMIA E78.2 06/03/20 23 Active Kopjas, Peter C OTHER CHRONIC PAIN G89.29 06/03/20 23 Active Kopjas, Peter C PERSONAL HISTORY OF COLONIC POLYPS Z86.010 06/03/20 23 04/10/2024 Resolved Kopjas, Peter C HYPERTENSIVE HEART DISEASE WITH HEART FAILURE I11.0 06/03/20 Active Kopjas, Peter C HEART FAILURE, UNSPECIFIED I50.9 06/03/20 23 05/22/2024 Resolved Kopjas, Peter C 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 06/03/20 Active Kopjas, Peter C PREDIABETES R73.03 06/03/20 Active Kopjas, Peter C CHRONIC FATIGUE, UNSPECIFIED R53.82 06/03/20 Active Kopjas, Peter C 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 06/03/20 Active Kopjas, Peter C RASH AND OTHER NONSPECIFIC SKIN ERUPTION R21 05/24/20 23 05/22/2024 Resolved Kopjas, Peter C MUSCLE WEAKNESS (GENERALIZED) M62.81 03/16/20 Active Kopjas, Peter C UNSPECIFIED ABNORMALITIES OF GAIT AND MOBILITY R26.9 03/16/2005/22/2024 Resolved Kopjas, Peter C SYNCOPE AND COLLAPSE R55 02/23/2005/22/2024 Resolved Kopjas, Peter C RESPIRATORY FAILURE, UNSPECIFIED, UNSPECIFIED WHETHER WITH HYPOXIA OR HYPERCAPNIA J96.90 02/23/20 Active Kopjas, Peter C CHRONIC PULMONARY EDEMA J81.1 02/23/20 Active Kopjas, Peter C ATHEROSCLEROTIC HEART DISEASE OF [place] CORONARY ARTERY WITHOUT ANGINA PECTORIS I25.10 11/14/19 Active Kopjas, Peter C OTHER SYMPTOMS AND SIGNS INVOLVING COGNITIVE FUNCTIONS AND AWARENESS R41.89 11/14/1905/22/2024 Resolved Kopjas, Peter C CONSTIPATION, UNSPECIFIED K59.00 11/14/19 Active Kopjas, Peter C ACQUIRED ABSENCE OF OTHER GENITAL ORGAN(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.79 11/14/19 Active Kopjas, Peter C TYPE 2 DIABETES MELLITUS WITH DIABETIC POLYNEUROPATHY E11.42 11/14/19 Active Kopjas, Peter C STRESS INCONTINENCE (FEMALE) (MALE) N39.3 11/14/19 23 Active Kopjas, Peter C PERSONAL HISTORY OF OTHER MALIGNANT NEOPLASM OF SKIN Z85.828 11/14/19 23 Active Kopjas, Peter C Date NOS ALF (CURRENT) USE OF ANTITHROMBOTICS/ANT IPLATELETS Z79.02 11/14/19 23 Active Kopjas, Peter C PUPPY WALKER (CURRENT) USE OF ASPIRIN Z79.82 11/14/19 23 Active Kopjas, Peter C PUPPY WALKER (CURRENT) USE OF ORAL HYPOGLYCEMIC DRUGS Z79.84 11/14/19 23 Active Kopjas, Peter C OBESITY, UNSPECIFIED E66.9 11/14/19 23 Active Kopjas, Peter C BODY MASS INDEX [BMI] 36.0-36.9, ADULT Z68.36 11/14/19 23 Active Kopjas, Peter C DORSALGIA, UNSPECIFIED M54.9 08/12/19 23 Active Kopjas, Peter C SACROILIITIS, NOT ELSEWHERE CLASSIFIED M46.1 08/12/19 23 11/16/2022 Resolved Kopjas, Peter C MUSCLE WEAKNESS (GENERALIZED) M62.81 08/12/19 23 11/16/2022 Resolved Kopjas, Peter C ENCOUNTER FOR THERAPEUTIC DRUG LEVEL MONITORING Z51.81 02/23/20 18 Active Kopjas, Peter C PUPPY WALKER (CURRENT) USE OF ANTICOAGULANTS Z79.01 02/23/20 18 Active Kopjas, Peter C AFTERCARE FOLLOWING JOINT REPLACEMENT SURGERY Z47.1 01/29/20 18 11/16/2022 Resolved Kopjas, Peter C UNILATERAL PRIMARY OSTEOARTHRITIS, RIGHT HIP M16.11 01/29/20 18 11/16/2022 Resolved Kopjas, Peter C PERSONAL HISTORY OF OTHER VENOUS THROMBOSIS AND EMBOLISM Z86.718 01/29/20 18 Active Kopjas, Peter C Date NOS PERSONAL HISTORY OF PULMONARY EMBOLISM Z86.711 01/29/20 18 Active Kopjas, Peter C Date NOS TYPE 2 DIABETES MELLITUS WITHOUT COMPLICATIONS E11.9 01/29/20 18 11/16/2022 Resolved Kopjas, Peter C ESSENTIAL (PRIMARY) HYPERTENSION I10 01/29/20 18 Active Kopjas, Peter C PRESENCE OF CARDIAC PACEMAKER Z95.0 01/29/20 18 Active Kopjas, Peter C Date NOS HYPERLIPIDEMIA, UNSPECIFIED E78.5 01/29/20 18 11/26/2023 Resolved Kopjas, Peter C ALLERGIC RHINITIS, UNSPECIFIED J30.9 01/29/20 18 Active Kopjas, Peter C ANXIETY DISORDER, UNSPECIFIED F41.9 01/29/20 18 Active Kopjas, Peter C 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 K21.9 01/29/20 18 Active Kopjas, Peter C 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
--- OUTSIDE RECORDS SUMMARY | 2024-08-24 10:48 | XMS_ITS | Clinical Summary ---
Author Organization [facility] Address [address] [place] [address] Care Team Providers Care Camera Repair Technician Name Role Phone Unavailable Primary Care Provider Unavailabl e Source Comments [facility],non-owned Affiliates and Associated Physician Practices is amultiple site organization consisting of ambulatory clinics and hospital sitesin [place], [place], [place] and [place]. This disclosure is being madepursuant to the Care Everywhere program and may not contain all information available regarding this patient. Last updated 18.[facility] [employer] Social History Tobacco Use Types Packs/Day Years Used Date Smoking Tobacco: Never Assessed Sex and Gender Information Value Date Recorded Sex Assigned at Not on file Gender Identity Not on file Sexual Orientation Not on file Plan of Treatment Health Maintenance Due Date Last Done Comments MEDICARE AWV 12 MONTHS 1938 DTAP/TDAP/TD VACCINES (1 - Tdap) 1957 PNEUMOCOCCAL VACCINE 50+ (1 of 1 - PCV) 1988 ZOSTER VACCINE (1 of 2) 1988 Respiratory Syncytial Virus (RSV) Vaccine Pt: or over 60 yrs (1 - 1-dose 75+ series) 2013 COVID-19 VACCINE (2023-2 5 season) 2024 INFLUENZA VACCINE (#1) 2024 DEPRESSION SCREENING 07/12/2024 HEPATITIS B VACCINE Aged Out No longe r eligible based on patient's age to complete this topic HIB VACCINE Aged Out No longer eligi ble based on patient's age to complete this topic HPV VACCINE Aged Out No longer eligi ble based on patient's age to complete this topic MENINGOCOCCAL (Group B) VACCINE Aged Out No longer eligible based on patient's age to complete this topic MENINGOCOCCAL VACCINE Aged Out No stan sterling eligible based on patient's age to complete this topic
--- OUTSIDE RECORDS SUMMARY | 2024-08-24 10:48 | XMS_ITS | Referral Summary ---
Author Organization [facility] Address [address] [place] [address] Care Team Providers Care Tobacco Sprayer Name Role Phone Unavailable Primary Care Provider Unavailabl e Source Comments [facility],non-owned Affiliates and Associated Physician Practices is amultiple site organization consisting of ambulatory clinics and hospital sitesin [place], [place], [place] and [place]. This disclosure is being madepursuant to the Care Everywhere program and may not contain all information available regarding this patient. Last updated 18.[facility] [employer] Social History Tobacco Use Types Packs/Day Years Used Date Smoking Tobacco: Never Assessed Sex and Gender Information Value Date Recorded Sex Assigned at Not on file Gender Identity Not on file Sexual Orientation Not on file Plan of Treatment Not on file
--- OUTSIDE RECORDS SUMMARY | 2024-08-24 10:48 | XMS_ITS | Encounter Summary ---
Author Organization [facility] Address [address] [place] [address] Care Team Providers Care Utilities And Maintenance Supervisor Name Role Phone Peter Darnell MD Primary Care Provider [phone] Peter Darnell MD Primary Care Provider [phone] Emy Sanz RN Unavailable [phone] Encounter Details Date Type Department Care Team (Late st Contact Info) Description 09/16/2016 Orders Only [facility] ProviderFelix MD [address] [place] [address] Social History Tobacco Use Types Packs/Day Years Used Date Smoking Tobacco: Former Cigarettes Q uit: 07/12/1976 Alcohol Use Standard Drinks/Week Comments No 0 (1 standard drink = 0.6 oz pur e alcohol) Sex and Gender Information Value Date Recorded Sex Assigned at Not on file Legal Sex Male 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 Historical Provider [facility] SANDRINE HENSLEY Final Result documented in this encounter Visit Diagnoses Not on filedocumented in this encounter Care Teams Utilities And Maintenance Supervisor Relationship Specialty Start Date End Date Peter Darnell MD [address] [place] [address] PCP - General 10/09/16 Peter Darnell MD [address] [place] [address] PCP - General 11/25/09 10/08/16 Emy Sanz, RN [address] [place] [address] [facility] Outpatient Archery Equipment Hay Sorter 01/14/18 1 documented as of this encounter
--- OUTSIDE RECORDS SUMMARY | 2024-08-24 10:48 | XMS_ITS | Encounter Summary ---
Author Organization [facility] Address [address] [place] [address] Care Team Providers Care Business Support Liaison Name Role Phone Peter Darnell MD Primary Care Provider [phone] Emy Sanz RN Unavailable [phone] Encounter Details Date Type Department Care Team (Late st Contact Info) Description 10/30/2016 Orders Only [facility] ProviderFelix MD [address] [place], [place] [id number] Social History Tobacco Use Types Packs/Day Years Used Date Smoking Tobacco: Former Cigarettes Q uit: 07/12/1976 Alcohol Use Standard Drinks/Week Comments No 0 (1 standard drink = 0.6 oz pur e alcohol) Sex and Gender Information Value Date Recorded Sex Assigned at Not on file Legal Sex Male 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 Historical Provider [facility] SANDRINE HENSLEY Final Result documented in this encounter Visit Diagnoses Not on filedocumented in this encounter Care Teams Business Support Liaison Relationship Specialty Start Date End Date Peter Darnell MD [address] [place] [address] PCP - General 10/09/16 Emy Sanz RN [address] [place] [address] [facility] Outpatient Compensation Manager 01/14/18 1 documented as of this encounter
== END 2024-08-24 10:28 | disposition home or self-care (01) ==
LOC: ANHAUDIO 10:28
PROVIDERS: PCP Internal Medicine; Visit Provider Internal Medicine
DX: H90.3 Sensorineural hearing loss, bilateral (principal); H61.21 Impacted cerumen, right ear
CPT/HCPCS: 92557; 92567

== ENCOUNTER 2024-09-06 00:40 | Day surgery (SDC) | payer MEDICARE, SELFPAY ==
[2024-09-05 11:02] VITALS: BMI 38.8
[2024-09-06] VITALS (7 sets, daily range): BP systolic 106–122; BP diastolic 63–88; PULSE 71–79; RESP 18–20; TEMP 36.9; O2SAT 90–93
--- OUTSIDE RECORDS SUMMARY | 2024-09-06 00:43 | XMS_ITS | Encounter Summary ---
Author Organization [facility] Address [address] [place] [address] Care Team Providers Care Slitter And Cutter Operator Name Role Phone Peter Darnell MD Primary Care Provider [phone] Peter Darnell MD Primary Care Provider [phone] Emy Sanz RN Unavailable [phone] Encounter Details Date Type Department Care Team (Late st Contact Info) Description 09/16/2016 Orders Only [facility] ProviderFelix MD [address] [place] [address] Social History Tobacco Use Types Packs/Day Years Used Date Smoking Tobacco: Former Cigarettes Q uit: 07/12/1976 Alcohol Use Standard Drinks/Week Comments No 0 (1 standard drink = 0.6 oz pur e alcohol) Sex and Gender Information Value Date Recorded Sex Assigned at Not on file 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
--- OUTSIDE RECORDS SUMMARY | 2024-09-06 00:43 | XMS_ITS | Encounter Summary ---
Author Organization [facility] Address [address] [address] Care Team Providers Care Carpet Cutter Name Role Phone Unavailable Primary Care Provider Unavailabl e Encounter Details Date Type Department Care Team (Late st Contact Info) Description 04/25/2020 Lab Requisition [facility] DermPath Lab [address] [place] [id number] Kelby Colmenares MD [address] [place] [address] Social History Tobacco Use Types [...] AM CDT) Case Report Dermatopathology Report Case: [id number] Authorizing Provider: Kelby Colmenares MD Collected: 04/24/2020 12:00 AM Ordering Location: [facility] DermPath Lab Received: 04/25/2020 12:14 PM Pathologist: [...] of a curettage and desiccation biopsy measuring [id number]. Jar 0. Specimen B: Received is one formalin filled container labeled with the patient's name and designated left upper chest. The specimen consists of a curettage and desiccation biopsy measuring [id number]. Jar 0. 0 3:56 PM CDT DERMATOPATHOLOGY [...] characteristic determined by the Dermatopathology Laboratory at [facility], directed by Dr. Leta Orozco. These tests need not be, and therefore are not, approved by the [place] Food and Drug Administration. The tests are used for clinical purposes. Billing Codes Specimen Charges Stain Charges 75696 06004 1 1 0 3:56 PM CDT DERMATOPATHOLOGY LABORATORY Embedded Images 0 3:56 PM CDT DERMATOPATHOLOGY LABORATORY Pathology/Cytology TISSUE SPECIMEN FROM SKIN / Unknown 04/24/2020 04/25/2020 12:14 PM CDT Miscellaneous samples (specimen) TISSUE SPECIMEN FROM SKIN / Unknown 04/24/2020 04/25/2020 12:14 PM CDT Kelby Colmenares MD LAB - PATHOLOGY/CYTO LOGY ORDERABLES DERMATOPATHOLOGY LABORATORY [facility] - Department of Dermatology [facility] Medicine [address] [place] [address], [address] [phone] documented in this encounter Visit Diagnoses Not on filedocumented in this encounter
--- OUTSIDE RECORDS SUMMARY | 2024-09-06 00:43 | XMS_ITS | Patient Health Summary ---
Author Organization [facility] Address [address] [place] [address] Care Team Providers Care Revenue Officer Name Role Phone Unavailable Primary Care Provider Unavailabl e Note from [facility],non-owned Affiliates and Associated Physician Practices is amultiple site organization consisting of ambulatory clinics and hospital sitesin [place], [place], [place] and [place]. This disclosure is being madepursuant to the [facility] Everywhere program and may not contain all information available regarding this patient. Last updated 18.[facility] Social History Tobacco Use Types [...] is included. Case Report Dermatopathology Report Case: [id number] Authorizing Provider: Kelby Colmenares MD Collected: 04/24/2020 12:00 AM Ordering Location: [facility] DermPath Lab Received: 04/25/2020 12:14 PM [...] of a curettage and desiccation biopsy measuring [id number]. Jar 0. Specimen B: Received is one formalin filled container labeled with the patient's name and designated left upper chest. The specimen consists of a curettage and desiccation biopsy measuring [id number]. Jar 0. 0 3:56 PM CDT DERMATOPATHOLOGY [...] characteristic determined by the Dermatopathology Laboratory at [facility], directed by Dr. Leta Orozco. These tests need not be, and therefore are not, approved by the [place] Food and Drug Administration. The tests are used for clinical purposes. Billing Codes Specimen Charges Stain Charges 88096 40456 1 1 0 3:56 PM CDT DERMATOPATHOLOGY LABORATORY Embedded Images 0 3:56 PM CDT DERMATOPATHOLOGY LABORATORY Pathology/Cytology TISSUE SPECIMEN FROM SKIN / Unknown 04/24/2020 04/25/2020 12:14 PM CDT Miscellaneous samples (specimen) TISSUE SPECIMEN FROM SKIN / Unknown 04/24/2020 04/25/2020 12:14 PM CDT Kelby Colmenares MD LAB - PATHOLOGY/CYTO LOGY ORDERABLES Performing Organization Address City/State/[facility] Co de Phone Number DERMATOPATHOLOGY LABORATORY [facility] - Department of Dermatology [address], [address] [phone]
--- OUTSIDE RECORDS SUMMARY | 2024-09-06 00:43 | XMS_ITS | Referral Summary ---
Author Organization [facility] Address [address] [place] [address] Care Team Providers Care Garage Manager Name Role Phone Unavailable Primary Care Provider Unavailabl e Source Comments [facility],non-owned Affiliates and Associated Physician Practices is amultiple site organization consisting of ambulatory clinics and hospital sitesin [place], [place] and [place]. This disclosure is being madepursuant to the Care Everywhere program and may not contain all information available regarding this patient. Last updated 18.[facility] [employer] Social History Tobacco Use Types Packs/Day Years Used Date Smoking Tobacco: Never Assessed Sex and Gender Information Value Date Recorded Sex Assigned at Not on file Gender Identity Not on file Sexual Orientation Not on file Plan of Treatment Not on file
--- OUTSIDE RECORDS SUMMARY | 2024-09-06 00:43 | XMS_ITS | Clinical Summary ---
Author Organization [facility] Address [address] [place] [address] Care Team Providers Care Geriatric Personal Care Aide Name Role Phone Unavailable Primary Care Provider Unavailabl e Source Comments [facility],non-owned Affiliates and Associated Physician Practices is amultiple site organization consisting of ambulatory clinics and hospital sitesin [place], [place], [place] and [place]. This disclosure is being madepursuant to the Care Everywhere program and may not contain all information available regarding this patient. Last updated 18.[facility] [employer] Social History Tobacco Use Types Packs/Day Years [...] - 1-dose 75+ series) 2013 COVID-19 VACCINE ( - 2023-2 5 season) 2024 INFLUENZA VACCINE (#1) 2024 [...]
--- OUTSIDE RECORDS SUMMARY | 2024-09-06 00:43 | XMS_ITS | Encounter Summary ---
Author Organization [facility] Address [address] [place] [address] Care Team Providers Care Instructional Writer Name Role Phone Peter Darnell MD Primary Care Provider [phone] Emy Sanz RN Unavailable [phone] Encounter Details Date Type Department Care Team (Late st Contact Info) Description 10/30/2016 Orders Only [facility] ProviderFelix MD [address] [place], [place] [id number] Social History Tobacco Use Types Packs/Day Years Used Date Smoking Tobacco: Former Cigarettes Q uit: 07/12/1976 Alcohol Use Standard Drinks/Week Comments No 0 (1 standard drink = 0.6 oz pur e alcohol) Sex and Gender Information Value Date Recorded Sex Assigned at Not on file Legal Sex Male 8:01 AM HEAD OF DATA Gender Identity Not on file Sexual Orientation [...] on filedocumented in this encounter Care Teams Instructional Writer Relationship Specialty Start Date End Date Peter Darnell MD [address] [place] [address] PCP - General 10/09/16 Emy Sanz RN [address] [place] [address] [facility] Outpatient Licensing Officer 01/14/18 1 documented as of this encounter
--- OUTSIDE RECORDS SUMMARY | 2024-09-06 00:44 | XMS_ITS | Data Portability ---
Author Organization [place] [facility], Main Office Address [address] [place] [address] Care Team Providers Care Claims Representative Name Role Phone NA AGUIAR Primary Care Provider NA AGUIAR Referring Provider NA AGUIAR Primary Care Provider [phone] NA AGUIAR Referring Provider [phone] Assessment Encounter Date Assessment Date Assessment LastModified by Organization Details LastModified Time 07/21/2023 07/21/2023 HPI: 83-year-old male came in today for evaluation of his right anterior knee pain. He has been having symptoms for several months. He lives in assisted living locally. They have been doing formal physical therapy on the leg and the knee. He is maxed out on his therapy visits. He states that he has not had improvement of his symptoms. He grabs at the patella where he feels his symptoms. He will have varying degrees of pain in the knee. Some days it is worse than others. He cannot recall any definite activity for reason why it may her worse 1 day than the other. Patient is on Tylenol as well as tramadol on a p.r.n. basis. He states that he takes Tylenol once or twice a week and the tramadol sometimes at night. He is not taking them on a regular basis. Patient will seen by us in 2018. He has severe osteoarthritis of the right hip. Patient was high risk and was referred to [facility] and Dr. Banegas replaced his hip in 2018. Physical exam: 83-year-old male he is alert. He is a bit difficult to converse with. He tends to jump from 1 subject to another very quickly and sometimes hard to follow. He does not appear to be confused. He walks with a 4 wheel walker. He needs assistance get up on the exam table. He had exquisite tenderness to palpation of the patella. He had rather significant pain with trying to extend the knee. He was holding the knee at about 25 degree flexion contracture. I was able to get him to relax and he was able to extended to about 10 . With the hip flexed he had the same degree of pain and sensation. The hip flexed to 110 externally rotated 40 internally rotated to 10. He had no pain with range of motion of the hip. It has some mild medial joint line tenderness no lateral joint line tenderness. He has some mild chronic edema in both lower extremities. He had just a minimal effusion in the right knee. No redness or warmth. After ChloraPrep was used on skin 20 mg Kenalog and 3 cc of 0.5% ropivacaine was injected into the right knee. Impression: 83-year-old male who appears to have anterior knee pain of the right knee. He walks with a 4 wheeled walker and walks stooped forward with the knees flexed. I think this is probably overloading the patellofemoral joint cause him pain. His hip looks good on the x-rays and he has no symptoms with range of motion of the hip. So I do not think this is being referred from the hip. I think this is more overload to the patellofemoral joint. 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 He is not a candidate for anti-inflammatori es because he is on Plavix and also has significant cardiac history. I recommended that he use the Tylenol and tramadol on a more regular basis. I think they can stop completely with physical therapy at this point it seems that this may be just irritating the problem. I think the best thing to do at this point is to allow the injection to work and rest as much as possible and hopefully this will quiet down. I will see him back in 2 weeks for re-evaluation. If he is doing very well in call and cancel. Shots could be repeated in the future as often as every 3 months. All this was discussed with the patient as well as his daughter was with him today. 40 minutes was spent in treatment patient more than half this [id number] conversation abner Not available 07/21/2023 17:07:00 08/06/2023 08/06/2023 HPI: Patient returns. He had a cortisone injection in his right knee 2 weeks ago. It did help with the knee pain he was having. Patient is still complaining of pain that he feels in the thigh occasionally it will radiate up towards the hip and towards the buttocks. It will also radiate down into the calf at times. This pain has not improved from the cortisone injection. Patient states that he has pain on a daily basis. He was prescribed tramadol from his primary care doctor but only takes 1 pill at night. When I looked at the medication list that he brought with him today it said that the tramadol was 4 times a day p.r.n.. Patient's daughter who was with him today thinks that the primary care doctor had changed this to possibly only at night. So there was a confusion on exam clear how frequently he can take tramadol. He only takes the Tylenol very occasionally as well. He does not take medication on a regular basis even though he states that he is having pain every day. Patient states that he sits in a certain position he will feel the pain and then can move it it will ease up somewhat. But again he does have pain on a very regular basis he states. physical exam: 83-year-old male he is walking with a wheeled walker. He walks very stooped forward when he is standing. He does not complaining of any numbness or tingling in the right leg. He does have normal quad strength and does have active dorsiflexion in the ankle. Impression: Patient's pain he is having in the right leg that radiates down I think is most likely being referred from his back. 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 I discussed the x-ray findings with the patient as well as his daughter was with him today. His assisted living was doing therapy but only on his knee previously. We had them. This to see if this would improve the symptoms in his knee as well. I recommended a course of formal physical therapy for his L-spine as well as core strengthening and stretching as tolerated. He may need to have more tramadol through the day so that he can tolerate physical therapy. His daughter is going to call his primary care doctor to address how frequently patient can get the tramadol. I also recommend that he take Tylenol on a more frequent basis as well. We also discussed pain management as an option. 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 I did recommend getting an least a CT scan of that hand they would like to pursue this as well as being referred to Pain Management for possible epidural injections. I think this is very reasonable option. We will set these measures up. His daughter did ask about cortisone injection in the knee being repeated and these can be repeated as often as every 3 months. The arthritis he has in the knee is overall very mild and he may not require injections for a long time. Also some the pain he is feeling around the knee may being referred from his back as well. At this point we will plan on seeing him back as needed. 20 minutes was spent in treatment the patient with more than half of this in [id number] conversation abner Not available 08/06/2023 16:41:22 Plan of Treatment Reminders Order Date Submit Date Provider Last Modified By Organization Details Last Modified Time Details Appointments None recorded . Lab None recorded . Referral pain manageme nt referral - Patient to call after CT Scan to schedule . 2023 024 [email or web address], [address], [place] [address], [place], [address], 11:35:20 Procedures None recorded . Surgeries None recorded . Imaging XR, lumbar spine 2023 024 [email or web address] [facility] [place], [address], [place], [address], 11:37:56 XR, knee 2023 024 [email or web address] [facility] [place], [address], [place], [address], 4 17:07:24 XR, hip, unilater al 2023 024 [email or web address] [facility] [place], [address], [place], [address], 4 17:07:24 Medication Orders None recorded . Patient TargetsNo targets recorded. Patient InstructionsNo instructions recorded. Reason for Referral Pain Management Referral for Low back pain Patient to call after CT Scan to schedule. Referring Physician: Hipolito Juarez, Orthopedic Surgery, Encounter Date: 08/06/2023 Results Created Date Observation Date Name Description Value Unit Range Abnormal Flag Note LastModifiedBy Organization Detail LastModifiedTime 07/21/19 24 XR, knee No observ ation record ed. [email or web address] [facility] [place] [address], [place], [address], 07/21/2023 17:01:38 07/21/19 24 XR, hip, unila teral No observ ation record ed. [email or web address] [facility] [place] [address], [place], [address], 07/21/2023 17:01:24 08/06/19 24 XR, lumba r spine No observ ation record ed. [email or web address] [facility] [place] [address], [place], [address], 08/06/2023 16:35:01 08/19/19 24 08/19/2023 CT, lumba r spine , w/o contr ast No observ ation record ed. [email or web address] [facility] [address], [place], [address], 08/23/2023 12:23:27 Result Notes None recorded. Problems Name Problem SNOMED Code Status Onset Date Resolution Date Notes Provider Name and Address Organization Details Recorded Time Localized, primary osteoarthr itis of the pelvic region and thigh 719322958 Active Not Available [facility] 3 19:13:30 Osteoarthr itis 684120393 Active Not Available [facility] 3 19:13:31 Pain of right knee joint 1949545826362 00 Active 2023 CHESTER Noonan null, [facility] 4 15:42:53 Low back pain 719619020 Active 2023 Joanna Garcia null, [facility] 4 15:25:34 Spinal stenosis of lumbar region 30315768 Active 2023 Lacey Green, [employer] null, [facility] 4 11:56:51 Problem Notes None recorded. Procedures Surgical History None recorded. Imaging Results Imaging Date Name Status LastModified by Organiz ation Details LastModified Time 07/21/2023 [email or web address] [place] [address], [place], [address], 07/21/2023 17:01:38 07/21/2023 XR, hip, unilateral completed tzai [facility] [place] [address], [place], [address], 07/21/2023 17:01:24 08/06/2023 XR, lumbar spine completed [facility] [place] [address], [place], [address], 08/06/2023 16:35:01 08/19/2023 CT, lumbar spine, w/o contrast completed [address], [place], [address], 08/23/2023 12:23:27 Procedure Notes None recorded. Medical Equipment None Reported. Medications Name Sig Start Date Stop Date Status Note LastModified by Organization Details LastModified Time furosemide 40 mg tablet active Not Available Not Available No t Available metformin 500 mg tablet active Not Available Not Available No t Available carvedilol 12.5 mg tablet active Not Available Not Available No t Available azithromycin 250 mg tablet 07/21 completed Not Available Not Available Not Available pravastatin 40 mg tablet active Not Available Not Available No t Available valacyclovir 1 gram tablet 01/10 /2024 completed Not Available Not Available Not Available hydrocodone 5 mg-acetaminophe n 325 mg tablet 07/21 completed Not Available Not Available Not Available prednisone 20 mg tablet active Not Available Not Available No t Available clonazepam 1 mg tablet active Not Available Not Available Not Available clopidogrel 75 mg tablet active Not Available Not Available No t Available tramadol 50 mg tablet active Not Available Not Available Not Available triamcinolone acetonide 0.1 % topical cream 07/21 completed Not Available Not Available Not Available spironolactone 25 mg tablet active Not Available Not Available Not Available betamethasone, augmented 0.05 % lotion 07/21 completed Not Available Not Available Not Available pravastatin 80 mg tablet 07/21 completed Not Available Not Available Not Available cephalexin 500 mg capsule 07/21 completed Not Available Not Available Not Available ranitidine 150 mg tablet 07/21 completed Not Available Not Available Not Available nystatin-triamc inolone 100,000 unit/g-0.1 % topical cream active Not Available Not Availabl e Not Available hydrochlorothia zide 25 mg tablet 07/21 completed Not Available Not Available Not Available mupirocin 2 % topical ointment 07/21 completed Not Available Not Available Not Available nystatin 100,000 unit/gram topical powder active Not Available Not Availab le Not Available levofloxacin 500 mg tablet 07/21 completed Not Available Not Available Not Available fluticasone propionate 50 mcg/actuation nasal spray,suspensio n active Not Available Not Available Not Available betamethasone dipropionate 0.05 % lotion 07/21 completed Not Available Not Available Not Available doxycycline hyclate 100 mg tablet 07/21 completed Not Available Not Available Not Available irbesartan 300 mg tablet 07/21 completed Not Available Not Available Not Available Milk of Magnesia active Not Available Not Available Not Available calcium carbonate active Not Available Not Available No t Available aspirin active Not Available Not Avail able Not Available Fish Oil active Not Available Not Avai lable Not Available Glucosamine active Not Available Not A vailable Not Available Stool Softener active Not Available No t Available Not Available cetirizine active Not Available Not Av ailable Not Available hydrochlorothia zide 12.5 mg tablet 07/21 completed Not Available Not Available Not Available Culturelle 15 billion cell sprinkle capsule Take by oral route . active Not Available Not Available No t Available PreserVision AREDS-2 250 mg-90 mg-40 mg-1 mg capsule Take by oral route . active Not Available Not Available No t Available Vitals None Recorded Social History Question Answer Notes LastModified by Organizat ion Details LastModified Time Tobacco Smoking Status Never Smoker Natalee Krause, RMA null, [place] [facility] [place] [employer] [facility] 07/21/2023 15:41:28 What Is Your Level Of Alcohol Consumption? None [email or web address] Information not available 07/21/2023 Sex: Unknown Functional Status None recorded. Mental Status None recorded. Family History Nothing Reported. Medical History Condition Response DIABETES, TYPE Y ARTHRITIS Y USE OF BLOOD THINNERS Y Past Encounters Encounter ID Performer Location Encounter Start Date Encounter Closed Date Diagnosis/Indication Diagnosis SNOMED-CT Code Diagnosis ICD10 Code Diagnosis Note [id number] AMAYA [facility] [place] [address] [place] [address] 07/21/2023 14:53:02 07/21/2023 17:07:24 Pain of right knee joint 2616147696 45676 M25.202 [id number] AMAYA [facility] [place] [address] [place] [address] 08/06/2023 14:44:45 08/09/2023 11:37:56 Pain of right knee joint 6452265981 55003 M25.561 Low back pain 190688515 M54.50 Health Concerns Section Related Observation LastModified by Organization Detai ls LastModified Time None Recorded Concern Status LastModified by Organization Details LastModified Time None Recorded Advance Directives Directive None Recorded Payers Encounter Date Sequence Insurance Name Policy Number Policy Joe Covered Member ID Joe Member ID Guarantor Name 07/21/2023 1 [place] Vinod Tomas [id number] Vinod Tomas 07/21/2023 2 [place] [id number] Vinod Tomas [id number] Vinod Tomas 08/06/2023 1 [place] Vinod Tomas [id number] Vinod Tomas 08/06/2023 2 [facility] [id number] Vinod Tomas [id number] Vinod Tomas
--- OUTSIDE RECORDS SUMMARY | 2024-09-06 00:44 | XMS_ITS | Clinical Summary ---
Author Organization [facility] Address [address] [place] [id number] Care Team Providers Care Machine Deburrer Name Role Phone Unavailable Primary Care Provider [...]
--- OUTSIDE RECORDS SUMMARY | 2024-09-06 00:44 | XMS_ITS | Referral Summary ---
Author Organization [facility] Address [address] [place] [phone] Care Team Providers Care First Aid Trainer Name Role Phone Peter Darnell MD Primary Care Provider [phone] Encounters Date Type Department Care Team Description 08/25/2024 Telephone [facility] [address] [place] [address] [address] [place] [address] Donald Bruner MD 08/25/2024 3:15 PM TRACK ANNOUNCER Office Visit [facility] at [address] [place] [address] Donald Bruner MD Complete heart block (CMS/HCC) (HCC) (Primary Dx) 08/21/2024 Orders Only [facility] [address] [place] [address] [place] [phone] Donald Bruner MD Presence of cardiac pacemaker (Primary Dx); Complete atrioventricular block (CMS/HCC) (HCC) 08/21/2024 11:00 AM TRACK ANNOUNCER Ancillary Procedure [facility] [address] [place] [address] [place] [phone] Presence of cardiac pacemaker (Primary Dx); Complete heart block (CMS/HCC) (HCC) 08/11/2024 Telephone [facility] [address] [place] [address] [address] [place] [address] Donald Bruner MD d/c therapy 08/10/2024 Telephone [facility] [address] [place] [address] [place] [phone] Donald Bruner MD 08/09/2024 9:00 AM TRACK ANNOUNCER Ancillary Procedure [facility] [address] [place] [address] [place] [phone] Presence of cardiac pacemaker (Primary Dx); Complete heart block (CMS/HCC) (HCC) 08/08/2024 Telephone [facility] [address] [place] [address] [place] [phone] Donald Bruner MD 08/01/2024 Orders Only [facility] [address] [place] [address] [place] [phone] Felix Nielson MD 08/01/2024 1:45 PM TRACK ANNOUNCER Office Visit [facility] at [address] [place] [phone] Donald Bruner MD Complete atrioventricular block (CMS/HCC) (HCC) (Primary Dx); Presence of cardiac pacemaker 07/19/2024 Telephone [facility] [address] [place] [address] [place] [phone] Donald Bruner MD 07/07/2024 Orders Only [facility] [address] [place] [address] [place] [phone] Donald Bruner MD Presence of cardiac pacemaker (Primary Dx); Complete heart block (CMS/HCC) (HCC) 07/03/2024 Telephone [facility] [address] [place] [address] [place] [phone] Donald Bruner MD 06/23/2024 Telephone [facility] at [address] [phone] Laila June NP Medical Question/Miscellaneous from Last 3 Months Allergies Active Allergy Reactions Criticality Noted Date Comments Morphine Other Unknown 11/10/2017 Medications clonazePAM (KlonoPIN) 1 mg tablet Take one by mouth one time per day at bedtime 0 0 7 Active cetirizine (ZyrTEC) 10 mg tablet take 1 tablet (10MG) by oral route every day 0 3 Active metFORMIN (GLUCOPHAGE) 500 mg tabletIndicatio ns:type 2 diabetes mellitus Take 1 tablet (500 mg total) by mouth 2 (two) times a day with meals Active aspirin 81 mg tablet Take 1 tablet (81 mg total) by mouth daily. 8 Active multivitamin no.44-vit D3-K 1,000-800 unit-mcg capsule [...] hours as needed for pain Active vit C,U-Lk-qdtic-symone tein-zeaxan (PreserVision AREDS-2) 250-90-40-1 mg capsule Take by oral route. Active traMADoL (ULTRAM) 50 mg tablet Active furosemide (LASIX) 40 mg tablet Active Lactobacillus rhamnosus GG (CULTURELLE) 15 billion cell capsule, sprinkle Take by oral route. Active spironolactone (ALDACTONE) 25 mg tablet Active mirtazapine (REMERON) 15 mg tablet Take 1 tablet (15 mg total) by mouth nightly 0 5 Active pravastatin (PRAVACHOL) 20 mg tablet Take 1 tablet (20 mg total) by mouth daily 5 Active pravastatin (PRAVACHOL) 40 mg tablet take 1 tablet (40MG) by oral route every day 0 2 08/25/19 25 Discontinu ed(Therapy completed) Active Problems Problem Noted Date Diagnosed Date Encounter for therapeutic drug level monitoring 02/22/2018 prison (current) use of anticoagulants 2017 Unspecified atrioventricular [...] 09/09 Chronic low back pain without sciatica 03/12/201 8 Chronic low back pain without sciatica [...] 11/25/2013 8 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 Social History Tobacco Use Types Packs/Day Years Used Date Smoking Tobacco: Former Cigarettes 1.5 22 1 953 - 1975 Smokeless Tobacco: Never Tobacco Cessation:Counseling Given: Not Answered Alcohol Use Standard Drinks/Week Comments No 0 (1 standard drink = 0.6 oz pur e alcohol) Sex and Gender Information Value Date Recorded Sex Assigned at Not on file Legal Sex Male 8:01 AM TRACK ANNOUNCER Gender Identity Not on file Sexual Orientation Not on file Last Filed Vital Signs Vital Sign Reading Time Taken Comments Blood Pressure 118/80 08/25/2024 3:22 PM TRACK ANNOUNCER Pulse 79 08/25/2024 3:22 PM TRACK ANNOUNCER Temperature 36.9 C (98.4 F) 01/28/2018 11:29 AM CDT Respiratory Rate 16 01/28/2018 11:29 AM CDT Oxygen Saturation 96% 08/25/2024 3:22 PM TRACK ANNOUNCER Inhaled Oxygen Concentration - - Weight 104.8 kg (231 lb) 08/25/2024 3:22 PM TRACK ANNOUNCER Height 175.3 cm (5' 9 ) 08/25/2024 3:22 PM TRACK ANNOUNCER Body Mass Index 34.11 08/25/2024 3:22 PM TRACK ANNOUNCER Plan of Treatment Not on file Medical Devices Implanted Type Area Button Grader Device Identifier Shelf Expiration Date Model / Serial / Lot Pacemaker- 015 Implanted:07/18 by Donald Bruner MD (Quantity not on file) Pacemaker Chest Medtronic CHB ADAPTA / [id number] / [employer] [id number] Mdm Trident 60mm 60mm Multihole Rim Hip F Hemisphere Shell - S0 - [id number] Implanted:Qty: 1 on 01/25/2018 by Reji Banegas MD at [facility] Right: Hip [employer] [id number] 06/17/2022 [id number] / 0 / [id number] [employer] 5260-5-024 Osteolock 6.5mm 24mm Hexagon Hip Acetabular Cancellous Screw Bone - S0 - [id number] Implanted:Qty: 1 on 01/25/2018 by Reji Banegas MD at [facility] Right: Hip [employer] [id number] 11/15/2022 5260-5-024 / 0 / [id number] [employer] 5260-5-030 Latter Day Osteolock 6.5mm 30mm Wedge Hip Cancellous Hexagon - S0 - [id number] Implanted:Qty: 1 on 01/25/2018 by Reji Banegas MD at [facility] Right: Hip [employer] [id number] 10/16/2022 5260-5-030 / 0 / [id number] [employer] 623-00-36f 36mm 7.9mm Hip 0d F Liner Acetabular X3 - [id number] Implanted:Qty: 1 on 01/25/2018 by Reji Banegas MD at [facility] Right: Hip [employer] [facility] [id number] 03/29/2022 623-00-36F / / [id number] [employer] [id number] Accolade 117mm 37mm Modular Hip 127d 8 Taper Stem Femoral Sterile - [id number] Implanted:Qty: 1 on 01/25/2018 by Reji Banegas MD at [facility] Right: Hip [employer] [facility] [id number] 11/04/2020 3043-5614 / / [id number] [employer] [id number] V40 36mm Anatomic Hip -5mm Offset Taper Head Femoral Biolox Delta - [id number] Implanted:Qty: 1 on 01/25/2018 by Reji Banegas MD at [facility] Right: Hip [employer] [id number] 10/20/2022 [id number] / / [id number] Procedures Procedure Name Priority Date/Time Associated Diagnosis Comments DEVICE CHECK - REMOTE Routine 08/21/2024 10:46 AM TRACK ANNOUNCER Complete heart block (CMS/HCC) (HCC) DEVICE CHECK - IN OFFICE Routine 08/09/2024 9:05 AM TRACK ANNOUNCER Complete heart block (CMS/HCC) (HCC) ECG 12-LEAD Routine 07/18/2024 4:21 PM TRACK ANNOUNCER LIPID PANEL Routine 10/01/2020 9:08 AM CDT from Last 3 Months or Most Recently Relevant to Health Maintenance Results * DEVICE CHECK - REMOTE (08/21/2024 10:46 AM TRACK ANNOUNCER) Anatomical Region Laterality Modality Other Narrative 08/21/2024 4:21 PM TRACK ANNOUNCER [employer] Adapta Dual Pacemaker Dx; CHB Gen change 07/18/2014, chronic leads 06/2006. [facility] remote home monitoring. VVI Pacemaker Remote to assess battery function. Pacemaker reprogrammed to VVIR on 08/10/2024. Transmission attached. Battery status: 2.60 V, 4 months remaining battery life to MALCOM. Stable lead impedances, pacing and sensing thresholds. Presenting rhythm: Vpaced. PENSION MANAGER-82.3%. 1 Ventricular high rate episode detected, IEGM suggestive of NSVT. Medications: ASA 81 mg, Plavix, Coreg. See scanned report. Office pacemaker follow up: due post generator change. [facility] remote f/u 09/18/2024. Hilda Gonzales RN us Donald Bruner MD [facility] CARDIAC SERVICES PROC EDURES Final Result * DEVICE CHECK - IN OFFICE (08/09/2024 9:05 AM TRACK ANNOUNCER) Anatomical Region Laterality Modality Other Narrative 08/11/2024 11:19 AM TRACK ANNOUNCER Medtronic Adapta Dual Pacemaker Dx; CHB Gen change 07/18/2014, chronic leads 06/2006. [facility] remote home monitoring. Coordinate pacer checks with Dr appiah's d/t transportation from [place]. Supervising MD: Dr Flores. Office DDD Pacemaker [...] Impedance 487 ohms, Pacing Threshold 0.75V@0.4ms. Presenting [id number]. Underlying rhythm-CHB, no ventricular escape @ VDI 30 bpm. Pacemaker Dependent. AP-91%, PENSION MANAGER-98%. PVC counts since 03/10/2023 Singles-2,981,502, PVC runs-360,024. [...] report. Office device f/u post pacemaker replacement. [facility] remote f/u 08/21/2024. Hilda Gonzales RN Of Note: patient inquired about his next pacemaker and MRI Conditional (compatibility). Patient's leads; Atrial model # 4592 implanted 2005 is Not MRI conditional. Ventricular model # 4092 implanted 2005 is Not MRI conditional. In order for patient to receive an MRI conditional pacemaker his leads would have to be extracted with new leads implanted. us Donald Bruner MD CV CARDIAC SERVICES PROC EDURES Final Result * ECG 12 lead (07/18/2024 4:21 PM TRACK ANNOUNCER) us Historical Provider ECG ORDERABLES Edited Re sult [...] Relevant to Health Maintenance Insurance MEDICARE MEDICARE [facility] MEDICARE [facility] MEDICARE SUPPLEMENT Advance Directives For more information, please contact: [phone] Documents on File Type Date Recorded Patient Bottler Expl anation ADVANCE DIRECTIVE 01/25/2018 4:13 PM SIA AIKEN ADVANCE DIRECTIVE 01/25/2018 4:11 PM POWER OF TRUCK DESPATCHER * Full Code (Latest Code Status on File) Date Activated Date Inactivated Comments 01/25/2018 3:54 PM 01/28/2018 3:15 PM Care Teams First Aid Trainer Relationship Specialty Start Date End Date Peter Darnell MD [address] [facility] [address] [facility] [address] [place] [address] PCP - General 10/09/16
--- OUTSIDE RECORDS SUMMARY | 2024-09-06 00:44 | XMS_ITS | Clinical Summary ---
Author Organization [facility] Address [address] [place] [address] Care Team Providers Care Worm Farm Laborer Name Role Phone Peter Darnell MD Primary Care Provider [phone] Allergies Active Allergy Reactions Criticality Noted Date [...] hours as needed for pain Active vit C,F-Hr-srnmn-symone tein-zeaxan (PreserVision AREDS-2) 250-90-40-1 mg capsule Take [...] Encounter for therapeutic drug level monitoring 02/22/2018 intermodal dispatcher (current) use of anticoagulants 2017 Unspecified atrioventricular [...] Type 2 diabetes mellitus without complications ( [facility]/HCC) 01/28/2018 Allergic rhinitis 01/28/2018 Obstructive sleep apnea [...] kn ee joint replacement surgery 01/28/2018 12/24/2020 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 Encounters Date Type Department Care Team Description 08/25/2024 3:15 PM FIBERGLASS CONTAINER WINDING OPERATOR Office Visit [facility] at [address] [place] [address] Donald Bruner MD Complete heart block (CMS/HCC) (HCC) (Primary Dx) 08/25/2024 Telephone [facility] [address] [place] [address] Donald Bruner MD 08/21/2024 11:00 AM FIBERGLASS CONTAINER WINDING OPERATOR Ancillary Procedure [facility] [address] [place] [address] [place] [phone] Presence of cardiac pacemaker (Primary Dx); Complete heart block (CMS/HCC) (HCC) 08/21/2024 Orders Only [facility] [address] [place] [address] [place] [phone] Donald Bruner MD Presence of cardiac pacemaker (Primary Dx); Complete atrioventricular block (CMS/HCC) (HCC) 08/11/2024 Telephone [facility] [address] [place] [address] [place] [phone] Donald Bruner MD d/c therapy 08/10/2024 Telephone [facility] [address] [place] [address] [place] [phone] Donald Bruner MD 08/09/2024 9:00 AM FIBERGLASS CONTAINER WINDING OPERATOR Ancillary Procedure [facility] [address] [place] [address] [place] [phone] Presence of cardiac pacemaker (Primary Dx); Complete heart block (CMS/HCC) (HCC) 08/08/2024 Telephone [facility] [address] [place] [address] [place] [phone] Donald Bruner MD 08/01/2024 1:45 PM FIBERGLASS CONTAINER WINDING OPERATOR Office Visit [facility] at [address] [place] [phone] Donald Bruner MD Complete atrioventricular block (CMS/HCC) (HCC) (Primary Dx); Presence of cardiac pacemaker 08/01/2024 Orders Only [facility] [address] [place] [address] [place] [phone] Felix Nielson MD 07/19/2024 Telephone [facility] [address] [place] [address] [place] [phone] Donald Bruner MD 07/07/2024 Orders Only [facility] [address] [facility] [address] [place] [phone] Donald Bruner MD Presence of cardiac pacemaker (Primary Dx); Complete heart block (CMS/HCC) (HCC) 07/03/2024 Telephone [facility] [address] [place] [address] Donald Bruner MD 06/23/2024 Telephone [facility] Care at [address] [phone] Laila June NP Medical Question/Miscellaneous from Last 3 Months Surgical History Surgery [...] on file Legal Sex Male 8:01 AM FIBERGLASS CONTAINER WINDING OPERATOR Gender Identity Not on file Sexual Orientation Not on file Obstetrics History Last Filed Vital Signs Vital Sign Reading Time Taken Comments Blood Pressure 118/80 08/25/2024 3:22 PM FIBERGLASS CONTAINER WINDING OPERATOR Pulse 79 08/25/2024 3:22 PM FIBERGLASS CONTAINER WINDING OPERATOR Temperature 36.9 C (98.4 F) 01/28/2018 11:29 AM CDT Respiratory Rate 16 01/28/2018 11:29 AM CDT Oxygen Saturation 96% 08/25/2024 3:22 PM FIBERGLASS CONTAINER WINDING OPERATOR Inhaled Oxygen Concentration - - Weight 104.8 kg (231 lb) 08/25/2024 3:22 PM FIBERGLASS CONTAINER WINDING OPERATOR Height 175.3 cm (5' 9 ) 08/25/2024 3:22 PM FIBERGLASS CONTAINER WINDING OPERATOR Body Mass Index 34.11 08/25/2024 3:22 PM FIBERGLASS CONTAINER WINDING OPERATOR Plan of Treatment Health Maintenance Due Date Last Done Comments Albumin Creatinine Ratio, Urine 1938 Depression Screening 1938 Fall Risk Assessment 1938 Hemoglobin A1C 1938 eGFR 1938 Dilated Eye Exam 1938 Foot Exam 1938 DTaP/Tdap/Td Vaccine (1 - Tdap) 1949 Hepatitis B Screening 1956 Well Visit 65+ 2003 Zoster Vaccine (2 of 3) 05/26/2010 03/31/2010 Pneumococcal vaccine 65+ (2 of 2 - PPSV23) 06/13/2018 04/18/2018 Lipid Panel 10/01/2021 10/01/2020, 08/13, 12/01/2016 Influenza Vaccine Completed 04/20/2024, , 04/19/2013, Additional history exists Medical Devices Implanted Type Area Advertising Project Manager Device Identifier Shelf Expiration Date Model / Serial / Lot Pacemaker- 015 Implanted:07/18 by Donald Bruner MD (Quantity not on file) Pacemaker Chest Medtronic CHB ADAPTA / [id number] / [employer] [id number] Mdm Trident 60mm 60mm Multihole Rim Hip F Hemisphere Shell - S0 - [id number] Implanted:Qty: 1 on 01/25/2018 by Reji Banegas MD at [facility] Right: Hip [employer] [id number] 06/17/2022 [id number] / 0 / [id number] [employer] 5260-5-024 Osteolock 6.5mm 24mm Hexagon Hip Acetabular Cancellous Screw Bone - S0 - [id number] Implanted:Qty: 1 on 01/25/2018 by Reji Banegas MD at [facility] Right: Hip [employer] [facility] [id number] 11/15/2022 5260-5-024 / 0 / [id number] [employer] 5260-5-030 [employer] Osteolock 6.5mm 30mm Wedge Hip Cancellous Hexagon - S0 - [id number] Implanted:Qty: 1 on 01/25/2018 by Reji Banegas MD at [facility] Right: Hip [employer] [id number] 10/16/2022 5260-5-030 / 0 / [id number] [employer] 623-00-36f 36mm 7.9mm Hip 0d F Liner Acetabular X3 - [id number] Implanted:Qty: 1 on 01/25/2018 by Reji Banegas MD at [facility] Right: Hip [employer] [id number] 03/29/2022 623-00-36F / / [id number] [employer] [id number] Accolade 117mm 37mm Modular Hip 127d 8 Taper Stem Femoral Sterile - [id number] Implanted:Qty: 1 on 01/25/2018 by Reji Banegas MD at [facility] Right: Hip [employer] [id number] 11/04/2020 4637-6727 / / [id number] [employer] [id number] V40 36mm Anatomic Hip -5mm Offset Taper Head Femoral Biolox Delta - [id number] Implanted:Qty: 1 on 01/25/2018 by Reji Banegas MD at [facility] Right: Hip [employer] [id number] 10/20/2022 [id number] / / [id number] Procedures Procedure Name Priority Date/Time Associated Diagnosis Comments DEVICE CHECK - REMOTE Routine 08/21/2024 10:46 AM FIBERGLASS CONTAINER WINDING OPERATOR Complete heart block (CMS/HCC) (HCC) DEVICE CHECK - IN OFFICE Routine 08/09/2024 9:05 AM FIBERGLASS CONTAINER WINDING OPERATOR Complete heart block (CMS/HCC) (HCC) ECG 12-LEAD Routine 07/18/2024 4:21 PM FIBERGLASS CONTAINER WINDING OPERATOR LIPID PANEL Routine 10/01/2020 9:08 AM CDT from Last 3 Months or Most Recently Relevant to Health Maintenance Results * DEVICE CHECK - REMOTE (08/21/2024 10:46 AM FIBERGLASS CONTAINER WINDING OPERATOR) Anatomical Region Laterality Modality Other Narrative 08/21/2024 4:21 PM FIBERGLASS CONTAINER WINDING OPERATOR Medtronic Adapta Dual Pacemaker Dx; CHB Gen change 07/18/2014, chronic leads 06/2006. [facility] remote home monitoring. VVI Pacemaker Remote to assess battery function. Pacemaker reprogrammed to VVIR on 08/10/2024. Transmission attached. Battery status: 2.60 V, 4 months remaining battery life to MALCOM. Stable lead impedances, pacing and sensing thresholds. Presenting rhythm: Vpaced. TOOL AND DIE REPAIRER-82.3%. 1 Ventricular high rate episode detected, IEGM suggestive of NSVT. Medications: ASA 81 mg, Plavix, Coreg. See scanned report. Office pacemaker follow up: due post generator change. [facility] remote f/u 09/18/2024. Hilda Gonzales RN Donald Bruner MD CV CARDIAC SERVICES PROC EDURES Final Result * DEVICE CHECK - IN OFFICE (08/09/2024 9:05 AM FIBERGLASS CONTAINER WINDING OPERATOR) Anatomical Region Laterality Modality Other Narrative 08/11/2024 11:19 AM FIBERGLASS CONTAINER WINDING OPERATOR Medtronic Adapta Dual Pacemaker Dx; CHB Gen change 07/18/2014, chronic leads 06/2006. [facility] remote home monitoring. Coordinate pacer checks with Dr appiah's d/t transportation from [place]. Supervising MD: Dr Flores. Office DDD Pacemaker [...] Impedance 487 ohms, Pacing Threshold 0.75V@0.4ms. Presenting [id number]-[id number]. Underlying rhythm-CHB, no ventricular escape @ VDI 30 bpm. Pacemaker Dependent. AP-91%, TOOL AND DIE REPAIRER-98%. PVC counts since 03/10/2023 Singles-2,981,502, PVC runs-360,024. [...] * ECG 12 lead (07/18/2024 4:21 PM FIBERGLASS CONTAINER WINDING OPERATOR) Historical Provider ECG ORDERABLES Edited Re sult [...] Relevant to Health Maintenance Insurance MEDICARE MEDICARE [facility] MEDICARE [facility] MEDICARE SUPPLEMENT Advance Directives For more information, please contact: [phone] Documents on File Type Date Recorded Patient Grant Manager Expl anation ADVANCE DIRECTIVE 01/25/2018 4:13 PM SIA Fischer WILL ADVANCE DIRECTIVE 01/25/2018 4:11 PM POWER OF NEW ACCOUNT INTERVIEWER * Full Code (Latest Code Status on File) Date Activated Date Inactivated Comments 01/25/2018 3:54 PM 01/28/2018 3:15 PM Care Teams Worm Farm Laborer Relationship Specialty Start Date End Date Peter Darnell MD [address] [facility] [address] [place] [address] PCP - General 10/09/16
[2024-09-06 10:26] LABS: Basophils Absolute Auto 0.1 K/mm3 (0.0-0.1); Basophils Percent Auto 0.6 % (0.2-1.2); Eosinophils Absolute Auto 0.2 K/mm3 (0-0.3); Hematocrit 37.9 % (42.0-52.0); Hemoglobin 12.2 g/dL (14.0-18.0); Immature Granulocyte Absolute 0.03 K/mm3 (0.00-0.031); Immature Granulocyte Percent A 0.3 % (0-0.5); Lymphocytes Percent Auto 23.6 % (18.3-44.2); Mean Corpuscular HGB Conc 32.2 g/dl (32-36); Mean Corpuscular Hemoglobin 30.7 pg (26-34); Mean Corpuscular Volume 95.5 fl (80-100); Monocytes Absolute Auto 0.8 K/mm3 (0.1-0.6); Monocytes Percent Auto 8.4 % (2.6-8.5); Neutrophils Absolute Auto 5.8 K/mm3 (1.3-6.7); Neutrophils Percent Auto 65.1 % (45.5-73.1); Platelet Count Result 239 k/mm3 (150-375); Red Blood Count 3.97 M/mm3 (4.6-6.20); Red Cell Distribution Width 17.4 % (11.5-14.5); White Blood Count 8.9 K/mm3 (4.5-10.0)
[2024-09-06 10:35] LABS: Anion Gap 11 mmol/L (4-12); Blood Urea Nitrogen 32 mg/dL (9-20); Calcium 9.1 mg/dL (8.4-10.2); Carbon Dioxide 26 mmol/L (22-30); Chloride 105 mmol/L (98-107); Estimated CRCL calculation 64 ml/min; Estimated Glomerular Filt Rate > 60; Glucose 114 mg/dL (65-110); Potassium 4.1 mmol/L (3.4-5.0); Sodium 142 mmol/L (137-145)
--- NOTE | 2024-09-06 11:42 | P.SEDATION_ITS ---
Moderate Sedation Note-Pt Data Patient Data Diagnosis: Permanent pacemaker at MALCOM History of complete heart block and obesity. Present Complaint: No complaints Procedure to be performed/Plan: Pacemaker generator change Allergies Allergy/AdvReac Type Severity Reaction Status Date / Time codeine Allergy Unknown Unknown Verified 09/06/24 09:59 morphine Allergy Unknown Unknown Verified 09/06/24 09:59 Home Medications ?Medication ?Instructions ?Recorded ?Confirmed ?Type aspirin 81 mg tablet,delayed 81 mg PO DAILY 01/03/20 09/06/24 History release (Arvin Low Dose Aspirin) omega-3s 300 tz-gpc-bvl-other 1 cap PO Q12H 01/03/20 09/06/24 History yudhz3o-vspf oil 1,000 mg capsule ([place]-3 Fish Oil) magnesium hydroxide 400 mg/5 mL 5 ml PO Q12H PRN Constipation 06/27/21 09/06/24 History oral suspension (Milk of Magnesia) acetaminophen 500 mg tablet 1,000 mg PO Q6H PRN pain, fever 01/14/23 09/06/24 History cetirizine 10 mg tablet 10 mg PO DAILY 01/14/23 09/06/24 History carvedilol 12.5 mg tablet 12.5 mg PO Q12H 02/21/23 09/06/24 History clopidogrel 75 mg tablet 75 mg PO DAILY 02/21/23 09/06/24 History metformin 500 mg tablet 500 mg PO BIDWM 02/21/23 09/06/24 History calcium 600 mg (as 1 tablet PO DAILY 06/01/23 09/06/24 History carbonate)-vitamin D3 25 mcg (1,000 unit) tablet furosemide 40 mg tablet 40 mg PO DAILY #30 tabs 06/03/23 09/06/24 Rx spironolactone 25 mg tablet 12.5 mg (1/2 x 25 mg) PO DAILY #30 06/03/23 09/06/24 Rx tabs Lactobacillus rhamnosus GG 15 1 cap PO DAILY 05/15/24 09/06/24 History billion cell sprinkle capsule (Culturelle) etjaetkufga-sgfirggzm-ifz C-Mn 500 1 cap PO DAILY 05/15/24 09/06/24 History mg-400 mg capsule (Glucosamine Chondroitin Maximum Strength) menthol 4 % topical gel (Biofreeze 1 applic topical Q4H PRN Pain 05/15/24 09/06/24 History (menthol)) sennosides 8.6 mg-docusate sodium 1 tablet PO Q12H PRN Constipation 05/15/24 09/06/24 History 50 mg tablet (Stool Softener-Laxative) vit C 250 mg-vit E 90 mg-zinc 40 1 tablet PO BID 05/15/24 09/06/24 History mg-copper 1 rb-dptqnb-cqiqdr capsule (PreserVision AREDS-2) nystatin-triamcinolone 100,000 1 applic topical TID 05/16/24 09/06/24 History unit/g-0.1 % topical cream mirtazapine 15 mg tablet 15 mg PO QHS #90 tabs 07/24/24 09/06/24 Rx tramadol 50 mg tablet 50 mg PO Q6H PRN pain #45 tabs 07/24/24 09/06/24 Rx protein supplement ea PO DAILY 08/07/24 08/17/24 History clonazepam 1 mg tablet 1 mg PO DAILY #30 tabs 08/17/24 09/06/24 Rx ondansetron 4 mg disintegrating 4 mg PO Q8H 08/17/24 09/06/24 History tablet pravastatin 20 mg tablet 20 mg PO DAILY #90 tabs 08/17/24 09/06/24 Rx Sedation/Anesthesia: No previous sedation/anesthesia problems (including family history). [facility] Past Medical History Medical History (Updated 08/17/24 @ 11:01 by Carmela Martinez, [facility]) Bilateral leg pain BMI 32.0-32.9,adult Altered mental status Bilateral knee pain BMI 34.0-34.9,adult Nausea BMI 33.0-33.9,adult Unintentional weight loss Fatigue BMI 35.0-35.9,adult Rash Skin lesion Slurred speech Dizziness Right thigh pain Impaired functional mobility, balance, gait, and endurance Constipation Cognitive dysfunction Back pain Scrotal bleeding ROBER on CPAP Vitamin D deficiency Balanitis Encounter for routine adult health examination with abnormal findings Nocturia Insomnia BMI 37.0-37.9, adult Follow up Abscess of left arm (~04/2021) Anxiety Microalbuminuria History of frequent urinary tract infections Urinary incontinence, male, stress Encounter for routine adult health examination without abnormal findings UTI (urinary tract infection) On fci drug therapy Hearing loss History of DVT (deep vein thrombosis) Skin cancer History of prostate cancer Cardiac pacemaker in situ ASHD (arteriosclerotic heart disease) BMI 38.0-38.9,adult Encounter for Medicare annual wellness exam Mixed hyperlipidemia Prediabetes Encounter for long-term current use of medication Essential (primary) hypertension Obesity Anxiety Peripheral neuropathy Pacemaker ROBER (obstructive sleep apnea) Hyperlipidemia Diabetes Surgical History Surgical History History of total right hip replacement History of cardiac cath History of surgical removal of skin lesion S/P placement of cardiac pacemaker History of colonoscopy History of prostatectomy History of cholecystectomy Family History Family History Mother Acute myocardial infarction Father Family history of primary malignant neoplasm of liver Family history of liver disease Other Family history of alcoholism Social History Social History Smoking packs per day: 3 Smoking cigarettes per day: 60.0 Years smoked: 30 Smoking pack-years: 90.00 Smoking status: Former smoker Smoking end date: 05/12/76 Alcohol intake: never Substance use: never Do You Feel Safe in your Home?: Yes Lack of Transportation: No Lack of Food: Never True Current Housing: I Have Housing Concerned About Future Housing: No Difficulty Paying Gas/Electric Bills: No Difficulty Paying for Meds: No Currently Unemployed: No Education: High School Diploma/GED Difficulty w/ Childcare or Family Care: No Living arrangements: assisted living Occupation/Education: retired Gender identity (if verbalized by the patient): Male Spiritual care concerns: No Mod Sed Physical Exam Physical Exam Pre Procedural Exam: Normal: Throat, Airway, Lungs, Heart Size, Heart Rate, Neuro Exam and Extremities and Variation: Appearance (Elderly obese gentleman no distress) and Heart Rhythm (Paced rhythm) Hours since solid foods: 12 Hours since liquid intake: 12 Mallampati Classification: class II Internal Medicine - PN: Obj Da Vital Signs Vital Signs: Vital Signs - 24 hr 09/06/24 10:08 Temperature 36.9 C Pulse Rate 79 Respiratory Rate 20 Blood Pressure 115/64 Pulse Oximetry 92 Oxygen Delivery Room Air Labs 09/06/24 10:10 09/06/24 10:10 Labs: Laboratory Results - last 24 hr 02/26/25 02/26/25 10:10 10:18 WBC 8.9 RBC 3.97 L Hgb 12.2 L Hct 37.9 L MCV 95.5 MCH 30.7 MCHC 32.2 RDW 17.4 H Plt Count 239 MPV 11.0 H Immature Gran % (Auto) 0.3 Neut % (Auto) 65.1 Lymph % (Auto) 23.6 [place] % (Auto) 8.4 Eos % (Auto) 2.0 Baso % (Auto) 0.6 Lymph # (Auto) 2.10 [place] # (Auto) 0.8 H Eos # (Auto) 0.2 Baso # (Auto) 0.1 Abs Immat Gran (auto) 0.03 Absolute Neuts (auto) 5.8 Absolute Nucleated RBC 0.000 Nucleated RBC % 0.0 PT 14.0 INR 1.0 Sodium 142 Potassium 4.1 Chloride 105 Carbon Dioxide 26 Anion Gap 11 BUN 32 H D Creatinine 0.84 Estim Creat Clear Calc 64 Estimated GFR > 60 Glucose 114 H Calcium 9.1 ASA Classification/Sedation ASA Classification/Sedation ASA Class: II Emergent: No Risks: Risks, benefits and alternatives explained and patient/family accepted plan for sedation. Patient re-evaluated immediately prior to sedation.
--- NOTE | 2024-09-06 12:22 | ECG_ITS ---
Test Date: 2024-09-06 13:58:39 Measurements Intervals [place] Rate: 72 P: 0 WV: 0 QRS: -85 QRSD: 185 T: 68 QT: 463 QTc: 510 Interpretive Statements ELECTRONIC VENTRICULAR PACEMAKER VENTRICULAR PREMATURE COMPLEXES BASELINE ARTIFACT- I, II, III, AVR, AVL, V1 NO FURTHER INTERPRETATION IS POSSIBLE ATYPICAL ECG Compared to ECG 07/18/2024 20:53:17 No significant changes Electronically Signed On 09-06-2024 14:06:39 WHEEL CUTTER by Abelardo Coleman D.O.
--- NOTE | 2024-09-06 12:26 | WPDCARDPROC ---
Cardiac Cath Procedure Note Date of procedure:: 09/06/24 Performing physician:: Donald Bruner MD Indication:: Pacemaker at MALCOM Brief clinical history:: This is an 84-year-old man with complete heart block who has a chronically implanted pacemaker which is known to be at MALCOM. He is admitted today for elective generator change. It is known that his atrial lead is fractured and nonfunctional and the plan is for single-chamber pacing at this point Procedure Procedure performed:: Explantation of depleted pacemaker pulse generator Implantation of new pacemaker pulse generator Sedation/Medication given:: Fentanyl 50 mg Versed 2 mg Case start time 11:42 a.m. Case end time 12:21 p.m. Sedation provided by Salo Samayoa RN, trained observer Access site:: Chronically implanted pacemaker pocket in the left anterior chest wall Estimated blood loss:: Minimal Procedure note:: Patient was brought to the cardiac catheterization lab in the postabsorptive state where the left anterior chest wall site of chronically implanted pacemaker were easily identified and prepped and draped in a sterile fashion. Anesthesia was then infiltrated with 20 cc of 1% lidocaine. Following this the PlasmaBlade was used to make an incision above the chronic pocket and used to provide electrocautery and dissect the subcutaneous tissue and identify the fibrous capsule around the implanted generator. The PlasmaBlade and the Metzenbaum scissors were then used to open the capsule and the chronically implanted pacemaker in the attached leads were removed from the pocket were visually unremarkable in appearance. The atrial lead was disconnected using the torque wrench. The new pacemaker generator was brought to the field and the torque wrench was used to disconnect the ventricular lead from the chronic pacemaker and quickly transferred to the new generator and then tightened down using the torque wrench. The atrial lead was then secured to the new generator in a similar fashion. The wound was then irrigated with antibiotic infused saline. The new pacemaker in the chronic leads were placed back into the pocket which was then closed in layers using 3-0 Vicryl in an interrupted fashion for the subcutaneous tissue and 4-0 Vicryl in a running subcuticular fashion for the skin. The wound was dressed with an Aquacel dressing. Procedure was well tolerated and uncomplicated. Findings:: The explanted pacemaker is a Medtronic dual-chamber generator model ADDR01 serial number [id number] originally implanted July 18, 2014. The new pacemaker pulse generator is a Medtronic dual-chamber device model W1DR01, serial number [id number]. The device is programmed in the VVIR mode lower rate limit 70 upper rate limit 120. The chronically implanted/nonfunctional atrial lead is a Medtronic model 4592-45 serial number [id number]. Originally implanted June 17 2006 The chronically implanted ventricular lead is a Medtronic model 4092-58, serial number [id number]. Originally implanted July 07, 2006. The ventricular threshold is 0.5 volts at 0.4 milliseconds pacing impedance 380 Ohms. Conclusion:: 1. Successful uncomplicated explantation depleted dual-chamber pulse generator 2. Successful uncomplicated implantation of new Medtronic dual-chamber pulse generator detailed above for ongoing treatment of symptomatic bradycardia this 84-year-old man with complete heart block. 3. The patient's atrial lead is known to be fractured and nonfunctional the device is therefore programmed in the VVI R mode Donald Bruner MD [facility]
--- NOTE | 2024-09-06 13:33 | SUR.PHASEII ---
This RN called report to [facility] RN. Discharge instructions talked over with RN and patients daughter. Discharge packet printed for [facility] RN. New antibiotic order transmitted to pharmacy. Pt discharged from [facility] via daughters vehicle back to [facility].
== END 2024-09-06 14:30 | disposition home or self-care (01) ==
PROVIDERS: PCP Internal Medicine; Visit Provider Specialist
PROC: 0JPT0PZ Removal of Cardiac Rhythm Related Device from Trunk Subcutaneous Tissue and Fascia, Open Approach (ICD-10-PCS; CPT 33228; principal; 2024-09-06 11:00)
DX: Z45.010 Encounter for checking and testing of cardiac pacemaker pulse generator [battery] (principal); I44.2 Atrioventricular block, complete; I25.10 Atherosclerotic heart disease of native coronary artery without angina pectoris; E78.2 Mixed hyperlipidemia; R73.03 Prediabetes; I10 Essential (primary) hypertension; E55.9 Vitamin D deficiency, unspecified; G47.00 Insomnia, unspecified; F41.9 Anxiety disorder, unspecified; N39.3 Stress incontinence (female) (male); N32.81 Overactive bladder; R80.9 Proteinuria, unspecified; G62.9 Polyneuropathy, unspecified; G47.33 Obstructive sleep apnea (adult) (pediatric); E66.9 Obesity, unspecified; Z68.38 Body mass index [BMI] 38.0-38.9, adult; Z99.89 Dependence on other enabling machines and devices; Z79.899 Other long term (current) drug therapy; Z79.82 Long term (current) use of aspirin; Z79.02 Long term (current) use of antithrombotics/antiplatelets; Z79.84 Long term (current) use of oral hypoglycemic drugs; Z79.891 Long term (current) use of opiate analgesic; Z98.890 Other specified postprocedural states; Z90.49 Acquired absence of other specified parts of digestive tract; Z98.61 Coronary angioplasty status; Z87.891 Personal history of nicotine dependence; Z86.718 Personal history of other venous thrombosis and embolism; Z85.46 Personal history of malignant neoplasm of prostate; Z80.0 Family history of malignant neoplasm of digestive organs; Z82.49 Family history of ischemic heart disease and other diseases of the circulatory system
CPT/HCPCS: 33228; 36415; 80048; 85025; 85610; C1785; J0690; J1644; J2003; J2250; J3010; J7040

== ENCOUNTER 2024-10-23 11:30 | Outpatient (RCR) | payer SELFPAY | END 2024-10-23 23:59 | disposition home or self-care (01) | LOC: ANHAUDIO 11:30 | PROVIDERS: PCP Internal Medicine; Visit Provider Internal Medicine | DX: Z46.1 Encounter for fitting and adjustment of hearing aid (principal) | CPT/HCPCS: 99199; V5264 ==

== ENCOUNTER 2024-11-07 08:55 | Outpatient (CLI) | payer MEDICARE, SELFPAY ==
--- NOTE | ~2024-11-07 | XR_ITS ---
MODIFIED ESOPHAGRAM HISTORY: Dysphagia. TECHNIQUE: Modified barium esophagram was performed by speech pathologist under fluoroscopic guidance . This was recorded on tape. The exam was reviewed on 11/07/2024 17:39 CDT. The DAP for this proced ure was 1.7 Gycm2. Fluoroscopy time is 2.3. FINDINGS: Lateral projection of the cervical spine demonstrates diffuse bony demineralization and a ge appropriate degenerative disease. Penetration and aspiration with thin liquids only. IMPRESSION: 1: Penetration and aspiration with thin liquids 2: Please refer to speech pathologist report for additional detail. Reviewed, dictated and finalized at location A.
--- OUTSIDE RECORDS SUMMARY | 2024-11-07 09:31 | XMS_ITS | Clinical Summary ---
Author Organization [facility] Address [address] [place] [address] Care Team Providers Care Sheeting Puller Name Role Phone Unavailable Primary Care Provider Unavailabl e Source Comments [facility],non-owned Affiliates and Associated Physician Practices is amultiple site organization consisting of ambulatory clinics and hospital sitesin [place], [place], [place] and [place]. This disclosure is being madepursuant to the Care Everywhere program and may not contain all information available regarding this patient. Last updated 18.[facility] [employer] Social History Tobacco Use Types Packs/Day Years Used Date Smoking Tobacco: Never Assessed Sex and Gender Information Value Date Recorded Sex Assigned at Not on file Legal Sex Male 5:54 PM [employer] Gender Identity Not on file Sexual Orientation Not on file Plan of Treatment Health Maintenance Due Date Last Done Comments DTAP/TDAP/TD VACCINES (1 - Tdap) 1957 PNEUMOCOCCAL VACCINE 50+ (1 of 1 - PCV) 1988 ZOSTER VACCINE (1 of 2) 1988 Respiratory Syncytial Virus (RSV) Vaccine Pt: or over 60 yrs (1 - 1-dose 75+ series) 2013 COVID-19 VACCINE ( - 2023-2 5 season) 2024 DEPRESSION SCREENING 07/12/2024 INFLUENZA VACCINE (Season Ended) 2025 HEPATITIS B VACCINE Aged Out No longe r eligible based on patient's age to complete this topic HIB VACCINE Aged Out No longer eligi ble based on patient's age to complete this topic HPV VACCINE Aged Out No longer eligi ble based on patient's age to complete this topic MENINGOCOCCAL (Group B) VACC INE SHARED DECISION-MAKING Aged Out No longer eligibl e based on patient's age to complete this topic MENINGOCOCCAL GROUPS A/C/Y/W VACCINE Aged Out No longer eligible b ased on patient's age to complete this topic Insurance MEDICARE [facility]LY [facility], [facility]
--- OUTSIDE RECORDS SUMMARY | 2024-11-07 09:31 | XMS_ITS | Continuity of Care Document ---
Author Organization [facility] Address [address] [place] [address] Phone Care Team Providers Care Clinching Machine Operator Name Role Phone Von Valenzuela Unavailable Unavailable [...] Diagnoses Date Provider Providers Copied on Encounter [facility], [address] [place] [address] [address], [place], [place], [id number], tel:[phone] [facility] No Information 5-201 0 Nicolas Longoria. [address] , [address], [place], . tel:[phone] [facility], [address], [place], [place], [address], [place] tel:[phone] [facility] No Information 0-200 9 Nicolas Longoria. [address], [place], . tel:[phone] [facility], [address], [place], [place], [id number], tel:[phone] SEC [facility] No Information Sep-2 4-200 9 Laura Adi. [address] [facility] [address], [place], . tel:[phone] [facility], [address] [facility] [place], [place], [place], [id number], tel:[phone] [facility] No Information Oct-3 0-200 8 Nicolas Longoria. [facility], [place], [place]. tel:[phone] Referring Provider: Adi lantigua, [address] [place] [address] [address], [place]. tel:[phone] [facility], [address] [facility] [place] [facility] [address], [place], [place], [id number], tel:[phone] [facility] No Information 2-200 8 Laura Adi. [facility] [address], [place], [place]. tel:[phone] Family History Family Member Type Diagnosis Age At Onset No Information Payers Payer name Insurance type Covered democrat ID Authoriza tion(s) Medicare [facility] [id number] [place] Commercial [id number] Social History Type Description Quantity Date Captured [...]
--- OUTSIDE RECORDS SUMMARY | 2024-11-07 09:32 | XMS_ITS | Data Portability ---
Author Organization [place] [facility], Main Office Address [address] [place] [address] Care Team Providers Care Fourdrinier Machine Operator Name Role Phone NA AGUIAR Primary Care Provider [phone] NA AGUIAR Referring Provider NA AGUIAR Primary Care Provider NA AGUIAR Referring Provider [phone] Assessment Encounter Date Assessment Date Assessment LastModified [...] in treatment patient more than half this peyq-nt-nkks conversation abner Not available 07/21/2023 17:07:00 08/06/2023 [...] with more than half of this in [id number]-[id number] conversation abner Not available 08/06/2023 16:41:22 Plan of Treatment Reminders Order Date Submit Date Provider Last Modified By Organization Details Last Modified Time Details Appointments None recorded . Lab None recorded . Referral pain manageme nt referral - Patient to call after CT Scan to schedule . 2023 024 [email or web address], [address] [address], [place], [address], 11:35:20 Procedures None recorded . Surgeries None recorded . Imaging XR, lumbar spine 2023 024 [email or web address] [facility] [place], [address], [place], [address], 11:37:56 XR, knee 2023 024 [email or web address] [facility] [place], [address], [place], [address], 4 17:07:24 XR, hip, unilater al 2023 024 [email or web address] [facility] [place], [address], [place], [address], 4 17:07:24 Medication Orders None recorded . [...] observ ation record ed. [email or web address] [facility] [place] [address], [place], [address], 07/21/2023 17:01:38 07/21/19 24 XR, hip, unila teral No observ ation record ed. [email or web address] [facility] [place] [address], [place], [address], 07/21/2023 17:01:24 08/06/19 24 XR, lumba r spine No observ ation record ed. [email or web address] [facility] [place] [address], [place], [address], 08/06/2023 16:35:01 08/19/19 24 08/19/2023 CT, lumba r spine , w/o contr ast No observ ation record ed. [email or web address] [facility] [address], [place], [address], 08/23/2023 12:23:27 Result Notes None recorded. Problems Name Problem SNOMED Code Status Onset Date Resolution Date Notes Provider Name and Address Organization Details Recorded Time Localized, primary osteoarthr itis of the pelvic region and thigh 856616448 Active Not Available [facility] 3 19:13:30 Osteoarthr itis 253983086 Active Not Available [facility] 3 19:13:31 Pain of right knee joint 9000953455676 00 Active 2023 CHESTER Noonan null, [facility] 4 15:42:53 Low back pain 406511372 Active 2023 Joanna Garcia null, [facility] 4 15:25:34 Spinal stenosis of lumbar region 25021445 Active 2023 Lacey Green, BRASS POLISHER null, [facility] 4 11:56:51 Problem Notes None recorded. Procedures Surgical History None recorded. Imaging Results Imaging Date Name Status LastModified by Organiz ation Details LastModified Time 07/21/2023 [facility] [place] [address], [place], [address], 07/21/2023 17:01:38 07/21/2023 XR, hip, unilateral completed tzai [facility] [place] [address], [place], [address], 07/21/2023 17:01:24 08/06/2023 XR, lumbar spine completed [facility] [place] [address], [place], [address], 08/06/2023 16:35:01 08/19/2023 CT, lumbar spine, w/o contrast completed [address], [place], [address], 08/23/2023 12:23:27 Procedure Notes None recorded. Medical [...] Natalee Krause, RMA null, [place] [facility] 07/21/2023 15:41:28 What Is Your Level Of Alcohol Consumption? None [email or web address] Information not available 07/21/2023 Sex: Unknown Functional Status None recorded. Mental Status None recorded. Family History Nothing Reported. Medical History Condition Response ARTHRITIS Y USE OF BLOOD THINNERS Y DIABETES, TYPE Y Past Encounters Encounter ID Performer Location Encounter Start Date Encounter Closed Date Diagnosis/Indication Diagnosis SNOMED-CT Code Diagnosis ICD10 Code Diagnosis Note [id number] AMAYA Fraser [facility] [place] [address] [place] [address] 07/21/2023 14:53:02 07/21/2023 17:07:24 Pain of right knee joint 5078310102 16035 M25.715 [id number] AMAYA [facility] [place] [address] [place] [address] 08/06/2023 14:44:45 08/09/2023 11:37:56 Pain of right knee joint 2627695431 68918 M25.561 Low back pain 584002044 M54.50 Health Concerns Section Related Observation LastModified by Organization Detai ls LastModified Time None Recorded Concern Status LastModified by Organization Details LastModified Time None Recorded Advance Directives Directive None Recorded Payers Encounter Date Sequence Insurance Name Policy Number Policy Joe Covered Member ID Joe Member ID Guarantor Name 07/21/2023 1 [place] Vinod Tomas [id number] Vinod Tomas 07/21/2023 2 [facility] [id number] Vinod Tomas [id number] Vinod Tomas 08/06/2023 1 [place] Vinod Tomas [id number] Vinod Tomas 08/06/2023 2 [place] [id number] Vinod Tomas [id number] Vinod Tomas
--- OUTSIDE RECORDS SUMMARY | 2024-11-07 09:32 | XMS_ITS ---
Author Name Auto Generated, Auto Generated Organization [email or web address] Address [address] [place] [address] Phone [phone] Care Team Providers Care Flatwork Washer Name Role Phone Autumnleonardo Zi Clemons Unavailable Donald Bruner Unavailable Reji Banegas Unavailable [phone] Peter Darnell Unavailable [phone] Functional Status No Results Mental Status No Results Allergies and Intolerances Name Onset Date Reaction Severity codeine (Allergy) WedNovember 13 13:05:00 EDT 2022 morphine (Allergy) WedSep 02 14:52:00 EST 2019 Encounters Program Name Primary Diagnosis Admission Date/Time Dis charge Date/Time [facility] WedDecember 07 20:00:00 EDT 2023Sep 26 19:59:00 EDT 2024 Assisted Living Area Respiratory failure , unspecified, unspecified whether with hypoxia or hypercapnia WedNovember 13 06:30:00 EDT 2022 Immunizations Name Dates Status influenza, trivalent, adjuvanted Michelle Apr 20 01:0 0:00 EDT 2023 Completed Medications Medication Directions Start Date End Date clonazePAM 1 mg tablet 1/2 tab TABLET Or al 1 Time Daily for 1 Day Indication: anxiety WedNov 03 13:00:00 EDT 2024 Sat Nov 04 12:59:00 EDT 2024 lidocaine HCL 10 mg/mL (1 %) injection solution 2.1 ml VIAL (ML) Intramuscular 2 Times Daily for 7 Days Indication: UTI Reconstitute Ceftriaxone 500mg with 2.1ml of lidocaine and inject IM WedNov 02 10:00:00 EDT 2024November 09 09:59:00 EDT 2024 cefTRIAXone 500 mg solution for injection 500mg VIAL (EA) Intramuscular 2 Times Daily for 7 Days Indication: UTI Reconstitute Ceftriaxone 500mg with 2.1ml of lidocaine and inject IM UTI WedNov 02 01:00:00 EDT 2024November 09 00:59:00 EDT 2024 cefTRIAXone 500 mg solution for injection 500mg VIAL (EA) Intramuscular 2 Times Daily for 7 Days Indication: UTI Reconstitute Ceftriaxone 500mg with 2.1ml of lidocaine and inject IM UTI WedNov 02 10:00:00 EDT 2024Nov 02 09:40:00 EDT 2024 Florastor 250 mg capsule 2 capsules CAPS ULE Oral 2 Times Daily for 14 Days Indication: GI prophylactic WedNov 02 09:00:00 EDT 2024Nov 01 16:32:00 EDT 2024 cephALEXin 500 mg capsule 1 capsule CAPS ULE Oral 2 Times Daily for 2 Days Indication: post-op DIALYSIS BIOMED TECHNICIAN supervision x1, x4 WedSep 07 01:00:00 EST 2024 Sat Sep 09 00:59:00 EST 2024 pravastatin 20 mg tablet 1 tablet TABLET Oral 1 Time Daily Indication: mixed hyperlipidemia DIALYSIS BIOMED TECHNICIAN supervision x4 WedAug 08 10:00:00 EST 2024 nystatin 100,000 unit/gram topical powder 1 POWDER (GRAM) Topical 2 Times Daily Indication: yeast may self-administer WedJul 27 01:00:00 EST 2024 mirtazapine 15 mg tablet 1 tab TABLET Or al 1 Time Daily Indication: DIALYSIS BIOMED TECHNICIAN Supervision x4 WedJul 25 01:00:00 EST 2024 traMADoL 50 mg tablet 1 tablet TABLET Or al 1 Time Daily Indication: pain. Nurse to admin WedJul 18 11:50:00 EST 2024Aug 01 18:33:00 EST 2024 traMADoL 50 mg tablet 1 tablet TABLET Or al PRN Every 8 Hours Indication: pain. Nurse to admin WedJul 18 01:00:00 EST 2024 ondansetron 4 mg disintegrating tablet 1 tab TABLET,DISINTEGRATING Oral PRN Every 4 Hours Indication: nausea Sat Jul 15 01:00:00 EST 2024 Blood Pressure Kit 1 KIT Other 2 Times Daily for 6 Days Indication: DIALYSIS BIOMED TECHNICIAN to obtain O2 random for documentation WedJul 02 15:00:00 2023Jul 08 14:59:00 EST 2023 clonazePAM 1 mg tablet 1 mg 1 tab TABLET Oral 1 Time Daily Indication: anxiety nurse admin x4 WedJun 06 13:47:00 EST 2023 Lagevrio 200 mg capsule (EUA) 4 CAPSULE Oral 2 Times Daily for 5 Days Indication: COVID pos (+) DIALYSIS BIOMED TECHNICIAN Supervision X1, X4 WedJun 01 01:00:00 EST 2023Jun 06 00:59:00 EST 2023 furosemide 40 mg tablet 40 mg TABLET Ora l 1 Time Daily Indication: edema WedMay 18 16:00:00 EST 2023May 18 16:15:00 EST 2023 Fluad Triv (65y up)(PF) 45 mcg (15 mcg x 3)/0.5 mL IM syringe 1 SYRINGE (ML) Intramuscular 1 Time Daily for 1 Day Indication: Vaccine WedApr 20 01:00:00 EDT 2023Apr 21 00:59:00 EDT 2023 Blood Pressure Kit 1 KIT Other 2 Times Monthly Indication: Vitals DIALYSIS BIOMED TECHNICIAN supervision, DIALYSIS BIOMED TECHNICIAN obtain vitals WedFeb 15 16:32:00 EDT 2023 Biofreeze (menthol) 4 % topical gel 1 harvey GEL (ML) Topical PRN Indication: pain apply to affected areas WedFeb 14 11:26:00 EDT 2023Feb 14 11:40:00 EDT 2023 Biofreeze (menthol) 4 % topical gel 1 harvey GEL (ML) Topical PRN Every 4 Hours Indication: pain apply to affected areas WedFeb 14 11:39:00 EDT 2023 Biofreeze (menthol) 5 % topical gel 1 harvey GEL (ML) Topical PRN Indication: pain apply to affected areas WedFeb 12 12:00:00 EDT 2023Feb 14 11:28:00 EDT 2023 nystatin-triamcinolone 100,000 unit/g-0.1 % topical cream 1 CREAM (GRAM) Topical 2 Times Daily Indication: fungal infection Self administration to affected area. WedSep 28 01:00:00 EDT 2023Oct 06 09:29:00 EDT 2024 pravastatin 40 mg tablet 1 tab TABLET Or al 1 Time Daily Indication: mixed hyperlipidemia DIALYSIS BIOMED TECHNICIAN supervision x4 WedJun 23 01:00:00 EST 2022Aug 08 11:19:00 EST 2024 furosemide 40 mg tablet 1 tab TABLET Ora l 1 Time Daily Indication: edema DIALYSIS BIOMED TECHNICIAN supervision x1 WedJun 04 01:00:00 EST 2022 spironolactone 25 mg tablet 1/2 tab TABL ET Oral 1 Time Daily Indication: edema 1/2 tab = 12.5mgCNA supervision x1 WedJun 04 01:00:00 EST 2022 nystatin 100,000 unit/gram topical powder 1 POWDER (GRAM) Topical 2 Times Daily Indication: yeast infection Apply powder to groin. Nurse to administer. WedMay 27 15:00:00 EST 2022Jun 12 11:42:00 EST 2022 aspirin 81 mg tablet,delayed release 1 tab TABLET, DELAYED RELEASE (ENTERIC COATED) Oral 1 Time Daily Indication: blood thinner DIALYSIS BIOMED TECHNICIAN supervision x1 WedMay 19 14:35:00 EST 2022 clonazePAM 1 mg tablet 1 tab TABLET Oral 1 Time Daily Indication: anxiety nurse admin x4 WedMay 19 14:36:00 EST 2022Jun 06 13:49:00 EST 2023 clopidogreL 75 mg tablet 1 tab TABLET Or al 1 Time Daily Indication: AFIB DIALYSIS BIOMED TECHNICIAN supervision x1 WedMay 19 14:36:00 EST 2022 Banophen 25 mg capsule 1 cap CAPSULE Ora l PRN Every 6 Hours Indication: itchingnurse admin WedMay 19 14:37:00 EST 2022Jun 03 18:00:00 EST 2022 hydroCHLOROthiazide 12.5 mg tablet 1 tab TABLET Oral 1 Time Daily Indication: heart disease DIALYSIS BIOMED TECHNICIAN supervision x1 WedMay 19 14:38:00 EST 2022Jun 03 18:00:00 EST 2022 Milk of Magnesia 400 mg/5 mL oral suspension 80mg/ml SUSPENSION, ORAL (FINAL DOSE FORM) Oral PRN Every 12 Hours Indication: constipationnurse admin WedMay 19 14:39:00 EST 2022May 18 16:00:00 EST 2023 pravastatin 80 mg tablet 1 tab TABLET Or al 1 Time Daily Indication: mixed hyperlipidemia DIALYSIS BIOMED TECHNICIAN supervision x4 WedMay 19 14:40:00 EST 2022Jun 22 20:00:00 EST 2022 Stool Softener-Laxative 8.6 mg-50 mg tablet 1 tab TABLET Oral PRN Every 12 Hours Indication: constipationnurse admin WedMay 19 14:41:00 2022May 18 16:00:00 EST 2023 cetirizine 10 mg tablet 1 tab TABLET Ora l 1 Time Daily Indication: allergy DIALYSIS BIOMED TECHNICIAN supervision x4 WedMay 19 14:41:00 EST 2022 Culturelle 15 billion cell sprinkle capsule 1 cap CAPSULE, SPRINKLE Oral 1 Time Daily Indication: Probiotic DIALYSIS BIOMED TECHNICIAN supervision x2 WedMay 19 14:42:00 EST 2022 Glucosamine Chondroitin Maximum Strength 500 mg-400 mg capsule 1 cap CAPSULE Oral 1 Time Daily Indication: heart disease DIALYSIS BIOMED TECHNICIAN supervision x3 WedMay 19 14:43:00 EST 2022 Blood Pressure Kit 1 KIT Other 2 Times Monthly Indication: Vitals DIALYSIS BIOMED TECHNICIAN supervision, DIALYSIS BIOMED TECHNICIAN obtain vitals WedMay 19 14:44:00 2022Feb 15 16:35:00 EDT 2023 metFORMIN 500 mg tablet 1 tab TABLET Ora l 2 Times Daily Indication: DM DIALYSIS BIOMED TECHNICIAN supervision x1 x3 WedMay 19 14:45:00 EST 2022 carvediloL 12.5 mg tablet 1 tab TABLET O ral 2 Times Daily Indication: Hypertension/ heart disease DIALYSIS BIOMED TECHNICIAN supervision x1 x3 WedMay 19 14:46:00 EST 2022 Fish OiL 360 mg-1,200 mg capsule 1 CAP Oral 2 Times Daily Indication: supplement/heart DIALYSIS BIOMED TECHNICIAN supervision x1 x3 WedMay 19 14:47:00 EST 2022 calcium carbonate 600 mg-vitamin D3 25 mcg (1,000 unit) capsule 1 caps CAPSULE Oral 1 Time Daily Indication: vitamin DIALYSIS BIOMED TECHNICIAN supervision x2 WedMay 19 14:48:00 EST 2022 T.E.D. Anti-Embolism Stocking 1 EACH Oth er 2 Times Daily Indication: T.E.D DIALYSIS BIOMED TECHNICIAN supervision assist T.E.D on in AM and remove at PM Size Length 44cm Width 40cm knee high T.E.D WedMay 19 14:49:00 EST 2022 nystatin-triamcinolone 100,000 unit/g-0.1 % topical cream 1 applic CREAM (GRAM) Topical PRN 3 Times Daily Indication: rash nurse/self admin 1 applic topical 2 to 3 times per day to affected area. WedMay 19 14:51:00 EST 2022May 18 16:00:00 EST 2023 acetaminophen 500 mg tablet 2 tabs (1000 mg) TABLET Oral PRN Every 6 Hours Indication: mild painnurse admin WedMay 19 14:52:00 EST 2022 acetaminophen 500 mg tablet 2 tabs (1000 mg) TABLET Oral PRN Every 6 Hours Indication: mild pain WedMay 14 16:37:00 EDT 2022May 19 14:53:00 EST 2022 Abrysvo 120 mcg/0.5 mL intramuscular solution 1 VIAL (EA) Intramuscular 1 Time Daily for 1 Day Indication: RSV vaccine Nurse admin WedApr 15 07:00:00 EDT 2022Apr 16 06:59:00 EDT 2022 traMADoL 50 mg tablet 1 tablet TABLET Or al PRN 4 Times Daily Indication: pain. Nurse to admin WedApr 12 16:30:00 EDT 2022Jul 18 11:51:00 EST 2024 nystatin-triamcinolone 100,000 unit/g-0.1 % topical cream 1 applic CREAM (GRAM) Topical PRN 3 Times Daily Indication: rash 1 applic topical 2 to 3 times per day to affected area. WedApr 08 01:00:00 EDT 2022May 19 14:53:00 EST 2022 Prevnar 20 (PF) 0.5 mL intramuscular syringe 0.5 mL SYRINGE (ML) Intramuscular Every 1 Day for 1 Day Indication: Vaccine WedMar 11 01:00:00 EDT 2022Mar 12 00:59:00 EDT 2022 PreserVision AREDS-2 250 mg-90 mg-40 mg-1 mg capsule 1 capsule CAPSULE Oral 2 Times Daily Indication: supplement DIALYSIS BIOMED TECHNICIAN supervision x1, x4 WedMar 04 01:00:00 EDT 2022 Blood Pressure Kit 1 KIT Other 1 Time D aily for 30 Days Indication: Vitals DIALYSIS BIOMED TECHNICIAN obtain vitalsBASELINE :263.40 notify MD if weight is 3LB or more in 1 day.Williow Scale only WedFeb 24 01:00:00 EDT 2022Mar 26 00:59:00 EDT 2022 T.E.D. Anti-Embolism Stocking 1 EACH Oth er 2 Times Daily Indication: T.E.D assist T.E.D on in AM and remove at PM Size Length 44cm Width 40cm knee high T.E.D Sat Dec 19 01:00:00 EDT 2022May 19 14:52:00 EST 2022 furosemide 20 mg tablet 1 tab TABLET Ora l 1 Time Daily for 3 Days Indication: edema DIALYSIS BIOMED TECHNICIAN x1 WedDec 16 01:00:00 EDT 2022Dec 19 00:59:00 ED2022 acetaminophen 500 mg tablet 2 tabs TABLE T Oral 3 Times Daily Indication: pain WedDecember 09 01:00:00 EDT 2022May 14 14:20:00 ED2022 predniSONE 20 mg tablet 40 mg TABLET Ora l 1 Time Daily for 5 Days take 40mg once daily x 5 daysIndication: inflammation WedNovember 21 19:36:00 EDT 2022November 20 19:43:00 ED2022 predniSONE 20 mg tablet 40 mg TABLET Ora l 1 Time Daily for 5 Days take 40mg once daily x 5 daysIndication: inflammation WedNovember 21:00:00 EDT 2022November 26 00:59:00 ED2022 predniSONE 20 mg tablet 40 mg TABLET Ora l 1 Time Daily for 5 Days take 40mg once daily x 5 daysIndication: inflammation WedNovember 20 01:00:00 ED2022November 20 19:41:00 EDT 2022 acetaminophen 325 mg tablet 650 mg TABLE T Oral PRN Every 4 Hours take 650mg q4h prn for paindon't exceed more than 3000mg in a 24 hour period.Indication: mild pain WedNovember 20 01:00:00 EDT 2022May 13 14:43:00 ED2022 Yash Mag Zinc Plus D3 333 mg-133 unit-133 mg-5 mg tablet 1 tablets TABLET Oral 1 Time Daily Indication: supplement DIALYSIS BIOMED TECHNICIAN X2 WedNovember 18 08:55:00 ED2022November 18 15:57:00 EDT 2022 Centrum Silver Men 300 mcg-600 mcg-300 mcg tablet 1 tablet TABLET Oral 1 Time Daily Indication: supplement DIALYSIS BIOMED TECHNICIAN X2 WedNovember 18 08:56:00 EDT 2022May 13 14:42:00 EDT 2022 calcium carbonate 600 mg-vitamin D3 25 mcg (1,000 unit) capsule 1 caps CAPSULE Oral 1 Time Daily Indication: vitamin DIALYSIS BIOMED TECHNICIAN x2 WedNovember 19 01:00:00 EDT 2022May 19 14:50:00 2022 Fish OiL 1,200 mg (144 mg-21 6 mg) capsule 1 capsule CAPSULE Oral 2 Times Daily Indication: heart disease DIALYSIS BIOMED TECHNICIAN X1 X3 WedNovember 16 15:00:00 EDT 2022November 18 08:59:00 EDT 2022 Yash Mag Zinc Plus D3 333 mg-133 unit-133 mg-5 mg tablet 3 tablets TABLET Oral 1 Time Daily Indication: supplement assembler cards and announcements x1 WedNovember 17 07:00:00 EDT 2022November 18 08:56:00 EDT 2022 Centrum Silver Men 300 mcg-600 mcg-300 mcg tablet 1 tablet TABLET Oral 1 Time Daily Indication: supplement assembler cards and announcements x1 WedNovember 17 07:00:00 EDT 2022November 18 08:57:00 EDT 2022 Fish OiL 360 mg-1,200 mg capsule 1 CAP Oral 2 Times Daily Indication: supplement/heart DIALYSIS BIOMED TECHNICIAN x1 X3 WedNovember 15 01:00:00 EDT 2022May 19 14:49:00 EST 2022 Blood Pressure Kit 1 KIT Other 2 Times Monthly Indication: Vitals DIALYSIS BIOMED TECHNICIAN obtain vitals Michelle November 26 01:00:00 EDT 2022May 19 14:46:00 EST 2022 Glucosamine Chondroitin Maximum Strength 500 mg-400 mg capsule 1 cap CAPSULE Oral 1 Time Daily Indication: heart disease DIALYSIS BIOMED TECHNICIAN x3 WedNovember 14 16:37:00 EDT 2022May 19 14:45:00 EST 2022 metFORMIN 500 mg tablet 1 tab TABLET Ora l 2 Times Daily Indication: DM DIALYSIS BIOMED TECHNICIAN X1 X3 WedNovember 14 16:38:00 EDT 2022May 19 14:47:00 EST 2022 Calcium 600-D3 Plus (mag-zinc) 600 mg calcium-20 mcg-50 mg tablet 1 tab TABLET Oral 1 Time Daily Indication: vitaminCNA x2 WedNovember 14 16:41:00 EDT 2022November 16 13:11:00 EDT 2022 carvediloL 12.5 mg tablet 1 tab TABLET O ral 2 Times Daily Indication: Hypertension/ heart disease DIALYSIS BIOMED TECHNICIAN X1 X3 WedNovember 14 16:42:00 EDT 2022May 19 14:48:00 EST 2022 One-Per-Day Roosevelt-3 684 mg-1,200 mg capsule,delayed release 1 caps CAPSULE,DELAYED RELEASE (ENTERIC COATED) Oral 2 Times Daily Indication: heart disease DIALYSIS BIOMED TECHNICIAN X1 X3 WedNovember 14 16:43:00 EDT 2022November 16 12:13:00 EDT 2022 Blood Glucose Monitoring kit 1 KIT Other 3 Times Weekly Indication: DM Nurse WedNovember 16 01:00:00 EDT 2022November 17 19:14:00 EDT 2022 aspirin 81 mg tablet,delayed release 1 tab TABLET, DELAYED RELEASE (ENTERIC COATED) Oral 1 Time Daily Indication: blood thinner DIALYSIS BIOMED TECHNICIAN X1 WedNovember 13 14:42:00 EDT 2022May 19 14:37:00 EST 2022 carvediloL 12.5 mg tablet 1 tab TABLET O ral 2 Times Daily Indication: Hypertension/ heart disease DIALYSIS BIOMED TECHNICIAN X1 X4 WedNovember 13 16:46:00 EDT 2022November 14 16:44:00 EDT 2022 clonazePAM 1 mg tablet 1 mg 1 tab TABLET Oral 1 Time Daily Indication: anxiety NURSE x4 WedNovember 13 19:00:00 EDT 2022May 19 14:37:00 EST 2022 clopidogreL 75 mg tablet 1 tab TABLET Or al 1 Time Daily Indication: AFIB DIALYSIS BIOMED TECHNICIAN x1 WedNovember 13 19:30:00 EDT 2022May 19 14:38:00 EST 2022 Banophen 25 mg capsule 1 cap CAPSULE Ora l PRN Every 6 Hours Indication: itching WedNovember 13 19:30:00 EDT 2022May 19 14:39:00 EST 2022 hydroCHLOROthiazide 12.5 mg tablet 1 tab TABLET Oral 1 Time Daily Indication: heart disease DIALYSIS BIOMED TECHNICIAN X1 WedNovember 13 19:30:00 EDT 2022May 19 14:40:00 EST 2022 Milk of Magnesia 400 mg/5 mL oral suspension 400 mg/5 mL 80mg/ml SUSPENSION, ORAL (FINAL DOSE FORM) Oral PRN Every 12 Hours Indication: constipation WedNovember 13 19:30:00 EDT 2022May 19 14:41:00 EST 2022 metFORMIN 500 mg tablet 1 tab TABLET Ora l 2 Times Daily Indication: DM DIALYSIS BIOMED TECHNICIAN X1 X4 WedNovember 13 19:30:00 EDT 2022November 14 16:44:00 EDT 2022 One-Per-Day Roosevelt-3 684 mg-1,200 mg capsule,delayed release 1 caps CAPSULE,DELAYED RELEASE (ENTERIC COATED) Oral 2 Times Daily Indication: heart disease DIALYSIS BIOMED TECHNICIAN X1 X4 WedNovember 13 19:00:00 EDT 2022November 14 16:44:00 EDT 2022 pravastatin 80 mg tablet 1 tab TABLET Or al 1 Time Daily Indication: mixed hyperlipidemia DIALYSIS BIOMED TECHNICIAN X4 WedNovember 13 19:30:00 EDT 2022May 19 14:41:00 EST 2022 Stool Softener-Laxative 8.6 mg-50 mg tablet 8.6-50 mg 1 tab TABLET Oral PRN Every 12 Hours Indication: constipation WedNovember 13 19:30:00 EDT 2022May 19 14:42:00 EST 2022 Complete Multivitamin Adult 50 Plus 0.4 mg-300 mcg-250 mcg tablet 1 tab TABLET Oral 1 Time Daily Indication: vitamin DIALYSIS BIOMED TECHNICIAN x2 WedNovember 13 19:30:00 EDT 2022November 16 13:18:00 EDT 2022 cetirizine 10 mg tablet 1 tab TABLET Ora l 1 Time Daily Indication: allergy DIALYSIS BIOMED TECHNICIAN X4 WedNovember 13 19:30:00 EDT 2022May 19 14:43:00 EST 2022 Calcium 600-D3 Plus (mag-zinc) 600 mg calcium-20 mcg-50 mg tablet 1 tab TABLET Oral 1 Time Daily Indication: vitamin WedNovember 13 19:00:00 EDT 2022November 14 16:44:00 EDT 2022 Culturelle 15 billion cell sprinkle capsule 1 cap CAPSULE, SPRINKLE Oral 1 Time Daily Indication: Probiotic DIALYSIS BIOMED TECHNICIAN X2 WedNovember 13 19:00:00 EDT 2022May 19 14:44:00 EST 2022 Glucosamine Chondroitin Maximum Strength 500 mg-400 mg capsule 1 cap CAPSULE Oral 1 Time Daily Indication: heart disease DIALYSIS BIOMED TECHNICIAN x4 WedNovember 13 19:00:00 EDT 2022November 14 16:44:00 EDT 2022 TUBErsoL 5 tub. unit/0.1 mL intradermal injection solution 0.1 ml VIAL (ML) Intradermal 1 Time Weekly for 2 Weeks Indication: Admission TB 1st injection on admission, then one week after. Read between 48 and 72 hours WedNovember 13 01:00:00 EDT 2022November 27 00:59:00 EDT 2022 TUBErsoL 5 tub. unit/0.1 mL intradermal injection solution Read Results VIAL (ML) Other 1 Time Weekly for 2 Weeks Indication: TB admission Read results between 48-72 hours after 1st and 2nd (1 week apart). If positive do chest x-ray. Sun November 15 01:00:00 EDT 2022 Sun November 29 00:59:00 EDT 2022 amoxicillin 875 mg-potassium clavulanate 125 mg tablet 1tab (TABLET) Oral 2 Times Daily take one tab BId until all gone for UTI and cold s/s WedMar 18 01:00:00 2017Apr 05:00:00 ED2017 traMADol 50 mg tablet 1-2 tab (TABLET) O ral PRN take 1-2 tabs three times daily as needed for pain. WedFeb 22:00:00 2017Apr 05:00:00 2017 CeleBREX 100 mg capsule 1 cap (CAPSULE) Oral Every 1 Day WedFeb 22:00:00 2017Feb 23 00:59:00 ED2017 HYDROcodone 5 mg-acetaminophen 325 mg tablet 1 tab (TABLET) Oral PRN Every 4 Hours may continue hydrocodone until finished, then may take tramadol or tylenol for pain. WedFeb 22:00:00 2017Apr 05:00:00 2017 clonazePAM 1 mg tablet 1 tab (TABLET) Or al Every 1 Day WedFeb 22:00:00 2017Apr 05:00:00 2017 Benadryl 25 mg capsule 1 cap (CAPSULE) O ral PRN daily for itching WedFeb 22:00:00 2017Apr 05:00:00 2017 metFORMIN 500 mg tablet 1 tab (TABLET) O ral 2 Times Daily WedFeb 22:00:00 2017Apr 05:00:00 2017 Milk of Magnesia 400 mg/5 mL oral suspension 30 ml (SUSPENSION, ORAL (FINAL DOSE FORM)) Oral PRN daily for constipation WedFeb 22:00:00 2017Apr 05:00:00 2017 Senna Laxative-Stool Softene r 8.6 mg-50 mg tablet 1 tab (TABLET) Oral PRN daily for constipation WedFeb 22:00:00 2017Apr 05:00:00 2017 ZyrTEC 10 mg tablet 1 tab (TABLET) Oral Every 1 Day WedFeb 22:00:00 2017Apr 05:00:00 2017 pravastatin 40 mg tablet 1 tab (TABLET) Oral Every 1 Day WedFeb 22:00:00 2017Apr 05:00:00 ED2017 fluticasone 50 mcg/actuation nasal spray,suspension 1 spray (SPRAY, SUSPENSION (ML)) Intranasal - Both Nostrils Every 1 Day WedFeb 22 01:00:00 2017Apr 05 01:00:00 2017 hydroCHLOROthiazide 25 mg tablet 1 tab (TABLET) Oral Every 1 Day WedFeb 22 01:00:00 2017Apr 05 01:00:00 2017 carvedilol 12.5 mg tablet 1 tab (TABLET) Oral 2 Times Daily WedFeb 22 01:00:00 2017Apr 05 01:00:00 2017 warfarin 6 mg tablet 1 tab (TABLET) Oral Every 1 Day 6mg on 02/22/18, then stop. Pt to resume Plavix and aspirin. WedFeb 22 01:00:00 2017Feb 23 00:59:00 2017 aspirin 81 mg tablet,delayed release 1 tab (TABLET, DELAYED RELEASE (ENTERIC COATED Oral Every 1 Day WedFeb 22 01:00:00 2017Apr 05 01:00:00 2017 Plavix 75 mg tablet 1 tab (TABLET) Oral Every 1 Day WedFeb 23 01:00:00 2017Apr 05 01:00:00 2017 Benadryl Allergy 25 mg tablet 1 TABLET O ral PRN EVERY 4-6 HOURS FOR HIVES WedFeb 17 05:00:00 2017Feb 21 01:00:00 2017 Coumadin 1 mg tablet 1 mg TABLET Oral 2 Times Weekly for 1 Week give 7 mg on 02/17/2018 and 02/20/2018 and d/c Coumadin after last dose on 02/22/2018WedFeb 17 21:00:00 2017Feb 18 00:25:00 2017 Plavix 75 mg tablet 75 mg TABLET Oral 1 Time Daily WedFeb 23 09:00:00 2017Feb 21 01:00:00 2017 warfarin 6 mg tablet 6mg TABLET Oral Jesi ry 24 Hours for 6 Days give 6mg on=02/18, 02/19, 02/21, 02/22Feb 17 01:00:00 2017Feb 21 01:00:00 2017 warfarin 1 mg tablet 1mg TABLET Oral 2 T imes Weekly for 1 Week give 7mg on= 02/17, 02/20Feb 17 01:00:00 ED2017Feb 21 01:00:00 ED2017 Coumadin 7.5 mg tablet 7 MG TABLET Oral 1 Time Daily for 1 Day WedFeb 14 01:00:00 ED2017Feb 15 00:59:00 2017 Coumadin 6 mg tablet 1 TAB TABLET Oral 1 Time Daily for 1 Day WedFeb 15 01:00:00 ED2017Feb 16 00:59:00 ED2017 Coumadin 7.5 mg tablet 7 MG TABLET Oral 1 Time Daily for 1 Day WedFeb 16 01:00:00 ED2017Feb 17 00:59:00 2017 Coumadin 6 mg tablet 6mg TABLET Oral 1 T henrique Daily for 3 Days WedFeb 11 21:00:00 ED2017Feb 14 12:43:00 2017 Coumadin 5 mg tablet 5mg TABLET Oral 1 T henrique Daily for 2 Days Blood thinner WedFeb 09 16:00:00 2017Feb 11 14:04:00 ED2017 Coumadin 5 mg tablet 1 tab TABLET Oral 1 Time Daily for 3 Days WedFeb 06 18:00:00 ED2017Feb 06 18:42:00 ED2017 Coumadin 5 mg tablet 1 tab TABLET Oral 1 Time Daily for 3 Days WedFeb 06 18:00:00 2017Feb 09 17:59:00 2017 Senna-S 8.6 mg-50 mg tablet 1 tab TABLET Oral PRN 1 Time Daily WedFeb 03 13:00:00 2017Feb 21 01:00:00 ED2017 losartan 50 mg tablet 50 mg TABLET Oral 1 Time Daily WedFeb 02 14:00:00 2017Feb 03 08:54:00 ED2017 losartan 50 mg tablet 50 mg TABLET Oral 1 Time Daily Dx: HTN WedFeb 02 13:00:00 ED2017Feb 04 12:57:00 ED2017 clonazePAM 1 mg tablet 1mg TABLET Oral 1 Time Daily for 61 Days Anxiety WedFeb 01 07:00:00 2017Feb 21 01:00:00 2017 warfarin 5 mg tablet 5mg TABLET Oral 1 T henrique Daily for 1 Day DVT prophylaxis WedJan 31 18:00:00 2017Feb 01 17:59:00 ED2017 warfarin 4 mg tablet 4mg TABLET Oral 1 T henrique Daily for 1 Day DVT prophylaxis WedFeb 01 07:00:00 EDT 2017Feb 02 06:59:00 EDT 2017 warfarin 5 mg tablet 5mg TABLET Oral 1 T henrique Daily for 1 Day DVT prophylaxis WedFeb 02 07:00:00 EDT 2017u Feb 03 06:59:00 EDT 2017 Adult Low Dose Aspirin 81 mg tablet,delayed release 81mg TABLET, DELAYED RELEASE (ENTERIC COATED) Oral 1 Time Daily DVT prophylaxis WedFeb 28 07:00:00 EDT 2017Feb 21 01:00:00 EDT 2017 Milk of Magnesia 400 mg/5 mL oral suspension 30ml SUSPENSION, ORAL (FINAL DOSE FORM) Oral PRN 1 Time Daily constipation WedJan 29 01:00:00 EDT 2017Jan 31 17:39:00 ED2017 warfarin 5 mg tablet 1 TABLET Oral 1 Fredy e Daily for 2 Days Give 5mg Coumadin on 01/29 and 01/30 recheck pt/inr on 01/31Jan 29 01:00:00 EDT 2017Jan 31 00:59:00 EDT 2017 warfarin 2 mg tablet 1 TABLET Oral 1 Time Daily WedJan 31 07:00:00 EDT 2017Jan 31 16:01:00 ED2017 Milk of Magnesia 400 mg/5 mL oral suspension 30ml SUSPENSION, ORAL (FINAL DOSE FORM) Oral PRN 1 Time Daily constipation Sat Jan 29 09:00:00 ED2017Feb 21 01:00:00 ED2017 Adult Low Dose Aspirin 81 mg tablet,delayed release 81mg TABLET, DELAYED RELEASE (ENTERIC COATED) Oral 1 Time Daily WedJan 29 01:00:00 ED2017Jan 31 16:55:00 EDT 2017 carvedilol 12.5 mg tablet 12.5 mg TABLET Oral 2 Times Daily WedJan 29 01:00:00 ED2017Feb 21 01:00:00 ED2017 celecoxib 100 mg capsule 200mg CAPSULE O ral 1 Time Daily WedJan 29 01:00:00 ED2017Feb 21 01:00:00 ED2017 clonazePAM 1 mg tablet 1mg TABLET Oral 1 Time Daily WedJan 28 21:00:00 ED2017Jan 31 09:34:00 EDT 2017 hydroCHLOROthiazide 25 mg tablet 25mg TABLET Oral 1 Time Daily WedJan 28 01:00:00 ED2017Feb 21 01:00:00 EDT 2017 HYDROcodone 5 mg-acetaminophen 325 mg tablet 1-2 tabs TABLET Oral PRN Every 4 Hours WedJan 28 17:00:00 ED2017Jan 31 09:36:00 ED2017 irbesartan 150 mg tablet 150mg TABLET Or al 1 Time Daily WedJan 29 01:00:00 EDT 2017Feb 02 13:58:00 ED2017 metFORMIN 500 mg tablet 500 mg TABLET Or al 2 Times Daily WedJan 28 19:00:00 ED2017Jan 31 18:10:00 EDT 2017 mometasone 50 mcg/actuation nasal spray 2 sprays AEROSOL, SPRAY WITH PUMP (GRAM) Intranasal 1 Time Daily WedJan 29 01:00:00 ED2017Feb 21 01:00:00 ED2017 ondansetron 4 mg disintegrating tablet 4 mg TABLET,DISINTEGRATING Oral PRN Every 6 Hours WedJan 28 17:30:00 ED2017Feb 21 01:00:00 ED2017 Pravachol 40 mg tablet 40 mg TABLET Oral 1 Time Daily WedJan 29:00:00 ED2017Feb 21 01:00:00 ED2017 Senna with Docusate Sodium 8.6 mg-50 mg tablet 2 tab TABLET Oral 2 Times Daily WedJan 28 21:00:00 ED2017Feb 21:00:00 ED2017 warfarin 2 mg tablet 2 mg TABLET Oral 1 Time Daily WedJan 28 18:00:00 ED2017Jan 29 14:15:00 ED2017 ZyrTEC 10 mg tablet 10mg TABLET Oral 1 T henrique Daily WedJan 29:00:00 ED2017Feb 21 01:00:00 EDT 2017 clonazePAM 1 mg tablet 1mg TABLET Oral 1 Time Daily WedJan 28 09:00:00 ED2017Jan 31 15:14:00 ED2017 HYDROcodone 5 mg-acetaminophen 325 mg tablet 1-2 tabs TABLET Oral PRN Every 4 Hours Dx: pain WedJan 28 09:00:00 ED2017Feb 21 01:00:00 ED2017 metFORMIN 500 mg tablet 500 mg TABLET Or al 2 Times Daily WedJan 28 09:00:00 ED2017Feb 21 01:00:00 EDT 2017 Problems Active Concerns * Personal history of other venous thrombosis and embolism* Code: * Start Date: WedJan 28 00:00:00 EDT 2017 * End Date: * Text: * Personal history of pulmonary embolism* Code: * Start Date: WedJan 28 00:00:00 EDT 2017 * End Date: * Text: * Essential (primary) hypertension* Code: * Start Date: WedJan 28 00:00:00 ED2017 * End Date: * Text: * Presence of cardiac pacemaker* Code: * Start Date: WedJan 28 00:00:00 EDT 2017 * End Date: * Text: * Allergic rhinitis, unspecified* Code: * Start Date: WedJan 28 00:00:00 EDT 2017 * End Date: * Text: * Anxiety disorder, unspecified* Code: * Start Date: WedJan 28 00:00:00 EDT 2017 * End Date: * Text: * Gastro-esophageal reflux disease without esophagitis* Code: * Start Date: WedJan 28 00:00:00 EDT 2017 * End Date: * Text: * Personal history of malignant neoplasm of prostate* Code: * Start Date: WedJan 28 00:00:00 EDT 2017 * End Date: * Text: * Obstructive sleep apnea (adult) (pediatric)* Code: * Start Date: WedJan 28 00:00:00 EDT 2017 * End Date: * Text: * Presence of right artificial hip joint* Code: * Start Date: WedJan 28 00:00:00 EDT 2017 * End Date: * Text: * Unspecified atrioventricular block* Code: * Start Date: WedFeb 22 00:00:00 EDT 2017 * End Date: * Text: * Encounter for therapeutic drug level monitoring* Code: * Start Date: WedFeb 22 00:00:00 EDT 2017 * End Date: * Text: * care home (current) use of anticoagulants* Code: * Start Date: WedFeb 22 00:00:00 EDT 2017 * End Date: * Text: * Dorsalgia, unspecified* Code: * Start Date: WedAug 17 00:00:00 EST 2022 * End Date: * Text: * Atherosclerotic heart disease of [place] coronary artery without angina pectoris* Code: * Start Date: WedNovember 13 00:00:00 EDT 2022 * End Date: * Text: * Constipation, unspecified* Code: * Start Date: WedNovember 13 00:00:00 EDT 2022 * End Date: * Text: * Acquired absence of other genital organ(s)* Code: * Start Date: WedNovember 13 00:00:00 EDT 2022 * End Date: * Text: * Type 2 diabetes mellitus with diabetic polyneuropathy* Code: * Start Date: WedNovember 13 00:00:00 EDT 2022 * End Date: * Text: * Stress incontinence (female) (male)* Code: * Start Date: WedNovember 13 00:00:00 EDT 2022 * End Date: * Text: * Personal history of other malignant neoplasm of skin* Code: * Start Date: WedNovember 13 00:00:00 EDT 2022 * End Date: * Text: * care home (current) use of antithrombotics/antiplatelets* Code: * Start Date: WedNovember 13 00:00:00 EDT 2022 * End Date: * Text: * care home (current) use of aspirin* Code: * Start Date: WedNovember 13 00:00:00 EDT 2022 * End Date: * Text: * care home (current) use of oral hypoglycemic drugs* Code: * Start Date: WedNovember 13 00:00:00 EDT 2022 * End Date: * Text: * Obesity, unspecified* Code: * Start Date: WedNovember 13 00:00:00 EDT 2022 * End Date: * Text: * Body mass index [BMI] 36.0-36.9, adult* Code: * Start Date: WedNovember 13 00:00:00 EDT 2022 * End Date: * Text: * Respiratory failure, unspecified, unspecified whether with hypoxia or hypercapnia* Code: * Start Date: WedFeb 23 00:00:00 EDT 2022 * End Date: * Text: * Chronic pulmonary edema* Code: * Start Date: WedFeb 23 00:00:00 EDT 2022 * End Date: * Text: * Muscle weakness (generalized)* Code: * Start Date: WedMar 16 00:00:00 EDT 2022 * End Date: * Text: * Weakness* Code: * Start Date: WedMar 16 00:00:00 EDT 2022 * End Date: * Text: * Hypertensive heart disease with heart failure* Code: * Start Date: WedJun 03 00:00:00 EST 2022 * End Date: * Text: * Personal history of nicotine dependence* Code: * Start Date: WedJun 03 00:00:00 EST 2022 * End Date: * Text: * Prediabetes* Code: * Start Date: WedJun 03 00:00:00 EST 2022 * End Date: * Text: * Chronic fatigue, unspecified* Code: * Start Date: WedJun 22 00:00:00 EST 2022 * End Date: * Text: * Dependence on other enabling machines and devices* Code: * Start Date: WedJun 03 00:00:00 EST 2022 * End Date: * Text: * Other pulmonary embolism without acute cor pulmonale* Code: * Start Date: WedMar 16 00:00:00 EDT 2022 * End Date: * Text: * Pain in right knee* Code: * Start Date: WedNov 01 00:00:00 EDT 2023 * End Date: * Text: * Pain in left knee* Code: * Start Date: WedNov 01 00:00:00 EDT 2023 * End Date: * Text: * Vitamin D deficiency, unspecified* Code: * Start Date: WedNov 01 00:00:00 EDT 2023 * End Date: * Text: * Mixed hyperlipidemia* Code: * Start Date: WedJun 03 00:00:00 EST 2022 * End Date: * Text: * Other chronic pain* Code: * Start Date: WedJun 03 00:00:00 EST 2022 * End Date: * Text: * Personal history of colon polyps, unspecified* Code: * Start Date: WedApr 11 00:00:00 EDT 2023 * End Date: * Text: * Pleural effusion, not elsewhere classified* Code: * Start Date: WedJun 03 00:00:00 EST 2022 * End Date: * Text: * 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* Code: * Start Date: WedJun 03 00:00:00 EST 2022 * End Date: * Text: * care home (current) use of opiate analgesic* Code: * Start Date: WedJun 03 00:00:00 EST 2022 * End Date: * Text: * Dysphagia, oropharyngeal phase* Code: * Start Date: WedDecember 08 00:00:00 EDT 2023 * End Date: * Text: * Cognitive communication deficit* Code: * Start Date: WedDecember 08 00:00:00 EDT 2023 * End Date: * Text: * Other fatigue* Code: * Start Date: WedDecember 08 00:00:00 EDT 2023 * End Date: * Text: * Need for assistance with personal care* Code: * Start Date: WedDecember 08 00:00:00 EDT 2023 * End Date: * Text: * Other chest pain* Code: * Start Date: WedJul 18 00:00:00 EST 2024 * End Date: * Text: * Altered mental status, unspecified* Code: * Start Date: WedJul 24 00:00:00 EST 2024 * End Date: * Text: Resolved Concerns * Problem Hyperlipidemia, unspecified* Code: * Start Date: WedJan 28 00:00:00 EDT 2017 * End Date: WedNovember 25 00:00:00 EDT 2023 * Problem Other symptoms and signs involving cognitive functions and awareness* Code: * Start Date: WedNovember 13 00:00:00 EDT 2022 * End Date: WedMay 22 00:00:00 EST 2023 * Problem Syncope and collapse* Code: * Start Date: WedFeb 23 00:00:00 EDT 2022 * End Date: WedMay 22 00:00:00 EST 2023 * Problem Unspecified abnormalities of gait and mobility* Code: * Start Date: WedMar 16 00:00:00 EDT 2022 * End Date: WedMay 22 00:00:00 EST 2023 * Problem Rash and other nonspecific skin eruption* Code: * Start Date: WedMay 24 00:00:00 EST 2022 * End Date: WedMay 22 00:00:00 EST 2023 * Problem Heart failure, unspecified* Code: * Start Date: WedJun 03 00:00:00 EST 2022 * End Date: WedMay 22 00:00:00 EST 2023 * Problem Low back pain, unspecified* Code: * Start Date: WedMar 16 00:00:00 EDT 2022 * End Date: WedMay 11 00:00:00 EDT 2023 * Problem Personal history of colonic polyps* Code: * Start Date: WedJun 03 00:00:00 EST 2022 * End Date: WedApr 10 00:00:00 EDT 2023 * Problem Radiculopathy, lumbar region* Code: * Start Date: WedDecember 08 00:00:00 EDT 2023 * End Date: WedMay 11 00:00:00 EDT 2023 Vital Signs Vital Sign Measurement Date Systolic Blood Pressure 140.00 mm[Hg] WedOct 27 16:27:44 EDT 2024 Diastolic Blood Pressure 68.00 mm[Hg] WedOct 27 16:27:44 EDT 2024 Body weight 243.00 [lb_av] WedOct 27 16:27 :44 EDT 2024 Heart Rate 87.00 /min WedOct 27 16:27 :44 EDT 2024 Body temperature 98.20 [degF] WedOct 27 16:2 7:44 EDT 2024 Respiratory rate 20.00 /min WedOct 27 16:2 7:44 EDT 2024 Systolic Blood Pressure 142.00 mm[Hg] WedOct 13 12:40:16 EDT 2024 Diastolic Blood Pressure 80.00 mm[Hg] WedOct 13 12:40:16 EDT 2024 Body weight 244.00 [lb_av] WedOct 13 12:40 :16 EDT 2024 Heart Rate 88.00 /min WedOct 13 12:40 :16 EDT 2024 Body temperature 97.60 [degF] WedOct 13 12:4 0:16 EDT 2024 Respiratory rate 18.00 /min WedOct 13 12:4 0:16 EDT 2024 Systolic Blood Pressure 120.00 mm[Hg] WedSep 26 11:23:36 EDT 2024 Diastolic Blood Pressure 70.00 mm[Hg] WedSep 26 11:23:36 EDT 2024 Body weight 240.60 [lb_av] WedSep 26 11:23 :36 EDT 2024 Heart Rate 81.00 /min WedSep 26 11:23 :36 EDT 2024 Body temperature 97.70 [degF] WedSep 26 11:2 3:36 EDT 2024 Respiratory rate 20.00 /min WedSep 26 11:2 3:36 EDT 2024 Systolic Blood Pressure 133.00 mm[Hg] WedSep 21 02:17:00 EDT 2024 Diastolic Blood Pressure 78.00 mm[Hg] WedSep 21 02:17:00 EDT 2024 Heart Rate 87.00 /min WedSep 21 02:17 :00 EDT 2024 Body temperature 98.80 [degF] WedSep 21 02:1 7:00 EDT 2024 Respiratory rate 20.00 /min WedSep 21 02:1 7:00 EDT 2024 Pulse Oximetry 95.00 % WedSep 21 02:17 :00 EDT 2024 Systolic Blood Pressure 123.00 mm[Hg] WedSep 12 09:29:41 EST 2024 Diastolic Blood Pressure 69.00 mm[Hg] WedSep 12 09:29:41 2024 Body weight 237.60 [lb_av] WedSep 12 09:29 :41 EST 2024 Heart Rate 78.00 /min WedSep 12 09:29 :41 2024 Body temperature 98.30 [degF] WedSep 12 09:2 9:41 2024 Respiratory rate 20.00 /min WedSep 12 09:2 9:41 2024 Systolic Blood Pressure 107.00 mm[Hg] WedAug 29 18:05:24 2024 Diastolic Blood Pressure 59.00 mm[Hg] WedAug 29 18:05:24 2024 Body weight 237.60 [lb_av] WedAug 29 18:05 :24 2024 Heart Rate 77.00 /min WedAug 29 18:05 :24 2024 Body temperature 98.40 [degF] WedAug 29 18:0 5:24 2024 Respiratory rate 20.00 /min WedAug 29 18:0 5:24 2024 Systolic Blood Pressure 121.00 mm[Hg] WedAug 15 17:57:08 2024 Diastolic Blood Pressure 72.00 mm[Hg] WedAug 15 17:57:08 2024 Body weight 236.40 [lb_av] WedAug 15 17:57 :08 2024 Heart Rate 77.00 /min WedAug 15 17:57 :08 2024 Body temperature 98.20 [degF] WedAug 15 17:5 7:08 2024 Respiratory rate 20.00 /min WedAug 15 17:5 7:08 2024 Systolic Blood Pressure 120.00 mm[Hg] WedJul 29 17:53:46 2024 Diastolic Blood Pressure 71.00 mm[Hg] WedJul 29 17:53:46 EST 2024 Heart Rate 85.00 /min WedJul 29 17:53 :46 EST 2024 Body temperature 98.00 [degF] [facility] Jul 29 17:5 3:46 EST 2024 Respiratory rate 20.00 /min [facility] Jul 29 17:5 3:46 EST 2024 Systolic Blood Pressure 119.00 mm[Hg] Wed Jul 19 09:30:00 EST 2024 Diastolic Blood Pressure 68.00 mm[Hg] WedJul 19 09:30:00 EST 2024 Heart Rate 77.00 /min WedJul 19 09:30 :00 EST 2024 Respiratory rate 20.00 /min WedJul 19 09:3 0:00 EST 2024 Body temperature 98.20 [degF] [facility] Jul 19 09:3 0:00 EST 2024 Pulse Oximetry 94.00 % [facility] Jul 19 09:30 :00 EST 2024 Systolic Blood Pressure 117.00 mm[Hg] [facility] Jul 16 13:45:03 EST 2024 Diastolic Blood Pressure 63.00 mm[Hg] [facility] Jul 16 13:45:03 EST 2024 Body weight 234.20 [lb_av] [facility] Jul 16 13:45 :03 EST 2024 Heart Rate 71.00 /min [facility] Jul 16 13:45 :03 EST 2024 Body temperature 97.70 [degF] [facility] Jul 16 13:4 5:03 EST 2024 Respiratory rate 18.00 /min [facility] Jul 16 13:4 5:03 EST 2024 Systolic Blood Pressure 117.00 mm[Hg] [facility] Jul 15 09:10:46 EST 2024 Diastolic Blood Pressure 61.00 mm[Hg] [facility] Jul 15 09:10:46 EST 2024 Heart Rate 75.00 /min [facility] Jul 15 09:10 :46 EST 2024 Body temperature 98.40 [degF] [facility] Jul 15 09:1 0:46 EST 2024 Pulse Oximetry 92.00 % [facility] Jul 15 09:10 :46 EST 2024 Pulse Oximetry 92.00 % WedJul 08 13:00 :39 EST 2023 Pulse Oximetry 94.00 % WedJul 07 20:39 :13 EST 2023 Pulse Oximetry 92.00 % WedJul 07 10:53 :00 EST 2023 Pulse Oximetry 93.00 % WedJul 06 22:32 :45 EST 2023 Pulse Oximetry 93.00 % WedJul 06 11:43 :35 EST 2023 Pulse Oximetry 95.00 % WedJul 05 16:42 :42 EST 2023 Pulse Oximetry 93.00 % WedJul 05 14:57 :27 EST 2023 Pulse Oximetry 92.00 % WedJul 04 16:27 :42 EST 2023 Pulse Oximetry 95.00 % WedJul 04 13:46 :45 EST 2023 Systolic Blood Pressure 109.00 mm[Hg] WedJul 04 13:45:51 EST 2023 Diastolic Blood Pressure 68.00 mm[Hg] WedJul 04 13:45:51 EST 2023 Heart Rate 75.00 /min WedJul 04 13:45 :51 EST 2023 Body temperature 97.50 [degF] WedJul 04 13:4 5:51 EST 2023 Pulse Oximetry 95.00 % WedJul 04 13:45 :51 EST 2023 Pulse Oximetry 94.00 % WedJul 03 22:46 :38 EST 2023 Pulse Oximetry 94.00 % WedJul 03 11:22 :49 EST 2023 Pulse Oximetry 88.00 % WedJul 02 20:38 :52 EST 2023 Systolic Blood Pressure 142.00 mm[Hg] WedJun 28 18:46:27 EST 2023 Diastolic Blood Pressure 68.00 mm[Hg] WedJun 28 18:46:27 EST 2023 Body weight 237.60 [lb_av] WedJun 28 18:46 :27 EST 2023 Heart Rate 72.00 /min WedJun 28 18:46 :27 EST 2023 Body temperature 98.30 [degF] WedJun 28 18:4 6:27 EST 2023 Respiratory rate 18.00 /min WedJun 28 18:4 6:27 EST 2023 Systolic Blood Pressure 116.00 mm[Hg] WedJun 14 18:12:34 EST 2023 Diastolic Blood Pressure 66.00 mm[Hg] WedJun 14 18:12:34 EST 2023 Body weight 237.40 [lb_av] WedJun 14 18:12 :34 EST 2023 Heart Rate 75.00 /min WedJun 14 18:12 :34 EST 2023 Body temperature 97.60 [degF] WedJun 14 18:1 2:34 EST 2023 Respiratory rate 18.00 /min WedJun 14 18:1 2:34 EST 2023 Body Height 70.00 [in_i] WedJun 06 12:31 :17 EST 2023 Systolic Blood Pressure 130.00 mm[Hg] WedJun 05 10:01:14 EST 2023 Diastolic Blood Pressure 80.00 mm[Hg] WedJun 05 10:01:14 EST 2023 Heart Rate 83.00 /min WedJun 05 10:01 :14 EST 2023 Body temperature 97.70 [degF] WedJun 05 10:0 1:14 EST 2023 Respiratory rate 18.00 /min WedJun 05 10:0 1:14 EST 2023 Pulse Oximetry 94.00 % WedJun 05 10:01 :14 EST 2023 Systolic Blood Pressure 122.00 mm[Hg] WedJun 04 23:30:16 EST 2023 Diastolic Blood Pressure 72.00 mm[Hg] WedJun 04 23:30:16 EST 2023 Pulse Oximetry 95.00 % WedJun 04 23:30 :16 EST 2023 Heart Rate 70.00 /min WedJun 04 23:30 :16 EST 2023 Body temperature 98.20 [degF] WedJun 04 23:3 0:16 EST 2023 Respiratory rate 20.00 /min WedJun 04 23:3 0:16 EST 2023 Systolic Blood Pressure 110.00 mm[Hg] WedJun 04 11:02:36 EST 2023 Diastolic Blood Pressure 69.00 mm[Hg] WedJun 04 11:02:36 EST 2023 Heart Rate 69.00 /min WedJun 04 11:02 :36 EST 2023 Body temperature 98.00 [degF] WedJun 04 11:0 2:36 EST 2023 Respiratory rate 20.00 /min WedJun 04 11:0 2:36 2023 Pulse Oximetry 93.00 % WedJun 04 11:02 :36 2023 Systolic Blood Pressure 101.00 mm[Hg] WedJun 03 23:16:03 EST 2023 Diastolic Blood Pressure 65.00 mm[Hg] WedJun 03 23:16:03 EST 2023 Heart Rate 72.00 /min WedJun 03 23:16 :03 EST 2023 Body temperature 97.50 [degF] WedJun 03 23:1 6:03 EST 2023 Respiratory rate 18.00 /min WedJun 03 23:1 6:03 EST 2023 Pulse Oximetry 91.00 % WedJun 03 23:16 :03 EST 2023 Systolic Blood Pressure 126.00 mm[Hg] WedJun 03 14:56:40 EST 2023 Diastolic Blood Pressure 76.00 mm[Hg] WedJun 03 14:56:40 EST 2023 Heart Rate 110.00 /min WedJun 03 14:56 :40 EST 2023 Body temperature 97.50 [degF] WedJun 03 14:5 6:40 EST 2023 Respiratory rate 18.00 /min WedJun 03 14:5 6:40 EST 2023 Pulse Oximetry 92.00 % WedJun 03 14:56 :40 EST 2023 Systolic Blood Pressure 132.00 mm[Hg] WedJun 02 23:12:59 EST 2023 Diastolic Blood Pressure 66.00 mm[Hg] WedJun 02 23:12:59 EST 2023 Heart Rate 70.00 /min WedJun 02 23:12 :59 EST 2023 Body temperature 98.50 [degF] WedJun 02 23:1 2:59 EST 2023 Respiratory rate 20.00 /min WedJun 02 23:1 2:59 EST 2023 Pulse Oximetry 95.00 % WedJun 02 23:12 :59 EST 2023 Systolic Blood Pressure 132.00 mm[Hg] WedJun 02 20:48:23 2023 Diastolic Blood Pressure 70.00 mm[Hg] WedJun 02 20:48:23 2023 Heart Rate 81.00 /min WedJun 02 20:48 :23 2023 Body temperature 98.20 [degF] WedJun 02 20:4 8:23 EST 2023 Respiratory rate 20.00 /min WedJun 02 20:4 8:23 EST 2023 Pulse Oximetry 96.00 % WedJun 02 20:48 :23 2023 Systolic Blood Pressure 120.00 mm[Hg] WedJun 01 22:44:08 2023 Diastolic Blood Pressure 66.00 mm[Hg] WedJun 01 22:44:08 2023 Heart Rate 77.00 /min WedJun 01 22:44 :08 EST 2023 Body temperature 98.00 [degF] WedJun 01 22:4 4:08 EST 2023 Respiratory rate 20.00 /min WedJun 01 22:4 4:08 EST 2023 Pulse Oximetry 95.00 % WedJun 01 22:44 :08 EST 2023 Systolic Blood Pressure 120.00 mm[Hg] WedJun 01 10:54:35 EST 2023 Diastolic Blood Pressure 61.00 mm[Hg] WedJun 01 10:54:35 EST 2023 Body temperature 98.00 [degF] WedJun 01 10:5 4:35 EST 2023 Heart Rate 73.00 /min WedJun 01 10:54 :35 EST 2023 Respiratory rate 18.00 /min WedJun 01 10:5 4:35 EST 2023 Pulse Oximetry 90.00 % WedJun 01 10:54 :35 EST 2023 Systolic Blood Pressure 97.00 mm[Hg] WedMay 31 23:57:19 EST 2023 Diastolic Blood Pressure 57.00 mm[Hg] WedMay 31 23:57:19 EST 2023 Heart Rate 69.00 /min WedMay 31 23:57 :19 EST 2023 Body temperature 97.80 [degF] WedMay 31 23:5 7:19 EST 2023 Respiratory rate 20.00 /min WedMay 31 23:5 7:19 2023 Pulse Oximetry 94.00 % WedMay 31 23:57 :19 EST 2023 Systolic Blood Pressure 140.00 mm[Hg] WedMay 29 13:51:52 EST 2023 Diastolic Blood Pressure 86.00 mm[Hg] WedMay 29 13:51:52 EST 2023 Body weight 244.20 [lb_av] WedMay 29 13:51 :52 EST 2023 Heart Rate 81.00 /min WedMay 29 13:51 :52 EST 2023 Body temperature 98.20 [degF] WedMay 29 13:5 1:52 2023 Respiratory rate 18.00 /min WedMay 29 13:5 1:52 2023 Systolic Blood Pressure 116.00 mm[Hg] WedMay 21 19:32:52 2023 Diastolic Blood Pressure 71.00 mm[Hg] WedMay 21 19:32:52 2023 Heart Rate 81.00 /min WedMay 21 19:32 :52 2023 Body temperature 97.70 [degF] WedMay 21 19:3 2:52 2023 Pulse Oximetry 95.00 % WedMay 21 19:32 :52 2023 Systolic Blood Pressure 117.00 mm[Hg] WedMay 21 18:25:01 EST 2023 Diastolic Blood Pressure 52.00 mm[Hg] WedMay 21 18:25:01 EST 2023 Heart Rate 71.00 /min WedMay 21 18:25 :01 2023 Body temperature 97.70 [degF] WedMay 21 18:2 5:01 2023 Pulse Oximetry 96.00 % WedMay 21 18:25 :01 EST 2023 Systolic Blood Pressure 121.00 mm[Hg] Fri Oct 18 14:04:47 EDT 2023 Diastolic Blood Pressure 73.00 mm[Hg] Wed 18 14:04:47 EDT 4 Body weight 245.60 [lb_av] Wed 18 14:04 :47 EDT 2023 Heart Rate 79.00 /min Wed 18 14:04 :47 EDT 2023 Body temperature 98.10 [degF] Wed 18 14:0 4:47 EDT 2023 Respiratory rate 18.00 /min Wed 18 14:0 4:47 EDT 2023 Body temperature 97.50 [degF] Sun Oct 13 12:5 0:18 EDT 2023 Body temperature 97.80 [degF] Sat Oct 12 17:5 8:29 EDT 2023 Body temperature 98.10 [degF] [facility] Oct 12 15:5 9:00 EDT 2023 Body temperature 97.70 [degF] Wed 11 21:3 6:02 EDT 2023 Body temperature 97.70 [degF] WedApr 21 14:2 7:25 EDT 2023 Body temperature 97.50 [degF] WedApr 21 03:0 6:52 EDT 2023 Systolic Blood Pressure 123.00 mm[Hg] WedApr 14 18:22:30 EDT 2023 Diastolic Blood Pressure 73.00 mm[Hg] WedApr 14 18:22:30 EDT 2023 Heart Rate 80.00 /min WedApr 14 18:22 :30 EDT 2023 Body weight 249.00 [lb_av] WedApr 14 18:22 :30 EDT 2023 Body temperature 96.80 [degF] WedApr 14 18:2 2:30 EDT 2023 Respiratory rate 20.00 /min WedApr 14 18:2 2:30 EDT 2023 Systolic Blood Pressure 109.00 mm[Hg] Wed Sep 18 11:40:33 EDT 4 Diastolic Blood Pressure 65.00 mm[Hg] Wed Sep 18 11:40:33 EDT 2023 Body weight 246.00 [lb_av] Wed Sep 18 11:40 :33 EDT 2023 Heart Rate 73.00 /min Wed Sep 18 11:40 :33 EDT 2023 Body temperature 98.60 [degF] Wed Sep 18 11:4 0:33 EDT 2023 Respiratory rate 18.00 /min Wed Sep 18 11:4 0:33 EDT 2023 Systolic Blood Pressure 106.00 mm[Hg] [facility] Mar 04 15:11:12 EDT 2023 Diastolic Blood Pressure 58.00 mm[Hg] [facility] Mar 04 15:11:12 EDT 2023 Body weight 245.00 [lb_av] [facility] Mar 04 15:11 :12 EDT 2023 Heart Rate 78.00 /min [facility] Mar 04 15:11 :12 EDT 2023 Body temperature 98.40 [degF] [facility] Mar 15 15:1 1:12 EDT 2023 Respiratory rate 18.00 /min [facility] Mar 15 15:1 1:12 EDT 2023 Systolic Blood Pressure 144.00 mm[Hg] [facility] Feb 26 17:10:45 EDT 2023 Diastolic Blood Pressure 74.00 mm[Hg] [facility] Feb 26 17:10:45 EDT 2023 Body weight 244.00 [lb_av] [facility] Feb 26 17:10 :45 EDT 2023 Heart Rate 69.00 /min [facility] Feb 26 17:10 :45 EDT 2023 Body temperature 97.60 [degF] [facility] Feb 26 17:1 0:45 EDT 2023 Respiratory rate 20.00 /min [facility] Feb 26 17:1 0:45 EDT 2023 Systolic Blood Pressure 115.00 mm[Hg] [facility] Feb 12 18:27:06 EDT 2023 Diastolic Blood Pressure 66.00 mm[Hg] [facility] Feb 12 18:27:06 EDT 2023 Body weight 247.00 [lb_av] [facility] Feb 12 18:27 :06 EDT 2023 Heart Rate 76.00 /min [facility] Feb 12 18:27 :06 EDT 2023 Body temperature 98.40 [degF] [facility] Feb 12 18:2 7:06 EDT 2023 Respiratory rate 18.00 /min [place] Feb 12 18:2 7:06 EDT 2023 Systolic Blood Pressure 133.00 mm[Hg] WedJan 26 18:38:30 EDT 2023 Diastolic Blood Pressure 81.00 mm[Hg] WedJan 26 18:38:30 EDT 2023 Body weight 245.00 [lb_av] WedJan 26 18:38 :30 EDT 2023 Heart Rate 84.00 /min WedJan 26 18:38 :30 EDT 2023 Body temperature 98.20 [degF] WedJan 26 18:3 8:30 EDT 2023 Respiratory rate 20.00 /min WedJan 26 18:3 8:30 EDT 2023 Systolic Blood Pressure 155.00 mm[Hg] WedJan 13 17:42:13 EDT 2023 Diastolic Blood Pressure 86.00 mm[Hg] WedJan 13 17:42:13 EDT 2023 Body weight 245.00 [lb_av] WedJan 13 17:42 :13 EDT 2023 Heart Rate 87.00 /min WedJan 13 17:42 :13 EDT 2023 Body temperature 97.50 [degF] WedJan 13 17:4 2:13 EDT 2023 Respiratory rate 20.00 /min WedJan 13 17:4 2:13 EDT 2023 Systolic Blood Pressure 120.00 mm[Hg] WedDec 28 14:58:28 EDT 2023 Diastolic Blood Pressure 66.00 mm[Hg] WedDec 28 14:58:28 EDT 2023 Body weight 243.80 [lb_av] WedDec 28 14:58 :28 EDT 2023 Heart Rate 70.00 /min WedDec 28 14:58 :28 EDT 2023 Body temperature 97.10 [degF] WedDec 28 14:5 8:28 EDT 2023 Respiratory rate 18.00 /min WedDec 28 14:5 8:28 EDT 2023 Systolic Blood Pressure 125.00 mm[Hg] WedDec 13 21:34:23 EDT 2023 Diastolic Blood Pressure 67.00 mm[Hg] WedDec 13 21:34:23 EDT 2023 Body weight 244.40 [lb_av] WedDec 13 21:34 :23 EDT 2023 Heart Rate 75.00 /min WedDec 13 21:34 :23 EDT 2023 Body temperature 97.80 [degF] WedDec 13 21:3 4:23 EDT 2023 Respiratory rate 20.00 /min WedDec 13 21:3 4:23 EDT 2023 Systolic Blood Pressure 117.00 mm[Hg] WedNovember 27 15:12:32 EDT 2023 Diastolic Blood Pressure 68.00 mm[Hg] WedNovember 27 15:12:32 EDT 2023 Body weight 240.20 [lb_av] WedNovember 27 15:12 :32 EDT 2023 Heart Rate 61.00 /min WedNovember 27 15:12 :32 EDT 2023 Body temperature 97.30 [degF] WedNovember 27 15:1 2:32 EDT 2023 Respiratory rate 18.00 /min WedNovember 27 15:1 2:32 EDT 2023 Systolic Blood Pressure 135.00 mm[Hg] WedNovember 13 13:20:50 EDT 2023 Diastolic Blood Pressure 79.00 mm[Hg] WedNovember 13 13:20:50 EDT 2023 Body weight 240.00 [lb_av] WedNovember 13 13:20 :50 EDT 2023 Heart Rate 89.00 /min WedNovember 13 13:20 :50 EDT 2023 Body temperature 97.70 [degF] WedNovember 13 13:2 0:50 EDT 2023 Respiratory rate 18.00 /min WedNovember 13 13:2 0:50 EDT 2023 Reason for Referral Past Medical History Resolved Concerns * Problem Unilateral primary osteoarthritis, right knee* Code: * Start Date: WedSep 22 00:00:00 EDT 2016 * End Date: WedNovember 16 00:00:00 EDT 2022 * Problem Pain in unspecified hip* Code: * Start Date: WedDecember 01 00:00:00 EDT 2017 * End Date: WedNovember 16 00:00:00 EDT 2022 * Problem Aftercare following joint replacement surgery* Code: * Start Date: WedJan 28 00:00:00 EDT 2017 * End Date: WedNovember 16 00:00:00 EDT 2022 * Problem Unilateral primary osteoarthritis, right hip* Code: * Start Date: WedJan 28 00:00:00 EDT 2017 * End Date: WedNovember 16 00:00:00 EDT 2022 * Problem Type 2 diabetes mellitus without complications* Code: * Start Date: WedJan 28 00:00:00 EDT 2017 * End Date: WedNovember 16 00:00:00 EDT 2022 * Problem Hyperlipidemia, unspecified* Code: * Start Date: WedJan 28 00:00:00 EDT 2017 * End Date: WedNovember 25 00:00:00 EDT 2023 * Problem Sacroiliitis, not elsewhere classified* Code: * Start Date: WedAug 17 00:00:00 EST 2022 * End Date: WedNovember 16 00:00:00 EDT 2022 * Problem Muscle weakness (generalized)* Code: * Start Date: WedAug 17 00:00:00 EST 2022 * End Date: WedNovember 16 00:00:00 EDT 2022 * Problem Other symptoms and signs involving cognitive functions and awareness* Code: * Start Date: WedNovember 13 00:00:00 EDT 2022 * End Date: WedMay 22 00:00:00 EST 2023 * Problem Syncope and collapse* Code: * Start Date: WedFeb 23 00:00:00 EDT 2022 * End Date: WedMay 22 00:00:00 EST 2023 * Problem Unspecified abnormalities of gait and mobility* Code: * Start Date: WedMar 16 00:00:00 EDT 2022 * End Date: WedMay 22 00:00:00 EST 2023 * Problem Rash and other nonspecific skin eruption* Code: * Start Date: WedMay 24 00:00:00 EST 2022 * End Date: WedMay 22 00:00:00 EST 2023 * Problem Heart failure, unspecified* Code: * Start Date: WedJun 03 00:00:00 EST 2022 * End Date: WedMay 22 00:00:00 EST 2023 * Problem Low back pain, unspecified* Code: * Start Date: WedMar 16 00:00:00 EDT 2022 * End Date: WedMay 11 00:00:00 EDT 2023 * Problem Personal history of colonic polyps* Code: * Start Date: WedJun 03 00:00:00 EST 2022 * End Date: WedApr 10 00:00:00 EDT 2023
--- OUTSIDE RECORDS SUMMARY | 2024-11-07 09:32 | XMS_ITS | Encounter Summary ---
Author Organization [facility] Address [address] [place] [address] Care Team Providers Care Real Estate Assessor Name Role Phone Unavailable Primary Care Provider Unavailabl e Encounter Details Date Type Department Care Team (Late st Contact Info) Description 04/25/2020 Lab Requisition [facility] [address] [place] [id number] Kelby Colmenares MD [address] [place] [address] Social History Tobacco Use Types Packs/Day Years Used Date Smoking Tobacco: Never Assessed Sex and Gender Information Value Date Recorded Sex Assigned at Not on file Legal 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 Gender Identity Not on file Sexual Orientation Not on file documented as of this encounter Plan of Treatment Not on file documented as of this encounter Procedures Procedure Name Priority Date/Time Associated Diagnosis Comments DERMATOPATHOLOGY Routine 04/24/2020 12:0 0 AM CDT documented in this encounter Results * DERMATOPATHOLOGY (04/24/2020 12:00 AM CDT) Case Report Dermatopathology Report Case: [id number] Authorizing Provider: Kelby Colmenares MD Collected: 04/24/2020 12:00 AM Ordering Location: [facility] Received: 04/25/2020 12:14 [...] of a curettage and desiccation biopsy measuring [id number]. Jar 0. Specimen B: Received is one formalin filled container labeled with the patient's name and designated left upper chest. The specimen consists of a curettage and desiccation biopsy measuring [id number]. Jar 0. 0 3:56 PM CDT DERMATOPATHOLOGY [...] characteristic determined by the Dermatopathology Laboratory at [facility], directed by Dr. Leta Orozco. These tests need not be, and therefore are not, approved by the [place] Food and Drug Administration. The tests are used for clinical purposes. Billing Codes Specimen Charges Stain Charges 83332 [id number] 1 1 0 3:56 PM CDT DERMATOPATHOLOGY LABORATORY Embedded Images 0 3:56 PM CDT DERMATOPATHOLOGY LABORATORY Pathology/Cytology TISSUE SPECIMEN FROM SKIN / Unknown 04/24/2020 04/25/2020 12:14 PM CDT Miscellaneous samples (specimen) TISSUE SPECIMEN FROM SKIN / Unknown 04/24/2020 04/25/2020 12:14 PM CDT us Kelby Colmenares MD LAB - PATHOLOGY/CYTOLOGY ORD ERABLES Final Result DERMATOPATHOLOGY LABORATORY [facility] - Department of Dermatology [facility] Medicine [address] [place] [address], [address] [phone] documented in this encounter Visit Diagnoses Not on filedocumented in this encounter
--- OUTSIDE RECORDS SUMMARY | 2024-11-07 09:32 | XMS_ITS ---
Author Name Auto Generated, Auto Generated Organization [facility] Address [address] [place] [address] Phone [phone] Care Team Providers Care Waste Transportation Technician Name Role Phone Autumnleonardo Zi Clemons Unavailable Donald Bruner Unavailable [phone] Reji Banegas Unavailable [phone] Peter Darnell Unavailable [phone] Functional Status No Results Mental Status No Results Allergies and Intolerances Name Onset Date Reaction Severity codeine (Allergy) WedNovember 13 13:05:00 EDT 2022 morphine (Allergy) WedSep 02 14:52:00 EST 2019 Encounters Program Name Primary Diagnosis Admission Date/Time Dis charge Date/Time Assisted Living Area Respiratory failure , unspecified, unspecified whether with hypoxia or hypercapnia WedNovember 13 06:30:00 EDT 2022 [facility] WedDecember 07 20:00:00 EDT 2023Sep 26 19:59:00 EDT 2024 Immunizations Name Dates Status influenza, trivalent, adjuvanted [...] Times Daily for 2 Days Indication: post-op CELLOPHANE BAG MACHINE OPERATOR supervision x1, x4 WedSep 07 01:00:00 EST 2024 Sat Sep 09 00:59:00 EST 2024 pravastatin 20 mg tablet 1 tablet TABLET Oral 1 Time Daily Indication: mixed hyperlipidemia CELLOPHANE BAG MACHINE OPERATOR supervision x4 WedAug 08 10:00:00 EST 2024 nystatin 100,000 unit/gram topical powder 1 POWDER (GRAM) Topical 2 Times Daily Indication: yeast may self-administer WedJul 27 01:00:00 EST 2024 mirtazapine 15 mg tablet 1 tab TABLET Or al 1 Time Daily Indication: CELLOPHANE BAG MACHINE OPERATOR Supervision x4 WedJul 25 01:00:00 EST 2024 [...] 2 Times Daily for 6 Days Indication: CELLOPHANE BAG MACHINE OPERATOR to obtain O2 random for documentation WedJul 02 15:00:00 2023Jul 08 14:59:00 EST 2023 clonazePAM 1 mg tablet 1 mg 1 tab TABLET Oral 1 Time Daily Indication: anxiety nurse admin x4 WedJun 06 13:47:00 EST 2023 Lagevrio 200 mg capsule (EUA) 4 CAPSULE Oral 2 Times Daily for 5 Days Indication: COVID pos (+) CELLOPHANE BAG MACHINE OPERATOR Supervision X1, X4 WedJun 01 01:00:00 EST [...] KIT Other 2 Times Monthly Indication: Vitals CELLOPHANE BAG MACHINE OPERATOR supervision, CELLOPHANE BAG MACHINE OPERATOR obtain vitals WedFeb 15 16:32:00 EDT 2023 [...] al 1 Time Daily Indication: mixed hyperlipidemia CELLOPHANE BAG MACHINE OPERATOR supervision x4 WedJun 23 01:00:00 EST 2022Aug 08 11:19:00 EST 2024 furosemide 40 mg tablet 1 tab TABLET Ora l 1 Time Daily Indication: edema CELLOPHANE BAG MACHINE OPERATOR supervision x1 WedJun 04 01:00:00 EST 2022 [...] Oral 1 Time Daily Indication: blood thinner CELLOPHANE BAG MACHINE OPERATOR supervision x1 WedMay 19 14:35:00 EST 2022 clonazePAM 1 mg tablet 1 tab TABLET Oral 1 Time Daily Indication: anxiety nurse admin x4 WedMay 19 14:36:00 EST 2022Jun 06 13:49:00 EST 2023 clopidogreL 75 mg tablet 1 tab TABLET Or al 1 Time Daily Indication: AFIB CELLOPHANE BAG MACHINE OPERATOR supervision x1 WedMay 19 14:36:00 EST 2022 Banophen 25 mg capsule 1 cap CAPSULE Ora l PRN Every 6 Hours Indication: itchingnurse admin WedMay 19 14:37:00 EST 2022Jun 03 18:00:00 EST 2022 hydroCHLOROthiazide 12.5 mg tablet 1 tab TABLET Oral 1 Time Daily Indication: heart disease CELLOPHANE BAG MACHINE OPERATOR supervision x1 WedMay 19 14:38:00 EST 2022Jun 03 18:00:00 EST 2022 Milk of Magnesia 400 mg/5 mL oral suspension 80mg/ml SUSPENSION, ORAL (FINAL DOSE FORM) Oral PRN Every 12 Hours Indication: constipationnurse admin WedMay 19 14:39:00 EST 2022May 18 16:00:00 EST 2023 pravastatin 80 mg tablet 1 tab TABLET Or al 1 Time Daily Indication: mixed hyperlipidemia CELLOPHANE BAG MACHINE OPERATOR supervision x4 WedMay 19 14:40:00 EST 2022Jun 22 20:00:00 EST 2022 Stool Softener-Laxative 8.6 mg-50 mg tablet 1 tab TABLET Oral PRN Every 12 Hours Indication: constipationnurse admin WedMay 19 14:41:00 2022May 18 16:00:00 EST 2023 cetirizine 10 mg tablet 1 tab TABLET Ora l 1 Time Daily Indication: allergy CELLOPHANE BAG MACHINE OPERATOR supervision x4 WedMay 19 14:41:00 EST 2022 Culturelle 15 billion cell sprinkle capsule 1 cap CAPSULE, SPRINKLE Oral 1 Time Daily Indication: Probiotic CELLOPHANE BAG MACHINE OPERATOR supervision x2 WedMay 19 14:42:00 EST 2022 Glucosamine Chondroitin Maximum Strength 500 mg-400 mg capsule 1 cap CAPSULE Oral 1 Time Daily Indication: heart disease CELLOPHANE BAG MACHINE OPERATOR supervision x3 WedMay 19 14:43:00 EST 2022 Blood Pressure Kit 1 KIT Other 2 Times Monthly Indication: Vitals CELLOPHANE BAG MACHINE OPERATOR supervision, CELLOPHANE BAG MACHINE OPERATOR obtain vitals WedMay 19 14:44:00 2022Feb 15 16:35:00 EDT 2023 metFORMIN 500 mg tablet 1 tab TABLET Ora l 2 Times Daily Indication: DM CELLOPHANE BAG MACHINE OPERATOR supervision x1 x3 WedMay 19 14:45:00 EST 2022 carvediloL 12.5 mg tablet 1 tab TABLET O ral 2 Times Daily Indication: Hypertension/ heart disease CELLOPHANE BAG MACHINE OPERATOR supervision x1 x3 WedMay 19 14:46:00 EST 2022 Fish OiL 360 mg-1,200 mg capsule 1 CAP Oral 2 Times Daily Indication: supplement/heart CELLOPHANE BAG MACHINE OPERATOR supervision x1 x3 WedMay 19 14:47:00 EST 2022 calcium carbonate 600 mg-vitamin D3 25 mcg (1,000 unit) capsule 1 caps CAPSULE Oral 1 Time Daily Indication: vitamin CELLOPHANE BAG MACHINE OPERATOR supervision x2 WedMay 19 14:48:00 EST 2022 T.E.D. Anti-Embolism Stocking 1 EACH Oth er 2 Times Daily Indication: T.E.D CELLOPHANE BAG MACHINE OPERATOR supervision assist T.E.D on in AM and [...] CAPSULE Oral 2 Times Daily Indication: supplement CELLOPHANE BAG MACHINE OPERATOR supervision x1, x4 WedMar 04 01:00:00 EDT 2022 Blood Pressure Kit 1 KIT Other 1 Time D aily for 30 Days Indication: Vitals CELLOPHANE BAG MACHINE OPERATOR obtain vitalsBASELINE :263.40 notify MD if weight [...] Time Daily for 3 Days Indication: edema CELLOPHANE BAG MACHINE OPERATOR x1 WedDec 16 01:00:00 EDT 2022Dec 19 [...] TABLET Oral 1 Time Daily Indication: supplement CELLOPHANE BAG MACHINE OPERATOR X2 WedNovember 18 08:55:00 ED2022November 18 15:57:00 EDT 2022 Centrum Silver Men 300 mcg-600 mcg-300 mcg tablet 1 tablet TABLET Oral 1 Time Daily Indication: supplement CELLOPHANE BAG MACHINE OPERATOR X2 WedNovember 18 08:56:00 EDT 2022May 13 14:42:00 EDT 2022 calcium carbonate 600 mg-vitamin D3 25 mcg (1,000 unit) capsule 1 caps CAPSULE Oral 1 Time Daily Indication: vitamin CELLOPHANE BAG MACHINE OPERATOR x2 WedNovember 19 01:00:00 EDT 2022May 19 14:50:00 2022 Fish OiL 1,200 mg (144 mg-21 6 mg) capsule 1 capsule CAPSULE Oral 2 Times Daily Indication: heart disease CELLOPHANE BAG MACHINE OPERATOR X1 X3 WedNovember 16 15:00:00 EDT 2022November 18 08:59:00 EDT 2022 Yash Mag Zinc Plus D3 333 mg-133 unit-133 mg-5 mg tablet 3 tablets TABLET Oral 1 Time Daily Indication: supplement risk management intern x1 WedNovember 17 07:00:00 EDT 2022November 18 08:56:00 EDT 2022 Centrum Silver Men 300 mcg-600 mcg-300 mcg tablet 1 tablet TABLET Oral 1 Time Daily Indication: supplement risk management intern x1 WedNovember 17 07:00:00 EDT 2022November 18 08:57:00 EDT 2022 Fish OiL 360 mg-1,200 mg capsule 1 CAP Oral 2 Times Daily Indication: supplement/heart CELLOPHANE BAG MACHINE OPERATOR x1 X3 WedNovember 15 01:00:00 EDT 2022May 19 14:49:00 EST 2022 Blood Pressure Kit 1 KIT Other 2 Times Monthly Indication: Vitals CELLOPHANE BAG MACHINE OPERATOR obtain vitals Michelle November 26 01:00:00 EDT 2022May 19 14:46:00 EST 2022 Glucosamine Chondroitin Maximum Strength 500 mg-400 mg capsule 1 cap CAPSULE Oral 1 Time Daily Indication: heart disease CELLOPHANE BAG MACHINE OPERATOR x3 WedNovember 14 16:37:00 EDT 2022May 19 14:45:00 EST 2022 metFORMIN 500 mg tablet 1 tab TABLET Ora l 2 Times Daily Indication: DM CELLOPHANE BAG MACHINE OPERATOR X1 X3 WedNovember 14 16:38:00 EDT 2022May 19 14:47:00 EST 2022 Calcium 600-D3 Plus (mag-zinc) 600 mg calcium-20 mcg-50 mg tablet 1 tab TABLET Oral 1 Time Daily Indication: vitaminCNA x2 WedNovember 14 16:41:00 EDT 2022November 16 13:11:00 EDT 2022 carvediloL 12.5 mg tablet 1 tab TABLET O ral 2 Times Daily Indication: Hypertension/ heart disease CELLOPHANE BAG MACHINE OPERATOR X1 X3 WedNovember 14 16:42:00 EDT 2022May 19 14:48:00 EST 2022 One-Per-Day Jarbidge-3 684 mg-1,200 mg capsule,delayed release 1 caps CAPSULE,DELAYED RELEASE (ENTERIC COATED) Oral 2 Times Daily Indication: heart disease CELLOPHANE BAG MACHINE OPERATOR X1 X3 WedNovember 14 16:43:00 EDT 2022November 16 12:13:00 EDT 2022 Blood Glucose Monitoring kit 1 KIT Other 3 Times Weekly Indication: DM Nurse WedNovember 16 01:00:00 EDT 2022November 17 19:14:00 EDT 2022 aspirin 81 mg tablet,delayed release 1 tab TABLET, DELAYED RELEASE (ENTERIC COATED) Oral 1 Time Daily Indication: blood thinner CELLOPHANE BAG MACHINE OPERATOR X1 WedNovember 13 14:42:00 EDT 2022May 19 14:37:00 EST 2022 carvediloL 12.5 mg tablet 1 tab TABLET O ral 2 Times Daily Indication: Hypertension/ heart disease CELLOPHANE BAG MACHINE OPERATOR X1 X4 WedNovember 13 16:46:00 EDT 2022November 14 16:44:00 EDT 2022 clonazePAM 1 mg tablet 1 mg 1 tab TABLET Oral 1 Time Daily Indication: anxiety NURSE x4 WedNovember 13 19:00:00 EDT 2022May 19 14:37:00 EST 2022 clopidogreL 75 mg tablet 1 tab TABLET Or al 1 Time Daily Indication: AFIB CELLOPHANE BAG MACHINE OPERATOR x1 WedNovember 13 19:30:00 EDT 2022May 19 14:38:00 EST 2022 Banophen 25 mg capsule 1 cap CAPSULE Ora l PRN Every 6 Hours Indication: itching WedNovember 13 19:30:00 EDT 2022May 19 14:39:00 EST 2022 hydroCHLOROthiazide 12.5 mg tablet 1 tab TABLET Oral 1 Time Daily Indication: heart disease CELLOPHANE BAG MACHINE OPERATOR X1 WedNovember 13 19:30:00 EDT 2022May 19 14:40:00 EST 2022 Milk of Magnesia 400 mg/5 mL oral suspension 400 mg/5 mL 80mg/ml SUSPENSION, ORAL (FINAL DOSE FORM) Oral PRN Every 12 Hours Indication: constipation WedNovember 13 19:30:00 EDT 2022May 19 14:41:00 EST 2022 metFORMIN 500 mg tablet 1 tab TABLET Ora l 2 Times Daily Indication: DM CELLOPHANE BAG MACHINE OPERATOR X1 X4 WedNovember 13 19:30:00 EDT 2022November 14 16:44:00 EDT 2022 One-Per-Day Jarbidge-3 684 mg-1,200 mg capsule,delayed release 1 caps CAPSULE,DELAYED RELEASE (ENTERIC COATED) Oral 2 Times Daily Indication: heart disease CELLOPHANE BAG MACHINE OPERATOR X1 X4 WedNovember 13 19:00:00 EDT 2022November 14 16:44:00 EDT 2022 pravastatin 80 mg tablet 1 tab TABLET Or al 1 Time Daily Indication: mixed hyperlipidemia CELLOPHANE BAG MACHINE OPERATOR X4 WedNovember 13 19:30:00 EDT 2022May 19 14:41:00 EST 2022 Stool Softener-Laxative 8.6 mg-50 mg tablet 8.6-50 mg 1 tab TABLET Oral PRN Every 12 Hours Indication: constipation WedNovember 13 19:30:00 EDT 2022May 19 14:42:00 EST 2022 Complete Multivitamin Adult 50 Plus 0.4 mg-300 mcg-250 mcg tablet 1 tab TABLET Oral 1 Time Daily Indication: vitamin CELLOPHANE BAG MACHINE OPERATOR x2 WedNovember 13 19:30:00 EDT 2022November 16 13:18:00 EDT 2022 cetirizine 10 mg tablet 1 tab TABLET Ora l 1 Time Daily Indication: allergy CELLOPHANE BAG MACHINE OPERATOR X4 WedNovember 13 19:30:00 EDT 2022May 19 14:43:00 EST 2022 Calcium 600-D3 Plus (mag-zinc) 600 mg calcium-20 mcg-50 mg tablet 1 tab TABLET Oral 1 Time Daily Indication: vitamin WedNovember 13 19:00:00 EDT 2022November 14 16:44:00 EDT 2022 Culturelle 15 billion cell sprinkle capsule 1 cap CAPSULE, SPRINKLE Oral 1 Time Daily Indication: Probiotic CELLOPHANE BAG MACHINE OPERATOR X2 WedNovember 13 19:00:00 EDT 2022May 19 14:44:00 EST 2022 Glucosamine Chondroitin Maximum Strength 500 mg-400 mg capsule 1 cap CAPSULE Oral 1 Time Daily Indication: heart disease CELLOPHANE BAG MACHINE OPERATOR x4 WedNovember 13 19:00:00 EDT 2022November 14 [...] 2017 * End Date: * Text: * penitentiary (current) use of anticoagulants* Code: * Start Date: WedFeb 22 00:00:00 EDT 2017 * End Date: * Text: * Dorsalgia, unspecified* Code: * Start Date: WedAug 17 00:00:00 EST 2022 * End Date: * Text: * Atherosclerotic heart disease of [place] coronary artery without angina pectoris* Code: * [...] 2022 * End Date: * Text: * penitentiary (current) use of antithrombotics/antiplatelets* Code: * Start Date: WedNovember 13 00:00:00 EDT 2022 * End Date: * Text: * penitentiary (current) use of aspirin* Code: * Start Date: WedNovember 13 00:00:00 EDT 2022 * End Date: * Text: * penitentiary (current) use of oral hypoglycemic drugs* Code: [...] 2022 * End Date: * Text: * penitentiary (current) use of opiate analgesic* Code: * [...] :46 EST 2024 Body temperature 98.00 [degF] [facility] Jul 29 17:5 3:46 EST 2024 Respiratory rate 20.00 /min [facility] Jul 29 17:5 3:46 EST 2024 Systolic Blood Pressure 119.00 mm[Hg] Wed Jul 19 09:30:00 EST 2024 Diastolic Blood Pressure 68.00 mm[Hg] WedJul 19 09:30:00 EST 2024 Heart Rate 77.00 /min WedJul 19 09:30 :00 EST 2024 Respiratory rate 20.00 /min WedJul 19 09:3 0:00 EST 2024 Body temperature 98.20 [degF] [facility] Jul 19 09:3 0:00 EST 2024 Pulse Oximetry 94.00 % [facility] Jul 19 09:30 :00 EST 2024 Systolic Blood Pressure 117.00 mm[Hg] [place] Jul 16 13:45:03 EST 2024 Diastolic Blood Pressure 63.00 mm[Hg] [place] Jul 16 13:45:03 EST 2024 Body weight 234.20 [lb_av] [place] Jul 16 13:45 :03 EST 2024 Heart Rate 71.00 /min [place] Jul 16 13:45 :03 EST 2024 Body temperature 97.70 [degF] [place] Jul 16 13:4 5:03 EST 2024 Respiratory rate 18.00 /min [place] Jul 16 13:4 5:03 EST 2024 Systolic Blood Pressure 117.00 mm[Hg] [facility] Jul 15 09:10:46 EST 2024 Diastolic Blood Pressure 61.00 mm[Hg] [facility] Jul 15 09:10:46 EST 2024 Heart Rate 75.00 /min [facility] Jul 15 09:10 :46 EST 2024 Body temperature 98.40 [degF] [facility] Jul 15 09:1 0:46 EST 2024 Pulse Oximetry 92.00 % [facility] Jul 15 09:10 :46 EST 2024 Pulse [...] 8:29 EDT 2023 Body temperature 98.10 [degF] [facility] Oct 12 15:5 9:00 EDT 2023 Body [...] EDT 2023 Systolic Blood Pressure 106.00 mm[Hg] [facility] Mar 04 15:11:12 EDT 2023 Diastolic Blood Pressure 58.00 mm[Hg] [facility] Mar 04 15:11:12 EDT 2023 Body weight 245.00 [lb_av] [facility] Mar 04 15:11 :12 EDT 2023 Heart Rate 78.00 /min [facility] Mar 04 15:11 :12 EDT 2023 Body temperature 98.40 [degF] [facility] Mar 15 15:1 1:12 EDT 2023 Respiratory rate 18.00 /min [facility] Mar 15 15:1 1:12 EDT 2023 Systolic Blood Pressure 144.00 mm[Hg] [place] Feb 26 17:10:45 EDT 2023 Diastolic Blood Pressure 74.00 mm[Hg] [place] Feb 26 17:10:45 EDT 2023 Body weight 244.00 [lb_av] [place] Feb 26 17:10 :45 EDT 2023 Heart Rate 69.00 /min [place] Feb 26 17:10 :45 EDT 2023 Body temperature 97.60 [degF] [place] Feb 26 17:1 0:45 EDT 2023 Respiratory rate 20.00 /min [place] Feb 26 17:1 0:45 EDT 2023 Systolic Blood Pressure 115.00 mm[Hg] [place] Feb 12 18:27:06 EDT 2023 Diastolic Blood Pressure 66.00 mm[Hg] [place] Feb 12 18:27:06 EDT 2023 Body weight 247.00 [lb_av] [place] Feb 12 18:27 :06 EDT 2023 Heart Rate 76.00 /min [place] Feb 12 18:27 :06 EDT 2023 Body temperature 98.40 [degF] [place] Feb 12 18:2 7:06 EDT 2023 Respiratory rate 18.00 /min [place] Feb 12 18:2 7:06 EDT 2023 Systolic [...]
--- OUTSIDE RECORDS SUMMARY | 2024-11-07 09:32 | XMS_ITS | Clinical Summary ---
Author Organization [facility] Address [facility] [place] [address] Care Team Providers Care Rehabilitation Program Manager Name Role Phone Unavailable Primary Care [...] Td Vaccines ( 1 - Tdap) 1959 Pneumococcal Vaccine: 50+ Ye ars (1 of 1 - PCV) 1988 Zoster Vaccines (1 of 2) 1988 RSV Immunization or 60+ Years (1 - 1-dose 75+ series) 2013 COVID-19 Vaccine ( - 2023-2 5 season) 2024 Meningococcal B Vaccine Aged Out No l onger eligible based on patient's age to complete this topic Meningococcal Vaccine Aged Out No stan sterling eligible based on patient's age to complete this topic RSV Immunizations Under 20 Months Aged Out No longer eligible based on patient's age to complete this topic
--- NOTE | 2024-11-07 11:46 | REHSTMBS ---
Assessment and note entered by FARNAZ Clark Modified Barium Swallow Evaluation ICD-10 Condition Codes (ST) Dysphagia, unspecified R13.1 Subjective Information poor historian; confused Feeding Type Recommended Oral Food Consistency Soft and Bite Size, Level 6 Liquid Consistency Mildly Thick (2) Treatment Recommendations Effortful Swallow,Laryngeal Elevation Exercise, Tongue Base Exercise,Vocal Fold Adduction Exercise ST Clinical Summary The above patient was seen for an OP modified barium swallow evaluation. Pt was pleasant, a poor historian, and stated he has difficulty with thin liquids, water. He denied h/o pneumonia or CVA. Oral mucosa is normal; natural dentition is in good condition; informal oral peripheral exam revealed lingual and labial structures to be WFL. Before evaluation, vocal quality was noted to be wet/gurgly. The patient was seated for a lateral view and presented with 5cc of thin liquid barium via spoon , pudding consistency barium via a spoon, cracker coated with barium pudding via spoon, and mildly thick liquid in controlled and uncontrolled amounts via a cup & straw. Oral preparatory and oral phase symptoms: none/WFL. During the pharyngeal stage, reduced laryngeal elevation was exhibited as evidenced by laryngeal penetration during the swallow with thin liquids and solids; reduced laryngeal closure was exhibited as evidenced by aspiration during the swallow of thin liquids. Mild weakness of tongue base retraction was also noted as evidenced by vallecular residue across most trials, although with a dry swallow the residual was cleared. The penetrated contents of solids were cleared but the patient required a verbal instruction to clear his throat; therefore, the patient is at risk for aspiration with solids . Impression: moderate dysphagia with aspiration of thin liquids Recommendations: Speech therapy for treatment of dysphagia. Level 6 diet soft and bite-size, but downgrade to puree if further difficulties are exhibited. Level 2 mildly thick liquids. If the patient presents with a wet/gurgly vocal quality during meals, instruct him to cough and dry swallow.
== END 2024-11-07 08:56 | disposition home or self-care (01) ==
PROVIDERS: PCP Internal Medicine; Visit Provider Internal Medicine
DX: R13.10 Dysphagia, unspecified (principal)
CPT/HCPCS: 74230; 92611